=== PATIENT | female | born 1965 | race African-American/Black ===

== ENCOUNTER 2016-06-15 18:18 | Outpatient (CLI) | payer MEDICARE, BC ==
[~2016-06-15 18:18] MED LIST: AFRIN15 ML NASAL; ALLEGRA-D1 TAB.SR1 PO; ASPIRIN81 MG; ASPIRIN81 MG PO; ATROVENT 0.02%2.5 ML UPD; BAYER CHEWABLE81 MG PO; CARAFATE1 G PO; CHILDREN'S ASPI81 MG PO; COREG25 MG PO; Chloraseptic Spray [BKC] TOPICAL; DIFLUCAN100 MG PO; DUONEB 2.5-0.5 M3 ML UPD; ESTRACE 0.5 MG0.5 MG PO; FLAGYL500 MG PO; GUAIFENESI100 MG/5 M PO; HYDROCODONE-APA1 TAB PO; IPRAT-ALBUT 0.5-3 ML UPD; KEFLEX500 MG PO; LEVAQUIN250 MG PO; LEVAQUIN500 MG PO; LOPRESSOR25 MG PO; MEDROL DOSE PACK4 MG; MOTRIN800 MG PO; NEPHRO-VITE RX1 TAB PO; NORVASC10 MG PO; NYSTATIN ORAL SU5 ML PO; PERCOCET 10/3251 TA1 PO; PLAVIX75 MG PO; PREDNISONE20 MG PO; PROTONIX40 MG PO; RENAGEL800 MG PO; RENVELA800 MG PO; SARNA SENSITIV222 ML TOPICAL; SEROPHENE50 MG PO; TUMS500 MG PO; VENTOLIN HFA18 GM INH; ZOCOR20 MG PO; ZOLOFT25 MG PO; ZPAK PO
[2016-06-16 00:33] VITALS: Ht 175.3 cm
[2016-06-16 00:38] VITALS: BP 87/48
--- NOTE | 2016-06-16 00:46 | NUR ---
SLEEEPING, BLOOD IS GOING AT 100 ML. CALL LIGHT IN REACH, BED IS LOW, SRX2
--- NOTE | 2016-06-16 03:53 | NUR ---
DATA COMPILER AT BEDSIDE TO OBTAIN VITALS, CALL LIGHT IN REACH. WILL CONTINUE WITH PLAN OF CARE.
[2016-06-16 04:40] VITALS: BP 183/103
--- NOTE | 2016-06-16 05:05 | NUR ---
BLOOD INFUSING @ 100, PT SLEEPING, CALL LIGHT IN REACH
--- NOTE | 2016-06-16 07:45 | NUR ---
SPOKE WITH TATIANNA @ [facility] VIA PHONE WHO ADVISED PATIENT CAN COME OVER TO [facility] NOW FOR DIALYSIS. ADVISED PT OF THIS WHO STATED SHE WILL CALL SOMEONE TO PICK HER UP AND TAKE HER
--- NOTE | 2016-06-16 07:45 | NUR ---
PATIENT BLOOD COMPLETE, PATIENT IV DC WITH CATH TIP INTACT. PATIENT WAITING ON DC PAPERS. CPOC
[2016-06-16 07:50] VITALS: BP 159/97
== END 2016-06-16 08:00 | disposition home or self-care (01) ==
LOC: D.OPS 18:18 → D.M2 18:19 → D.OPS 06-16 08:00
DX: D64.9 Anemia, unspecified (principal)

== ENCOUNTER 2016-06-19 21:39 | Inpatient (IN) | payer MEDICARE, BC ==
[~2016-06-19] VITALS: Ht 175.3 cm; Wt 59.8 kg
[2016-06-19 22:25] LABS: BASOPHILS 0.1 % (0.0-2.0); EOSINOPHILS 1.4 % (0-7); HEMATOCRIT 31.7 % (36.0-48.0); HEMOGLOBIN 9.6 g/dL (12-16); IMMATURE GRANULOCYTES 0.4 % (0-5); MCH 26.2 pg (26.0-34.0); MCHC 30.3 g/dL (31.0-37.0); MCV 86.4 fL (80.0-100.0); MEAN PLATELET VOLUME 9.5 fL (7.4-10.4); NEUTROPHILS 83.1 % (40-80); PLATELET COUNT 358 10x3/uL (130-400); RBC 3.67 10x6/uL (4.00-5.40); RDW 18.5 % (11.5-14.5); WBC 16.8 10x3/uL (4.8-10.8)
[2016-06-19 22:37] LABS: ALBUMIN 2.4 g/dL (3.4-5.0); ALKALINE PHOSPHATASE 416 U/L (46-116); ALT (SGPT) 13 U/L (10-68); CALC OSMOLALITY 285 mosm/kg (275-300); CALCIUM 8.1 mg/dL (8.5-10.1); CARBON DIOXIDE 24.3 mmol/L (21.0-32.0); CHLORIDE - SERUM 98 mmol/L (98-107); CREATININE - SERUM 5.1 mg/dL (0.6-1.3); POTASSIUM - SERUM 4.7 mmol/L (3.5-5.1); PROTEIN - SERUM 8.3 g/dL (6.4-8.2); SODIUM 136 mmol/L (136-145); UREA NITROGEN 47 mg/dL (7-18); eGFR NON AFRICAN AMERICAN 9 mL/min (90-120)
[2016-06-19 22:38] LABS: GLUCOSE 133 mg/dL (74-106)
[2016-06-19 22:52] LABS: CHOL - HDL RATIO 3.3 ratio (2.3-4.1); CHOLESTEROL, TOTAL 111 mg/dL (0-200); CKMB 1.2 U/L (0.0-3.6); CREATINE KINASE 70 UL (21-215); HDL CHOLESTEROL 34 mg/dL (32-96); LDL CHOLESTEROL 59 mg/dL (0-100); LDL-HDL RATIO 1.7 ratio (1.5-3.5); TRIGLYCERIDE 94 mg/dL (30-200)
[2016-06-19 22:53] LABS: TROPONIN-I 0.069 ng/mL (0.000-0.060)
--- NOTE | 2016-06-20 02:22 | NUR ---
REPORT RECEIVED FROM YESICA HADDAD.
[2016-06-20] MEDS ORDERED: TYLENOL W/CODEI1 TAB PO (03:01)
--- NOTE | 2016-06-20 07:30 | NUR ---
ASSESSMENT COMPLETED.TELEMERTY SHOWS SR WITH BBB. 02 AT 2 L/M PER NC. LEFT FOREARM SL. AVF TO RIGHT UPPER ARM. NO NEEDS VOICED AT PRESENT TIME. WILL MONITOR
[2016-06-20 08:00] VITALS: BP 154/103
--- NOTE | 2016-06-20 08:58 | NUR ---
C/O PAIN AT A 10. NORCO 5MG GIVEN FOR C/O BACK PAIN. WILL MONITOR
[2016-06-20 11:07] VITALS: Ht 175.3 cm; Wt 59.8 kg
[2016-06-20 12:00] VITALS: BP 145/93
--- NOTE | 2016-06-20 13:29 | NUR ---
RESTING QUIETLY. MONITOR SHOWS RATE @ 100 SR WITH BBB. WILL CONTINUE TO MONITOR.
--- NOTE | 2016-06-20 18:13 | NUR ---
STILL IN DIALYIS.
--- NOTE | 2016-06-20 20:18 | NUR ---
RETURNED TO ROOM FROM DIALYSIS VIA WHEELCHAIR, AAOX3, SKIN WARM AND DRY, RESP UNLABORED, IV PATENT TO LEFT FOREARM, O2@2LNC, NO DISTRESS NOTED
[2016-06-21] VITALS: BP 114/79
[2016-06-21 04:00] VITALS: BP 115/79
--- NOTE | 2016-06-21 04:52 | NUR ---
PT LAYING IN BED NO DISTRESS OBSERVED CALL LIGHT IN REACH SRX2 BED LOW AND LOCKED WILL MONITOR
--- NOTE | 2016-06-21 04:59 | NUR ---
RESTING QUIETLY IN BED, NO DISTRESS NOTED
[2016-06-21 05:57] LABS: BASOPHILS 0.1 % (0.0-2.0); EOSINOPHILS 0 % (0-7); HEMATOCRIT 30.5 % (36.0-48.0); HEMOGLOBIN 9.5 g/dL (12-16); IMMATURE GRANULOCYTES 0.3 % (0-5); LYMPHOCYTES 9.9 % (15-50); MCH 26.8 pg (26.0-34.0); MCHC 31.1 g/dL (31.0-37.0); MCV 85.9 fL (80.0-100.0); MEAN PLATELET VOLUME 10.5 fL (7.4-10.4); MONOCYTES 7.7 % (2-11); PLATELET COUNT 380 10x3/uL (130-400); RBC 3.55 10x6/uL (4.00-5.40); RDW 18.5 % (11.5-14.5); WBC 14.1 10x3/uL (4.8-10.8)
[2016-06-21 06:51] LABS: ALBUMIN 2.7 g/dL (3.4-5.0); ALKALINE PHOSPHATASE 409 U/L (46-116); ALT (SGPT) 14 U/L (10-68); BILIRUBIN - TOTAL 0.62 mg/dL (0.2-1.3); CALC OSMOLALITY 289 mosm/kg (275-300); CALCIUM 8.9 mg/dL (8.5-10.1); CARBON DIOXIDE 29.2 mmol/L (21.0-32.0); CHLORIDE - SERUM 96 mmol/L (98-107); CKMB 1.3 U/L (0.0-3.6); CREATINE KINASE 83 UL (21-215); CREATININE - SERUM 4.5 mg/dL (0.6-1.3); GLUCOSE 119 mg/dL (74-106); POTASSIUM - SERUM 4.6 mmol/L (3.5-5.1); PROTEIN - SERUM 8.2 g/dL (6.4-8.2); SODIUM 139 mmol/L (136-145); UREA NITROGEN 42 mg/dL (7-18); eGFR NON AFRICAN AMERICAN 11 mL/min (90-120)
[2016-06-21 06:53] LABS: TROPONIN-I 0.178 ng/mL (0.000-0.060)
--- NOTE | 2016-06-21 07:22 | NUR ---
ASSESSMENT COMPLETED. TELEMERTY SHOWS SR WITH BBB WITH A RATE OF98. LEFT FA SL, PATENT. RIGHT ARM RESERVED, HAS A RIGHT AVF..02 AT 2 L/M PER NC. HAS A NON PRODUCTIVE COUGH. SR UP WITH CALL LIGHT IN REACH. UP AB EVAN
[2016-06-21 07:27] VITALS: BP 141/94
[2016-06-21 11:36] VITALS: BP 133/88
--- NOTE | 2016-06-21 14:53 | NUR ---
LYING QUIETLY WITH EYES CLOSED. NO DISTRESS NOTED. TELEMERTY SHOWS SR
[2016-06-21 15:44] VITALS: BP 127/84
--- NOTE | 2016-06-21 15:50 | NUR ---
RESTING QUIETLY. WITHOUT DISTRESS. WILL CONTINUE TO MONITOR
--- NOTE | 2016-06-21 18:42 | NUR ---
LYING QUIETLY. DENIES ANY NEEDS. WILL MONITOR
--- NOTE | 2016-06-21 19:03 | NUR ---
AMBULATING IN HALLWAYS, AAOX3, SKIN WARM AND DRY, RESP UNLABORED, IV PATENT TO LEFT FOREARM, O2@2LNC, NO DISTRESS NOTED
[2016-06-21 19:46] VITALS: BP 141/94
--- NOTE | 2016-06-22 00:39 | NUR ---
PT AMBULATORY IN HALLS WITH NO DISTRESS OBSERVED NO ASSISTANCE NEEDED FOR AMBULATION CALL LIGHT IN REACH SRX2 BED LOW AND LOCKED WILL MONITOR
[2016-06-22 01:10] VITALS: BP 144/74
[2016-06-22 04:00] VITALS: BP 140/94
[2016-06-22 06:39] LABS: BASOPHILS 0.1 % (0.0-2.0); EOSINOPHILS 0 % (0-7); HEMATOCRIT 31.5 % (36.0-48.0); HEMOGLOBIN 9.8 g/dL (12-16); IMMATURE GRANULOCYTES 0.7 % (0-5); LYMPHOCYTES 7.9 % (15-50); MCH 26.5 pg (26.0-34.0); MCHC 31.1 g/dL (31.0-37.0); MCV 85.1 fL (80.0-100.0); MEAN PLATELET VOLUME 10.2 fL (7.4-10.4); MONOCYTES 8.3 % (2-11); PLATELET COUNT 358 10x3/uL (130-400); RDW 18.4 % (11.5-14.5); WBC 14.5 10x3/uL (4.8-10.8)
[2016-06-22 06:51] LABS: ANION GAP 17.2 mmol/L (8-16); CALCIUM 8.5 mg/dL (8.5-10.1); POTASSIUM - SERUM 4.2 mmol/L (3.5-5.1)
[2016-06-22 06:54] LABS: CREATININE - SERUM 5.9 mg/dL (0.6-1.3)
[2016-06-22 07:37] VITALS: BP 156/107
--- NOTE | 2016-06-22 08:00 | NUR ---
ASSESSMENT DONE. DENIES NEEDS.
--- NOTE | 2016-06-22 09:24 | NUR ---
UP TO BR. GONZALEZ NEEDS. WILL MONITOR.
--- NOTE | 2016-06-22 10:09 | NUR ---
Patient Name: FELY SQUIRES Admission Status: ER Accout number: [id number] Admission Date: 06-20-2016 : 1965 Admission Diagnosis: Attending: NOAM Current LOS: 2 Anticipated DC Date: Planned Disposition: Primary Insurance: MEDICARE A & B Discharge Planning Comments: CM ATTEMPTED TO MEET WITH PT FOR INITIAL ASSESSMENT OF DISCHARGE NEEDS. PT WAS IN THE BATHROOM AT APPROXIMATELY 0916 HOURS. CM TO ATTEMPT ASSESSMENT OF PT AT A LATER TIME. Manufacturing Engineer Machining: Costa Cordova
--- NOTE | 2016-06-22 15:10 | NUR ---
PT C/O NOSE BLEED. PRESSURE HELD X 20 MIN. CLOTS NOTED.
[2016-06-22 15:35] VITALS: BP 124/80
--- NOTE | 2016-06-22 15:50 | NUR ---
DIOGENES.PRASANNA NOTIFYED. TOLD TO PACK NOSE IF CONT TO BLEED.
--- NOTE | 2016-06-22 16:10 | NUR ---
PT BLOWED CLOTS OUT OF NOSE. PRESSURE HELD X 20 MIN.
--- NOTE | 2016-06-22 16:50 | NUR ---
DR LYNN HERE. AND TALKED TO DR LIN. TOLD HOW TO TX NOSE BLEED.
--- NOTE | 2016-06-22 18:00 | NUR ---
BUPERNEX GIVEN PER DR LYNN ORDER
--- NOTE | 2016-06-22 18:40 | NUR ---
NOSE BLEEDING AGAIN. TX AGAIN.
[2016-06-22 21:18] VITALS: BP 140/97
--- NOTE | 2016-06-22 23:37 | NUR ---
PT NOSE BLEEDING AT THIS TIME FLUSHED WITH AFRIN AND LINNETTE العلي FROM ER CAME TO FLOOR AND PLACED RHINO ROCKET TO BILATERAL NARES TO APPLY PRESSURE AND STOP BLOOD FLOW PT TOLERATED WELL WILL MONITOR CALL LIGHT IN REACH SRX2 BED LOW AND LOCKED WILL MONITOR
[2016-06-23 01:32] VITALS: BP 125/86
--- NOTE | 2016-06-23 03:11 | NUR ---
PT C/O NOSE BLEEDING ASSESSED NOSE AND THINO ROCKET IN PLACE ICE BAG PROVIDED TO ASSIST IN DECREASING BLEEDING AND WENT AND SPOKE WITH DR CHEN IN ER TO CHANGE OUT RHINO ROCKETS AND DR CHEN STATED ' NO I AM NOT GOING TO DO THAT YOU NEED TO CALL DR LIN TO COME IN AND FIX IT" REVIEWED CHART AND DR LIN NOT CONSULTED RENAL YESIKA LONG AND DORIS FOR CALL BACK TO RECIVE ORDERS
[2016-06-23 04:57] VITALS: BP 131/103
[2016-06-23 06:07] LABS: BASOPHILS 0.1 % (0.0-2.0); EOSINOPHILS 1.7 % (0-7); HEMATOCRIT 30.4 % (36.0-48.0); HEMOGLOBIN 9.3 g/dL (12-16); IMMATURE GRANULOCYTES 0.6 % (0-5); LYMPHOCYTES 13.6 % (15-50); MCH 26.3 pg (26.0-34.0); MCHC 30.6 g/dL (31.0-37.0); MCV 86.1 fL (80.0-100.0); MEAN PLATELET VOLUME 9.7 fL (7.4-10.4); MONOCYTES 7.6 % (2-11); NEUTROPHILS 76.4 % (40-80); PLATELET COUNT 334 10x3/uL (130-400); RBC 3.53 10x6/uL (4.00-5.40); RDW 18.5 % (11.5-14.5); WBC 13.5 10x3/uL (4.8-10.8)
--- NOTE | 2016-06-23 06:17 | NUR ---
PT SITTING UP ON BEDSIDE WITH HEAD ON BEDSIDE TABLE AND PT APPERS TO BE SLEEPING AT THIS TIME WILL MONITOR NO CALL BACK FROM RENALS LAST NIGHT REGARDING NOSE BLEED
[2016-06-23 06:20] LABS: ANION GAP 14.6 mmol/L (8-16); CALCIUM 8.9 mg/dL (8.5-10.1); CARBON DIOXIDE 30.2 mmol/L (21.0-32.0); CREATININE - SERUM 4.7 mg/dL (0.6-1.3); POTASSIUM - SERUM 4.8 mmol/L (3.5-5.1)
--- NOTE | 2016-06-23 07:15 | NUR ---
PT UP IN THE BARON SCREAMING AT NURSES ABOUT NOSE BLEED. SAYS HER "PLUGS FELL OUT". DR WYNN HERE AND CONSULTING DR LIN. PT WAS NOTIFIED BY MYSELF AND DR WYNN.
[2016-06-23 12:25] VITALS: BP 139/92
--- NOTE | 2016-06-23 14:23 | NUR ---
ER CAME AND GOT ENT CART AND TOOK IT BACK TO ER.
--- NOTE | 2016-06-23 15:52 | NUR ---
PT NOSE WAS BLEEDING THIS AM, BUT HAS SINCE STOPPED. DR LIN CAME TO SEE PT EARLIER AND RECOMMENDED NO O2 LONG SHE COULD TOLERATE IT. KEEP VASELINE IN HER NOSE. PT IS DOING THIS. PT HAS NO CURRENT NEEDS AT THIS TIME WILL CONTINUE TO MONITOR.
[2016-06-23 16:28] VITALS: BP 122/89
--- NOTE | 2016-06-23 17:56 | NUR ---
Patient Name: FELY SQUIRES Admission Status: ER Accout number: [id number] Admission Date: 06-20-2016 : 1965 Admission Diagnosis:HEART FAILURE, UNSPECIFIED Attending: NOAM Current LOS: 3 Anticipated DC Date: 06-24-2016 Planned Disposition: Home Primary Insurance: MEDICARE A & B Discharge Planning Comments: * Is the patient Alert and Oriented? Yes 0 * How many steps to enter\exit or inside your home? 3 0 * PCP DR. WYNN 0 * Pharmacy [facility] * Preadmission Environment Home Alone 0 * ADLs Independent 0 * Equipment Nebulizer 0 * Other Equipment NO MEDICAL EQUIPMENT PROVIDER PREFERENCE 0 * List name and contact numbers for known caregivers / representatives who currently or will assist patient after discharge: IVANA MCDOWELL, SISTER, 0 * Community resources currently utilized None 0 * Please name any agencies selected above. NONE 0 * Additional services required to return to the preadmission environment? No 0 * Can the patient safely return to the preadmission environment? Yes 0 * Has this patient been hospitalized within the prior 30 days at any hospital? Yes 0 CM MET WITH PT IN ROOM TO DISCUSS DISCHARGE PLANNING AND NEEDS. PT REPORTS LIVING AT HOME INDEPENDENTLY AND ALONE. PT HAS A NEBULIZER AND NEEDS NO OTHER MEDICAL EQUIPMENT. PT HAS NO OUTSIDE SERVICES ASSISTING IN THE HOME. CM DISCUSSED AVAILABILITY OF HOME HEALTH, REHAB SERVICES AND MEDICAL EQUIPMENT. PT DENIES DISCHARGE NEEDS, REPORTS HER FRIEND WILL PICK HER UP FOR DISCHARGE HOME. IMPORTANT MESSAGE FROM MEDICARE PROVIDED AND EXPLAINED. Asphalt Dauber: Costa Cordova
--- NOTE | 2016-06-23 20:45 | NUR ---
SITTING UP IN BED, TALKING ON PHONE, DENIES NEEDS.
[2016-06-24] VITALS: BP 138/97
--- NOTE | 2016-06-24 03:26 | NUR ---
RESTING WITH EYES CLOSED, RESPERATIONS EVEN, NO S/S DISTRESS NOTED.
[2016-06-24 04:00] VITALS: BP 155/103
--- NOTE | 2016-06-24 05:01 | NUR ---
CALL LIGHT IN REACH, WILL CONTINUE WITH PLAN OF CARE.
[2016-06-24 05:49] LABS: BASOPHILS 0.2 % (0.0-2.0); EOSINOPHILS 3.4 % (0-7); HEMATOCRIT 27.4 % (36.0-48.0); HEMOGLOBIN 8.6 g/dL (12-16); IMMATURE GRANULOCYTES 0.9 % (0-5); LYMPHOCYTES 13.6 % (15-50); MCH 26.6 pg (26.0-34.0); MCHC 31.4 g/dL (31.0-37.0); MCV 84.8 fL (80.0-100.0); MEAN PLATELET VOLUME 10.2 fL (7.4-10.4); NEUTROPHILS 73.9 % (40-80); PLATELET COUNT 308 10x3/uL (130-400); RBC 3.23 10x6/uL (4.00-5.40); RDW 18.4 % (11.5-14.5); WBC 14.6 10x3/uL (4.8-10.8)
[2016-06-24 06:04] LABS: ANION GAP 17.7 mmol/L (8-16); CALCIUM 9.1 mg/dL (8.5-10.1); CARBON DIOXIDE 26.2 mmol/L (21.0-32.0); CREATININE - SERUM 6.2 mg/dL (0.6-1.3); POTASSIUM - SERUM 4.9 mmol/L (3.5-5.1)
--- NOTE | 2016-06-24 07:15 | NUR ---
PT SITTING UP IN BED DENIES NEEDS WILL CONTINUE TO MONITOR.
[2016-06-24 08:00] VITALS: BP 160/82
--- NOTE | 2016-06-24 09:35 | NUR ---
SPOKE WITH BALBINA/PRASANNA WITH RENAL VIA PHONE TO ADVISE THAT PATIENT IS REFUSING TO DO DIALYSIS TODAY AT [facility] STATING HER DIALYSIS DAYS ARE T-T-S. PER BALBINA, OK TO DC TO HOME.
--- NOTE | 2016-06-24 09:52 | NUR ---
WENT OVER DC PAPER WORK WITH PT PT VERBALIZES UNDERSTANDING DC PIV WITH CATHETER TIP INTACT DC TELE. PT WAITING ON RIDE
== END 2016-06-24 11:27 | disposition home or self-care (01) | DRG 291 ==
LOC: D.ER 21:39 → D.M2 06-20 01:55
PROVIDERS: Emergency Medicine; Internal Medicine Nephrology; ADMIT Internal Medicine Nephrology
DX: I13.2 Hypertensive heart and chronic kidney disease with heart failure and with stage 5 chronic kidney disease, or end stage renal disease (principal); N18.6 End stage renal disease; J18.9 Pneumonia, unspecified organism; I50.9 Heart failure, unspecified; D63.1 Anemia in chronic kidney disease

== ENCOUNTER 2016-06-25 02:13 | Emergency (ER) | payer MEDICARE, BC ==
[2016-06-20 11:07] VITALS: BMI 21.4
[~2016-06-25 02:13] MED LIST changes: +TYLENOL W/CODEI1 TAB PO
== END 2016-06-25 03:18 | disposition home or self-care (01) ==
LOC: D.ER 02:13
DX: R06.00 Dyspnea, unspecified (principal); I42.9 Cardiomyopathy, unspecified; N18.9 Chronic kidney disease, unspecified; Z99.2 Dependence on renal dialysis; Z95.1 Presence of aortocoronary bypass graft; I45.10 Unspecified right bundle-branch block; I44.60 Unspecified fascicular block

== ENCOUNTER 2016-07-03 17:46 | Emergency (ER) | payer MEDICARE, BC ==
[2016-06-20 11:07] VITALS: BMI 21.4
[2016-07-03 18:46] LABS: BASOPHILS 0.3 % (0.0-2.0); EOSINOPHILS 1.4 % (0-7); HEMATOCRIT 29.9 % (36.0-48.0); IMMATURE GRANULOCYTES 0.4 % (0-5); LYMPHOCYTES 9.1 % (15-50); MCH 26.8 pg (26.0-34.0); MCHC 30.1 g/dL (31.0-37.0); MEAN PLATELET VOLUME 9.7 fL (7.4-10.4); NEUTROPHILS 81.8 % (40-80); PLATELET COUNT 312 10x3/uL (130-400); RBC 3.36 10x6/uL (4.00-5.40); RDW 20.6 % (11.5-14.5); WBC 14.6 10x3/uL (4.8-10.8)
[2016-07-03 19:20] LABS: ALBUMIN 2.6 g/dL (3.4-5.0); ALKALINE PHOSPHATASE 421 U/L (46-116); ALT (SGPT) 19 U/L (10-68); BILIRUBIN - TOTAL 0.61 mg/dL (0.2-1.3); CALC OSMOLALITY 285 mosm/kg (275-300); CALCIUM 7.5 mg/dL (8.5-10.1); CARBON DIOXIDE 23.8 mmol/L (21.0-32.0); CHLORIDE - SERUM 99 mmol/L (98-107); CREATININE - SERUM 5.2 mg/dL (0.6-1.3); GLUCOSE 99 mg/dL (74-106); POTASSIUM - SERUM 4.4 mmol/L (3.5-5.1); PROTEIN - SERUM 7.7 g/dL (6.4-8.2); SODIUM 138 mmol/L (136-145); UREA NITROGEN 41 mg/dL (7-18); eGFR NON AFRICAN AMERICAN 9 mL/min (90-120)
[2016-07-03 19:30] LABS: CHOLESTEROL, TOTAL 127 mg/dL (0-200); CKMB 1.6 U/L (0.0-3.6); CREATINE KINASE 82 UL (21-215); HDL CHOLESTEROL 32 mg/dL (32-96); LDL CHOLESTEROL 80 mg/dL (0-100); LDL-HDL RATIO 2.5 ratio (1.5-3.5); TRIGLYCERIDE 76 mg/dL (30-200); TROPONIN-I 0.044 ng/mL (0.000-0.060)
== END 2016-07-03 22:20 | disposition home or self-care (01) ==
LOC: D.ER 17:46
PROVIDERS: Emergency Medicine
DX: N18.6 End stage renal disease (principal); J44.9 Chronic obstructive pulmonary disease, unspecified; I42.9 Cardiomyopathy, unspecified; Z99.2 Dependence on renal dialysis; I45.10 Unspecified right bundle-branch block

== ENCOUNTER 2016-07-18 19:23 | Inpatient (IN) | payer MEDICARE, BC ==
[~2016-07-18] VITALS: Ht 175.3 cm; Wt 64.1 kg
[2016-07-18 20:22] LABS: BASOPHILS 0.2 % (0.0-2.0); EOSINOPHILS 1.3 % (0-7); HEMATOCRIT 32.4 % (36.0-48.0); HEMOGLOBIN 9.3 g/dL (12-16); IMMATURE GRANULOCYTES 0.3 % (0-5); LYMPHOCYTES 10.4 % (15-50); MCHC 28.7 g/dL (31.0-37.0); MCV 94.2 fL (80.0-100.0); MEAN PLATELET VOLUME 9.9 fL (7.4-10.4); NEUTROPHILS 78.8 % (40-80); PLATELET COUNT 178 10x3/uL (130-400); RBC 3.44 10x6/uL (4.00-5.40); WBC 8.8 10x3/uL (4.8-10.8)
[2016-07-18 20:52] LABS: ALKALINE PHOSPHATASE 404 U/L (46-116); ALT (SGPT) 14 U/L (10-68); CALC OSMOLALITY 283 mosm/kg (275-300); CALCIUM 8.4 mg/dL (8.5-10.1); CARBON DIOXIDE 25.3 mmol/L (21.0-32.0); CHLORIDE - SERUM 97 mmol/L (98-107); CREATININE - SERUM 6.4 mg/dL (0.6-1.3); GLUCOSE 86 mg/dL (74-106); POTASSIUM - SERUM 4.2 mmol/L (3.5-5.1); PROTEIN - SERUM 8.8 g/dL (6.4-8.2); SODIUM 136 mmol/L (136-145); UREA NITROGEN 48 mg/dL (7-18); eGFR NON AFRICAN AMERICAN 7 mL/min (90-120)
[2016-07-18 21:03] LABS: CHOL - HDL RATIO 3.7 ratio (2.3-4.1); CHOLESTEROL, TOTAL 145 mg/dL (0-200); CKMB 2.1 U/L (0.0-3.6); CREATINE KINASE 129 UL (21-215); HDL CHOLESTEROL 39 mg/dL (32-96); LDL CHOLESTEROL 91 mg/dL (0-100); LDL-HDL RATIO 2.3 ratio (1.5-3.5); TRIGLYCERIDE 76 mg/dL (30-200); TROPONIN-I 0.047 ng/mL (0.000-0.060)
--- NOTE | 2016-07-19 00:54 | NUR ---
RECEIVED TO ROOM 2127 VIA W/C ALERT AND ORIENTED X3 51 Y/O FEMALE UNDER DR WYNN'S CARE FOR CHRONIC RENAL FAILURE AND EXCERBATION OF CHF. NOT WEAR ING ANY O2 @ THIS TIME, RESP UNLAB, DEMANDING SOMETHING TO EAT AND DRINK. TELEMETRY PLACED SHOWING HR SR WITH A BBB. HT IS 5'9" STANDING WEIGHT IS 139 POUNDS. RT ARM FISTULA WITH + BRUIT AND THRILL NOTED. LEFT ARM SL INTACT WITH NO R/S NOTED AT SITE.C/O HAVING HAD RT KNEE PAIN AND SWELLING UPON WAKING MONDAY AM. WELL HEALED CHEST MIDLINE SCAR NOTED. HOB UP SR UP X2, C/L IN REACH. PREFERS O2 MASK OVER NC WHEN WEARING O2. CONTINUE TO MONITOR.
[2016-07-19 03:29] VITALS: BMI 20.5
[2016-07-19 04:19] VITALS: BP 120/79
--- NOTE | 2016-07-19 07:47 | NUR ---
PATIENT LAYING ON RIGHT SIDE ON ROOM AIR WHEN ROUNDS ARE MADE. ON HEART MONITOR SHOWING SR W BBB, HR 88. SALINE LOCK SEEN TO LEFT FA. RT AVF, WILL CHECK BRUIT AND THRILL WHEN PATIENT AWAKE. WILL MONITOR .
[2016-07-19 08:06] VITALS: BP 158/86
--- NOTE | 2016-07-19 09:01 | NUR ---
PATIENT COMPLAINTS OF RIGHT LEG AND ABDOMINAL PAIN, 01/19. BILATERAL LEGS ARE EQUAL IN SIZE. INSTRUCTED PATIENT TO PUT LEGS UP TO HELP WITH DISCOMFORT, STATES THAT SHE WILL IN A BIT. + BRUIT AND THRILL TO LEFT FA. STATES THAT SHE WILL PUT HER OXYGEN ON LATER. WILL CONTINUE TO MONITOR.
[2016-07-19 10:44] VITALS: Ht 175.3 cm; Wt 64.1 kg
--- NOTE | 2016-07-19 11:39 | NUR ---
Patient Name: FELY SQUIRES Admission Status: ER Accout number: [id number] Admission Date: 07-18-2016 : 1965 Admission Diagnosis: Attending: ZULEYKA Current LOS: 1 Anticipated DC Date: Planned Disposition: Home with Home Health Primary Insurance: MEDICARE A & B Discharge Planning Comments: * Is the patient Alert and Oriented? Yes 0 * How many steps to enter\exit or inside your home? 3 0 * PCP DR. WYNN 0 * Pharmacy [facility] 0 * Preadmission Environment Home Alone 0 * ADLs Independent 0 * Equipment Nebulizer 0 * Other Equipment NO MEDICAL EQUIPMENT PROVIDER PREFERENCE 0 * List name and contact numbers for known caregivers / representatives who currently or will assist patient after discharge: IVANA MCDOWELL, SISTER, 0 * Community resources currently utilized Other 0 * Please name any agencies selected above. OUTPATIENT DIALYSIS, [facility] , 0645 AM, PT DRIVES SELF 0 * Additional services required to return to the preadmission environment? No 0 * Can the patient safely return to the preadmission environment? Yes 0 * Has this patient been hospitalized within the prior 30 days at any hospital? Yes 0 CM MET WITH PT IN ROOM TO DISCUSS DISCHARGE PLANNING AND NEEDS. PT REPORTS LIVING AT HOME INDEPENDENTLY AND ALONE. PT HAS A NEBULIZER AND NO MEDICAL EQUIPMENT PROVIDER PREFERENCE. PT HAS NO OUTSIDE SERVICES ASSISTING IN THE HOME. PT GOES TO OUTPATIENT DIALYSIS ON SCHEDULE AT 0640 AM, PT DRIVES SELF TO AND FROM DIALYSIS. CHOICE SIGNED FOR [facility] AT HOME. CM DISCUSSED AVAILABILITY OF HOME HEALTH, REHAB SERVICES AND MEDICAL EQUIPMENT. PT WOULD LIKE HOME HEALTH AT DISCHARGE TO FOLLOW FOR CHF SYMPTOMS, REPORTS HER BOYFRIEND WILL PICK HER UP FOR DISCHARGE HOME. PT PLANS TO DISCHARGE HOME ALONE, WOULD LIKE HOME HEALTH FOLLOW UP FOR CHF SYMPTOMS. CM TO ARRANGE HOME HEALTH WITH [facility] AT HOME IF DOCTOR AGREES WITH THE NEED OF HOME HEALTH AND PROVIDES ORDERS. Marble Installer: Costa Cordova
[2016-07-19 12:01] VITALS: BP 154/81
--- NOTE | 2016-07-19 13:18 | NUR ---
PATIENT IS UP AD EVAN, WILL NOT WEAR THE SCD'S.
[2016-07-19] MEDS ORDERED: LIPITOR40 MG PO (14:00)
[2016-07-19] MEDS ORDERED: SENSIPAR30 MG PO (14:00)
[2016-07-19] MEDS ORDERED: AMBIEN5 MG PO (14:00)
[2016-07-19] MEDS ORDERED: OMEPRAZOLE20 M1 PO (14:01)
[2016-07-19] MEDS ORDERED: COUMADIN1 MG PO (14:02)
[2016-07-19] MEDS ORDERED: ZOLOFT25 MG PO (14:02)
[2016-07-19] MEDS ORDERED: MIDODRINE HCL10 MG PO (14:03)
--- NOTE | 2016-07-19 15:23 | NUR ---
PATIENT TO JUST FINISH DIALYSIS IN THE ROOM. WANTING TO TAKE A SHOWER AND WALK DOWN TO THE GIFT SHOP. I TOLD HER TO PLEASE WAIT A BIT SHE JUST FINISHED DIALYSIS. SHE REPORTS, "DIALYSIS MAKES ME STRONG". AGAIN, I ASKED THAT SHE PLEASE WAIT AND WE WILL TAKE HER DOWNSTAIRS TO GIFT SHOP IN A WHEELCHAIR AFTER VITAL SIGNS.
--- NOTE | 2016-07-19 15:45 | NUR ---
I TOOK THE PATIENT DOWN TO THE GIFT SHOP VIA WHEELCHAIR SO SHE CAN SHOP. ASSISTED BACK TO ROOM
[2016-07-19 16:14] VITALS: BP 123/84
--- NOTE | 2016-07-19 17:26 | NUR ---
PATIENT IS WANTING TO GET INTO SHOWER. IV SITE AND FISTULA ARE WRAPPED. WILL CONTINUE TO MONITOR.
[2016-07-19 20:09] VITALS: BP 107/64
--- NOTE | 2016-07-19 20:44 | NUR ---
HS MEDS GIVEN, NORCO 1 TAB GIVEN FOR C/O PAIN TO KNEE. NO OTHER NEEDS EXPRESSED AT THIS TIME, BED LOW, CL IN REACH.
--- NOTE | 2016-07-19 21:25 | NUR ---
RT AT BED SIDE, CHANGING SOFT MASK TO NASAL CANULA FOR PT COMFORT, WILL CONT TO MONITOR.
[2016-07-20 01:22] VITALS: BP 99/64
--- NOTE | 2016-07-20 03:02 | NUR ---
RESTING WITH EYES CLOSED, RESPERATIONS EVEN, NO S/S DISTRESS NOTED.
[2016-07-20 06:14] LABS: BASOPHILS 0.4 % (0.0-2.0); EOSINOPHILS 2.9 % (0-7); HEMATOCRIT 29.4 % (36.0-48.0); HEMOGLOBIN 8.7 g/dL (12-16); IMMATURE GRANULOCYTES 0.6 % (0-5); LYMPHOCYTES 12.9 % (15-50); MCH 26.5 pg (26.0-34.0); MCHC 29.6 g/dL (31.0-37.0); MCV 89.6 fL (80.0-100.0); MONOCYTES 13.6 % (2-11); NEUTROPHILS 69.6 % (40-80); PLATELET COUNT 277 10x3/uL (130-400); RBC 3.28 10x6/uL (4.00-5.40); RDW 20.2 % (11.5-14.5); WBC 8.2 10x3/uL (4.8-10.8)
[2016-07-20 06:20] LABS: INR 1.22 (0.85-1.17); PROTIME 15.3 SECONDS (11.6-15.0)
[2016-07-20 06:27] VITALS: BP 138/87
[2016-07-20 06:32] LABS: ANION GAP 16.7 mmol/L (8-16); CALCIUM 9.1 mg/dL (8.5-10.1); CARBON DIOXIDE 26.7 mmol/L (21.0-32.0); CREATININE - SERUM 5.9 mg/dL (0.6-1.3); PHOSPHOROUS 5.5 mg/dL (2.5-4.9); POTASSIUM - SERUM 4.4 mmol/L (3.5-5.1)
--- NOTE | 2016-07-20 07:30 | NUR ---
ASSESSMENT DONE. PT SITTING UP ON SIDE OF BED. A/O X3. C/O GENERALIZED PAIN AND PAIN IN RIGHT LEG. PT WANTS NURSE TO TURN O2 UP TO 4LITERS. PT O2 SAT IS 96% ON 3L VIA NC. NURSE EXPLAINED RISK OF INCREASING O2 TO 4LITERS. CALL LIGHT WITH IN REACH. WILL CONT. TO MONITOR.
[2016-07-20 08:00] VITALS: BP 111/62
--- NOTE | 2016-07-20 08:25 | NUR ---
UP SOB EATING BRK. NO NEEDS VOICED. CALL LIGHT IN REACH. WILL MONITOR.
--- NOTE | 2016-07-20 09:44 | NUR ---
DIALYSIS NURSE IN ROOM WITH PT. PT RECEIVING DIALYSIS.
[2016-07-20 11:42] VITALS: BP 124/84
--- NOTE | 2016-07-20 14:00 | NUR ---
PT UP AND AMBULATING IN BARON. GAIT STEADY. WILL CONT. TO MONITOR.
[2016-07-20 16:00] VITALS: BP 114/72
[2016-07-20 20:02] VITALS: BP 124/78
--- NOTE | 2016-07-20 20:27 | NUR ---
HS MEDS GIVEN, NORCO 1 TAB GIVEN FOR C/O PAIN TO KNEE, SCDS PLACED ON LOWER EXTREMITES. NO OTHER NEEDS AT THIS TIME, BED LOW, CL IN REACH.
--- NOTE | 2016-07-21 01:04 | NUR ---
RESTING WITH EYES CLOSED, RESPERATIONS EVEN, NO S/S DISTRESS NOTED.
[2016-07-21 01:11] VITALS: BP 125/70
[2016-07-21 04:36] VITALS: BP 154/89
[2016-07-21 05:23] LABS: BASOPHILS 0.4 % (0.0-2.0); HEMATOCRIT 27.4 % (36.0-48.0); HEMOGLOBIN 8.1 g/dL (12-16); IMMATURE GRANULOCYTES 0.4 % (0-5); LYMPHOCYTES 15.1 % (15-50); MCH 26.7 pg (26.0-34.0); MCHC 29.6 g/dL (31.0-37.0); MCV 90.4 fL (80.0-100.0); MONOCYTES 13.6 % (2-11); NEUTROPHILS 67.5 % (40-80); PLATELET COUNT 240 10x3/uL (130-400); RBC 3.03 10x6/uL (4.00-5.40); RDW 19.9 % (11.5-14.5); WBC 8.2 10x3/uL (4.8-10.8)
[2016-07-21 05:32] LABS: ANION GAP 16.4 mmol/L (8-16); CALCIUM 8.3 mg/dL (8.5-10.1); CARBON DIOXIDE 26.1 mmol/L (21.0-32.0); CREATININE - SERUM 5.6 mg/dL (0.6-1.3); PHOSPHOROUS 4.8 mg/dL (2.5-4.9); POTASSIUM - SERUM 4.5 mmol/L (3.5-5.1)
--- NOTE | 2016-07-21 07:52 | NUR ---
ASSESSMENT DONE. PT SITTING ON SIDE OF BED. A/O. WEARING SCD'S. STATES SHE IS READY FOR HER PAIN PILL. PT IS NOT WEARING O2. STATES HER BREATHING IS BETTER. CALL LIGHT WITH IN REACH. WILL CONT. TO MONITOR.
[2016-07-21 08:00] VITALS: BP 155/86
--- NOTE | 2016-07-21 10:23 | NUR ---
UP SOB WITH CALL LIGHT IN REACH. WILL CONT. PLAN OF CARE.
--- NOTE | 2016-07-21 11:08 | NUR ---
PT SITTING UP ON SIDE OF BED. A/O. WATCHING TV. PT NPO AND AWAITING US OF ABDOMEN. NO DISTRESS NOTED. WEARING SCD'S. CALL LIGHT WITH IN REACH. WILL CONT. TO MONITOR.
[2016-07-21 12:00] VITALS: BP 123/69
--- NOTE | 2016-07-21 12:33 | NUR ---
PT UP AMBULATING IN BARON. A/O. NO DISTRESS NOTED. GAIT STEADY. WILL CONT. TO MONITOR.
--- NOTE | 2016-07-21 13:07 | NUR ---
Nutrition Follow Up: Chart reviewed. Pt is eating 100% of meals on a Renal diet. Wt stable. No BM since admit. Labs noted - BUN, Cr elevated; Na low. Meds noted including Coumadin. Pt with excellent po intake at this time. Rec continue current diet, supplement regimen. RD following.
--- NOTE | 2016-07-21 14:06 | NUR ---
PT SLEEPING. EYES CLOSED. RESP EVEN AND UNLABORED. APPEARS COMFORTABLE. CALL LIGHT WITH IN REACH. WILL CONT. TO MONITOR.
--- NOTE | 2016-07-21 14:30 | NUR ---
TEAMMATE ARRIVED TO ROOM TO DO DIALYSIS ON PT. SHE IS REFUSING TX TODAY. STATES THAT SHE HAD IT TUES AND YESTERDAY. LET HER KNOW THAT DR WYNN HAD WRITTEN FOR AN EXTRA TX YESTERDAY DUE TO EXTRA FLUID AND ACSITES. PT STATES THAT SHE STILL DOESN'T WANT TX AND THAT SHE HAS AN ULTRA SOUND SCHEDULE TODAY THAT WILL BE DONE SHORTLY.
--- NOTE | 2016-07-21 14:48 | NUR ---
PT REFUSED DIALYSIS. STATES " I HAD DIALYSIS FOR THE PAST TWO DAYS, AND I DON'T WANT TO DO IT TODAY." THE RISKS OF WAITING WERE EXPLAINED TO PT. SHE STATES " I KNOW THE RISKS AND WAITING ONE DAY WON'T HURT."
[2016-07-21 16:00] VITALS: BP 142/85
--- NOTE | 2016-07-21 16:19 | NUR ---
US DONE. PT SITTING UP SIDE OF BED EATING. DENIES NEEDS AT THIS TIME. CALL LIGHT WITH IN REACH. WILL CONT. TO MONITOR.
--- NOTE | 2016-07-21 19:45 | NUR ---
RESUMED CARE OF PT, OUT OF ROOM AT THIS TIME. 89 SR ON TELEMETRY. WILL CONTINUE TO MONITOR. SEE NURSE ASSESSMENT.
[2016-07-21 20:39] VITALS: BP 132/86
--- NOTE | 2016-07-22 00:44 | NUR ---
BUPRENEX 0.2MG IVP FOR PAIN TO ABDOMEN 8:10. WILL CONTINUE TO MONITOR.
[2016-07-22 00:47] VITALS: BP 137/87
[2016-07-22 04:56] VITALS: BP 142/76
[2016-07-22 05:41] LABS: BASOPHILS 0.2 % (0.0-2.0); EOSINOPHILS 2.7 % (0-7); HEMOGLOBIN 7.8 g/dL (12-16); IMMATURE GRANULOCYTES 0.6 % (0-5); LYMPHOCYTES 13.3 % (15-50); MCH 26.8 pg (26.0-34.0); MCV 89.3 fL (80.0-100.0); MEAN PLATELET VOLUME 9.9 fL (7.4-10.4); MONOCYTES 12.1 % (2-11); NEUTROPHILS 71.1 % (40-80); PLATELET COUNT 235 10x3/uL (130-400); RBC 2.91 10x6/uL (4.00-5.40); RDW 19.7 % (11.5-14.5); WBC 8.8 10x3/uL (4.8-10.8)
[2016-07-22 05:57] LABS: ANION GAP 19.5 mmol/L (8-16); CALCIUM 8.3 mg/dL (8.5-10.1); CARBON DIOXIDE 23.5 mmol/L (21.0-32.0); CREATININE - SERUM 6.8 mg/dL (0.6-1.3); PHOSPHOROUS 5.8 mg/dL (2.5-4.9)
--- NOTE | 2016-07-22 07:36 | NUR ---
ASSESSMENT DONE. PT SLEEPING. EASILY AWAKEN. DENIES SOB. NOT WEARING O2. LUNG SOUNDS CLEAR BILATERAL. PT NOT WEARING SCD'S AT THIS TIME. DENIES NEEDS AT THIS TIME. CALL LIGHT WITH IN REACH. WILL CONT. TO MONITOR.
[2016-07-22 08:26] VITALS: BP 121/61
--- NOTE | 2016-07-22 09:46 | NUR ---
UP SOB WITH CALL LIGHT IN REACH. RESP UL ON . LISA NEEDS AT THIS TIME. WILL MONITOR.
--- NOTE | 2016-07-22 10:09 | NUR ---
PT WANTS TO GO HOME, AND DEMANDS NURSE CALL DR AND TELL HIM THAT. NURSE EXPLAINED WE WERE WAITING ON THE ABDOMINAL US RESULTS THAT WAS DONE YESTERDAY. PT STATES " WELL CALL SOMEONE SHIT." NURSE ALSO EXPLAINED ABOUT PT NEEDING TO DO DIALYSIS TODAY. PT STATES " I CAN DO THAT AT THE REGULAR PLACE." ETHAN [place].
--- NOTE | 2016-07-22 10:59 | NUR ---
PT IN SHOWER. DR. LYNN HERE TO SEE PT.
[2016-07-22] MEDS ORDERED: ASPIRIN81 MG PO (11:27)
[2016-07-22] MEDS ORDERED: ZOCOR20 MG PO (11:28)
[2016-07-22] MEDS ORDERED: COREG 3.1253.125 MG PO (11:28)
--- NOTE | 2016-07-22 12:06 | NUR ---
PT'S IV AND TELEMETRY REMOVED. SHE WANTS TO WAIT TO SIGN D/C PAPERS UNTIL AFTER SHE IS FINISHED EATING LUNCH.
--- NOTE | 2016-07-22 12:21 | NUR ---
Patient Name: FELY SQUIRES Encounter No: [id number] : 1965 Primary Insurance: MEDICARE A & B Anticipated DC Date: 07-22-2016 Planned Disposition: Home DCP follow-up note: CM MET WITH PT IN ROOM TO DISCUSS DISCHARGE NEEDS AND PLANNING. CM DISCUSSED AVAILABILITY OF HOME HEALTH, REHAB SERVICES AND MEDICAL EQUIPMENT. PT WOULD STILL LIKE HOME HEALTH; CM SPOKE TO DR. LYNN, PT IS NO HAVING TAXING EFFORT TO LEAVE HOME AND HAS NO SKILLED NEED. CM EXPLAINED THIS TO PT WHO REPORTS SHE IS NO HOME CONFINED, NOR WILL SHE BE STAYING AT HOME, THAT THE DOCTOR KNOWS SHE CAN TAKE CARE OF HERSELF AND THANKED CM FOR TRYING. PT REPORTS HER BOYFRIEND TO TRANSPORT HOME AT DISCHARGE. IMPORTANT MESSAGE FROM MEDICARE PROVIDED AND EXPLAINED. CM PROVIDED PATIENT PATHWAYS DISCHARGE PLANNING BOOKLET, ACKNOWLEDGEMENT FORM PLACED IN CHART. Costa Cordova, CASE MANAGEMENT
--- NOTE | 2016-07-22 12:45 | NUR ---
D/C INSTRUCTIONS GIVEN TO PT. PT VERBALIZED UNDERSTANDING. CURRENTLY WAITING ON TRANSPORTATION. RX'S FOR COREG AND ZOCOR GIVEN TO PT.
--- NOTE | 2016-07-22 12:59 | NUR ---
PT D/C HOME VIA PRIVATE VEHICLE. PROFESSOR OF ENVIRONMENTAL STUDIES TOOK TO FRONT ENTRANCE VIA W/C. PT STATES " IM GOING TO GO TO THE TRACK, AND MAKE MY BELLY FEEL BETTER."
--- NOTE | 2016-07-25 08:57 | DS ---
PATIENT:FELY SQUIRES :[birth year] MEDICAL RECORD: [id number] DISCHARGE SUMMARY ADMISSION DATE: 07/18/16 DISCHARGE DATE: 07/22/16 Ms. Squires was admitted with shortness of breath, pleurisy, and in need of dialysis. She indicated she had some itching from her hydrocodone and may need to change her pain medications as an outpatient. She is being discharged today. She had dialysis for 2 days and had declined dialysis yesterday and does not want to wait today to have dialysis. I am a little concerned, but she is back on schedule tomorrow. Abdominal pain has resolved. I did go over her ultrasound of her abdomen. She was on peritoneal dialysis previously and they did mention that her ascites could be related to malignancy, but [place]. 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 I think mostly she wanted to get out of the hospital today. She will need to certainly follow up with us, especially with her long-term issues. Her EF was 40% to 45% on her recent echo. She has had some of her medications simplified, but again when she came in, there were medications that she was not taking that she listed as taking and we actually have her on ProAmatine 10 mg t.i.d., and Coreg 3.125 b.i.d. Her other antihypertensive and coronary medications have been discontinued. She is on Lipitor 40 a day or simvastatin 40 a day, she is not sure which one, but either will do. Sensipar 30 a day, aspirin 81 a day, Ambien 5 mg at night, Renvela, she was on , but her phosphorus is elevated and would certainly need to keep up with that and I advised her with her diet and as far as her medications, we continued her on Coumadin 1 mg a day, although her INR was 1.22 and I asked to take 3 mg a day and she would rather take 1 mg a day, which may explain why her INR is not increasing. We did discuss complications with that, but she is likely going to do what she wants to do, but we wish she would take 3 mg a day. Other home medications on discharge will be Carafate a gram 4 times a day, Protonix 40 a day, albuterol or DuoNebs updrafts as needed. She is to report back to Emergency Room for any problems at all. Stable on discharge, renal diet. TRANSINT:[id number] Voice Confirmation ID: [id number] DOCUMENT ID: [id number] RITA LYNN MD at 0857 CC: [id number] DICTATION DATE: 07/22/16 1135 LIFE TEACHER: 07/22/162106 DIS IN 07/22/16 [facility] [address] [id number]
== END 2016-07-22 13:00 | disposition home or self-care (01) | DRG 291 ==
LOC: D.ER 19:23 → D.M2 23:29
PROVIDERS: Emergency Medicine Emergency Medical Services; Internal Medicine Nephrology; ADMIT Internal Medicine Nephrology
PROC: 5A1D60Z (ICD-10-PCS; principal; 2016-07-19)
DX: I13.2 Hypertensive heart and chronic kidney disease with heart failure and with stage 5 chronic kidney disease, or end stage renal disease (principal); N18.6 End stage renal disease; I50.21 Acute systolic (congestive) heart failure; Z99.2 Dependence on renal dialysis; E83.39 Other disorders of phosphorus metabolism; R04.0 Epistaxis; D63.1 Anemia in chronic kidney disease; I25.10 Atherosclerotic heart disease of native coronary artery without angina pectoris; J44.9 Chronic obstructive pulmonary disease, unspecified; L29.9 Pruritus, unspecified; T40.2X5A Adverse effect of other opioids, initial encounter; Z95.5 Presence of coronary angioplasty implant and graft; Z95.1 Presence of aortocoronary bypass graft; Z79.01 Long term (current) use of anticoagulants

== ENCOUNTER 2016-07-26 13:41 | Outpatient (CLI) | payer MEDICARE, BC ==
[~2016-07-26] VITALS: Ht 175.3 cm; Wt 65.9 kg
[~2016-07-26 13:41] MED LIST changes: +AMBIEN5 MG PO; +COREG 3.1253.125 MG PO; +COUMADIN1 MG PO; +LIPITOR40 MG PO; +MIDODRINE HCL10 MG PO; +OMEPRAZOLE20 M1 PO; +SENSIPAR30 MG PO
[2016-07-26 16:44] VITALS: BP 119/78; Ht 175.3 cm; Wt 65.9 kg
--- NOTE | 2016-07-26 16:47 | NUR ---
1615- IV TO LEFT FOREARM. PRBC TRANSFUSING WITHOUT DIFFICULTY ON IV PUMP. PT SITTING ON SIDE OF BED EATING A SNACK. WILL MONITOR.
--- NOTE | 2016-07-26 17:15 | NUR ---
SITTING ON SIDE OF BED, DENIES COMPLAINTS, PRBC'S INFUSING WITHOUT DIFFICULTY INTO LEFT FOREARM PIV
--- NOTE | 2016-07-26 17:59 | NUR ---
1700- VSS. PT CONTINUES TO SIT UP AT SIDE OF BED WITHOUT COMPLAINT. 1710- UP OOB TO BR WITH MINIMAL ASSIST. C/O PAIN TO LEGS, ESPECIALLY LEFT HIP. PT REPORTS FALLING MONDAY. THERE IS A VISABLE KNOT TO THE LEFT HIP. SUGGESTED THAT PT MAY NEED TO GO TO PCP TO HAVE IT LOOKED AT. WAS STEADY BUT SLOW WHEN UP OOB.
--- NOTE | 2016-07-26 19:00 | NUR ---
PRBC TRANSFUSION COMPLETE, PATIENT AWARE OF NEED TO WAIT 1 HOUR BEFORE DC TO OBSERVE FOR ADVERSE REACTIONS, AGREEABLE
--- NOTE | 2016-07-26 20:00 | NUR ---
DISCHARGE INSTRUCTIONS REVIEWED, POST TRANSFUSION INSTRUCTIONS REVIEWED, PATIENT STATES UNDERSTANDING, DISCHARGED HOME VIA WHEELCHAIR TO ER PARKING LOT, PATIENT STATES CAR IS CLOSE AND FEELS CAPABLE OF WALKING TO CAR
== END 2016-07-26 20:00 | disposition home or self-care (01) ==
LOC: D.OPS 13:41
DX: D64.9 Anemia, unspecified (principal)

== ENCOUNTER → 2016-08-01 16:17 | Outpatient (CLI) | payer MEDICARE, BC, MEDICAID ==
[2016-07-26 16:44] VITALS: BMI 21.4
== END | disposition home or self-care (01) ==
LOC: D.CT 16:17
DX: D64.9 Anemia, unspecified (principal); R16.0 Hepatomegaly, not elsewhere classified

== ENCOUNTER 2016-08-05 11:04 | Outpatient (CLI) | payer MEDICARE, BC, MEDICAID ==
[~2016-08-05] VITALS: Ht 175.3 cm; Wt 65.9 kg
[2016-08-05 12:24] LABS: BASOPHILS 0.4 % (0.0-2.0); EOSINOPHILS 2.6 % (0-7); HEMATOCRIT 33.9 % (36.0-48.0); HEMOGLOBIN 10.1 g/dL (12-16); IMMATURE GRANULOCYTES 0.4 % (0-5); LYMPHOCYTES 15.3 % (15-50); MCH 27.4 pg (26.0-34.0); MCHC 29.8 g/dL (31.0-37.0); MCV 91.9 fL (80.0-100.0); MEAN PLATELET VOLUME 10.2 fL (7.4-10.4); MONOCYTES 9.8 % (2-11); NEUTROPHILS 71.5 % (40-80); PLATELET COUNT 319 10x3/uL (130-400); RBC 3.69 10x6/uL (4.00-5.40); RDW 19.4 % (11.5-14.5); WBC 9.5 10x3/uL (4.8-10.8)
[2016-08-05 12:32] LABS: INR 1.19 (0.85-1.17)
[2016-08-05 12:37] LABS: ANION GAP 17.5 mmol/L (8-16); CALCIUM 8.8 mg/dL (8.5-10.1); CARBON DIOXIDE 27.5 mmol/L (21.0-32.0); CREATININE - SERUM 5.8 mg/dL (0.6-1.3)
[2016-08-05 12:48] VITALS: BP 149/119; Ht 175.3 cm; Wt 65.9 kg
--- NOTE | 2016-08-05 14:20 | NUR ---
1410-RECEIVED PT FROM IR AWAKE AND ALERT ON 2L VIA N/C WITHOUT ANY DISTRESS. POX 99% ABDOMINAL BANDAGE CDI WITHOUT ANY DRAINAGE NOTED CALL LIGHT IN REACH WILL CONTINUE TO MONITOR
--- NOTE | 2016-08-05 14:41 | NUR ---
1425-reg tray given pt sitting up in bed doing well
--- NOTE | 2016-08-05 17:59 | NUR ---
1455 V/S STABLE RT ABDOMEN DRESSING C/D/I ABDOMEN DISTENDED AND FIRM AND RADIOLOGY AWARE AND STATED SHE WAS LIKE THAT.
--- NOTE | 2016-08-05 18:05 | NUR ---
1550 CALLED RADIOLOGY ABOUT PATIENT WANTING TO GO HOME NOW ORDERS RECEIVED. IV DCD CATHETER INTACT AND DISCHARGE INSTRUCTIONS GIVEN. 1600 TO HOME VIA W/C.
== END 2016-08-05 16:00 | disposition home or self-care (01) ==
LOC: D.OPS 11:04 → D.CT 13:00 → D.OPS 13:00 → D.CT 15:00 → D.OPS 16:00
PROVIDERS: Specialist
DX: R18.8 Other ascites (principal)

== ENCOUNTER 2016-08-14 19:16 | Emergency (ER) | payer MEDICARE, BC, MEDICAID ==
[2016-08-05 12:48] VITALS: BMI 21.4
[2016-08-14 19:50] LABS: BASOPHILS 0.5 % (0.0-2.0); EOSINOPHILS 2.7 % (0-7); HEMATOCRIT 33.4 % (36.0-48.0); HEMOGLOBIN 9.7 g/dL (12-16); IMMATURE GRANULOCYTES 0.5 % (0-5); LYMPHOCYTES 14.1 % (15-50); MCH 27.1 pg (26.0-34.0); MCV 93.3 fL (80.0-100.0); MONOCYTES 11.3 % (2-11); NEUTROPHILS 70.9 % (40-80); PLATELET COUNT 299 10x3/uL (130-400); RBC 3.58 10x6/uL (4.00-5.40); WBC 8.7 10x3/uL (4.8-10.8)
[2016-08-14 20:10] LABS: ALBUMIN 3.3 g/dL (3.4-5.0); ANION GAP 15.3 mmol/L (8-16); BILIRUBIN - TOTAL 0.63 mg/dL (0.2-1.3); CALCIUM 7.7 mg/dL (8.5-10.1); CARBON DIOXIDE 28.9 mmol/L (21.0-32.0); CREATININE - SERUM 5.9 mg/dL (0.6-1.3); POTASSIUM - SERUM 4.2 mmol/L (3.5-5.1); PROTEIN - SERUM 8.7 g/dL (6.4-8.2)
[2016-08-14 20:21] LABS: CKMB 1.8 U/L (0.0-3.6); TROPONIN-I 0.03 ng/mL (0.000-0.060)
== END 2016-08-14 23:19 | disposition home or self-care (01) ==
LOC: D.ER 19:16
PROVIDERS: Family Medicine
DX: G89.29 Other chronic pain (principal); N18.9 Chronic kidney disease, unspecified; J44.9 Chronic obstructive pulmonary disease, unspecified

== ENCOUNTER 2016-09-05 07:52 | Outpatient (CLI) | payer MEDICARE, BC, MEDICAID ==
[~2016-09-05] VITALS: Ht 175.3 cm; Wt 65.9 kg
--- NOTE | ~2016-09-05 | HEMODYNAMI ---
PATIENT:FELY SQUIRES MEDICAL RECORD: [id number] : 65 LOCATION:[facility] ADMISSION DATE: 09/05/16 Generatedon:09/05/201611:21 Patient name: FELY SQUIRES Patient #: [id number] SSN: : 1965 Date of study: 09/05/2016 Page: Of Hemodynamic Procedure Report Patient Data Patient Demographics Procedure consent was obtained First Name: FELY Gender: Female Last Name: TAVIA : 1965 Middle Initial: A Age: 51 year(s) Patient #: [id number] Race: Black Additional ID: [id number] Contact details [address]: [address] [place] [address] State: [place] City: [place] Zip code: [address] Admission Admission Data Admission Date: 09/05/2016 Admission Time: 7:52 Procedure Procedure Types Cath Procedure Peripheral Cath Diagnostic Procedure Miscellaneous Procedure Description Procedure Date Procedure Date: 09/05/2016 Procedure Start Time: 10:40 Procedure Staff Name Function Remington Herman MD Performing Physician Iker Correa RT Scrub Ellen Xavier RN Nurse Tia Selby RN Nurse Iker Correa RT Monitor Procedure Medications Medication Administration Route Dosage Fentanyl I.V. 50 mcg Versed I.V. 1 mg Fentanyl I.V. 50 mcg Versed I.V. 1 mg Fentanyl I.V. 50 mcg Versed I.V. 1 mg Fentanyl I.V. 50 mcg Versed 1 mg Hemodynamics Rest Heart Rate: 94 (bpm) Snapshots Pre Cath Intra NCS Post Cath Vital Signs Time Heart Resp SPO2 NIBP (mmHg) Rhythm Pain Sedation Rate (ipm) (%) Status Level (bpm) 10:21:41 93 19 Measuring NSR 0 (11) 10(A) , No pain 10:22:11 94 27 92 124/93(104) NSR 0 (11) 10(A) , No pain 10:26:13 92 19 97 137/98(119) NSR 0 (11) 10(A) , No pain 10:30:23 95 23 97 130/91(113) NSR 0 (11) 10(A) , No pain 10:35:22 94 19 96 Measuring NSR 0 (11) 10(A) , No pain 10:35:32 92 21 97 131/83(115) NSR 0 (11) 10(A) , No pain 10:39:38 92 19 98 127/91(109) NSR 0 (11) 10(A) , No pain 10:43:42 92 13 93 128/93(122) NSR 0 (11) 9(A) , No pain 10:47:48 93 15 92 138/90(120) NSR 0 (11) 9(A) , No pain 10:51:55 96 21 91 128/96(112) NSR 0 (11) 9(A) , No pain 10:56:01 92 15 90 124/89(107) NSR 0 (11) 9(A) , No pain 11:00:03 90 16 91 110/85(97) NSR 0 (11) 9(A) , No pain 11:04:54 90 16 90 124/76(110) NSR 0 (11) 9(A) , No pain 11:08:57 91 19 92 108/89(105) NSR 0 (11) 9(A) , No pain 11:12:57 89 16 91 125/85(110) NSR 0 (11) 10(A) , No pain 11:16:57 No Cuff NSR 0 (11) 10(A) , No pain 11:20:56 No Cuff NSR 0 (11) 10(A) , No pain Medications Time Medication Route Dose Verified Delivered Reason Notes Effectivene ss by by 10:37:45 Fentanyl I.V. 50 Ellen Ellen for mcg Morenita Morenita sedation RN RN 10:37:54 Versed I.V. 1 mg Ellen Ellen for Morenita Morenita sedation RN RN 10:42:00 Fentanyl I.V. 50 Ellen Ellen for mcg Morenita Morenita sedation RN RN 10:42:11 Versed I.V. 1 mg Ellen Ellen for Morenita Morenita sedation RN RN 10:47:38 Fentanyl I.V. 50 Ellen Ellen for mcg Morenita Morenita sedation RN RN 10:47:48 Versed I.V. 1 mg Ellen Ellen for Morenita Morenita sedation RN RN 11:03:34 Fentanyl I.V. 50 Ellen Ellen for mcg Morenita Morenita sedation RN RN 11:12:31 Versed 1 mg Ellen Ellen for Morenita Morenita sedation RN wire photo operator news Log Time Note 10:19:50 Vital chart was started 10:20:51 Tia Selby RN sent for patient. Start room use. 10:21:00 Time tracking: Regular hours 10:21:05 Plan of Care:Hemodynamics will remain stable., Cardiac rhythm will remain stable., Comfort level will be maintained., Respiratory function will remain adequate., Patient/ family verbilizes understanding of procedure., Procedure tolerated without complication., Recovers from procedure without complications.. 10:21:12 Patient arrived from Outpatients to IR. Patient remains on bed/stretche r for procedure. 10:21:16 Correct patient and procedure confirmed by team. 10:21:17 ECG and BP/O2 sat monitors applied to patient. 10:21:19 Signed procedure consent form obtained from patient. 10:21:21 Baseline sample Acquired. 10:21:25 Rhythm: sinus rhythm 10:21:28 Full Disclosure recording started 10:21:29 - 10:21:32 H&P Date Dictated: 09/05/2016 H&P Addendum completed by physician on day of procedure. (MUST COMPLETE FOR ALL OUTPATIENTS). 10:21:33 Pre-procedure instructions explained to patient. 10:21:34 Pre-op teaching completed and patient verbalized understanding. 10:21:35 Family in waiting room. 10:21:41 Patient NPO since Midnight. 10:21:52 Is the patient allergic to Iodine/contrast media? No. 10:22:02 Is patient on blood thinner?No 10:22:20 Patient diabetic? No. 10:22:22 - :: ----Pre-sedation anethsthesia assessment.---- 10:: Previous problem with sedation/anesthesia? No ? 10::28 Snore? Yes 10:: Sleep apnea? No :: Deviated septum? No 10:23:00 Opens mouth fully? Yes 10:23: Sticks out tongue? Yes 10:23:03 Airway obstruction? No ? 10:23:11 Patient pain scale 0/10 no pain. :: Alarms reviewed by RSheree N. :: Sharps counted by scrub and verified by R.N. 10::37 Right abdomen area was prepped with chlora-prep and draped in sterile fashion 10::41 Left abdomen area was prepped with chlora-prep and draped in sterile fashion 10:37:42 Physician arrived 10:37:45 Fentanyl 50 mcg I.V. was administered by Ellen Xavier RN; for sedation; 10:37:54 Versed 1 mg I.V. was administered by Ellen Xavier RN; for sedation; 10:39:42 --------ALL STOP TIME OUT------ 10:39:43 Final Timeout: patient, procedure, and site verified with staff and physician. All members of the team are in agreement. 10:39:45 Right abdomen site verified by team. 10:39:59 Physical assessment completed. ASA score P 3 - A patient with severe systemic disease as per Remington Herman MD. 10:40:05 Sedation plan: IV Moderate Sedation Versed, Fentanyl 10:40:17 Procedure started. 10:40:22 Local anesthetic to Abdominal area with Lidocaine 1% by Remington Herman MD.INITIAL ACCESS ONLY 10:42:00 Fentanyl 50 mcg I.V. was administered by Ellen Xvaier RN; for sedation; 10:42:11 Versed 1 mg I.V. was administered by Ellen Xavier RN; for sedation; 10:47:38 Fentanyl 50 mcg I.V. was administered by Ellen Xavier RN; for sedation; 10:47:48 Versed 1 mg I.V. was administered by Ellen Xavier RN; for sedation; 10:48:50 YUEH needle opened to sterile field. 10:48:51 YUEH needle opened to sterile field. 10:59:22 [id number] 8FR CATH DRAIN TRAY opened to sterile field. 10:59:31 Cook CELESTINO .035 15CM guide wire opened to sterile field. 10:59:42 Abscession 10 FR drainage catheter opened to sterile field. 10:59:56 Local anesthetic to Abdominal area with Lidocaine 1% by Remington Herman MD.ADDITIONAL ACCESS 11:03:34 Fentanyl 50 mcg I.V. was administered by Ellen Xavier RN; for sedation; 11:12:31 Versed 1 mg was administered by Ellen Xavier RN; for sedation; 11:14:48 350 cc fluid drained 11:14:54 Procedure ended.(Physican Out) 11:15:18 Sharps counted by scrub and verified by R.N. 11:15:23 Post-op/insertion site Right Abdominal area dressed using a 4 x 4 and Tegaderm. 11:15:29 Post-op/insertion site Left Abdominal area dressed using a 4 x 4 and Tegaderm. 11:15:37 Post Abdominal area:stable 11:15:41 Post-procedure physical assessment completed. ASA score P 3 - A patient with severe systemic disease as per Remington Herman MD. 11:15:45 Post procedure rhythm: unchanged. 11:15:47 Procedure and supply charges have been captured, reviewed, submitted an d are correct. 11:20:40 Report given to Outpatients. 11:20:45 Patient transfered to Outpatients with Stretcher. 11:21:21 Vital chart was stopped Device Usage Item Name Manufacture Quantity Catalog Hospital Part Current Minim al Lot# / Number Charge Number Stock Stock Serial# Code YUCH needle Cook Medical 2 [id number] 5 [id number] CareFusion 1 [id number] 5 8FR CATH DRAIN TRAY Cook CELESTINO .035 Cook [employer] 1 [id number] 5 15CM guide wire Abscession 10 Angiodynamics 1 [id number] [id number] 5 FR drainage catheter Signature Audit [place] Stage Time Signature Unsigned Intra-Procedure 09/05/2016 Iker 11:21:19 AM Sunny RT (R) (CV) Signatures Monitor : Iker Signature : Sunny RT Date : Time : [address] [address]
[2016-09-05 08:54] LABS: BASOPHILS 0 % (0.0-2.0); EOSINOPHILS 1.3 % (0-7); HEMATOCRIT 36.2 % (36.0-48.0); IMMATURE GRANULOCYTES 0.3 % (0-5); LYMPHOCYTES 11.7 % (15-50); MCH 27.3 pg (26.0-34.0); MCHC 30.4 g/dL (31.0-37.0); MCV 89.8 fL (80.0-100.0); MEAN PLATELET VOLUME 9.9 fL (7.4-10.4); MONOCYTES 8.3 % (2-11); NEUTROPHILS 78.4 % (40-80); PLATELET COUNT 308 10x3/uL (130-400); RBC 4.03 10x6/uL (4.00-5.40); RDW 18.4 % (11.5-14.5); WBC 6.4 10x3/uL (4.8-10.8)
[2016-09-05 09:07] LABS: APTT 40.3 SECONDS (22.8-39.4); INR 1.2 (0.85-1.17); PROTIME 15.1 SECONDS (11.6-15.0)
[2016-09-05 09:15] LABS: ANION GAP 17.9 mmol/L (8-16); CALCIUM 8.8 mg/dL (8.5-10.1); CARBON DIOXIDE 24.8 mmol/L (21.0-32.0); CREATININE - SERUM 6.5 mg/dL (0.6-1.3); POTASSIUM - SERUM 3.7 mmol/L (3.5-5.1)
[2016-09-05 09:21] LABS: ALBUMIN 3.5 g/dL (3.4-5.0); BILIRUBIN - DIRECT 0.35 mg/dL (0.00-0.30); BILIRUBIN - INDIRECT 0.52 mg/dL (0.00-1.00); BILIRUBIN - TOTAL 0.87 mg/dL (0.2-1.3); PROTEIN - SERUM 8.1 g/dL (6.4-8.2)
[2016-09-05 09:41] VITALS: BP 143/75; Ht 175.3 cm; Wt 65.9 kg
[2016-09-05 13:11] LABS: LYMPH - BF 62 %; MACROPHAGES BF 36 %; MESOTHELIALS BF 1 %; NEUT - BF 1 %
--- NOTE | 2016-09-05 14:18 | NUR ---
4352 DISCHARGE INSTRUCTIONS REVIEWED WITH PATIENT; VERBALIZED UNDERSTANDING. IV DC'D
== END 2016-09-05 13:40 | disposition home or self-care (01) ==
LOC: D.OPS 07:52 → D.CT 10:00 → D.OPS 13:40
PROVIDERS: Internal Medicine Nephrology; Radiology Diagnostic Radiology
DX: K74.60 Unspecified cirrhosis of liver (principal); R18.8 Other ascites; I50.9 Heart failure, unspecified

== ENCOUNTER 2016-09-06 10:53 | Emergency (ER) | payer MEDICARE ==
[2016-09-05 09:41] VITALS: BMI 21.4
[2016-09-06 11:51] LABS: BASOPHILS 0.2 % (0.0-2.0); EOSINOPHILS 1.6 % (0-7); HEMATOCRIT 35.3 % (36.0-48.0); HEMOGLOBIN 10.7 g/dL (12-16); IMMATURE GRANULOCYTES 0.4 % (0-5); LYMPHOCYTES 13.1 % (15-50); MCH 27.2 pg (26.0-34.0); MCHC 30.3 g/dL (31.0-37.0); MCV 89.6 fL (80.0-100.0); MONOCYTES 15.4 % (2-11); NEUTROPHILS 69.3 % (40-80); PLATELET COUNT 301 10x3/uL (130-400); RBC 3.94 10x6/uL (4.00-5.40); RDW 18.6 % (11.5-14.5); WBC 5.6 10x3/uL (4.8-10.8)
[2016-09-06 12:05] LABS: ALBUMIN 3.1 g/dL (3.4-5.0); ALKALINE PHOSPHATASE 489 U/L (46-116); ALT (SGPT) 11 U/L (10-68); BILIRUBIN - TOTAL 0.63 mg/dL (0.2-1.3); CALC OSMOLALITY 281 mosm/kg (275-300); CARBON DIOXIDE 27.3 mmol/L (21.0-32.0); CHLORIDE - SERUM 98 mmol/L (98-107); CREATININE - SERUM 5.3 mg/dL (0.6-1.3); GLUCOSE 118 mg/dL (74-106); SODIUM 137 mmol/L (136-145); UREA NITROGEN 32 mg/dL (7-18); eGFR NON AFRICAN AMERICAN 9 mL/min (90-120)
[2016-09-06 12:06] LABS: POTASSIUM - SERUM 3.1 mmol/L (3.5-5.1)
[2016-09-06 12:21] LABS: CHOL - HDL RATIO 2.4 ratio (2.3-4.1); CHOLESTEROL, TOTAL 120 mg/dL (0-200); CKMB 2.8 U/L (0.0-3.6); CREATINE KINASE 106 UL (21-215); HDL CHOLESTEROL 50 mg/dL (32-96); LDL CHOLESTEROL 50 mg/dL (0-100)
[2016-09-06 12:24] LABS: TRIGLYCERIDE 100 mg/dL (30-200); TROPONIN-I 0.348 ng/mL (0.000-0.060)
== END 2016-09-06 18:30 | disposition home or self-care (01) ==
LOC: D.ER 10:53
PROVIDERS: Emergency Medicine
DX: R10.9 Unspecified abdominal pain (principal); N18.9 Chronic kidney disease, unspecified; Z95.1 Presence of aortocoronary bypass graft; I45.10 Unspecified right bundle-branch block; I44.60 Unspecified fascicular block

== ENCOUNTER 2016-09-19 18:31 | Emergency (ER) | payer MEDICARE ==
[2016-09-05 09:41] VITALS: BMI 21.4
== END 2016-09-19 20:12 | disposition home or self-care (01) ==
LOC: D.ER 18:31
DX: R07.89 Other chest pain (principal); R10.9 Unspecified abdominal pain; N18.9 Chronic kidney disease, unspecified; Z95.1 Presence of aortocoronary bypass graft; R00.0 Tachycardia, unspecified; I49.3 Ventricular premature depolarization; I45.10 Unspecified right bundle-branch block; I44.60 Unspecified fascicular block

== ENCOUNTER 2016-09-26 19:57 | Emergency (ER) | payer MEDICARE ==
[2016-09-05 09:41] VITALS: BMI 21.4
[2016-09-26 22:06] LABS: BASOPHILS 0.6 % (0.0-2.0); HEMATOCRIT 38.8 % (36.0-48.0); HEMOGLOBIN 11.8 g/dL (12-16); IMMATURE GRANULOCYTES 0.1 % (0-5); LYMPHOCYTES 20.1 % (15-50); MCH 27.4 pg (26.0-34.0); MCHC 30.4 g/dL (31.0-37.0); MEAN PLATELET VOLUME 10.1 fL (7.4-10.4); MONOCYTES 6.7 % (2-11); NEUTROPHILS 66.5 % (40-80); RBC 4.31 10x6/uL (4.00-5.40); RDW 18.5 % (11.5-14.5); WBC 6.7 10x3/uL (4.8-10.8)
[2016-09-26 22:25] LABS: ALBUMIN 3.5 g/dL (3.4-5.0); ANION GAP 22.4 mmol/L (8-16); BILIRUBIN - TOTAL 0.8 mg/dL (0.2-1.3); CARBON DIOXIDE 20.5 mmol/L (21.0-32.0); POTASSIUM - SERUM 4.9 mmol/L (3.5-5.1); PROTEIN - SERUM 8.3 g/dL (6.4-8.2)
[2016-09-26 22:35] LABS: CALCIUM 8.3 mg/dL (8.5-10.1); CREATININE - SERUM 8.1 mg/dL (0.6-1.3)
[2016-09-26 22:53] LABS: PLATELET COUNT 211 10x3/uL (130-400)
[2016-09-27 00:06] LABS: AMYLASE - SERUM 161 U/L (25-115); LIPASE 481 U/L (73-393)
== END 2016-09-27 00:50 | disposition home or self-care (01) ==
LOC: D.ER 19:57
PROVIDERS: Emergency Medicine
DX: R10.9 Unspecified abdominal pain (principal); R18.8 Other ascites; N18.6 End stage renal disease; K86.1 Other chronic pancreatitis; Z95.1 Presence of aortocoronary bypass graft; F17.200 Nicotine dependence, unspecified, uncomplicated

== ENCOUNTER 2016-09-28 18:59 | Emergency (ER) | payer MEDICARE ==
[2016-09-05 09:41] VITALS: BMI 21.4
[2016-09-28 20:37] LABS: APPEARANCE CLEAR (CLEAR); COLOR YELLOW (YELLOW); LEUKOCYTE ESTERASE TRACE (NEGATIVE); NITRITE NEGATIVE (NEGATIVE)
[2016-09-28 20:38] LABS: BILIRUBIN NEGATIVE (NEGATIVE); GLUCOSE NEGATIVE (NEGATIVE); KETONE NEGATIVE (NEGATIVE); PROTEIN 1+ mg/dL (NEGATIVE); UROBILINOGEN NORMAL (NORMAL)
[2016-09-28 20:40] LABS: BACTERIA MANY /hpf (NONE SEEN); EPITHELIAL CELLS 0-5 /hpf (0-5); MUCUS <1+ /lpf (NONE SEEN); RED CELLS - URINE OCC /hpf (0-5)
== END 2016-09-28 21:10 | disposition home or self-care (01) ==
LOC: D.ER 18:59
PROVIDERS: Family Medicine
DX: R52 Pain, unspecified (principal); N18.6 End stage renal disease

== ENCOUNTER 2016-10-02 01:32 | Emergency (ER) | payer MEDICARE ==
[2016-09-05 09:41] VITALS: BMI 21.4
== END 2016-10-02 02:50 | disposition home or self-care (01) ==
LOC: D.ER 01:32
DX: J20.9 Acute bronchitis, unspecified (principal); N18.9 Chronic kidney disease, unspecified

== ENCOUNTER → 2016-10-12 07:12 | Outpatient (CLI) | payer MEDICARE ==
[2016-09-05 09:41] VITALS: BMI 21.4
[2016-10-12 07:51] LABS: BILIRUBIN - DIRECT 0.23 mg/dL (0.00-0.30); BILIRUBIN - INDIRECT 0.43 mg/dL (0.00-1.00); BILIRUBIN - TOTAL 0.66 mg/dL (0.2-1.3); PROTEIN - SERUM 8.2 g/dL (6.4-8.2)
== END ==
LOC: D.MRI 07:12
PROVIDERS: Internal Medicine Gastroenterology
DX: R18.8 Other ascites (principal); K74.60 Unspecified cirrhosis of liver

== ENCOUNTER 2016-10-17 06:05 | Day surgery (SDC) | payer MEDICARE ==
[2016-10-17 06:56] LABS: BASOPHILS 0.3 % (0-2); HEMATOCRIT 37.7 % (36.0-48.0); HEMOGLOBIN 11.6 g/dL (12-16); IMMATURE GRANULOCYTES 0.2 % (0-5); LYMPHOCYTES 16.3 % (15-50); MCH 27.6 pg (26.0-34.0); MCHC 30.8 g/dL (31.0-37.0); MCV 89.8 fL (80.0-100.0); MEAN PLATELET VOLUME 10.7 fL (7.4-10.4); NEUTROPHILS 67.2 % (40-80); PLATELET COUNT 206 10x3/uL (130-400); RDW 18.7 % (11.5-14.5); WBC 6.6 10x3/uL (4.8-10.8)
[2016-10-17 06:59] VITALS: BP 151/89; Ht 175.3 cm
[2016-10-17 07:06] LABS: APTT 35.3 SECONDS (22.8-39.4); INR 1.18 (0.85-1.17); PROTIME 14.9 SECONDS (11.6-15.0)
[2016-10-17 07:09] LABS: ANION GAP 20.1 mmol/L (8-16); CALCIUM 8.6 mg/dL (8.5-10.1); CARBON DIOXIDE 22.2 mmol/L (21.0-32.0); CREATININE - SERUM 7.9 mg/dL (0.6-1.3); POTASSIUM - SERUM 4.3 mmol/L (3.5-5.1)
[2016-10-17] MEDS ORDERED: AMOXICILLIN500 M1 (09:24)
--- NOTE | 2016-10-17 14:17 | NUR ---
1000 PLACED TO ADMISSIONS WITH REQUEST FOR PT.'S LOCKED VALUABLES TO BE RETURNED TO PTSheree LERMA R.N.
--- NOTE | 2016-10-17 14:25 | NUR ---
1020 AWAITING RETURN OF LOCKED POSSESIONS. BP 162/109. PT AWAKE & ALERT. NO COMPLAINTS VOICED. Jonna LERMA R.N. 1035 VALUABLES RETURNED TO PT. REPEAT BP: 148/104. PT GIVNE DISCHARGE INFORMATION INCLUDING: RX: AMOXICILLIN, MED REC., SHEET LISTING NSAIDS & BLOOD THINNERS TO AVOID, REFLUX ESOPHAGITIS/HIATEL HERNIA DIET, &DISCHARGE INSTURCTIONS SHEET POST ENDOSCOPIC PROCEDURES. PT VOICED UNDERSTANDING. TO PRIVATE CAR PER WHEELCHAIR, PT STATES HER [facility] HOME IS DOWNSTAIRS & IS: [place]. Jonna LERMA R.N.
--- NOTE | 2016-10-20 12:18 | OP ---
PATIENT NAME: RHODA SQUIRES MEDICAL RECORD: [id number] :65 LOCATION:[facility] ADMISSION DATE: SURGEON: NANDINI BAUTISTA DO DATE OF OPERATION: 10/17/2016 PROCEDURE: EGD with biopsies. INDICATIONS FOR PROCEDURE: Ascites. SCOPE: Olympus video gastroscope. MEDICATIONS: Propofol 150 mg IV per anesthesia. ESTIMATED BLOOD LOSS: Minimal. FINDINGS: Informed consent was given. The patient was made comfortable with the above medication. After reaching an adequate level of sedation by slow IV push, the patient was placed on her left side. The endoscope was then advanced under direct visualization through the mouth to the second portion of the duodenum. There was evidence of small grade I esophageal varices present in the middle and distal thirds of the esophagus. There were no bleeding stigmata associated with these varices. At the GE junction, there was some moderate LA class B reflux induced esophagitis. The endoscope was advanced through the GE junction into the stomach and retroflexed to view the cardia where a small sliding hiatal hernia was present. In the stomach, there was diffuse portal hypertensive gastropathy evident by edema of the mucosa. There were multiple erosions and superficial ulcerations throughout the stomach. Random biopsies were taken of the antrum, incisura, and body of the stomach to rule out H. pylori and to submit for histology. The scope was advanced through the pylorus into the duodenum where there were some small superficial ulcerations present in the duodenal bulb. The second portion of the duodenum appeared normal. The endoscope was then withdrawn from the patient. The patient tolerated the procedure well and there were no complications. IMPRESSION: 1. Grade I esophageal varices without bleeding stigmata. 2. Grade B reflux induced esophagitis. 3. Small sliding hiatal hernia. 4. Diffuse portal hypertensive gastropathy. 5. Multiple superficial gastric ulcers. 6. Multiple superficial duodenal ulcers. PLAN AND RECOMMENDATIONS: 1. Discharge home when recovery parameters are met. 2. GERD diet and reflux precautions. 3. Continue current medications. 4. Symptomatically, Rhoda would benefit from a therapeutic paracentesis. 5. Repeat EGD in 1 year for esophageal variceal screening. TRANSINT:[id number] Voice Confirmation ID: [id number] DOCUMENT ID: [id number] OPERATIVE REPORT [id number] RHODA SQUIRES NANDINI BAUTISTA DO at 1218 CC: [id number] DICTATION DATE: 10/17/16 0832 M1A1 TANK CREWMAN: 10/17/16 1149 [facility] 10/17/16 [id number] [place] [address]
== END 2016-10-17 10:35 | disposition home or self-care (01) ==
LOC: D.OPS 06:05
PROVIDERS: Anesthesiology
DX: K21.0 Gastro-esophageal reflux disease with esophagitis (principal); K44.9 Diaphragmatic hernia without obstruction or gangrene; I85.00 Esophageal varices without bleeding; K76.6 Portal hypertension; K31.89 Other diseases of stomach and duodenum; K25.9 Gastric ulcer, unspecified as acute or chronic, without hemorrhage or perforation; K26.9 Duodenal ulcer, unspecified as acute or chronic, without hemorrhage or perforation; J44.9 Chronic obstructive pulmonary disease, unspecified; Z95.1 Presence of aortocoronary bypass graft; Z95.5 Presence of coronary angioplasty implant and graft; I10 Essential (primary) hypertension; I25.10 Atherosclerotic heart disease of native coronary artery without angina pectoris; Z87.891 Personal history of nicotine dependence; Z01.812 Encounter for preprocedural laboratory examination

== ENCOUNTER 2016-10-20 09:48 | Day surgery (SDC) | payer MEDICARE ==
[~2016-10-20] VITALS: Ht 175.3 cm; Wt 65.9 kg
[~2016-10-20 09:48] MED LIST changes: +AMOXICILLIN500 M1
[2016-10-20 10:14] VITALS: BP 156/93; Ht 175.3 cm; Wt 65.9 kg
[2016-10-20 11:03] LABS: BASOPHILS 0.7 % (0-2); EOSINOPHILS 2.9 % (0-7); HEMATOCRIT 39.3 % (36.0-48.0); IMMATURE GRANULOCYTES 0.2 % (0-5); LYMPHOCYTES 28.3 % (15-50); MCH 27.3 pg (26.0-34.0); MCHC 30.5 g/dL (31.0-37.0); MCV 89.5 fL (80.0-100.0); MEAN PLATELET VOLUME 10.5 fL (7.4-10.4); MONOCYTES 13.7 % (2-11); NEUTROPHILS 54.2 % (40-80); PLATELET COUNT 217 10x3/uL (130-400); RBC 4.39 10x6/uL (4.00-5.40); RDW 18.3 % (11.5-14.5); WBC 4.2 10x3/uL (4.8-10.8)
[2016-10-20 11:16] LABS: APTT 35.9 SECONDS (22.8-39.4); INR 1.09 (0.85-1.17)
[2016-10-20 12:06] LABS: ANION GAP 15.3 mmol/L (8-16); CALCIUM 8.9 mg/dL (8.5-10.1); CARBON DIOXIDE 28.5 mmol/L (21.0-32.0); CREATININE - SERUM 5.1 mg/dL (0.6-1.3); POTASSIUM - SERUM 3.8 mmol/L (3.5-5.1)
--- NOTE | 2016-10-20 13:40 | NUR ---
PT SITTING UP WITH HOB ELEVATED. FULL LIQUIDS TOLERATED. VSS. WILL MONITOR.
--- NOTE | 2016-10-20 13:55 | NUR ---
IV D/C'D, PT TOLERATED. CATHETER INTACT. READYING FOR DISCHARGE.
--- NOTE | 2016-10-20 14:51 | NUR ---
1410- PT DISCHARGED VIA WHEELCHAIR.
--- NOTE | 2016-10-24 17:25 | OP ---
PATIENT NAME: FELY SQUIRES MEDICAL RECORD: [id number] :65 LOCATION:[facility] ADMISSION DATE: SURGEON: NANDINI BAUTISTA DO DATE OF OPERATION: 10/20/2016 PROCEDURE: Colonoscopy with hot forceps polypectomy. SCOPE: Olympus video pediatric colonoscope. MEDICATIONS: Propofol 300 mg IV per anesthesia. Withdrawal time greater than 15 minutes. ESTIMATED BLOOD LOSS: Minimal. FINDINGS: Informed consent was given. The patient was made comfortable with the above medication. After reaching an adequate level of sedation by slow IV push, the patient was placed on her left side. A digital rectal examination was performed and was normal. The endoscope was then advanced under direct visualization through the anus to the cecum, evidenced by the appendiceal orifice and ileocecal valve. Scope was slowly withdrawn and mucosa was carefully examined. The prep was good in the left side of the colon, but poor to fair in the ascending colon and cecum. Significant time was spent washing the colon out, but it was still difficult to see the knott of the right side of the colon in an ideal manner. There were 2 cecal polyps visualized. These were benign and sessile appearing. It measured from 3-5 mm in size. Both were removed with hot forceps. They were taken in 1 piece and completely retrieved. There was another polyp located in the descending colon, which was benign and sessile appearing. It measured approximately 6-mm in diameter. It was removed in 1 piece and completely retrieved. Retroflexion was performed in the rectum and small nonbleeding internal hemorrhoids were visualized. The endoscope was then withdrawn from the patient. The patient tolerated the procedure well and there were no complications. IMPRESSION: 1. A 3 polyps as described above. All were removed with hot forceps. 2. Small nonbleeding internal hemorrhoids. PLAN AND RECOMMENDATIONS: 1. Discharge home when recovery parameters are met. 2. Continue current diet. 3. Continue current medications. 4. Recall colonoscopy will be dependent on results of polyps removed. TRANSINT:[id number] Voice Confirmation ID: [id number] DOCUMENT ID: [id number] NANDINI BAUTISTA DO at 1725 CC: [id number] DICTATION DATE: 10/20/16 1257 PROCUREMENT ENGINEER: 10/20/162119 [facility] 10/20/16 [facility] [address] [place] [address]
== END 2016-10-20 14:10 | disposition home or self-care (01) ==
LOC: D.OPS 09:48
PROVIDERS: Anesthesiology
DX: Z12.11 Encounter for screening for malignant neoplasm of colon (principal); D12.0 Benign neoplasm of cecum; D12.4 Benign neoplasm of descending colon; F17.200 Nicotine dependence, unspecified, uncomplicated; I25.10 Atherosclerotic heart disease of native coronary artery without angina pectoris; J44.9 Chronic obstructive pulmonary disease, unspecified; Z95.1 Presence of aortocoronary bypass graft; I12.0 Hypertensive chronic kidney disease with stage 5 chronic kidney disease or end stage renal disease; N18.6 End stage renal disease; Z99.2 Dependence on renal dialysis; Z01.812 Encounter for preprocedural laboratory examination

== ENCOUNTER 2016-12-02 05:59 | Outpatient (CLI) | payer MEDICARE ==
[~2016-12-02] VITALS: Ht 175.3 cm; Wt 65.9 kg
[2016-12-02 06:44] VITALS: BP 154/93; Ht 175.3 cm; Wt 65.9 kg
[2016-12-02 07:14] LABS: BASOPHILS 0.3 % (0-2); EOSINOPHILS 4.5 % (0-7); HEMATOCRIT 37.3 % (36.0-48.0); HEMOGLOBIN 11.5 g/dL (12-16); IMMATURE GRANULOCYTES 0.4 % (0-5); LYMPHOCYTES 20.9 % (15-50); MCH 29.1 pg (26.0-34.0); MCHC 30.8 g/dL (31.0-37.0); MCV 94.4 fL (80.0-100.0); MONOCYTES 11.1 % (2-11); NEUTROPHILS 62.8 % (40-80); PLATELET COUNT 205 10x3/uL (130-400); RBC 3.95 10x6/uL (4.00-5.40); RDW 18.8 % (11.5-14.5); WBC 7.1 10x3/uL (4.8-10.8)
[2016-12-02 07:22] LABS: ANION GAP 19.5 mmol/L (8-16); CALCIUM 7.8 mg/dL (8.5-10.1); CARBON DIOXIDE 23.2 mmol/L (21.0-32.0); CREATININE - SERUM 6.8 mg/dL (0.6-1.3); POTASSIUM - SERUM 4.7 mmol/L (3.5-5.1)
[2016-12-02 07:23] LABS: APTT 34.5 SECONDS (22.8-39.4); INR 1.13 (0.85-1.17); PROTIME 14.4 SECONDS (11.6-15.0)
--- NOTE | 2016-12-02 10:49 | NUR ---
1030--ALL VITAL SIGNS CHARTED ON POST PROCEDURE VITAL SIGN SHEET ON CHART. GILMA HADDAD
--- NOTE | 2016-12-02 13:37 | NUR ---
1200--IV DC'D. GILMA RM 1224--DISCHARGE INSTRUCTIONS GIVEN, PT VERBALIZES UNDERSTANDING. PT OFF UNIT VIA LASHAWN. GILMA HADDAD
== END 2016-12-02 12:25 | disposition home or self-care (01) ==
LOC: D.OPS 05:59 → D.CT 09:00 → D.OPS 09:00 → D.CT 09:30 → D.OPS 12:25
PROVIDERS: Specialist
DX: R18.8 Other ascites (principal); Z01.812 Encounter for preprocedural laboratory examination

== ENCOUNTER 2017-01-18 06:53 | Outpatient (CLI) | payer MEDICARE ==
[~2017-01-18] VITALS: Ht 175.3 cm; Wt 65.9 kg
[2017-01-18 07:30] VITALS: Ht 175.3 cm; Wt 65.9 kg
[2017-01-18] MEDS ORDERED: LIPITOR40 MG PO (07:37)
[2017-01-18 08:35] LABS: BASOPHILS 0.3 % (0-2); EOSINOPHILS 2.6 % (0-7); HEMATOCRIT 38.9 % (36.0-48.0); HEMOGLOBIN 12.4 g/dL (12-16); IMMATURE GRANULOCYTES 0.4 % (0-5); LYMPHOCYTES 19.1 % (15-50); MCH 31.2 pg (26.0-34.0); MCHC 31.9 g/dL (31.0-37.0); MCV 97.7 fL (80.0-100.0); MEAN PLATELET VOLUME 10.9 fL (7.4-10.4); MONOCYTES 11.8 % (2-11); NEUTROPHILS 65.8 % (40-80); PLATELET COUNT 164 10x3/uL (130-400); RBC 3.98 10x6/uL (4.00-5.40); RDW 15.7 % (11.5-14.5)
--- NOTE | 2017-01-18 08:42 | NUR ---
SPOKE WITH JENNIFFER OLIVEROS APN R/T HTN. PT REPORTS HAS NOT TAKEN BP MEDS IN 2 DAYS. NEW ORDERS NOTED. BP 5 MIN POST LABETALOL 151/101. WILL CONTINUE TO MONITOR.
[2017-01-18 08:50] LABS: INR 1.36 (0.85-1.17); PROTIME 16.6 SECONDS (11.6-15.0)
[2017-01-18 08:54] LABS: ALBUMIN 3.7 g/dL (3.4-5.0); ANION GAP 20.7 mmol/L (8-16); BILIRUBIN - TOTAL 1.22 mg/dL (0.2-1.3); CARBON DIOXIDE 25.5 mmol/L (21.0-32.0); CREATININE - SERUM 7.6 mg/dL (0.6-1.3); POTASSIUM - SERUM 4.2 mmol/L (3.5-5.1); PROTEIN - SERUM 7.9 g/dL (6.4-8.2)
== END 2017-01-18 13:30 | disposition home or self-care (01) ==
LOC: D.OPS 06:53 → D.SP 10:00 → D.OPS 13:30
PROVIDERS: Specialist
DX: R18.8 Other ascites (principal); I13.2 Hypertensive heart and chronic kidney disease with heart failure and with stage 5 chronic kidney disease, or end stage renal disease; N18.6 End stage renal disease; Z99.2 Dependence on renal dialysis; Z01.812 Encounter for preprocedural laboratory examination

== ENCOUNTER → 2017-03-08 10:46 | Outpatient (CLI) | payer MEDICARE ==
[2017-01-18 07:30] VITALS: BMI 21.4
== END | disposition home or self-care (01) ==
LOC: D.MRI 03-01 10:00
DX: M54.9 Dorsalgia, unspecified (principal)

== ENCOUNTER → 2017-04-03 11:50 | Outpatient (CLI) | payer MEDICARE ==
[2017-01-18 07:30] VITALS: BMI 21.4
[~2017-04-03 11:50] MED LIST changes: +COUMADIN2 MG PO; +Levaquin PO; +ULTRAM50 MG PO
== END | disposition home or self-care (01) ==
LOC: D.MRI 11:50
DX: M54.9 Dorsalgia, unspecified (principal)

== ENCOUNTER 2017-04-12 09:00 | Emergency (ER) | payer MEDICARE ==
[2017-01-18 07:30] VITALS: BMI 21.4
[~2017-04-12 09:00] MED LIST changes: -COUMADIN2 MG PO; -Levaquin PO; -ULTRAM50 MG PO
== END 2017-04-12 10:57 | disposition home or self-care (01) ==
LOC: D.ER 09:00
DX: J06.9 Acute upper respiratory infection, unspecified (principal); R11.10 Vomiting, unspecified; R10.9 Unspecified abdominal pain

== ENCOUNTER 2017-04-29 02:47 | Inpatient (IN) | payer MEDICARE ==
[2017-04-29] VITALS: BP 134/81
[~2017-04-29] VITALS: Ht 175.3 cm; Wt 66.4 kg
[2017-04-29 04:20] LABS: BASOPHILS 0.3 % (0-2); EOSINOPHILS 1.6 % (0-7); IMMATURE GRANULOCYTES 0.1 % (0-5); LYMPHOCYTES 16.5 % (15-50); MCH 31.5 pg (26.0-34.0); MCHC 32.4 g/dL (31.0-37.0); MCV 97.4 fL (80.0-100.0); MEAN PLATELET VOLUME 10.1 fL (7.4-10.4); MONOCYTES 14.9 % (2-11); NEUTROPHILS 66.6 % (40-80); RBC 3.49 10x6/uL (4.00-5.40); RDW 15.6 % (11.5-14.5); WBC 6.8 10x3/uL (4.8-10.8)
[2017-04-29 04:21] LABS: PLATELET COUNT 219 10x3/uL (130-400)
[2017-04-29 04:37] LABS: ALBUMIN 3.9 g/dL (3.4-5.0); ALKALINE PHOSPHATASE 391 U/L (46-116); ALT (SGPT) 18 U/L (10-68); CALC OSMOLALITY 285 mosm/kg (275-300); CALCIUM 8.9 mg/dL (8.5-10.1); CHLORIDE - SERUM 97 mmol/L (98-107); CREATININE - SERUM 8.5 mg/dL (0.6-1.3); GLUCOSE 88 mg/dL (74-106); POTASSIUM - SERUM 4.5 mmol/L (3.5-5.1); PROTEIN - SERUM 8.4 g/dL (6.4-8.2); SODIUM 137 mmol/L (136-145); UREA NITROGEN 49 mg/dL (7-18); eGFR NON AFRICAN AMERICAN 5 mL/min (90-120)
[2017-04-29 04:54] LABS: CKMB 2.8 U/L (0.0-3.6); CREATINE KINASE 155 UL (21-215)
[2017-04-29 04:57] LABS: TROPONIN-I 0.079 ng/mL (0.000-0.060)
[2017-04-29 06:05] LABS: APTT 44.2 SECONDS (22.8-39.4); INR 1.12 (0.85-1.17); PROTIME 14.3 SECONDS (11.6-15.0)
[2017-04-29 16:51] VITALS: BP 162/124; BMI 19.9
--- NOTE | 2017-04-29 19:30 | NUR ---
PT C/O PAIN AND WANTS NORCO. PT IS AAO. SITTING ON BED. PT UP AD EVAN.GAIT STEADY IV ON LEFT HAND. DRSG CDI. PT DENIES ANY OTHER NEEDS. NO S/S OF DISTRESS. WILL CPOC
[2017-04-29 20:00] VITALS: BP 130/85
--- NOTE | 2017-04-30 04:17 | NUR ---
PT RESTING IN BED. PT HAS NOT SLEPT TONIGHT. PT DID TAKE AMBIEN AT 0017. PT DENIES ANY NEEDS. NO S/S OF DISTRESS. WILL CPOC
[2017-04-30 05:19] VITALS: BP 143/95
--- NOTE | 2017-04-30 07:36 | NUR ---
BLADDER SCAN DONE BY CATIE ARTHUR. BLADDER SCAN SHOWED 999+. OBTAINED NEW ORDERS.
[2017-04-30 07:42] VITALS: BP 146/84
--- NOTE | 2017-04-30 08:37 | NUR ---
AM ROUNDS - PT SITTING ON THE SIDE OF THE BED C/O ABD PAINA ND DESTINTION. IV TO LEFT HAND, SL. PT IS ON ROOM AIR. RIGTH ARM RESERVE, AVF. BED AT LOWEST POSITION. CALL CHAVEZ IN USE/REACH. SIDE RAILS UP X2. WILL CONTINUE TO MONITOR
[2017-04-30 15:48] VITALS: BP 149/92
--- NOTE | 2017-04-30 18:09 | NUR ---
PT IN BED RESTING AND HAS NO NEEDS AT THIS TIME. WILL CONTINUE TO MONITOR
--- NOTE | 2017-04-30 19:32 | NUR ---
PT C/O PAIN. NORCO ORDERED. PT STATES THIS DOES NOT HELP WITH THE PAIN AND JUST MAKES HER ITCH. CALL TO RENAL AIR DUCT MECHANIC VETERINARY MILK SPECIALIST. AWAITING RETURN CALL.
--- NOTE | 2017-04-30 19:45 | NUR ---
DR GUERRERO RETURNS CALL. ORDER RECEIVED FOR BENADRYL 25 MG PO TO GIVE WITH HYDROCODONE FOR C/O ITCHING.
[2017-04-30 20:00] VITALS: BP 140/87
[2017-04-30 23:45] VITALS: BP 121/76
[2017-05-01] VITALS (12 sets, daily range): BP systolic 107–156; BP diastolic 75–102; Ht 175.3 cm; Wt 66.4 kg
--- NOTE | 2017-05-01 07:23 | NUR ---
MORNING ROUNDS MADE. PATIENT LAYING IN BED WITH EYES CLOSED. CHEST RISES AND FALLS EQUALLY BILAT. CPOC.
[2017-05-01 08:24] LABS: BASOPHILS 0.3 % (0-2); EOSINOPHILS 4.2 % (0-7); HEMATOCRIT 34.7 % (36.0-48.0); HEMOGLOBIN 10.7 g/dL (12-16); IMMATURE GRANULOCYTES 0.5 % (0-5); LYMPHOCYTES 18.7 % (15-50); MCH 31.3 pg (26.0-34.0); MCHC 30.8 g/dL (31.0-37.0); MEAN PLATELET VOLUME 10.9 fL (7.4-10.4); MONOCYTES 9.2 % (2-11); NEUTROPHILS 67.1 % (40-80); PLATELET COUNT 191 10x3/uL (130-400); RBC 3.42 10x6/uL (4.00-5.40); RDW 15.4 % (11.5-14.5); WBC 5.8 10x3/uL (4.8-10.8)
[2017-05-01 08:36] LABS: MCV 101.5 fL (80.0-100.0)
[2017-05-01 08:44] LABS: APTT 46.4 SECONDS (22.8-39.4); INR 1.07 (0.85-1.17); PROTIME 13.8 SECONDS (11.6-15.0)
[2017-05-01 08:46] LABS: ANION GAP 18.2 mmol/L (8-16); CALCIUM 7.8 mg/dL (8.5-10.1); CARBON DIOXIDE 28.2 mmol/L (21.0-32.0); POTASSIUM - SERUM 4.4 mmol/L (3.5-5.1)
--- NOTE | 2017-05-01 09:10 | NUR ---
PATIENT SITTING AT BEDSIDE. MORNING MEDS GIVEN WITHOUT PROBLEMS. INFORMED PATIENT SHE WILL BE HAVING PARACENTESIS TODAY AND IS NOW NPO. PATIENT VOICED UNDERSTANDING. CPOC.
--- NOTE | 2017-05-01 11:00 | NUR ---
PATIENT SITTING UP ON THE SIDE OF THE BED. NO REQUESTS AT THIS TIME. SHE IS NPO WAITING ON PARACENTESIS. WILL CONTINUE TO MONITOR. CPOC.
--- NOTE | 2017-05-01 13:13 | NUR ---
PATIENT GONE TO PROCEDURE
--- NOTE | 2017-05-01 13:54 | NUR ---
PATIENT WAS BROUGHT BACK TO ROOM FROM PROCEDURE. VS STABLE AT THIS TIME. PATIENT C/O NAUSEA AND HER "LEGS ARE ITCHING". WILL GIVE MEDS AND CONTINUE TO MONITOR. CPOC.
--- NOTE | 2017-05-01 15:05 | NUR ---
PATIENT SITTING UP IN BED WITH FAMILY AT BEDSIDE. MEDS GIVEN WITHOUT PROBLEMS. NO REQUESTS AT THIS TIME. VS STABLE. WILL CONTINUE TO MONITOR. CPOC.
--- NOTE | 2017-05-01 17:06 | NUR ---
PATIENT LAYING IN BED. STATES SHE WOULD LIKE SOMETHING FOR HER COUGH AND THAT HER CHEST IS "LOCKED UP" AND "TIGHT". ADVISED I WILL INFORM HER DOCTOR AND KEEP HER INFORMED. CPOC.
--- NOTE | 2017-05-01 18:12 | NUR ---
PATIENT SITTING IN BED. ADVISED HER DOCTOR ORDERED TESSALON PEARLS AND UPDRAFTS. STATES SHE NEEDS SOMETHING FOR PAIN. ADVISED SHE IS NOT DUE FOR HER NEXT DOSE OF NORCO UNTIL 1999. PATIENT ASKED FOR DEMEROL. ADVISED I ASKED DR. LEWIS ABOUT DEMEROL AND HE SAID NO. STATES SHE NEEDS SOMETHING STRONGER, MAYBE NORCO 10M. ADVISED I WOULD PASS THAT ALONG AND WE COULD TALK TO THE DOCTOR ABOUT MAYBE INCREASING IT. PATIENT WAS FINE WITH THAT. CPOC.
--- NOTE | 2017-05-01 18:34 | NUR ---
END OF SHIFT ROOM CHECK. PATIENT SITTING IN BED. GAVE HER THE HYDROCORTISONE CREAM SHE REQUESTED FOR THE ITCHING ON HER BACK AND LEGS. ADVISED I WILL BE LEAVING SOON. DENIES ANY NEEDS AT THIS TIME.
--- NOTE | 2017-05-01 19:18 | NUR ---
PT IS RESTING IN BED WITH EYES OPEN. ALERT AD ORIENTED X 3. DENIES ANY PAIN OR DISCOMFORT AT THIS TIME. IV ABX INFUSIG TO LEFT HAND IV WITHOUT DIFFICULTY. NO REDNESS OR EDEMA NOTED AT THE INSERTION SITE. ABD IS DISTENDED. GOOD BOWEL SOUNDS NOTED X 4 QUADRANTS. RIGHT ARM AVF NOTED WITH GOOD BRUITT AND THRILL. SR'S ARE UP X 3 IN BED. CALL LIGHT AND BEDSIDE TABLE ARE WITHIN EASY REACH.
--- NOTE | 2017-05-01 22:58 | NUR ---
PT UP AMBULATING IN THE HALLS. NO ACUTE DISTRESS NOTED.
--- NOTE | 2017-05-02 00:15 | NUR ---
ROUNDING ON PT'S MADE. NO NEEDS VOICED. DENIES ANY CURRENT C/O PAIN. CADASTRAL SURVEYOR IN ROOM TO DO VS. CALL LIGHT WITHIN REACH. NURSE STATES NO CHANGES NOTED SINCE INITIAL ASSESSMENTS. WILL CONT TO MONITOR.
--- NOTE | 2017-05-02 00:45 | NUR ---
RECEIVED REPORT, WILL ASSUME CARE OF PT, PT AWAKE ASKING FOR ICE, BED IS LOW, SRX2, CALL LIGHT IN REACH, WILL CONTINUE PLAN OF CARE
[2017-05-02 05:10] VITALS: BP 120/87
[2017-05-02 08:11] VITALS: BP 157/83
--- NOTE | 2017-05-02 10:34 | NUR ---
PT NOT AVAILABLE FOR [place]
--- NOTE | 2017-05-02 14:07 | NUR ---
Patient Name: FELY SQUIRES Admission Status: ER Accout number: [id number] Admission Date: 04-29-2017 : 1965 Admission Diagnosis: Attending: GRANT Current LOS: 3 Anticipated DC Date: 05-03-2017 Planned Disposition: Home Primary Insurance: MEDICARE A & B Discharge Planning Comments: * Is the patient Alert and Oriented? Yes 0 * How many steps to enter\exit or inside your home? 3 0 * PCP DR. WYNN 0 * Pharmacy [facility]. 0 * Preadmission Environment Home Alone 0 * ADLs Independent 0 * Equipment Nebulizer 0 * Other Equipment NO MEDICAL EQUIPMENT PROVIDER PREFERENCE 0 * List name and contact numbers for known caregivers / representatives who currently or will assist patient after discharge: IVANA MCDOWELL, SISTER, 0 * Community resources currently utilized Other 0 * Please name any agencies selected above. OUTPATIENT DIALYSIS, [facility], /, [phone], PT DRIVES SELF 0 * Additional services required to return to the preadmission environment? No 0 * Can the patient safely return to the preadmission environment? Yes 0 * Has this patient been hospitalized within the prior 30 days at any hospital? No 0 CM MET WITH PT IN ROOM TO DISCUSS DISCHARGE PLANNING AND NEEDS. PT REPORTS LIVING AT HOME INDEPENDENTLY AND ALONE. PT HAS A NEBULIZER WITH NO MEDICAL EQUIPMENT PROVIDER PREFERENCE. PT HAS NO OUTSIDE SERVICES ASSISTING IN THE HOME. PT DRIVES HERSELF TO [facility] ON / SCHEDULE. CM DISCUSSED AVAILABILITY OF HOME HEALTH, REHAB SERVICES AND MEDICAL EQUIPMENT. PT DENIES DISCHARGE NEEDS, REPORTS HER BOYFRIEND WILL PICK HER UP FOR DISCHARGE HOME. IMPORTANT MESSAGE FROM MEDICARE PROVIDED AND EXPLAINED. PT PLANS TO DISCHARGE HOME ALONE, DENIES DISCHARGE NEEDS. CM TO FOLLOW AND ASSIST IF NEEDED. Fur Dressing Supervisor: Costa Cordova
[2017-05-02 16:13] VITALS: BP 145/91
--- NOTE | 2017-05-02 17:00 | NUR ---
ALERT AND ORIENTED X4. UP AMBULATING IN [place]ON. DENIES ANY NEEDS. CONTINUE PLAN OF CARE AND SAFETY PRECAUTIONS.
--- NOTE | 2017-05-02 19:30 | NUR ---
PT SITTING ON SIDE OF BED. C/O RLQ PAIN. STATING IT A KNOT FROM THE PARACENTISIS. PT ASKS FOR PRN PAIN MED. DENIES ANY OTHER NEEDS. NO S/S OF DISTRESS. WILL CPOC
[2017-05-02 20:55] VITALS: BP 122/76
[2017-05-03 00:45] VITALS: BP 119/79
--- NOTE | 2017-05-03 04:46 | NUR ---
PT WOKE UP FEELING SICK AND DRY HEAVING, GAVE PT A ZOFRAN. PT HAS NO OTHER SIGNS OR SYMPTOMS OF DISTRESS. WILLCPOC
[2017-05-03 06:12] VITALS: BP 132/91
[2017-05-03 07:47] VITALS: BP 157/97
[2017-05-03] MEDS ORDERED: COUMADIN2 MG PO (08:31)
--- NOTE | 2017-05-03 08:38 | NUR ---
AM ROUNDS - PT IS SITTING ON THE SIDE OF THE BED AT THIS TIME. PT IS ON ROOM AIR. IV TO LEFT FA, SL. PT IS A RESERVE RIGHT ARM, AVF. PT IS A&O. NO NEEDS AT THIS TIME. BED AT LOWEST POSITION. CALL CHAVEZ IN USE/REACH. SIDE RAILS UP X2. WILL CONTINUE TO MONITOR
[2017-05-03] MEDS ORDERED: LEVAQUIN250 MG PO (09:43)
--- NOTE | 2017-05-03 10:58 | NUR ---
D/C - WRITTEN AND VERBAL INTRUCTIONS GIVEN TO PT. PT REMOVED OWN IV. NO HEART MONITOR TO REMOVE. PT LEFT FLOOR VIA WHEELCHAIR WITH VOLUNTEER. WILL D/C
== END 2017-05-03 11:04 | disposition home or self-care (01) | DRG 193 ==
LOC: D.ER 02:47 → D.SDCHOLD 09:01 → D.M2 09:01
PROVIDERS: Family Medicine; Specialist; ADMIT Internal Medicine
PROC: 0W9G3ZZ Drainage of Peritoneal Cavity, Percutaneous Approach (ICD-10-PCS; principal; 2017-05-01)
DX: J18.9 Pneumonia, unspecified organism (principal); N18.6 End stage renal disease; I13.2 Hypertensive heart and chronic kidney disease with heart failure and with stage 5 chronic kidney disease, or end stage renal disease; R18.8 Other ascites; N25.81 Secondary hyperparathyroidism of renal origin; I50.9 Heart failure, unspecified; D63.1 Anemia in chronic kidney disease; I25.10 Atherosclerotic heart disease of native coronary artery without angina pectoris

== ENCOUNTER 2017-05-01 08:00 | Outpatient (CLI) | payer MEDICARE ==
[2017-05-01 13:58] VITALS: BMI 19.2
== END 2017-05-01 23:59 | disposition home or self-care (01) ==
LOC: D.OPS 08:00 → D.CT 10:00 → D.OPS 10:00 → D.CT 05-03 08:00
DX: R18.8 Other ascites (principal); R10.9 Unspecified abdominal pain; Z01.810 Encounter for preprocedural cardiovascular examination; Z01.811 Encounter for preprocedural respiratory examination; Z01.812 Encounter for preprocedural laboratory examination; Z53.9 Procedure and treatment not carried out, unspecified reason

== ENCOUNTER 2017-05-04 01:28 | Emergency (ER) | payer MEDICARE ==
[~2017-05-04 01:28] MED LIST changes: +COUMADIN2 MG PO
== END 2017-05-04 02:42 | disposition home or self-care (01) ==
LOC: D.ER 01:28
DX: J18.9 Pneumonia, unspecified organism (principal); F17.200 Nicotine dependence, unspecified, uncomplicated

== ENCOUNTER 2017-06-15 15:50 | Emergency (ER) | payer MEDICARE | END 2017-06-15 19:50 | disposition home or self-care (01) | LOC: D.ER 15:50 | DX: R05 Cough (principal); N18.6 End stage renal disease; R11.2 Nausea with vomiting, unspecified; I50.9 Heart failure, unspecified ==

== ENCOUNTER → 2017-06-16 08:41 | Outpatient (CLI) | payer MEDICARE ==
[~2017-06-16 08:41] MED LIST changes: +Levaquin PO; +ULTRAM50 MG PO
== END | disposition home or self-care (01) ==
LOC: D.US 08:41
DX: R18.8 Other ascites (principal)

== ENCOUNTER 2017-06-20 17:50 | Emergency (ER) | payer MEDICARE ==
[~2017-06-20 17:50] MED LIST changes: -Levaquin PO; -ULTRAM50 MG PO
[2017-06-20 18:34] LABS: BASOPHILS 0.2 % (0-2); EOSINOPHILS 4.3 % (0-7); HEMATOCRIT 40.5 % (36.0-48.0); HEMOGLOBIN 13.2 g/dL (12-16); IMMATURE GRANULOCYTES 0.2 % (0-5); LYMPHOCYTES 19.2 % (15-50); MCH 32.1 pg (26.0-34.0); MCHC 32.6 g/dL (31.0-37.0); MCV 98.5 fL (80.0-100.0); MEAN PLATELET VOLUME 10.2 fL (7.4-10.4); MONOCYTES 8.3 % (2-11); NEUTROPHILS 67.8 % (40-80); RBC 4.11 10x6/uL (4.00-5.40); RDW 14.7 % (11.5-14.5); WBC 8.2 10x3/uL (4.8-10.8)
[2017-06-20 18:39] LABS: PLATELET COUNT 245 10x3/uL (130-400)
[2017-06-20 19:11] LABS: ALBUMIN 3.6 g/dL (3.4-5.0); ANION GAP 16.3 mmol/L (8-16); BILIRUBIN - TOTAL 0.62 mg/dL (0.2-1.3); CALCIUM 7.8 mg/dL (8.5-10.1); CARBON DIOXIDE 25.3 mmol/L (21.0-32.0); CREATININE - SERUM 5.1 mg/dL (0.6-1.3); POTASSIUM - SERUM 3.6 mmol/L (3.5-5.1); PROTEIN - SERUM 8.6 g/dL (6.4-8.2)
== END 2017-06-20 23:07 | disposition home or self-care (01) ==
LOC: D.ER 17:50
PROVIDERS: Family Medicine
DX: J20.9 Acute bronchitis, unspecified (principal); N18.6 End stage renal disease; Z99.2 Dependence on renal dialysis; I50.9 Heart failure, unspecified

== ENCOUNTER 2017-06-28 05:07 | Outpatient (CLI) | payer MEDICARE ==
[~2017-06-28] VITALS: Ht 175.3 cm; Wt 66.8 kg
[2017-06-28 07:08] VITALS: BP 116/79; Ht 175.3 cm; Wt 66.8 kg
[2017-06-28 07:46] LABS: HEMATOCRIT 38.3 % (36.0-48.0); MCH 31.2 pg (26.0-34.0); MCHC 31.3 g/dL (31.0-37.0); MCV 99.5 fL (80.0-100.0); MEAN PLATELET VOLUME 10.8 fL (7.4-10.4); PLATELET COUNT 215 10x3/uL (130-400); RBC 3.85 10x6/uL (4.00-5.40); WBC 5.7 10x3/uL (4.8-10.8)
[2017-06-28 08:05] LABS: ANION GAP 18.2 mmol/L (8-16); CALCIUM 8.8 mg/dL (8.5-10.1); CARBON DIOXIDE 26.5 mmol/L (21.0-32.0); CREATININE - SERUM 7.8 mg/dL (0.6-1.3); POTASSIUM - SERUM 5.7 mmol/L (3.5-5.1)
[2017-06-28 08:06] LABS: INR 1.21 (0.85-1.17); PROTIME 14.9 SECONDS (11.6-15.0)
[2017-06-28 08:07] LABS: APTT 48.8 SECONDS (22.8-39.4)
[2017-06-28 08:27] LABS: EOSINOPHILS 5 % (0-7); LYMPHOCYTES 23 % (15-50); MONOCYTES 11 % (2-11); NEUTROPHILS 61 % (40-80); PLATELET ESTIMATE NORMAL
== END 2017-06-28 10:30 | disposition home or self-care (01) ==
LOC: D.OPS 05:07 → D.SP 08:00 → D.OPS 10:30
PROVIDERS: Radiology Diagnostic Radiology
DX: R18.8 Other ascites (principal); N18.6 End stage renal disease; I50.9 Heart failure, unspecified; Z01.812 Encounter for preprocedural laboratory examination

== ENCOUNTER 2017-07-09 10:47 | Inpatient (IN) | payer MEDICARE ==
[~2017-07-09] VITALS: Ht 175.3 cm; Wt 60.0 kg
[2017-07-09 11:24] LABS: BASOPHILS 0.4 % (0-2); EOSINOPHILS 0.4 % (0-7); HEMOGLOBIN 11.9 g/dL (12-16); IMMATURE GRANULOCYTES 0.2 % (0-5); LYMPHOCYTES 7.6 % (15-50); MCH 31.1 pg (26.0-34.0); MCHC 32.2 g/dL (31.0-37.0); MCV 96.6 fL (80.0-100.0); MEAN PLATELET VOLUME 10.5 fL (7.4-10.4); MONOCYTES 7.1 % (2-11); NEUTROPHILS 84.3 % (40-80); PLATELET COUNT 213 10x3/uL (130-400); RBC 3.83 10x6/uL (4.00-5.40); RDW 14.9 % (11.5-14.5)
[2017-07-09 11:45] LABS: ALBUMIN 3.8 g/dL (3.4-5.0); ANION GAP 25.8 mmol/L (8-16); BILIRUBIN - TOTAL 1.16 mg/dL (0.2-1.3); CALCIUM 9.1 mg/dL (8.5-10.1); CARBON DIOXIDE 18.7 mmol/L (21.0-32.0); CREATININE - SERUM 7.8 mg/dL (0.6-1.3); POTASSIUM - SERUM 4.5 mmol/L (3.5-5.1); PROTEIN - SERUM 8.1 g/dL (6.4-8.2)
[2017-07-09 20:00] VITALS: BP 134/88
[2017-07-09 20:03] VITALS: BP 134/82; BMI 21.7
[2017-07-10] VITALS: BP 147/92
[2017-07-10 04:00] VITALS: BP 142/101
[2017-07-10 05:56] LABS: BASOPHILS 0.4 % (0-2); EOSINOPHILS 3.1 % (0-7); HEMOGLOBIN 11.2 g/dL (12-16); IMMATURE GRANULOCYTES 0.3 % (0-5); LYMPHOCYTES 12.5 % (15-50); MCH 30.9 pg (26.0-34.0); MCV 96.4 fL (80.0-100.0); MEAN PLATELET VOLUME 11.2 fL (7.4-10.4); MONOCYTES 6.3 % (2-11); NEUTROPHILS 77.4 % (40-80); PLATELET COUNT 192 10x3/uL (130-400); RBC 3.63 10x6/uL (4.00-5.40)
[2017-07-10 06:44] LABS: CALCIUM 9.2 mg/dL (8.5-10.1); CREATININE - SERUM 8.9 mg/dL (0.6-1.3); PHOSPHOROUS 8.5 mg/dL (2.5-4.9)
[2017-07-10 06:50] LABS: ANION GAP 22.4 mmol/L (8-16); CARBON DIOXIDE 23.6 mmol/L (21.0-32.0)
[2017-07-10 08:20] VITALS: BP 148/98
[2017-07-10 12:19] VITALS: BP 149/101
[2017-07-10 13:37] VITALS: Ht 175.3 cm; Wt 60.0 kg
[2017-07-10 21:32] VITALS: BP 107/70
[2017-07-11] VITALS: BP 112/70
[2017-07-11 06:05] VITALS: BP 111/78
[2017-07-11 06:22] LABS: BASOPHILS 0.3 % (0-2); HEMATOCRIT 34.4 % (36.0-48.0); HEMOGLOBIN 11.1 g/dL (12-16); IMMATURE GRANULOCYTES 0.9 % (0-5); LYMPHOCYTES 19.1 % (15-50); MCH 31.3 pg (26.0-34.0); MCHC 32.3 g/dL (31.0-37.0); MCV 96.9 fL (80.0-100.0); MEAN PLATELET VOLUME 11.3 fL (7.4-10.4); NEUTROPHILS 61.7 % (40-80); PLATELET COUNT 176 10x3/uL (130-400); RBC 3.55 10x6/uL (4.00-5.40); RDW 14.9 % (11.5-14.5)
[2017-07-11 06:25] LABS: WBC 6.3 10x3/uL (4.8-10.8)
[2017-07-11 06:30] LABS: INR 1.65 (0.85-1.17)
[2017-07-11 06:36] LABS: ANION GAP 17.8 mmol/L (8-16); CALCIUM 8.6 mg/dL (8.5-10.1); CARBON DIOXIDE 28.6 mmol/L (21.0-32.0); CREATININE - SERUM 7.5 mg/dL (0.6-1.3); POTASSIUM - SERUM 4.4 mmol/L (3.5-5.1)
[2017-07-11 08:29] VITALS: BP 145/90
[2017-07-11 12:30] VITALS: BP 140/84
[2017-07-11 16:38] VITALS: BP 113/82
[2017-07-11 20:00] VITALS: BP 130/83
[2017-07-12] VITALS: BP 144/78
[2017-07-12 06:43] LABS: BASOPHILS 0.4 % (0-2); EOSINOPHILS 11.8 % (0-7); HEMATOCRIT 34.2 % (36.0-48.0); IMMATURE GRANULOCYTES 0.5 % (0-5); LYMPHOCYTES 17.8 % (15-50); MCH 31.3 pg (26.0-34.0); MCHC 32.2 g/dL (31.0-37.0); MCV 97.2 fL (80.0-100.0); MEAN PLATELET VOLUME 11.4 fL (7.4-10.4); MONOCYTES 14.4 % (2-11); NEUTROPHILS 55.1 % (40-80); PLATELET COUNT 200 10x3/uL (130-400); RBC 3.52 10x6/uL (4.00-5.40); RDW 15.1 % (11.5-14.5); WBC 5.6 10x3/uL (4.8-10.8)
[2017-07-12 06:44] LABS: ANION GAP 17.6 mmol/L (8-16); CALCIUM 8.2 mg/dL (8.5-10.1); CARBON DIOXIDE 26.9 mmol/L (21.0-32.0); INR 1.36 (0.85-1.17); POTASSIUM - SERUM 4.5 mmol/L (3.5-5.1); PROTIME 16.3 SECONDS (11.6-15.0)
[2017-07-12 07:00] VITALS: BP 152/86
[2017-07-12 17:02] VITALS: BP 144/76
[2017-07-12 22:06] VITALS: BP 95/66
[2017-07-13 05:05] VITALS: BP 116/80
[2017-07-13 05:10] LABS: BASOPHILS 0.3 % (0-2); HEMATOCRIT 36.2 % (36.0-48.0); HEMOGLOBIN 11.6 g/dL (12-16); IMMATURE GRANULOCYTES 0.5 % (0-5); LYMPHOCYTES 21.5 % (15-50); MCH 31.2 pg (26.0-34.0); MCV 97.3 fL (80.0-100.0); MEAN PLATELET VOLUME 10.4 fL (7.4-10.4); MONOCYTES 13.9 % (2-11); NEUTROPHILS 54.8 % (40-80); PLATELET COUNT 212 10x3/uL (130-400); RBC 3.72 10x6/uL (4.00-5.40); RDW 14.7 % (11.5-14.5); WBC 5.8 10x3/uL (4.8-10.8)
[2017-07-13 05:35] LABS: ANION GAP 12.9 mmol/L (8-16); CALCIUM 8.3 mg/dL (8.5-10.1); CARBON DIOXIDE 32.3 mmol/L (21.0-32.0); POTASSIUM - SERUM 4.2 mmol/L (3.5-5.1)
[2017-07-13 08:40] VITALS: BP 136/82
[2017-07-13 12:24] VITALS: BP 137/80
[2017-07-13 20:00] VITALS: BP 156/95
[2017-07-14] VITALS: BP 133/89
[2017-07-14 05:01] LABS: CALCIUM 8.5 mg/dL (8.5-10.1); CARBON DIOXIDE 29.4 mmol/L (21.0-32.0); POTASSIUM - SERUM 4.4 mmol/L (3.5-5.1)
[2017-07-14 05:06] LABS: BASOPHILS 0.5 % (0-2); EOSINOPHILS 7.1 % (0-7); HEMATOCRIT 35.8 % (36.0-48.0); HEMOGLOBIN 11.4 g/dL (12-16); IMMATURE GRANULOCYTES 0.3 % (0-5); LYMPHOCYTES 28.2 % (15-50); MCHC 31.8 g/dL (31.0-37.0); MCV 97.3 fL (80.0-100.0); MEAN PLATELET VOLUME 11.2 fL (7.4-10.4); MONOCYTES 16.9 % (2-11); PLATELET COUNT 201 10x3/uL (130-400); RBC 3.68 10x6/uL (4.00-5.40); RDW 14.8 % (11.5-14.5); WBC 6.2 10x3/uL (4.8-10.8)
[2017-07-14 05:07] LABS: CREATININE - SERUM 8.8 mg/dL (0.6-1.3)
[2017-07-14 08:00] VITALS: BP 127/70
[2017-07-14] MEDS ORDERED: Levaquin PO (08:56)
[2017-07-14] MEDS ORDERED: ULTRAM50 MG PO (08:57)
== END 2017-07-14 13:50 | disposition home or self-care (01) | DRG 291 ==
LOC: D.ER 10:47 → D.M2 17:53 → OBSVTIME 19:00 → D.M2 07-10 11:52
PROVIDERS: Family Medicine; Internal Medicine; Internal Medicine Nephrology
PROC: 5A1D70Z Performance of Urinary Filtration, Intermittent, Less than 6 Hours Per Day (ICD-10-PCS; principal; 2017-07-10)
DX: I13.2 Hypertensive heart and chronic kidney disease with heart failure and with stage 5 chronic kidney disease, or end stage renal disease (principal); J18.9 Pneumonia, unspecified organism; N18.6 End stage renal disease; J44.0 Chronic obstructive pulmonary disease with (acute) lower respiratory infection; I50.9 Heart failure, unspecified; D63.1 Anemia in chronic kidney disease; I25.10 Atherosclerotic heart disease of native coronary artery without angina pectoris; Z95.1 Presence of aortocoronary bypass graft; K21.9 Gastro-esophageal reflux disease without esophagitis; E83.39 Other disorders of phosphorus metabolism

== ENCOUNTER 2017-07-20 16:06 | Emergency (ER) | payer MEDICARE ==
[2017-07-10 13:37] VITALS: BMI 21.7
[~2017-07-20 16:06] MED LIST changes: +Levaquin PO; +ULTRAM50 MG PO
[2017-07-20 21:43] LABS: BASOPHILS 0.1 % (0-2); EOSINOPHILS 2.4 % (0-7); HEMATOCRIT 35.6 % (36.0-48.0); HEMOGLOBIN 11.3 g/dL (12-16); IMMATURE GRANULOCYTES 0.3 % (0-5); LYMPHOCYTES 12.5 % (15-50); MCH 31.5 pg (26.0-34.0); MCHC 31.7 g/dL (31.0-37.0); MCV 99.2 fL (80.0-100.0); MEAN PLATELET VOLUME 11.2 fL (7.4-10.4); MONOCYTES 9.5 % (2-11); NEUTROPHILS 75.2 % (40-80); PLATELET COUNT 192 10x3/uL (130-400); RBC 3.59 10x6/uL (4.00-5.40); RDW 15.1 % (11.5-14.5); WBC 10.8 10x3/uL (4.8-10.8)
[2017-07-20 22:15] LABS: ALBUMIN 3.9 g/dL (3.4-5.0); ANION GAP 16.9 mmol/L (8-16); CALCIUM 8.8 mg/dL (8.5-10.1); CARBON DIOXIDE 28.9 mmol/L (21.0-32.0); CREATININE - SERUM 5.8 mg/dL (0.6-1.3); POTASSIUM - SERUM 4.8 mmol/L (3.5-5.1); PROTEIN - SERUM 8.3 g/dL (6.4-8.2)
== END 2017-07-20 22:57 | disposition home or self-care (01) ==
LOC: D.ER 16:06
PROVIDERS: Physician Assistant Medical
DX: S80.12XA Contusion of left lower leg, initial encounter (principal); S80.11XA Contusion of right lower leg, initial encounter; W19.XXXA Unspecified fall, initial encounter; Y93.89 Activity, other specified; Y92.019 Unspecified place in single-family (private) house as the place of occurrence of the external cause; F17.200 Nicotine dependence, unspecified, uncomplicated

== ENCOUNTER 2017-08-02 08:47 | Emergency (ER) | payer MEDICARE ==
[2017-07-10 13:37] VITALS: BMI 21.7
[2017-08-02 09:44] LABS: BASOPHILS 0.3 % (0-2); EOSINOPHILS 3.9 % (0-7); HEMATOCRIT 32.9 % (36.0-48.0); HEMOGLOBIN 10.5 g/dL (12-16); IMMATURE GRANULOCYTES 0.3 % (0-5); LYMPHOCYTES 15.8 % (15-50); MCH 30.6 pg (26.0-34.0); MCHC 31.9 g/dL (31.0-37.0); MCV 95.9 fL (80.0-100.0); MEAN PLATELET VOLUME 10.4 fL (7.4-10.4); MONOCYTES 14.8 % (2-11); NEUTROPHILS 64.9 % (40-80); RBC 3.43 10x6/uL (4.00-5.40); RDW 15.1 % (11.5-14.5); WBC 6.9 10x3/uL (4.8-10.8)
[2017-08-02 09:47] LABS: PLATELET COUNT 273 10x3/uL (130-400)
[2017-08-02 10:02] LABS: ALBUMIN 3.6 g/dL (3.4-5.0); BILIRUBIN - TOTAL 0.73 mg/dL (0.2-1.3); CALCIUM 8.2 mg/dL (8.5-10.1); CARBON DIOXIDE 25.9 mmol/L (21.0-32.0); CREATININE - SERUM 5.9 mg/dL (0.6-1.3); POTASSIUM - SERUM 3.9 mmol/L (3.5-5.1); PROTEIN - SERUM 8.7 g/dL (6.4-8.2)
[2017-08-02 10:33] LABS: APPEARANCE HAZY (CLEAR); COLOR YELLOW (YELLOW); SPECIFIC GRAVITY 1.005 (1.005-1.020)
[2017-08-02 10:34] LABS: BACTERIA MODERATE /hpf (NONE SEEN); BILIRUBIN NEGATIVE (NEGATIVE); EPITHELIAL CELLS 0-5 /hpf (0-5); GLUCOSE NEGATIVE (NEGATIVE); KETONE SMALL mg/dL (NEGATIVE); MUCUS <1+ /lpf (NONE SEEN); NITRITE NEGATIVE (NEGATIVE); PROTEIN 3+ mg/dL (NEGATIVE); UROBILINOGEN NORMAL (NORMAL); WHITE CELLS - URINE 0-5 /hpf (0-5)
== END 2017-08-02 13:18 | disposition home or self-care (01) ==
LOC: D.ER 08:47
PROVIDERS: Emergency Medicine
DX: R11.10 Vomiting, unspecified (principal); N39.0 Urinary tract infection, site not specified; N18.9 Chronic kidney disease, unspecified

== ENCOUNTER → 2017-08-07 07:39 | Outpatient (CLI) | payer MEDICARE ==
[2017-07-10 13:37] VITALS: BMI 21.7
== END | disposition home or self-care (01) ==
LOC: D.NM 07:39
DX: R93.5 Abnormal findings on diagnostic imaging of other abdominal regions, including retroperitoneum (principal)

== ENCOUNTER 2017-08-14 17:22 | Inpatient (IN) | payer MEDICARE ==
[~2017-08-14] VITALS: Ht 175.3 cm; Wt 67.5 kg
[2017-08-14 18:48] LABS: BASOPHILS 0.5 % (0-2); EOSINOPHILS 4.9 % (0-7); HEMATOCRIT 28.8 % (36.0-48.0); HEMOGLOBIN 9.2 g/dL (12-16); IMMATURE GRANULOCYTES 0.3 % (0-5); LYMPHOCYTES 19.5 % (15-50); MCH 29.6 pg (26.0-34.0); MCHC 31.9 g/dL (31.0-37.0); MCV 92.6 fL (80.0-100.0); MEAN PLATELET VOLUME 10.8 fL (7.4-10.4); NEUTROPHILS 63.8 % (40-80); PLATELET COUNT 247 10x3/uL (130-400); RBC 3.11 10x6/uL (4.00-5.40); RDW 15.5 % (11.5-14.5); WBC 9.5 10x3/uL (4.8-10.8)
[2017-08-14 19:17] LABS: ALBUMIN 3.3 g/dL (3.4-5.0); ALKALINE PHOSPHATASE 379 U/L (46-116); ALT (SGPT) 16 U/L (10-68); BILIRUBIN - TOTAL 0.66 mg/dL (0.2-1.3); CALC OSMOLALITY 282 mosm/kg (275-300); CALCIUM 8.5 mg/dL (8.5-10.1); CARBON DIOXIDE 21.4 mmol/L (21.0-32.0); CHLORIDE - SERUM 94 mmol/L (98-107); CREATININE - SERUM 8.7 mg/dL (0.6-1.3); GLUCOSE 95 mg/dL (74-106); POTASSIUM - SERUM 4.5 mmol/L (3.5-5.1); PROTEIN - SERUM 8.8 g/dL (6.4-8.2); SODIUM 134 mmol/L (136-145); UREA NITROGEN 55 mg/dL (7-18); eGFR NON AFRICAN AMERICAN 5 mL/min (90-120)
[2017-08-14 19:28] LABS: CKMB 2.7 U/L (0.0-3.6); CREATINE KINASE 128 UL (21-215)
[2017-08-14 19:32] LABS: TROPONIN-I 0.095 ng/mL (0.000-0.060)
[2017-08-14 23:08] LABS: CKMB 3.1 U/L (0.0-3.6); CREATINE KINASE 172 UL (21-215)
[2017-08-14 23:09] LABS: TROPONIN-I 0.111 ng/mL (0.000-0.060)
[2017-08-15 05:42] LABS: CKMB 3.3 U/L (0.0-3.6)
[2017-08-15 05:43] LABS: CREATINE KINASE 224 UL (21-215)
[2017-08-15 05:44] LABS: TROPONIN-I 0.101 ng/mL (0.000-0.060)
[2017-08-15 11:28] LABS: CKMB 3.1 U/L (0.0-3.6); CREATINE KINASE 229 UL (21-215)
[2017-08-15 11:29] LABS: TROPONIN-I 0.076 ng/mL (0.000-0.060)
[2017-08-15] MEDS ORDERED: GABAPENTIN100 MG PO (11:39)
[2017-08-15] MEDS ORDERED: TRAZODONE HCL50 MG PO (11:39)
[2017-08-15 13:12] LABS: INR 4.62 (0.85-1.17); PROTIME 42.7 SECONDS (11.6-15.0)
[2017-08-15] MEDS ORDERED: PROAIR HFA8.5 GM INH (19:52)
[2017-08-15 20:00] VITALS: BP 115/76
[2017-08-16 04:00] VITALS: BP 118/83
[2017-08-16 05:21] VITALS: BP 115/76; BMI 21.7
[2017-08-16 06:35] LABS: BASOPHILS 0.4 % (0-2); EOSINOPHILS 6.8 % (0-7); HEMATOCRIT 29.5 % (36.0-48.0); HEMOGLOBIN 9.1 g/dL (12-16); IMMATURE GRANULOCYTES 0.4 % (0-5); LYMPHOCYTES 22.1 % (15-50); MCH 29.4 pg (26.0-34.0); MCHC 30.8 g/dL (31.0-37.0); MEAN PLATELET VOLUME 11.1 fL (7.4-10.4); MONOCYTES 15.5 % (2-11); NEUTROPHILS 54.8 % (40-80); PLATELET COUNT 281 10x3/uL (130-400); RDW 15.7 % (11.5-14.5); WBC 7.5 10x3/uL (4.8-10.8)
[2017-08-16 06:37] LABS: MCV 95.2 fL (80.0-100.0)
[2017-08-16 06:44] LABS: INR 4.43 (0.85-1.17); PROTIME 41.3 SECONDS (11.6-15.0)
[2017-08-16 07:00] LABS: ALBUMIN 3.1 g/dL (3.4-5.0); ANION GAP 19.1 mmol/L (8-16); BILIRUBIN - TOTAL 0.4 mg/dL (0.2-1.3); CALCIUM 7.1 mg/dL (8.5-10.1); CARBON DIOXIDE 24.8 mmol/L (21.0-32.0); MAGNESIUM - SERUM 2.2 mg/dL (1.8-2.4); PHOSPHOROUS 4.6 mg/dL (2.5-4.9); POTASSIUM - SERUM 3.9 mmol/L (3.5-5.1); PROTEIN - SERUM 8.5 g/dL (6.4-8.2)
[2017-08-16 07:04] LABS: CREATININE - SERUM 5.8 mg/dL (0.6-1.3)
[2017-08-16 08:00] VITALS: BP 103/80
[2017-08-16 12:34] VITALS: BP 130/87
[2017-08-16 17:14] VITALS: BP 145/93
[2017-08-16 19:00] VITALS: BP 117/86
[2017-08-17 04:00] VITALS: BP 110/62
[2017-08-17 06:10] LABS: BASOPHILS 0.2 % (0-2); EOSINOPHILS 6.9 % (0-7); HEMATOCRIT 28.4 % (36.0-48.0); HEMOGLOBIN 8.7 g/dL (12-16); IMMATURE GRANULOCYTES 0.4 % (0-5); LYMPHOCYTES 17.1 % (15-50); MCH 29.6 pg (26.0-34.0); MCHC 30.6 g/dL (31.0-37.0); MCV 96.6 fL (80.0-100.0); MEAN PLATELET VOLUME 10.9 fL (7.4-10.4); MONOCYTES 13.7 % (2-11); NEUTROPHILS 61.7 % (40-80); PLATELET COUNT 253 10x3/uL (130-400); RBC 2.94 10x6/uL (4.00-5.40)
[2017-08-17 06:17] LABS: WBC 9.7 10x3/uL (4.8-10.8)
[2017-08-17 06:36] LABS: ANION GAP 17.1 mmol/L (8-16); BILIRUBIN - TOTAL 0.38 mg/dL (0.2-1.3); CALCIUM 8.2 mg/dL (8.5-10.1); CARBON DIOXIDE 26.7 mmol/L (21.0-32.0); POTASSIUM - SERUM 3.8 mmol/L (3.5-5.1); PROTEIN - SERUM 7.9 g/dL (6.4-8.2)
[2017-08-17 06:43] LABS: CREATININE - SERUM 7.8 mg/dL (0.6-1.3)
[2017-08-17 08:14] LABS: INR 2.16 (0.85-1.17); PROTIME 23.5 SECONDS (11.6-15.0)
[2017-08-17 09:15] VITALS: BP 123/75
[2017-08-17 16:43] VITALS: BP 125/75
[2017-08-17 20:00] VITALS: BP 143/84
[2017-08-18 04:00] VITALS: BP 108/66
[2017-08-18 05:45] LABS: BASOPHILS 0.2 % (0-2); EOSINOPHILS 8.6 % (0-7); HEMATOCRIT 29.5 % (36.0-48.0); HEMOGLOBIN 8.8 g/dL (12-16); IMMATURE GRANULOCYTES 0.7 % (0-5); LYMPHOCYTES 17.5 % (15-50); MCH 29.2 pg (26.0-34.0); MCHC 29.8 g/dL (31.0-37.0); MEAN PLATELET VOLUME 10.6 fL (7.4-10.4); MONOCYTES 12.5 % (2-11); NEUTROPHILS 60.5 % (40-80); PLATELET COUNT 261 10x3/uL (130-400); RBC 3.01 10x6/uL (4.00-5.40); RDW 16.2 % (11.5-14.5); WBC 9.2 10x3/uL (4.8-10.8)
[2017-08-18 06:17] LABS: ALBUMIN 3.1 g/dL (3.4-5.0); ANION GAP 13.6 mmol/L (8-16); BILIRUBIN - TOTAL 0.45 mg/dL (0.2-1.3); CALCIUM 8.4 mg/dL (8.5-10.1); CARBON DIOXIDE 28.5 mmol/L (21.0-32.0); POTASSIUM - SERUM 4.1 mmol/L (3.5-5.1); PROTEIN - SERUM 8.6 g/dL (6.4-8.2)
[2017-08-18 06:21] LABS: CREATININE - SERUM 5.4 mg/dL (0.6-1.3)
[2017-08-18 07:30] VITALS: BP 170/99
[2017-08-18 13:03] VITALS: BP 165/98
[2017-08-18 15:43] VITALS: BP 170/99
[2017-08-19 06:37] VITALS: BP 119/69
[2017-08-19 07:21] LABS: INR 1.33 (0.85-1.17)
[2017-08-19 07:26] LABS: BASOPHILS 0.2 % (0-2); EOSINOPHILS 4.5 % (0-7); HEMATOCRIT 29.2 % (36.0-48.0); HEMOGLOBIN 8.8 g/dL (12-16); IMMATURE GRANULOCYTES 0.2 % (0-5); LYMPHOCYTES 11.5 % (15-50); MCH 29.6 pg (26.0-34.0); MCHC 30.1 g/dL (31.0-37.0); MCV 98.3 fL (80.0-100.0); MEAN PLATELET VOLUME 11.2 fL (7.4-10.4); MONOCYTES 8.9 % (2-11); NEUTROPHILS 74.7 % (40-80); PLATELET COUNT 251 10x3/uL (130-400); RBC 2.97 10x6/uL (4.00-5.40); RDW 16.8 % (11.5-14.5)
[2017-08-19 07:27] LABS: WBC 13.3 10x3/uL (4.8-10.8)
[2017-08-19 07:31] LABS: ALBUMIN 3.4 g/dL (3.4-5.0); BILIRUBIN - TOTAL 0.8 mg/dL (0.2-1.3); CALCIUM 8.3 mg/dL (8.5-10.1); CARBON DIOXIDE 25.7 mmol/L (21.0-32.0); POTASSIUM - SERUM 4.7 mmol/L (3.5-5.1); PROTEIN - SERUM 8.9 g/dL (6.4-8.2)
[2017-08-19 07:32] LABS: CREATININE - SERUM 7.1 mg/dL (0.6-1.3)
[2017-08-19 08:44] VITALS: BP 106/72
[2017-08-19 17:00] VITALS: BP 91/63
[2017-08-19 17:42] VITALS: Ht 175.3 cm; Wt 67.5 kg
[2017-08-19 19:00] VITALS: BP 112/61
[2017-08-20] VITALS: BP 110/56
[2017-08-20 04:00] VITALS: BP 81/53
[2017-08-20 05:07] LABS: BASOPHILS 0.2 % (0-2); EOSINOPHILS 5.1 % (0-7); HEMATOCRIT 26.7 % (36.0-48.0); HEMOGLOBIN 8.1 g/dL (12-16); IMMATURE GRANULOCYTES 0.2 % (0-5); LYMPHOCYTES 10.5 % (15-50); MCH 29.7 pg (26.0-34.0); MCHC 30.3 g/dL (31.0-37.0); MCV 97.8 fL (80.0-100.0); MEAN PLATELET VOLUME 10.7 fL (7.4-10.4); MONOCYTES 9.2 % (2-11); NEUTROPHILS 74.8 % (40-80); PLATELET COUNT 213 10x3/uL (130-400); RBC 2.73 10x6/uL (4.00-5.40); RDW 16.9 % (11.5-14.5); WBC 13.1 10x3/uL (4.8-10.8)
[2017-08-20 05:19] LABS: INR 1.35 (0.85-1.17); PROTIME 16.2 SECONDS (11.6-15.0)
[2017-08-20 05:41] LABS: ALBUMIN 2.8 g/dL (3.4-5.0); BILIRUBIN - TOTAL 0.7 mg/dL (0.2-1.3); CREATININE - SERUM 5.1 mg/dL (0.6-1.3); PROTEIN - SERUM 7.9 g/dL (6.4-8.2); THYROID STIMULATING HORMONE 1.3 uIU/mL (0.36-3.74)
[2017-08-20 08:26] VITALS: BP 146/92
[2017-08-20 11:37] VITALS: BP 100/52
[2017-08-20 16:53] VITALS: BP 140/87
[2017-08-20 22:30] VITALS: BP 133/81
[2017-08-21] VITALS (11 sets, daily range): BP systolic 100–134; BP diastolic 56–92
[2017-08-21 06:16] LABS: BASOPHILS 0.2 % (0-2); EOSINOPHILS 4.5 % (0-7); HEMATOCRIT 27.3 % (36.0-48.0); HEMOGLOBIN 8.2 g/dL (12-16); IMMATURE GRANULOCYTES 0.2 % (0-5); LYMPHOCYTES 9.9 % (15-50); MCH 29.3 pg (26.0-34.0); MCV 97.5 fL (80.0-100.0); MEAN PLATELET VOLUME 11.3 fL (7.4-10.4); MONOCYTES 8.9 % (2-11); NEUTROPHILS 76.3 % (40-80); PLATELET COUNT 213 10x3/uL (130-400); WBC 12.7 10x3/uL (4.8-10.8)
[2017-08-21 06:30] LABS: INR 1.27 (0.85-1.17); PROTIME 15.5 SECONDS (11.6-15.0)
[2017-08-21 06:46] LABS: % SATURATION 13 % (15-55); IRON 22 ug/dl (35-150); TOTAL IRON BIND CAPACITY 166 ug/dl (260-445); UNSAT IRON BIND CAPACITY 144 ug/dl (150-375)
[2017-08-21 06:59] LABS: HELICOBACTER PYLORI IGG POSITIVE (NEGATIVE)
[2017-08-21 07:05] LABS: ALBUMIN 3.1 g/dL (3.4-5.0); ANION GAP 16.3 mmol/L (8-16); BILIRUBIN - TOTAL 0.87 mg/dL (0.2-1.3); CARBON DIOXIDE 27.3 mmol/L (21.0-32.0); POTASSIUM - SERUM 4.6 mmol/L (3.5-5.1); PROTEIN - SERUM 8.8 g/dL (6.4-8.2)
[2017-08-21 07:06] LABS: CREATININE - SERUM 6.9 mg/dL (0.6-1.3)
[2017-08-22 01:15] VITALS: BP 94/72
[2017-08-22 05:21] VITALS: BP 117/72
[2017-08-22 06:27] LABS: BASOPHILS 0.1 % (0-2); HEMATOCRIT 26.2 % (36.0-48.0); IMMATURE GRANULOCYTES 0.3 % (0-5); INR 1.38 (0.85-1.17); LYMPHOCYTES 10.1 % (15-50); MCH 29.4 pg (26.0-34.0); MCHC 30.5 g/dL (31.0-37.0); MCV 96.3 fL (80.0-100.0); MEAN PLATELET VOLUME 11.4 fL (7.4-10.4); MONOCYTES 9.5 % (2-11); PLATELET COUNT 210 10x3/uL (130-400); PROTIME 16.5 SECONDS (11.6-15.0); RBC 2.72 10x6/uL (4.00-5.40); RDW 16.9 % (11.5-14.5); WBC 11.9 10x3/uL (4.8-10.8)
[2017-08-22 06:54] LABS: ALBUMIN 2.7 g/dL (3.4-5.0); ANION GAP 17.4 mmol/L (8-16); BILIRUBIN - TOTAL 0.9 mg/dL (0.2-1.3); CALCIUM 8.6 mg/dL (8.5-10.1); CARBON DIOXIDE 25.5 mmol/L (21.0-32.0); CREATININE - SERUM 8.6 mg/dL (0.6-1.3); POTASSIUM - SERUM 4.9 mmol/L (3.5-5.1)
[2017-08-22 08:01] VITALS: BP 125/86
[2017-08-22 11:22] VITALS: BP 106/85
[2017-08-22 20:00] VITALS: BP 142/71
[2017-08-23 04:00] VITALS: BP 124/78
[2017-08-23 05:48] LABS: BASOPHILS 0 % (0-2); EOSINOPHILS 0 % (0-7); HEMATOCRIT 28.1 % (36.0-48.0); HEMOGLOBIN 8.7 g/dL (12-16); IMMATURE GRANULOCYTES 0.4 % (0-5); LYMPHOCYTES 4.1 % (15-50); MCH 29.3 pg (26.0-34.0); MCV 94.6 fL (80.0-100.0); MEAN PLATELET VOLUME 11.7 fL (7.4-10.4); NEUTROPHILS 91.5 % (40-80); PLATELET COUNT 224 10x3/uL (130-400); RBC 2.97 10x6/uL (4.00-5.40); RDW 16.6 % (11.5-14.5)
[2017-08-23 06:00] LABS: INR 1.22 (0.85-1.17)
[2017-08-23 06:02] LABS: ALBUMIN 2.9 g/dL (3.4-5.0); ANION GAP 17.9 mmol/L (8-16); BILIRUBIN - TOTAL 0.8 mg/dL (0.2-1.3); CARBON DIOXIDE 26.3 mmol/L (21.0-32.0); CREATININE - SERUM 6.6 mg/dL (0.6-1.3); POTASSIUM - SERUM 5.2 mmol/L (3.5-5.1); PROTEIN - SERUM 9.1 g/dL (6.4-8.2)
[2017-08-23 07:58] VITALS: BP 126/88
[2017-08-23 11:34] VITALS: BP 140/65
[2017-08-23 16:37] VITALS: BP 118/64
[2017-08-23 20:09] VITALS: BP 162/98
[2017-08-24 01:38] VITALS: BP 131/77
[2017-08-24 05:21] VITALS: BP 173/106
[2017-08-24 06:42] LABS: BASOPHILS 0.1 % (0-2); EOSINOPHILS 0.1 % (0-7); HEMATOCRIT 26.3 % (36.0-48.0); HEMOGLOBIN 8.2 g/dL (12-16); IMMATURE GRANULOCYTES 1.1 % (0-5); LYMPHOCYTES 6.2 % (15-50); MCH 29.2 pg (26.0-34.0); MCHC 31.2 g/dL (31.0-37.0); MCV 93.6 fL (80.0-100.0); MEAN PLATELET VOLUME 11.3 fL (7.4-10.4); MONOCYTES 9.8 % (2-11); NEUTROPHILS 82.7 % (40-80); PLATELET COUNT 251 10x3/uL (130-400); RBC 2.81 10x6/uL (4.00-5.40); RDW 16.9 % (11.5-14.5); WBC 16.7 10x3/uL (4.8-10.8)
[2017-08-24 06:54] LABS: ALBUMIN 2.8 g/dL (3.4-5.0); ANION GAP 20.4 mmol/L (8-16); BILIRUBIN - TOTAL 0.9 mg/dL (0.2-1.3); CALCIUM 8.3 mg/dL (8.5-10.1); CARBON DIOXIDE 23.7 mmol/L (21.0-32.0); POTASSIUM - SERUM 5.1 mmol/L (3.5-5.1); PROTEIN - SERUM 8.5 g/dL (6.4-8.2)
[2017-08-24 07:27] LABS: INR 1.42 (0.85-1.17); PROTIME 16.9 SECONDS (11.6-15.0)
[2017-08-24 20:00] VITALS: BP 152/90
[2017-08-25] VITALS: BP 144/88
[2017-08-25 04:00] VITALS: BP 155/110
[2017-08-25 04:18] LABS: INR 1.42 (0.85-1.17); PROTIME 16.9 SECONDS (11.6-15.0)
[2017-08-25 04:27] LABS: BASOPHILS 0.1 % (0-2); EOSINOPHILS 0.1 % (0-7); HEMATOCRIT 27.6 % (36.0-48.0); HEMOGLOBIN 8.6 g/dL (12-16); IMMATURE GRANULOCYTES 1.3 % (0-5); LYMPHOCYTES 8.3 % (15-50); MCH 29.2 pg (26.0-34.0); MCHC 31.2 g/dL (31.0-37.0); MCV 93.6 fL (80.0-100.0); MEAN PLATELET VOLUME 11.2 fL (7.4-10.4); MONOCYTES 10.1 % (2-11); NEUTROPHILS 80.1 % (40-80); PLATELET COUNT 277 10x3/uL (130-400); RBC 2.95 10x6/uL (4.00-5.40); WBC 16.6 10x3/uL (4.8-10.8)
[2017-08-25 04:37] LABS: ALBUMIN 2.9 g/dL (3.4-5.0); ANION GAP 20.4 mmol/L (8-16); BILIRUBIN - TOTAL 0.9 mg/dL (0.2-1.3); CALCIUM 8.7 mg/dL (8.5-10.1); CARBON DIOXIDE 22.3 mmol/L (21.0-32.0); CREATININE - SERUM 6.4 mg/dL (0.6-1.3); POTASSIUM - SERUM 4.7 mmol/L (3.5-5.1); PROTEIN - SERUM 8.6 g/dL (6.4-8.2)
[2017-08-25 08:08] VITALS: BP 134/75
[2017-08-25 11:02] VITALS: BP 142/66
[2017-08-25 15:16] VITALS: BP 121/67
[2017-08-25 20:00] VITALS: BP 156/95
[2017-08-26] VITALS: BP 143/86
[2017-08-26 07:17] LABS: INR 1.59 (0.85-1.17); PROTIME 18.4 SECONDS (11.6-15.0)
[2017-08-26 09:47] VITALS: BP 160/84
[2017-08-26 18:13] VITALS: BP 132/81
[2017-08-26 21:35] VITALS: BP 162/84
[2017-08-27 01:24] VITALS: BP 151/109
[2017-08-27 06:03] LABS: INR 1.61 (0.85-1.17); PROTIME 18.6 SECONDS (11.6-15.0)
[2017-08-27 06:30] VITALS: BP 160/103
[2017-08-27 09:10] VITALS: BP 171/106
[2017-08-27] MEDS ORDERED: VIBRAMYCIN 100100 MG PO (09:36)
[2017-08-27] MEDS ORDERED: FLAGYL500 MG PO (09:36)
[2017-08-27] MEDS ORDERED: ELIQUIS5 MG PO (09:37)
[2017-08-27] MEDS ORDERED: MUCINEX600 MG PO (09:38)
[2017-08-27] MEDS ORDERED: NORVASC5 MG PO (09:38)
[2017-08-27] MEDS ORDERED: FLORAJEN3 CAPS460 MG PO (09:39)
[2017-08-27] MEDS ORDERED: PREDNISONE20 MG PO (09:41)
== END 2017-08-27 12:54 | disposition home or self-care (01) | DRG 291 ==
LOC: D.ER 17:22 → D.M2 22:24 → D.EDHOLD 22:24 → D.M2 08-15 17:08
PROVIDERS: Emergency Medicine; Family Medicine; Internal Medicine; Internal Medicine Gastroenterology; Internal Medicine Nephrology
PROC: 5A1D70Z Performance of Urinary Filtration, Intermittent, Less than 6 Hours Per Day (ICD-10-PCS; principal; 2017-08-15)
PROC: 0W9G3ZZ Drainage of Peritoneal Cavity, Percutaneous Approach (ICD-10-PCS; 2017-08-21)
DX: I13.2 Hypertensive heart and chronic kidney disease with heart failure and with stage 5 chronic kidney disease, or end stage renal disease (principal); J18.9 Pneumonia, unspecified organism; N18.6 End stage renal disease; J44.0 Chronic obstructive pulmonary disease with (acute) lower respiratory infection; J81.1 Chronic pulmonary edema; D68.9 Coagulation defect, unspecified; R18.8 Other ascites; J44.1 Chronic obstructive pulmonary disease with (acute) exacerbation; I50.9 Heart failure, unspecified; Z99.2 Dependence on renal dialysis; D63.1 Anemia in chronic kidney disease; I25.10 Atherosclerotic heart disease of native coronary artery without angina pectoris; Z95.5 Presence of coronary angioplasty implant and graft; Z95.1 Presence of aortocoronary bypass graft; R51 Headache; B96.81 Helicobacter pylori [H. pylori] as the cause of diseases classified elsewhere

== ENCOUNTER 2017-09-13 21:44 | Inpatient (IN) | payer MEDICARE ==
[~2017-09-13] VITALS: Ht 175.3 cm; Wt 71.9 kg
[~2017-09-13 21:44] MED LIST changes: +ELIQUIS5 MG PO; +FLORAJEN3 CAPS460 MG PO; +GABAPENTIN100 MG PO; +MUCINEX600 MG PO; +NORVASC5 MG PO; +PROAIR HFA8.5 GM INH; +TRAZODONE HCL50 MG PO; +VIBRAMYCIN 100100 MG PO
[2017-09-13 23:16] LABS: BASOPHILS 0.2 % (0-2); EOSINOPHILS 2.5 % (0-7); HEMATOCRIT 30.3 % (36.0-48.0); HEMOGLOBIN 9.3 g/dL (12-16); IMMATURE GRANULOCYTES 0.4 % (0-5); LYMPHOCYTES 15.8 % (15-50); MCH 29.9 pg (26.0-34.0); MCHC 30.7 g/dL (31.0-37.0); MCV 97.4 fL (80.0-100.0); MEAN PLATELET VOLUME 10.4 fL (7.4-10.4); NEUTROPHILS 71.1 % (40-80); PLATELET COUNT 186 10x3/uL (130-400); RBC 3.11 10x6/uL (4.00-5.40); RDW 20.2 % (11.5-14.5); WBC 8.5 10x3/uL (4.8-10.8)
[2017-09-13 23:27] LABS: APTT 36.3 SECONDS (22.8-39.4); INR 1.35 (0.85-1.17); PROTIME 16.2 SECONDS (11.6-15.0)
[2017-09-13 23:28] LABS: D-DIMER-QUANTITATIVE 0.86 ug/mLFEU (0.20-0.54)
[2017-09-13 23:45] LABS: ALBUMIN 3.2 g/dL (3.4-5.0); ALKALINE PHOSPHATASE 322 U/L (46-116); ALT (SGPT) 22 U/L (10-68); AMYLASE - SERUM 207 U/L (25-115); CALC OSMOLALITY 305 mosm/kg (275-300); CARBON DIOXIDE 23.6 mmol/L (21.0-32.0); CHLORIDE - SERUM 105 mmol/L (98-107); CREATINE KINASE 151 UL (21-215); CREATININE - SERUM 8.2 mg/dL (0.6-1.3); GLUCOSE 113 mg/dL (74-106); LIPASE 798 U/L (73-393); POTASSIUM - SERUM 4.1 mmol/L (3.5-5.1); PROTEIN - SERUM 7.8 g/dL (6.4-8.2); SODIUM 145 mmol/L (136-145); UREA NITROGEN 57 mg/dL (7-18); eGFR NON AFRICAN AMERICAN 5 mL/min (90-120)
[2017-09-13 23:47] LABS: CALCIUM 6.4 mg/dL (8.5-10.1)
[2017-09-13 23:54] LABS: TROPONIN-I 0.084 ng/mL (0.000-0.060)
[2017-09-14 06:57] LABS: CKMB 2.6 U/L (0.0-3.6); CREATINE KINASE 125 UL (21-215)
[2017-09-14 07:01] LABS: TROPONIN-I 0.091 ng/mL (0.000-0.060)
[2017-09-14 07:38] VITALS: BP 148/95
[2017-09-14 11:14] VITALS: BP 147/96
[2017-09-14 12:50] LABS: CKMB 3.6 U/L (0.0-3.6); CREATINE KINASE 158 UL (21-215); TROPONIN-I 0.059 ng/mL (0.000-0.060)
[2017-09-14 13:12] VITALS: BP 148/95; BMI 21.7
[2017-09-14 14:29] VITALS: Ht 175.3 cm; Wt 71.9 kg
[2017-09-14 20:00] VITALS: BP 133/74
[2017-09-14 20:07] LABS: CKMB 4.5 U/L (0.0-3.6); CREATINE KINASE 183 UL (21-215)
[2017-09-14 20:08] LABS: TROPONIN-I 0.088 ng/mL (0.000-0.060)
[2017-09-15 04:00] VITALS: BP 122/73
[2017-09-15 05:43] LABS: BASOPHILS 0.3 % (0-2); EOSINOPHILS 3.5 % (0-7); HEMATOCRIT 29.3 % (36.0-48.0); IMMATURE GRANULOCYTES 0.3 % (0-5); LYMPHOCYTES 13.2 % (15-50); MCH 29.8 pg (26.0-34.0); MCHC 30.7 g/dL (31.0-37.0); MEAN PLATELET VOLUME 10.7 fL (7.4-10.4); MONOCYTES 11.3 % (2-11); NEUTROPHILS 71.4 % (40-80); PLATELET COUNT 183 10x3/uL (130-400); RBC 3.02 10x6/uL (4.00-5.40); RDW 19.9 % (11.5-14.5); WBC 7.4 10x3/uL (4.8-10.8)
[2017-09-15 06:10] LABS: ALBUMIN 3.3 g/dL (3.4-5.0); ANION GAP 22.6 mmol/L (8-16); BILIRUBIN - TOTAL 0.97 mg/dL (0.2-1.3); CALCIUM 7.6 mg/dL (8.5-10.1); CARBON DIOXIDE 23.3 mmol/L (21.0-32.0); CREATININE - SERUM 7.3 mg/dL (0.6-1.3); POTASSIUM - SERUM 4.9 mmol/L (3.5-5.1); PROTEIN - SERUM 7.8 g/dL (6.4-8.2)
[2017-09-15 09:26] VITALS: BP 161/89
[2017-09-15 15:57] VITALS: BP 124/77
[2017-09-15 20:00] VITALS: BP 125/77
[2017-09-16 04:00] VITALS: BP 133/81
[2017-09-16 05:23] LABS: BASOPHILS 0.4 % (0-2); EOSINOPHILS 3.6 % (0-7); HEMOGLOBIN 9.5 g/dL (12-16); IMMATURE GRANULOCYTES 0.4 % (0-5); LYMPHOCYTES 12.5 % (15-50); MCH 29.9 pg (26.0-34.0); MCHC 30.6 g/dL (31.0-37.0); MCV 97.5 fL (80.0-100.0); MEAN PLATELET VOLUME 10.6 fL (7.4-10.4); MONOCYTES 8.7 % (2-11); NEUTROPHILS 74.4 % (40-80); PLATELET COUNT 176 10x3/uL (130-400); RBC 3.18 10x6/uL (4.00-5.40); RDW 19.9 % (11.5-14.5); WBC 7.8 10x3/uL (4.8-10.8)
[2017-09-16 05:47] LABS: ANION GAP 16.7 mmol/L (8-16); CALCIUM 8.1 mg/dL (8.5-10.1); CARBON DIOXIDE 28.4 mmol/L (21.0-32.0); CREATININE - SERUM 5.8 mg/dL (0.6-1.3); PHOSPHOROUS 7.2 mg/dL (2.5-4.9)
[2017-09-16 05:48] LABS: POTASSIUM - SERUM 4.1 mmol/L (3.5-5.1)
[2017-09-16 08:07] VITALS: BP 133/79
[2017-09-16 17:23] VITALS: BP 123/77
[2017-09-16 21:24] VITALS: BP 124/80
[2017-09-17 02:14] VITALS: BP 140/59
[2017-09-17 05:36] VITALS: BP 125/72
[2017-09-17 07:30] LABS: BASOPHILS 0.3 % (0-2); EOSINOPHILS 2.9 % (0-7); HEMATOCRIT 28.3 % (36.0-48.0); HEMOGLOBIN 8.7 g/dL (12-16); IMMATURE GRANULOCYTES 0.3 % (0-5); LYMPHOCYTES 14.8 % (15-50); MCH 29.5 pg (26.0-34.0); MCHC 30.7 g/dL (31.0-37.0); MCV 95.9 fL (80.0-100.0); MEAN PLATELET VOLUME 11.3 fL (7.4-10.4); MONOCYTES 13.1 % (2-11); NEUTROPHILS 68.6 % (40-80); PLATELET COUNT 183 10x3/uL (130-400); RBC 2.95 10x6/uL (4.00-5.40); RDW 19.8 % (11.5-14.5); WBC 7.9 10x3/uL (4.8-10.8)
[2017-09-17 07:57] VITALS: BP 126/67
[2017-09-17 08:07] LABS: ANION GAP 16.7 mmol/L (8-16); CALCIUM 8.3 mg/dL (8.5-10.1); CARBON DIOXIDE 27.7 mmol/L (21.0-32.0); CREATININE - SERUM 5.5 mg/dL (0.6-1.3); PHOSPHOROUS 6.1 mg/dL (2.5-4.9); POTASSIUM - SERUM 4.4 mmol/L (3.5-5.1)
[2017-09-17 09:54] LABS: AMYLASE - SERUM 160 U/L (25-115); LIPASE 305 U/L (73-393)
[2017-09-17 11:23] VITALS: BP 123/67
[2017-09-17 15:36] VITALS: BP 129/63
[2017-09-17 21:12] VITALS: BP 121/78
[2017-09-18 01:18] VITALS: BP 130/74
[2017-09-18 05:50] VITALS: BP 122/70
[2017-09-18 07:03] LABS: BASOPHILS 0.2 % (0-2); EOSINOPHILS 2.7 % (0-7); HEMATOCRIT 27.7 % (36.0-48.0); HEMOGLOBIN 8.6 g/dL (12-16); IMMATURE GRANULOCYTES 0.4 % (0-5); LYMPHOCYTES 16.1 % (15-50); MCH 29.7 pg (26.0-34.0); MCV 95.5 fL (80.0-100.0); MEAN PLATELET VOLUME 10.4 fL (7.4-10.4); MONOCYTES 11.8 % (2-11); NEUTROPHILS 68.8 % (40-80); PLATELET COUNT 157 10x3/uL (130-400); RDW 19.5 % (11.5-14.5); WBC 8.5 10x3/uL (4.8-10.8)
[2017-09-18 07:40] VITALS: BP 118/75
[2017-09-18 07:48] LABS: ANION GAP 18.4 mmol/L (8-16); BILIRUBIN - DIRECT 0.47 mg/dL (0.00-0.30); BILIRUBIN - INDIRECT 0.59 mg/dL (0.00-1.00); BILIRUBIN - TOTAL 1.06 mg/dL (0.2-1.3); CALCIUM 8.4 mg/dL (8.5-10.1); CARBON DIOXIDE 27.4 mmol/L (21.0-32.0); PHOSPHOROUS 6.6 mg/dL (2.5-4.9); POTASSIUM - SERUM 4.8 mmol/L (3.5-5.1); PROTEIN - SERUM 7.8 g/dL (6.4-8.2)
[2017-09-18 07:59] LABS: CREATININE - SERUM 7.3 mg/dL (0.6-1.3)
[2017-09-18 10:44] VITALS: BP 121/73
[2017-09-18 14:57] VITALS: BP 126/77
[2017-09-18 19:00] VITALS: BP 167/90
[2017-09-19] VITALS: BP 95/56
[2017-09-19 04:00] VITALS: BP 127/79
[2017-09-19 05:48] LABS: BASOPHILS 0.1 % (0-2); EOSINOPHILS 1.8 % (0-7); HEMATOCRIT 27.1 % (36.0-48.0); HEMOGLOBIN 8.7 g/dL (12-16); IMMATURE GRANULOCYTES 0.2 % (0-5); LYMPHOCYTES 12.8 % (15-50); MCH 30.1 pg (26.0-34.0); MCHC 32.1 g/dL (31.0-37.0); MCV 93.8 fL (80.0-100.0); MEAN PLATELET VOLUME 11.6 fL (7.4-10.4); MONOCYTES 11.5 % (2-11); NEUTROPHILS 73.6 % (40-80); RBC 2.89 10x6/uL (4.00-5.40); RDW 19.2 % (11.5-14.5); WBC 8.8 10x3/uL (4.8-10.8)
[2017-09-19 05:52] LABS: PLATELET COUNT 202 10x3/uL (130-400)
[2017-09-19 06:19] LABS: ANION GAP 21.9 mmol/L (8-16); CALCIUM 8.2 mg/dL (8.5-10.1); CARBON DIOXIDE 24.7 mmol/L (21.0-32.0); CREATININE - SERUM 8.4 mg/dL (0.6-1.3); PHOSPHOROUS 7.2 mg/dL (2.5-4.9); POTASSIUM - SERUM 5.6 mmol/L (3.5-5.1)
[2017-09-19 07:32] LABS: INR 1.09 (0.85-1.17); PROTIME 13.7 SECONDS (11.6-15.0)
[2017-09-19 08:04] VITALS: BP 126/77
[2017-09-19 20:00] VITALS: BP 110/68
[2017-09-20 04:00] VITALS: BP 123/77
[2017-09-20 06:10] LABS: HEMATOCRIT 25.3 % (36.0-48.0); HEMOGLOBIN 8.1 g/dL (12-16); MCH 30.8 pg (26.0-34.0); MEAN PLATELET VOLUME 11.5 fL (7.4-10.4); PLATELET COUNT 177 10x3/uL (130-400); RBC 2.63 10x6/uL (4.00-5.40); RDW 19.3 % (11.5-14.5)
[2017-09-20 06:11] LABS: MCV 96.2 fL (80.0-100.0); WBC 6.2 10x3/uL (4.8-10.8)
[2017-09-20 06:31] LABS: ANION GAP 17.1 mmol/L (8-16); CALCIUM 8.2 mg/dL (8.5-10.1); CARBON DIOXIDE 27.1 mmol/L (21.0-32.0); PHOSPHOROUS 6.4 mg/dL (2.5-4.9)
[2017-09-20 06:36] LABS: CREATININE - SERUM 6.2 mg/dL (0.6-1.3); POTASSIUM - SERUM 4.2 mmol/L (3.5-5.1)
[2017-09-20 07:42] LABS: ANISOCYTOSIS OCC; EOSINOPHILS 2 % (0-7); LYMPHOCYTES 15 % (15-50); MONOCYTES 21 % (2-11); NEUTROPHILS 58 % (40-80); PLATELET ESTIMATE NORMAL; ROULEAUX OCC
[2017-09-20 08:57] VITALS: BP 109/62
[2017-09-20 12:16] VITALS: BP 138/75
[2017-09-20 16:10] VITALS: BP 108/58
[2017-09-20 20:00] VITALS: BP 116/74
[2017-09-21 09:35] VITALS: BP 95/47
[2017-09-21 18:42] VITALS: BP 101/62
[2017-09-21 20:00] VITALS: BP 120/86
[2017-09-22] VITALS: BP 126/72
[2017-09-22 06:10] LABS: BASOPHILS 0.2 % (0-2); EOSINOPHILS 3.2 % (0-7); HEMOGLOBIN 8.8 g/dL (12-16); IMMATURE GRANULOCYTES 0.7 % (0-5); LYMPHOCYTES 12.6 % (15-50); MCH 29.6 pg (26.0-34.0); MCHC 31.4 g/dL (31.0-37.0); MCV 94.3 fL (80.0-100.0); MEAN PLATELET VOLUME 11.1 fL (7.4-10.4); MONOCYTES 17.4 % (2-11); NEUTROPHILS 65.9 % (40-80); RBC 2.97 10x6/uL (4.00-5.40); RDW 19.5 % (11.5-14.5)
[2017-09-22 06:17] LABS: ALBUMIN 2.8 g/dL (3.4-5.0); ANION GAP 17.3 mmol/L (8-16); BILIRUBIN - TOTAL 0.9 mg/dL (0.2-1.3); CREATININE - SERUM 6.7 mg/dL (0.6-1.3); POTASSIUM - SERUM 4.3 mmol/L (3.5-5.1)
[2017-09-22 06:23] LABS: CALCIUM 8.8 mg/dL (8.5-10.1)
[2017-09-22 06:24] LABS: PLATELET COUNT 215 10x3/uL (130-400); WBC 10.2 10x3/uL (4.8-10.8)
[2017-09-22 09:35] VITALS: BP 113/51
[2017-09-22 12:26] VITALS: BP 110/60
[2017-09-22 16:57] VITALS: BP 112/60
[2017-09-22 21:06] VITALS: BP 141/85
[2017-09-23 01:14] VITALS: BP 110/62
[2017-09-23 05:05] VITALS: BP 177/74
[2017-09-23 08:27] VITALS: BP 126/71
[2017-09-23 11:12] VITALS: BP 132/76
[2017-09-23 19:00] VITALS: BP 112/61
[2017-09-24 01:10] VITALS: BP 125/59
[2017-09-24 05:28] VITALS: BP 101/57
[2017-09-24 08:11] LABS: BASOPHILS 0.1 % (0-2); EOSINOPHILS 2.3 % (0-7); IMMATURE GRANULOCYTES 1.1 % (0-5); LYMPHOCYTES 13.1 % (15-50); MCH 29.2 pg (26.0-34.0); MCV 94.2 fL (80.0-100.0); MEAN PLATELET VOLUME 10.6 fL (7.4-10.4); MONOCYTES 15.5 % (2-11); NEUTROPHILS 67.9 % (40-80); PLATELET COUNT 256 10x3/uL (130-400); RBC 3.08 10x6/uL (4.00-5.40); RDW 19.2 % (11.5-14.5); WBC 9.9 10x3/uL (4.8-10.8)
[2017-09-24 08:23] LABS: ANION GAP 14.8 mmol/L (8-16); CALCIUM 9.2 mg/dL (8.5-10.1); CARBON DIOXIDE 28.4 mmol/L (21.0-32.0); CREATININE - SERUM 6.1 mg/dL (0.6-1.3); POTASSIUM - SERUM 4.2 mmol/L (3.5-5.1)
[2017-09-24 09:27] VITALS: BP 146/77
[2017-09-24 12:09] VITALS: BP 111/62
[2017-09-24 15:05] VITALS: BP 105/66
[2017-09-24 20:00] VITALS: BP 121/88
[2017-09-25] VITALS (9 sets, daily range): BP systolic 113–157; BP diastolic 34–76
[2017-09-25 06:57] LABS: INR 1.12 (0.85-1.17)
[2017-09-25 06:58] LABS: APTT 50.7 SECONDS (22.8-39.4)
[2017-09-25 07:01] LABS: BASOPHILS 0.3 % (0-2); EOSINOPHILS 2.8 % (0-7); HEMATOCRIT 28.1 % (36.0-48.0); HEMOGLOBIN 8.7 g/dL (12-16); IMMATURE GRANULOCYTES 0.9 % (0-5); MCH 29.5 pg (26.0-34.0); MCV 95.3 fL (80.0-100.0); MEAN PLATELET VOLUME 10.6 fL (7.4-10.4); MONOCYTES 15.7 % (2-11); NEUTROPHILS 67.3 % (40-80); PLATELET COUNT 292 10x3/uL (130-400); RBC 2.95 10x6/uL (4.00-5.40); RDW 19.1 % (11.5-14.5); WBC 9.6 10x3/uL (4.8-10.8)
[2017-09-25 07:04] LABS: ANION GAP 17.3 mmol/L (8-16); CALCIUM 9.1 mg/dL (8.5-10.1); CARBON DIOXIDE 28.2 mmol/L (21.0-32.0); CREATININE - SERUM 7.5 mg/dL (0.6-1.3); POTASSIUM - SERUM 4.5 mmol/L (3.5-5.1)
[2017-09-26] VITALS: BP 150/72
[2017-09-26 04:00] VITALS: BP 105/72
[2017-09-26 06:13] LABS: ANION GAP 21.1 mmol/L (8-16); CALCIUM 8.8 mg/dL (8.5-10.1); CARBON DIOXIDE 25.3 mmol/L (21.0-32.0)
[2017-09-26 06:23] LABS: POTASSIUM - SERUM 5.4 mmol/L (3.5-5.1)
[2017-09-26 06:53] LABS: BASOPHILS 0.3 % (0-2); EOSINOPHILS 2.4 % (0-7); HEMOGLOBIN 9.1 g/dL (12-16); IMMATURE GRANULOCYTES 0.6 % (0-5); LYMPHOCYTES 14.5 % (15-50); MCH 29.5 pg (26.0-34.0); MCHC 31.4 g/dL (31.0-37.0); MCV 94.2 fL (80.0-100.0); MEAN PLATELET VOLUME 10.5 fL (7.4-10.4); MONOCYTES 13.3 % (2-11); NEUTROPHILS 68.9 % (40-80); PLATELET COUNT 287 10x3/uL (130-400); RBC 3.08 10x6/uL (4.00-5.40); RDW 18.9 % (11.5-14.5); WBC 9.7 10x3/uL (4.8-10.8)
[2017-09-26 08:07] VITALS: BP 126/71
[2017-09-26 10:46] VITALS: BP 125/68
[2017-09-26 15:33] VITALS: BP 121/68
[2017-09-26 19:59] VITALS: BP 136/85
[2017-09-27] VITALS: BP 128/76
[2017-09-27 04:00] VITALS: BP 92/54
[2017-09-27 05:50] LABS: BASOPHILS 0.1 % (0-2); EOSINOPHILS 1.2 % (0-7); HEMATOCRIT 27.9 % (36.0-48.0); HEMOGLOBIN 8.7 g/dL (12-16); IMMATURE GRANULOCYTES 0.8 % (0-5); LYMPHOCYTES 10.5 % (15-50); MCH 29.4 pg (26.0-34.0); MCHC 31.2 g/dL (31.0-37.0); MCV 94.3 fL (80.0-100.0); MONOCYTES 10.3 % (2-11); NEUTROPHILS 77.1 % (40-80); PLATELET COUNT 335 10x3/uL (130-400); RBC 2.96 10x6/uL (4.00-5.40); RDW 18.9 % (11.5-14.5); WBC 11.1 10x3/uL (4.8-10.8)
[2017-09-27 06:17] LABS: ANION GAP 17.6 mmol/L (8-16); CALCIUM 9.1 mg/dL (8.5-10.1); CARBON DIOXIDE 25.4 mmol/L (21.0-32.0); CREATININE - SERUM 7.6 mg/dL (0.6-1.3)
[2017-09-27] MEDS ORDERED: TUMS500 MG PO (11:43)
[2017-09-27] MEDS ORDERED: REGLAN10 MG PO (11:44)
[2017-09-27 13:01] VITALS: BP 101/69
[2017-09-27 14:42] LABS: PROTEIN - BODY FLUID 4.2 G/DL
[2017-09-27 16:15] LABS: MACROPHAGES BF 4 %; MESOTHELIALS BF 8 %; NEUT - BF 40 %
== END 2017-09-27 14:37 | disposition home or self-care (01) | DRG 441 ==
LOC: D.ER 21:44 → D.M2 09-14 04:57
PROVIDERS: Family Medicine; Internal Medicine Gastroenterology; Internal Medicine Nephrology; Specialist
PROC: 0W9G3ZZ Drainage of Peritoneal Cavity, Percutaneous Approach (ICD-10-PCS; principal; 2017-09-19 09:30)
DX: K76.1 Chronic passive congestion of liver (principal); N18.6 End stage renal disease; K86.1 Other chronic pancreatitis; R18.8 Other ascites; I13.2 Hypertensive heart and chronic kidney disease with heart failure and with stage 5 chronic kidney disease, or end stage renal disease; I42.9 Cardiomyopathy, unspecified; K21.0 Gastro-esophageal reflux disease with esophagitis; Z91.15 Patient's noncompliance with renal dialysis; E83.51 Hypocalcemia; G89.4 Chronic pain syndrome; E83.39 Other disorders of phosphorus metabolism; I50.9 Heart failure, unspecified; Z99.2 Dependence on renal dialysis; I25.10 Atherosclerotic heart disease of native coronary artery without angina pectoris; D63.1 Anemia in chronic kidney disease; R16.0 Hepatomegaly, not elsewhere classified; Z95.5 Presence of coronary angioplasty implant and graft; Z95.1 Presence of aortocoronary bypass graft; Z72.0 Tobacco use

== ENCOUNTER 2018-02-26 01:04 | Emergency (ER) | payer MEDICARE ==
[~2018-02-26] VITALS: Ht 175.3 cm; Wt 66.8 kg
[~2018-02-26 01:04] MED LIST changes: +REGLAN10 MG PO
[2018-02-26 01:08] VITALS: Ht 175.3 cm; Wt 66.8 kg
[2018-02-26] MEDS ORDERED: AMOXICILLIN500 M1 PO (03:07)
[2018-02-26 03:20] VITALS: BP 168/88
== END 2018-02-26 03:20 | disposition home or self-care (01) ==
LOC: D.ER 01:04
DX: R04.0 Epistaxis (principal); I12.9 Hypertensive chronic kidney disease with stage 1 through stage 4 chronic kidney disease, or unspecified chronic kidney disease; N18.9 Chronic kidney disease, unspecified; I50.9 Heart failure, unspecified; Z86.79 Personal history of other diseases of the circulatory system; J44.9 Chronic obstructive pulmonary disease, unspecified

== ENCOUNTER 2018-02-26 19:04 | Inpatient (IN) | payer MEDICARE ==
[~2018-02-26] VITALS: Ht 175.3 cm; Wt 63.4 kg
[~2018-02-26 19:04] MED LIST changes: +AMOXICILLIN500 M1 PO
[2018-02-26 19:42] VITALS: BP 179/97
[2018-02-26 19:58] LABS: BASOPHILS 0.4 % (0-2); EOSINOPHILS 1.1 % (0-7); HEMATOCRIT 25.9 % (36.0-48.0); HEMOGLOBIN 8.2 g/dL (12-16); IMMATURE GRANULOCYTES 0.3 % (0-5); LYMPHOCYTES 12.5 % (15-50); MCH 29.3 pg (26.0-34.0); MCHC 31.7 g/dL (31.0-37.0); MCV 92.5 fL (80.0-100.0); MEAN PLATELET VOLUME 9.8 fL (7.4-10.4); MONOCYTES 5.5 % (2-11); NEUTROPHILS 80.2 % (40-80); RDW 19.5 % (11.5-14.5); WBC 10.8 10x3/uL (4.8-10.8)
[2018-02-26 20:05] LABS: PLATELET COUNT 237 10x3/uL (130-400)
[2018-02-26 20:06] LABS: INR 1.21 (0.85-1.17); PROTIME 14.9 SECONDS (11.6-15.0)
[2018-02-26 20:07] LABS: APTT 44.1 SECONDS (22.8-39.4)
[2018-02-26 20:12] LABS: ALBUMIN 3.4 g/dL (3.4-5.0); ALKALINE PHOSPHATASE 482 U/L (46-116); ALT (SGPT) 24 U/L (10-68); BILIRUBIN - TOTAL 0.58 mg/dL (0.2-1.3); CALC OSMOLALITY 311 mosm/kg (275-300); CALCIUM 8.7 mg/dL (8.5-10.1); CARBON DIOXIDE 17.8 mmol/L (21.0-32.0); CHLORIDE - SERUM 98 mmol/L (98-107); CREATININE - SERUM 10.2 mg/dL (0.6-1.3); GLUCOSE 89 mg/dL (74-106); POTASSIUM - SERUM 5.9 mmol/L (3.5-5.1); PROTEIN - SERUM 8.9 g/dL (6.4-8.2); SODIUM 138 mmol/L (136-145); UREA NITROGEN 117 mg/dL (7-18); eGFR NON AFRICAN AMERICAN 4 mL/min (90-120)
[2018-02-26 20:26] LABS: CKMB 4.3 U/L (0.0-3.6); CREATINE KINASE 126 UL (21-215); TROPONIN-I 0.038 ng/mL (0.000-0.060)
[2018-02-26 20:27] VITALS: BP 168/98
[2018-02-26 20:58] LABS: PRO BNP 72094 pg/mL (0-125)
[2018-02-26 22:47] VITALS: BP 145/75
[2018-02-26 23:46] VITALS: BP 140/74
[2018-02-27] VITALS: BP 163/79
[2018-02-27 02:35] LABS: CKMB 3.9 U/L (0.0-3.6); CREATINE KINASE 114 UL (21-215); TROPONIN-I 0.026 ng/mL (0.000-0.060)
[2018-02-27 04:00] VITALS: BP 163/91
[2018-02-27 06:57] LABS: BASOPHILS 0.2 % (0-2); EOSINOPHILS 1.2 % (0-7); HEMATOCRIT 24.3 % (36.0-48.0); HEMOGLOBIN 7.6 g/dL (12-16); IMMATURE GRANULOCYTES 0.3 % (0-5); LYMPHOCYTES 12.9 % (15-50); MCH 29.3 pg (26.0-34.0); MCHC 31.3 g/dL (31.0-37.0); MCV 93.8 fL (80.0-100.0); MEAN PLATELET VOLUME 9.8 fL (7.4-10.4); MONOCYTES 7.2 % (2-11); NEUTROPHILS 78.2 % (40-80); PLATELET COUNT 222 10x3/uL (130-400); RBC 2.59 10x6/uL (4.00-5.40); RDW 19.7 % (11.5-14.5); WBC 9.5 10x3/uL (4.8-10.8)
[2018-02-27 07:52] LABS: CALC OSMOLALITY 311 mosm/kg (275-300); CALCIUM 7.9 mg/dL (8.5-10.1); CHLORIDE - SERUM 98 mmol/L (98-107); CKMB 4.1 U/L (0.0-3.6); CREATINE KINASE 118 UL (21-215); CREATININE - SERUM 10.9 mg/dL (0.6-1.3); GLUCOSE 96 mg/dL (74-106); MAGNESIUM - SERUM 2.1 mg/dL (1.8-2.4); SODIUM 137 mmol/L (136-145); TROPONIN-I 0.017 ng/mL (0.000-0.060); UREA NITROGEN 119 mg/dL (7-18); eGFR NON AFRICAN AMERICAN 4 mL/min (90-120)
[2018-02-27 07:56] LABS: POTASSIUM - SERUM 6.2 mmol/L (3.5-5.1)
[2018-02-27 08:17] VITALS: BP 107/59
[2018-02-27 13:07] VITALS: Ht 175.3 cm; Wt 63.4 kg
[2018-02-27 16:00] LABS: CKMB 4.6 U/L (0.0-3.6); CREATINE KINASE 132 UL (21-215); TROPONIN-I 0.028 ng/mL (0.000-0.060)
[2018-02-27 16:22] VITALS: BP 91/47
[2018-02-27 20:00] VITALS: BP 111/75
[2018-02-28 04:00] VITALS: BP 122/62
[2018-02-28 05:39] LABS: BASOPHILS 0.2 % (0-2); EOSINOPHILS 4.4 % (0-7); HEMATOCRIT 23.4 % (36.0-48.0); IMMATURE GRANULOCYTES 0.4 % (0-5); LYMPHOCYTES 14.7 % (15-50); MCH 29.5 pg (26.0-34.0); MCHC 31.6 g/dL (31.0-37.0); MCV 93.2 fL (80.0-100.0); MEAN PLATELET VOLUME 9.9 fL (7.4-10.4); MONOCYTES 10.8 % (2-11); NEUTROPHILS 69.5 % (40-80); PLATELET COUNT 207 10x3/uL (130-400); RBC 2.51 10x6/uL (4.00-5.40); RDW 19.7 % (11.5-14.5); WBC 8.5 10x3/uL (4.8-10.8)
[2018-02-28 05:59] LABS: ANION GAP 20.1 mmol/L (8-16); CALCIUM 8.1 mg/dL (8.5-10.1); CARBON DIOXIDE 25.6 mmol/L (21.0-32.0); CREATININE - SERUM 8.3 mg/dL (0.6-1.3)
[2018-02-28 06:05] LABS: POTASSIUM - SERUM 4.7 mmol/L (3.5-5.1)
[2018-02-28 06:06] LABS: HEMOGLOBIN 7.4 g/dL (12-16)
[2018-02-28 11:30] VITALS: BP 120/72
[2018-02-28 11:45] VITALS: BP 114/70
[2018-02-28 11:54] VITALS: BP 124/80
[2018-02-28 16:47] VITALS: BP 129/77
[2018-02-28 20:00] VITALS: BP 136/76
[2018-03-01 04:00] VITALS: BP 106/58
[2018-03-01 05:35] LABS: BASOPHILS 0.1 % (0-2); EOSINOPHILS 3.8 % (0-7); HEMATOCRIT 24.4 % (36.0-48.0); HEMOGLOBIN 8.1 g/dL (12-16); IMMATURE GRANULOCYTES 0.3 % (0-5); LYMPHOCYTES 13.2 % (15-50); MCH 30.7 pg (26.0-34.0); MCHC 33.2 g/dL (31.0-37.0); MCV 92.4 fL (80.0-100.0); MEAN PLATELET VOLUME 10.4 fL (7.4-10.4); MONOCYTES 7.9 % (2-11); NEUTROPHILS 74.7 % (40-80); PLATELET COUNT 197 10x3/uL (130-400); RBC 2.64 10x6/uL (4.00-5.40); RDW 19.2 % (11.5-14.5); WBC 9.1 10x3/uL (4.8-10.8)
[2018-03-01 05:52] LABS: ANION GAP 19.8 mmol/L (8-16); CALCIUM 7.2 mg/dL (8.5-10.1); CARBON DIOXIDE 24.8 mmol/L (21.0-32.0); CREATININE - SERUM 9.5 mg/dL (0.6-1.3); POTASSIUM - SERUM 4.6 mmol/L (3.5-5.1)
[2018-03-01 07:59] VITALS: BP 131/81
[2018-03-01 11:21] VITALS: BP 126/58
[2018-03-01 15:24] VITALS: BP 121/70
[2018-03-01 20:00] VITALS: BP 112/72
[2018-03-02 04:00] VITALS: BP 145/86
[2018-03-02 05:38] LABS: BASOPHILS 0.1 % (0-2); EOSINOPHILS 3.7 % (0-7); HEMOGLOBIN 9.7 g/dL (12-16); IMMATURE GRANULOCYTES 0.4 % (0-5); LYMPHOCYTES 10.8 % (15-50); MCH 29.5 pg (26.0-34.0); MCHC 31.9 g/dL (31.0-37.0); MCV 92.4 fL (80.0-100.0); MEAN PLATELET VOLUME 10.2 fL (7.4-10.4); MONOCYTES 10.1 % (2-11); NEUTROPHILS 74.9 % (40-80); PLATELET COUNT 194 10x3/uL (130-400); RDW 19.6 % (11.5-14.5); WBC 10.3 10x3/uL (4.8-10.8)
[2018-03-02 05:39] LABS: HEMATOCRIT 30.4 % (36.0-48.0); RBC 3.29 10x6/uL (4.00-5.40)
[2018-03-02 06:15] LABS: ANION GAP 21.2 mmol/L (8-16); CALCIUM 8.1 mg/dL (8.5-10.1); CARBON DIOXIDE 23.6 mmol/L (21.0-32.0); CREATININE - SERUM 8.1 mg/dL (0.6-1.3); POTASSIUM - SERUM 4.8 mmol/L (3.5-5.1)
[2018-03-02 07:59] VITALS: BP 140/81
[2018-03-02 11:25] VITALS: BP 130/78
[2018-03-02 14:57] VITALS: BP 124/66
[2018-03-02 21:01] VITALS: BP 120/91
[2018-03-03 01:32] VITALS: BP 134/68
[2018-03-03 04:46] LABS: BASOPHILS 0.1 % (0-2); EOSINOPHILS 3.6 % (0-7); HEMATOCRIT 27.2 % (36.0-48.0); HEMOGLOBIN 8.6 g/dL (12-16); IMMATURE GRANULOCYTES 0.3 % (0-5); LYMPHOCYTES 10.4 % (15-50); MCH 29.3 pg (26.0-34.0); MCHC 31.6 g/dL (31.0-37.0); MCV 92.5 fL (80.0-100.0); MEAN PLATELET VOLUME 10.1 fL (7.4-10.4); MONOCYTES 12.2 % (2-11); NEUTROPHILS 73.4 % (40-80); PLATELET COUNT 193 10x3/uL (130-400); RBC 2.94 10x6/uL (4.00-5.40); WBC 9.4 10x3/uL (4.8-10.8)
[2018-03-03 05:14] LABS: ANION GAP 20.1 mmol/L (8-16); CALCIUM 8.2 mg/dL (8.5-10.1); CARBON DIOXIDE 24.9 mmol/L (21.0-32.0); CREATININE - SERUM 9.6 mg/dL (0.6-1.3)
[2018-03-03 05:48] VITALS: BP 107/60
== END 2018-03-03 09:10 | disposition home or self-care (01) | DRG 291 ==
LOC: D.ER 19:04 → OBSVTIME 21:50 → D.EDHOLD 21:50 → D.M2 21:50
PROVIDERS: Family Medicine; Internal Medicine
PROC: 2Y41X5Z Packing of Nasal Region using Packing Material (ICD-10-PCS; principal; 2018-02-26)
PROC: 5A1D70Z Performance of Urinary Filtration, Intermittent, Less than 6 Hours Per Day (ICD-10-PCS; 2018-02-27)
DX: I13.2 Hypertensive heart and chronic kidney disease with heart failure and with stage 5 chronic kidney disease, or end stage renal disease (principal); N18.6 End stage renal disease; E87.5 Hyperkalemia; I50.9 Heart failure, unspecified; Z99.2 Dependence on renal dialysis; I25.10 Atherosclerotic heart disease of native coronary artery without angina pectoris; R04.0 Epistaxis; D63.1 Anemia in chronic kidney disease; Z95.1 Presence of aortocoronary bypass graft; Z95.5 Presence of coronary angioplasty implant and graft

== ENCOUNTER 2018-03-07 23:14 | Inpatient (IN) | payer MEDICARE ==
[~2018-03-07] VITALS: Ht 175.3 cm; Wt 62.8 kg
--- NOTE | ~2018-03-07 | CN ---
PATIENT NAME:FELY SQUIRES MEDICAL RECORD: [id number] : 65 LOCATION:D. D.2131 ADMIT DATE: 03/08/18 ACCOUNT: [id number] CONSULTING PHYSICIAN: MENDY RICHARD MD REFERRING PHYSICIAN: EMILIA HUI MD DATE OF CONSULTATION: 03/09/2018 CARDIOLOGY CONSULT ADMITTING DIAGNOSES: 1. Chest pain compatible with angina. 2. Coronary artery disease. 3. Previous percutaneous transluminal coronary angioplasty stent in 2012. 4. Valve replacement surgery tissue prosthesis. 5. Hypertension. 6. End-stage renal failure, on dialysis. 7. Anemia. HISTORY OF PRESENT ILLNESS: This is a woman known to us with a past history of coronary artery disease. For the past 2 days, she has been having episodes of chest pain. Her last cardiac stent was done in 2012. Her EKG does suggest ongoing ischemia. PHYSICAL EXAMINATION: GENERAL APPEARANCE: Well-nourished, well-developed, appears stated age. Level of distress, comfortable. PSYCHIATRIC: Mental status, alert, normal affect. Orientation, oriented to time, place and person. EYES: Lids and conjunctiva, noninjected. No discharge, no pallor. ENT: Lips, teeth, gums, normal dentition. Oropharynx, no cyanosis, no pallor. NECK: Carotid arteries, bilateral normal upstroke, no bruits, no thrills. JUGULAR VEINS: No jugular venous pressure or distention. CERVICAL LYMPH NODES: Nontender, nonenlarged. THYROID: Not enlarged. Nontender. No nodules. LUNGS: Respiratory effort, unlabored. CHEST: Normal curvature. No thoracic deformity. No chest wall tenderness. Percussion, resonant. Auscultation, clear. No wheezes, no rales, no rhonchi. CARDIOVASCULAR: Precordial exam, nondisplaced. No heaves or pericardial thrills. Rate and rhythm, regular. Heart sounds, normal S1, normal S2. No S3, no gallop, no rub. Systolic murmur, not heard. Diastolic murmur, not heard. EXTREMITIES: No cyanosis, no edema. Peripheral pulses, full and equal in all extremities, except as noted. No bruits appreciated. ABDOMEN: Soft, nondistended. Normal aorta. No bruit. Nontender. No masses. Liver, nontender, no hepatomegaly. Spleen, nontender, no splenomegaly. MUSCULOSKELETAL: No joint tenderness. No joint swelling. No erythema. NEUROLOGICAL: Normal gait, normal strength, normal tone. SKIN: Warm and dry. REVIEW OF SYSTEMS: The patient reports easy bruising but reports no swollen glands. The patient reports no fever, no night sweats, no significant weight gain, no significant weight loss. No significant exercise tolerance. The patient reports no dry eyes, no irritation, no vision change. Patient reports no difficulty hearing and no ear pain. Patient reports no frequent nose bleeds or nose and sinus problems. Patient reports on arm pain on exertion. No shortness of breath while lying down. No history of heart murmur. Patient CONSULT REPORT [id number] FELY SQUIRES reports no cough, no wheezing or coughing up blood. Patient reports no abdominal pain, no vomiting. Normal appetite. No diarrhea and not vomiting blood. No nausea and no constipation. Patient reports no incontinence. No difficulty urinating. No hematuria. No increased frequency. Patient reports no muscle aches. No weakness, no arthralgias, no back pain. No swelling of the extremities. Patient reports no abnormal mole, no jaundice, no rashes. Reports no loss of consciousness. No weakness and no numbness. No seizures, dizziness, or headaches. The patient reports no depression, no sleep disturbance, feeling safe in a relationship and no alcohol abuse. Patient reports on fatigue. Reports no runny nose or sinus pressure. No itching, no hives, and no frequent sneezing. OVERALL IMPRESSION: Chest pain compatible with angina. We will proceed with coronary angiography. Further care depends upon the findings of the angiography. TRANSINT:[id number] Voice Confirmation ID: [id number] DOCUMENT ID: [id number] MENDY RICHARD MD at 1859 CC: [id number] DICTATION DATE: 03/09/18 112 FURNACE LINER: 03/09/18 1127 DIS IN 03/10/18 [place] [id number] [place] [id number]
--- NOTE | ~2018-03-07 | OP ---
PATIENT NAME: FELY SQUIRES MEDICAL RECORD: [id number] :65 LOCATION:D.M2 D.2131 ADMISSION DATE:03/08/18 SURGEON: MENDY RICHARD MD DATE OF OPERATION: 03/09/2018 DATE OF SERVICE: 03/09/2018 PROCEDURES: 1. Left heart catheterization. 2. Selective coronary angiography. 3. Left ventriculogram. INDICATION: Chest pain compatible with angina. PROCEDURE IN DETAIL: After informed consent was obtained and after a detailed description of risks, benefits as well as alternative therapies, the patient elected to proceed with angiogram and heart catheterization. The right femoral area was prepped and draped in normal sterile fashion. Right femoral artery was cannulated via modified Seldinger technique with placement of 5-Belgian sheath. All catheters exchanged through this sheath. FINDINGS: Left ventriculogram was not performed secondary to inability to cross the prosthetic valve. SELECTIVE CORONARY ANGIOGRAPHY: 1. Left main has no significant angiographic disease. 2. Left anterior descending has mild irregularities, but no flow-limiting stenosis. 3. The left circumflex has mild irregularities, but no flow-limiting stenosis. 4. Right coronary has mild irregularities, but no flow-limiting stenosis. OVERALL IMPRESSION: Minimal coronary artery disease is present. No flow-limiting stenosis. Chest pain is noncardiac in etiology. PROCEDURE: 1. Aortofemoral runoff. 2. Abdominal aortography. INDICATION: Claudication and peripheral vascular disease. PROCEDURE PERFORMED: After informed consent was obtained and after detailed description of risks, benefits as well as alternative therapies, the patient elected to proceed with angiogram and aortofemoral runoff. The right femoral area had a preexisting sheath from coronary angiography. All catheters exchanged through this sheath. FINDINGS: Abdominal aortography was performed. The catheter was pulled down for aortofemoral runoff. Abdominal aortography reveals no significant abdominal aortic disease, no dissection or aneurysm formation. No renal artery stenosis. RIGHT LEG: A. Iliac: The common internal and external iliacs have evew-yk-ywucfbby irregularities, heavy calcification, but no flow-limiting stenosis. B. Femoral system: The common superficial and deep femoral have raty-ql-bvitroig irregularities, but no flow-limiting stenosis. No significant OPERATIVE REPORT [id number] FELY SQUIRES disease greater than 70%. C. Popliteal and infrapopliteal vessels are patent giving good 3-vessel runoff to the foot, although diffusely diseased. LEFT LEG: A. Iliac: The common internal and external iliacs have ylyc-wn-fslckiwh irregularities, heavy calcification, but no flow-limiting stenosis. B. Femoral system: The common superficial and deep femoral have ggkh-tk-dwmsubvw irregularities, but no flow-limiting stenosis. No significant disease greater than 70%. C. Popliteal and infrapopliteal vessels are patent giving good 3-vessel runoff to the foot, although diffusely diseased. OVERALL IMPRESSION: Moderate disease of the iliacs and superficial femoral artery bilaterally, but no discrete flow-limiting stenosis. Continue medical management of the peripheral vascular disease and peripheral vascular risk factors. TRANSINT:[id number] Voice Confirmation ID: [id number] DOCUMENT ID: [id number] MENDY RICHARD MD at 1859 CC: [id number] DICTATION DATE: 03/09/18 1411 UROLOGY SURGEON: 03/09/18 1432 DIS IN 03/10/18 [facility] [address] [place] [address]
--- NOTE | ~2018-03-07 | HEMODYNAMI ---
PATIENT:FELY SQUIRES MEDICAL RECORD: [id number] : 65 LOCATION:[facility] D.213 ADMISSION DATE: 03/08/18 Generatedon:03/09/201814:12 Patient name: FELY SQUIRES Patient #: [id number] SSN: : 1965 Date of study: 03/09/2018 Page: Of Hemodynamic Procedure Report Patient Data Patient Demographics Procedure consent was obtained First Name: FELY Gender: Female Last Name: TAVIA : 1965 Middle Initial: A Age: 52 year(s) Patient #: [id number] Race: Black Additional ID: [id number] Contact details [address]: [address] [place] [address] State: [place] City: [place] Zip code: [address] Past Medical History Allergies Allergen Reaction Date Comments Reported Morphine 03/09/2018 Admission Admission Data Admission Date: 03/08/2018 Admission Time: 1:12 Room #: 2131 Procedure Procedure Types Cath Procedure Diagnostic Procedure [facility] w/Coronaries Peripheral Cath Diagnostic Procedure Executive Manager Peripheral Procedures Kuwsn-Lhzwdwi-Fmp-Off Procedure Description Procedure Date Procedure Date: 03/09/2018 Procedure Start Time: 13:56 Procedure End Time: 14:08 Procedure Staff Name Function Emil Cordero MD Performing Physician Betty Casillas RT Monitor Joe Mitchell RN Nurse Ivette Rios RN Nurse Sary Hamm RT Scrub Procedure Data Cath Procedure Fluoroscopy Diagnostic fluoroscopy Total fluoroscopy Time: 2.9 time: 2.9 min min Diagnostic fluoroscopy Total fluoroscopy dose: 624 dose: 624 mGy mGy Contrast Material Contrast Material Type Amount (ml) Isovue 300 73 Entry Location Entry Primary Successful Side Size Upsize Upsize Entry Closure Succes sful Closure Location (Fr) 1 (Fr) 2 (Fr) Remarks Device Remarks Femoral Right 5 Fr Exoseal artery Estimated blood loss: 5 ml Diagnostic catheters Device Type Used For End Catheter Placement MULTIPACK Pigtail 5 Fr LV Angiography catheter MULTIPACK Pigtail 5 Fr Abdominal catheter aortogram with runoff MULTIPACK JL 4.0 5Fr Left Coronary catheter Angiography MULTIPACK 3DRC 5Fr Right Coronary catheter Angiography DIAGNOSTIC JL 5 5Fr Left Coronary catheter ([id number]) Angiography Procedure Complications No complications Procedure Medications Medication Administration Route Dosage 0.9% NaCl I.V. Oxygen etCO2 Nasal cannula 2 l/min Heparin Flush Bag added to field 2 bags (1000units/500ml NS) Lidocaine 2% added to field 20 Versed I.V. 2 mg Fentanyl I.V. 50 mcg Fentanyl I.V. 50 mcg Versed I.V. 1 mg Fentanyl I.V. 75 mcg Versed I.V. 2 mg Hemodynamics Rest Heart Rate: 39 (bpm) Snapshots Pre Cath Intra NCS Post Cath Vital Signs Time Heart Resp SPO2 etCO2 NIBP Rhythm Pain Sedation Rate (ipm) (%) (mmHg) (mmHg) Status Level (bpm) 13:27:04 77 16 96 32 123/81(95) NSR 0 (11) 10(A) , No pain 13:31:38 77 15 94 33.1 123/78(95) NSR 0 (11) 10(A) , No pain 13:36:13 77 13 94 23.3 94/69(80) NSR 0 (11) 10(A) , No pain 13:41:24 79 11 93 27.9 97/62(81) NSR 0 (11) 10(A) , No pain 13:45:56 91 11 94 24.1 92/55(80) NSR 0 (11) 10(A) , No pain 13:50:29 77 11 95 27.8 102/51(79) NSR 0 (11) 10(A) , No pain 13:55:01 66 11 95 30.9 89/63(81) NSR 0 (11) 10(A) , No pain 13:59:29 77 13 92 36.1 103/73(82) NSR 0 (11) 9(A) , No pain 14:04:02 73 13 95 36.2 95/59(65) NSR 0 (11) 9(A) , No pain 14:08:11 74 11 93 31.6 106/58(83) NSR 0 (11) 9(A) , No pain 14:11:34 82 11 92 31.6 98/64(84) NSR 0 (11) 10(A) , No pain Medications Time Medication Route Dose Verified Delivered Reason Notes Effe ctiveness by by 13:34:49 0.9% NaCl I.V. 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 2 mg Emil Ivette for Consuelo Rios sedation RN 13:52:50 Fentanyl I.V. 50 Emil Ivette for mcg Consuelo Rios sedation RN 14:00:26 Versed I.V. 2 mg Emil Ivette for Consuelo Rios sedation RN 14:00:26 Fentanyl I.V. 50 Emil Ivette for mcg Consuelo Rios sedation RN 14:05:42 Versed I.V. 1 mg Emil Ivette for Consuelo Rios sedation RN 14:05:54 Fentanyl I.V. 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 Start room use. 13:07:36 Time tracking: Regular hours (M-F 7:00 - 5:00) 13:07:40 Plan of Care:Hemodynamics will remain stable., Cardiac rhythm will remain stable., Comfort level will be maintained., Respiratory function will remain adequate., Patient/ family verbilizes understanding of procedure., Procedure tolerated without complication., Recovers from procedure without complications.. 13:21:17 Patient received from PCU to CCL 1 Alert and oriented. Tansferred to table in Supine position. 13:21:19 Warm blankets applied, and nikunj hugger turned on for patient comfort. 13:21:19 Correct patient and procedure confirmed by team. 13:21:20 Signed procedure consent form obtained from patient. 13:21:21 ECG and BP/O2 sat monitors applied to patient. 13:21:22 Full Disclosure recording started 13:26:17 Vital chart was started 13:31:41 Baseline sample Acquired. 13:31:44 Rhythm: sinus rhythm 13:31:52 H&P Date Dictated: 03/08/2018 Within 30 days and on chart.. 13:31:54 Pre-procedure instructions explained to patient. 13:31:54 Pre-op teaching completed and patient verbalized understanding. 13:31:56 Family unavailable. 13:31:58 Patient NPO since Midnight. 13:32:07 Patient allergic to Morphine 13:32:09 Is the patient allergic to Iodine/contrast media? No. 13:32:12 Is patient on blood thinner?No 13:32:16 Patient diabetic? No. 13:32:19 Previous problem with sedation/anesthesia? No ? 13:32:20 Snore? Yes 13:32:21 Sleep apnea? No 13:32:22 Deviated septum? No 13:32:23 Opens mouth fully? Yes 13:32:23 Sticks out tongue? Yes 13:32:25 Airway obstruction? No ? 13:32:27 Dentures? No ? 13:32:31 Pre procedure: right dorsailis pedis pulse 2+ Normal; easily identifiable; not easily obliterated 13:32:33 Patient pain scale 0/10 ?. 13:32:47 IV patent on arrival in left forearm with 0.9% NaCl at [facility]. 13:32:51 Lab results completed and on chart. 13:32:54 Right groin area was prepped with chlora-prep and draped in sterile fashion 13:32:55 Alarms reviewed by R. N. 13:32:55 Sharps counted by scrub and verified by R.N. 13:33:19 Use device set Femoral Dx 13:33:20 ACIST Syringe (30532) opened to sterile field. 13:33:21 Bag Decanter (2002S) opened to sterile field. 13:33:21 Medline Cath Pack ([id number]) opened to sterile field. 13:33:22 DIAGNOSTIC WIRE .035 260cm J wire (122015) opened to sterile field. 13:33:23 ACIST Hand Control (54388) opened to sterile field. 13:33:23 ACIST Manifold (28275) opened to sterile field. 13:33:24 DIAGNOSTIC Multipack 5Fr catheter set ([id number]) opened to sterile field. 13:33:24 Tegaderm 4 x 4 (1626W) opened to sterile field. 13:33:25 SHEATH Prelude 5Fr 0.035 (OGT-1S-72-035) opened to sterile field. 13:34:49 0.9% NaCl kvo I.V. was administered by Ivette Rios RN; used for procedure; 13:35:01 Oxygen 2 l/min etCO2 Nasal cannula was administered by Ivette Rios RN; used for procedure; 13:35:11 Heparin Flush Bag (1000units/500ml NS) 2 bags added to field was administered by Ivette Rios RN; used for procedure; 13:35:19 Lidocaine 2% 20ml vial added to field was administered by Ivette Rios RN; used for procedure; 13:39:25 Zero performed for pressure channel P1 13:52:13 Final Timeout: patient, procedure, and site verified with staff and physician. All members of the team are in agreement. 13:52:15 Right groin site verified by team. 13:52:17 Physical assessment completed. ASA score P 2 - A patient with mild systemic disease as per Emil Cordero MD. 13:52:20 Sedation plan: IV Moderate Sedation Medication:Versed, Fentanyl 13:52:38 Versed 2 mg I.V. was administered by Ivette Rios RN; for sedation; 13:52:50 Fentanyl 50 mcg I.V. was administered by Ivette Rios RN; for sedation; 13:56:33 Procedure started. 13:56:36 Local anesthetic to right femoral artery with Lidocaine 2% by Emil Cordero MD.INITIAL ACCESS ONLY 13:57:11 A 5 Fr sheath was inserted into the Right Femoral artery 13:57:34 A MULTIPACK Pigtail 5 Fr catheter was advanced over the wire and used for LV Angiography. UNABLE TO CROSS VALVE 13:59:35 A MULTIPACK Pigtail 5 Fr catheter was advanced over the wire and used for Abdominal aortogram with runoff. 13:59:57 Procedure type changed to Cath procedure, Diagnostic procedure, LHC, LHC w/Coronaries, Peripheral Cath Diagnostic Procedure, Executive Manager Peripheral Procedures, Ucsne-Xcqebik-Okl-Off 14:00:15 Catheter removed. 14:00:26 Versed 2 mg I.V. was administered by Ivette Gabriel RN; for sedation; 14:00:26 Fentanyl 50 mcg I.V. was administered by Ivette iRos RN; for sedation; 14:00:29 A MULTIPACK JL 4.0 5Fr catheter was advanced over the wire and used for Left Coronary Angiography. REMOVED, UNABLE TO CANNULATE 14:01:57 A MULTIPACK 3DRC 5Fr catheter was advanced over the wire and used for Right Coronary Angiography. 14:03:08 A DIAGNOSTIC JL 5 5Fr catheter ([id number]) was advanced over the wire and used for Left Coronary Angiography. 14:04:36 Catheter removed. 14:04:48 Sheath removed intact; hemostasis achieved with Exoseal to the Right Femoral artery. 14:04:52 EXOSEAL 5Fr (EX500) opened to sterile field. 14:04:55 Procedure ended.(Physican Out) 14:05:05 Fluoroscopy time 02.90 minutes. 14:05:08 Flurop Dose total: 624 14:05:08 Fluoroscopy dose: 624 mGy 14:05:11 Contrast amount:Isovue 300 73ml. 14:05:13 Sharps counted by scrub and verified by R.N. 14:05:14 Insertion/operative site no bleeding no hematoma. 14:05:16 Post-op/insertion site Right Femoral artery dressed using a 4 x 4 and Tegaderm. 14:05:19 Post right femoral artery:stable, clean and dry 14:05:21 Post Procedure Pulses reassessed and unchanged 14:05:24 Post-procedure physical assessment completed. ASA score P 2 - A patient with mild systemic disease as per Emil Cordero MD. 14:05:26 Post procedure rhythm: unchanged. 14:05:28 Estimated blood loss: 5 ml 14:05:31 Post procedure instruction explained to patient.Patient verbalizes understanding. 14:05:31 Patient needs reinforcement of post procedure teaching. 14:05:37 Procedure Complication : No complications 14:05:40 See physician's report for complete and final results. 14:05:42 Versed 1 mg I.V. was administered by Ivette Rios RN; for sedation; 14:05:54 Fentanyl 75 mcg I.V. was administered by Ivette Rios RN; for sedation; 14:06:26 Procedure and supply charges have been captured, reviewed, submitted and are correct. 14:07:10 Vital chart was stopped 14:07:14 Report given to PCU. 14:07:29 Vital chart was started 14:08:17 Vital chart was stopped 14:08:22 Procedure ended. 14:08:22 Full Disclosure recording stopped 14:08:25 End room use (Document Last) 14:09:35 Patient transfered to PCU with Bed. Device Usage Item Name Manufacture Quantity Catalog Number Hospital Part Current M inimal Lot# / Charge Number Stock Stock Serial# Code ACIST Syringe Acist 1 51903 437154 679741 229336 2 0 (06881) [employer] Bag Decanter Microtek 1 289484 57676 358774 5 () Medical Inc. Medline Cath Cardinal 1 [id number] 275233 44863 673099 5 Pack Health ([id number]) DIAGNOSTIC WIRE [facility] [place] 1 934459 425925 839145 971670 3 0 .035 260cm J wire (640356) ACIST Hand Acist 1 97748 268662 454120 344528 5 Control (86187) [employer] Inc ACIST Manifold Acist 1 28414 728176 004488 071251 5 (47835) [employer] Inc DIAGNOSTIC Cardinal 1 [id number] 782725 66110 409757 3 0 Multipack 5Fr Health catheter set (MV9665) Tegaderm 4 x 4 3M 1 1626W 407322 889852 459187 5 (1626W) SHEATH Prelude Merit 1 INP-9R-04-035 666900 100567 803738 5 5Fr 0.035 Medical (LMS-3B-28-035) MULTIPACK Cardinal 1 030808 5 Pigtail 5 Fr Health catheter MULTIPACK JL Cardinal 1 [id number] 5 4.0 5Fr Health catheter MULTIPACK 3DRC Cardinal 1 [id number] 5 5Fr catheter Health DIAGNOSTIC JL 5 Cardinal 1 [id number] 333022 552401 679792 5 5Fr catheter Health ([id number]) EXOSEAL 5Fr Cardinal 1 EX500 674028 044388 114501 1 0 (EX500) Health Signature Audit [place] Stage Time Signature Unsigned Intra-Procedure 03/09/2018 Betty 2:12:26 PM Counts RT(R) Signatures Monitor : Betty Signature : Counts RT Date : Time : [place] [address] [place] [address]
[2018-03-08] VITALS (8 sets, daily range): BP systolic 132–173; BP diastolic 86–97; Ht 175.3 cm; Wt 62.8 kg
[2018-03-08 00:11] LABS: BASOPHILS 0.5 % (0-2); EOSINOPHILS 3.3 % (0-7); HEMATOCRIT 30.8 % (36.0-48.0); HEMOGLOBIN 9.7 g/dL (12-16); IMMATURE GRANULOCYTES 1.1 % (0-5); LYMPHOCYTES 19.4 % (15-50); MCH 29.2 pg (26.0-34.0); MCHC 31.5 g/dL (31.0-37.0); MCV 92.8 fL (80.0-100.0); MEAN PLATELET VOLUME 10.2 fL (7.4-10.4); MONOCYTES 12.4 % (2-11); NEUTROPHILS 63.3 % (40-80); RBC 3.32 10x6/uL (4.00-5.40); RDW 18.8 % (11.5-14.5); WBC 7.6 10x3/uL (4.8-10.8)
[2018-03-08 00:16] LABS: PLATELET COUNT 276 10x3/uL (130-400)
[2018-03-08 00:23] LABS: INR 1.14 (0.85-1.17); PROTIME 14.2 SECONDS (11.6-15.0)
[2018-03-08 00:25] LABS: D-DIMER-QUANTITATIVE 1.86 ug/mLFEU (0.20-0.54)
[2018-03-08 00:37] LABS: CKMB 3.8 U/L (0.0-3.6); CREATINE KINASE 126 UL (21-215); TROPONIN-I 0.038 ng/mL (0.000-0.060)
[2018-03-08 01:06] LABS: PRO BNP 62471 pg/mL (0-125)
[2018-03-08 01:17] LABS: ALBUMIN 2.9 g/dL (3.4-5.0); ANION GAP 24.7 mmol/L (8-16); BILIRUBIN - TOTAL 0.43 mg/dL (0.2-1.3); CALCIUM 8.3 mg/dL (8.5-10.1); CARBON DIOXIDE 19.4 mmol/L (21.0-32.0); CREATININE - SERUM 7.8 mg/dL (0.6-1.3); POTASSIUM - SERUM 5.1 mmol/L (3.5-5.1); PROTEIN - SERUM 8.6 g/dL (6.4-8.2)
[2018-03-09] VITALS (9 sets, daily range): BP systolic 105–186; BP diastolic 67–98
[2018-03-09 06:51] LABS: BASOPHILS 0.5 % (0-2); EOSINOPHILS 6.4 % (0-7); HEMATOCRIT 30.4 % (36.0-48.0); HEMOGLOBIN 9.3 g/dL (12-16); IMMATURE GRANULOCYTES 0.3 % (0-5); LYMPHOCYTES 14.6 % (15-50); MCH 28.9 pg (26.0-34.0); MCHC 30.6 g/dL (31.0-37.0); MCV 94.4 fL (80.0-100.0); MEAN PLATELET VOLUME 10.3 fL (7.4-10.4); MONOCYTES 11.2 % (2-11); PLATELET COUNT 275 10x3/uL (130-400); RBC 3.22 10x6/uL (4.00-5.40); RDW 18.9 % (11.5-14.5); WBC 7.8 10x3/uL (4.8-10.8)
[2018-03-09 06:52] LABS: ALBUMIN 3.1 g/dL (3.4-5.0); ANION GAP 19.1 mmol/L (8-16); BILIRUBIN - TOTAL 0.46 mg/dL (0.2-1.3); CALCIUM 8.7 mg/dL (8.5-10.1); CARBON DIOXIDE 24.2 mmol/L (21.0-32.0); POTASSIUM - SERUM 5.3 mmol/L (3.5-5.1); PROTEIN - SERUM 7.8 g/dL (6.4-8.2)
[2018-03-09 12:25] LABS: CREATINE KINASE 62 UL (21-215); TROPONIN-I 0.032 ng/mL (0.000-0.060)
[2018-03-10 04:59] VITALS: BP 107/66
[2018-03-10 06:47] LABS: BASOPHILS 0.3 % (0-2); EOSINOPHILS 4.7 % (0-7); HEMATOCRIT 27.3 % (36.0-48.0); HEMOGLOBIN 8.4 g/dL (12-16); IMMATURE GRANULOCYTES 0.4 % (0-5); LYMPHOCYTES 14.1 % (15-50); MCH 29.1 pg (26.0-34.0); MCHC 30.8 g/dL (31.0-37.0); MCV 94.5 fL (80.0-100.0); MEAN PLATELET VOLUME 10.2 fL (7.4-10.4); MONOCYTES 15.1 % (2-11); NEUTROPHILS 65.4 % (40-80); PLATELET COUNT 248 10x3/uL (130-400); RBC 2.89 10x6/uL (4.00-5.40); RDW 18.7 % (11.5-14.5); WBC 6.8 10x3/uL (4.8-10.8)
[2018-03-10 07:21] LABS: ALBUMIN 2.9 g/dL (3.4-5.0); ANION GAP 20.2 mmol/L (8-16); BILIRUBIN - TOTAL 0.46 mg/dL (0.2-1.3); CALCIUM 7.4 mg/dL (8.5-10.1); CARBON DIOXIDE 22.6 mmol/L (21.0-32.0); CREATININE - SERUM 8.5 mg/dL (0.6-1.3); PHOSPHOROUS 8.8 mg/dL (2.5-4.9); POTASSIUM - SERUM 4.8 mmol/L (3.5-5.1)
[2018-03-10 10:01] VITALS: BP 100/71
== END 2018-03-10 15:37 | disposition home or self-care (01) | DRG 286 ==
LOC: D.ER 23:14 → D.EDHOLD 03-08 01:12 → D.M2 03-08 01:12
PROVIDERS: Family Medicine; Internal Medicine Interventional Cardiology; Internal Medicine Nephrology
PROC: 4A023N7 Measurement of Cardiac Sampling and Pressure, Left Heart, Percutaneous Approach (ICD-10-PCS; 2018-03-09)
PROC: B4101ZZ Fluoroscopy of Abdominal Aorta using Low Osmolar Contrast (ICD-10-PCS; 2018-03-09)
PROC: B2111ZZ Fluoroscopy of Multiple Coronary Arteries using Low Osmolar Contrast (ICD-10-PCS; principal; 2018-03-09 13:07)
PROC: B2151ZZ Fluoroscopy of Left Heart using Low Osmolar Contrast (ICD-10-PCS; 2018-03-09 13:07)
DX: R07.89 Other chest pain (principal); N18.6 End stage renal disease; I12.0 Hypertensive chronic kidney disease with stage 5 chronic kidney disease or end stage renal disease; I25.10 Atherosclerotic heart disease of native coronary artery without angina pectoris; Z95.5 Presence of coronary angioplasty implant and graft; D63.1 Anemia in chronic kidney disease; Z87.891 Personal history of nicotine dependence; I70.213 Atherosclerosis of native arteries of extremities with intermittent claudication, bilateral legs

== ENCOUNTER 2018-03-22 03:00 | Emergency (ER) | payer MEDICARE ==
[~2018-03-22] VITALS: Ht 175.3 cm; Wt 66.8 kg
[2018-03-22 03:07] VITALS: Ht 175.3 cm; Wt 66.8 kg
[2018-03-22 03:44] LABS: BASOPHILS 0.8 % (0-2); EOSINOPHILS 5.6 % (0-7); HEMATOCRIT 26.3 % (36.0-48.0); HEMOGLOBIN 8.2 g/dL (12-16); IMMATURE GRANULOCYTES 0.9 % (0-5); LYMPHOCYTES 22.1 % (15-50); MCH 29.6 pg (26.0-34.0); MCHC 31.2 g/dL (31.0-37.0); MCV 94.9 fL (80.0-100.0); MEAN PLATELET VOLUME 9.2 fL (7.4-10.4); MONOCYTES 9.6 % (2-11); PLATELET COUNT 279 10x3/uL (130-400); RBC 2.77 10x6/uL (4.00-5.40); RDW 19.5 % (11.5-14.5); WBC 7.5 10x3/uL (4.8-10.8)
[2018-03-22 03:57] LABS: ALBUMIN 3.2 g/dL (3.4-5.0); ALKALINE PHOSPHATASE 458 U/L (46-116); ALT (SGPT) 29 U/L (10-68); BILIRUBIN - TOTAL 0.34 mg/dL (0.2-1.3); CALC OSMOLALITY 308 mosm/kg (275-300); CALCIUM 8.4 mg/dL (8.5-10.1); CARBON DIOXIDE 20.3 mmol/L (21.0-32.0); CHLORIDE - SERUM 101 mmol/L (98-107); GLUCOSE 134 mg/dL (74-106); POTASSIUM - SERUM 3.9 mmol/L (3.5-5.1); PROTEIN - SERUM 8.2 g/dL (6.4-8.2); SODIUM 140 mmol/L (136-145); UREA NITROGEN 91 mg/dL (7-18); eGFR NON AFRICAN AMERICAN 4 mL/min (90-120)
[2018-03-22 04:08] LABS: CKMB 3.4 U/L (0.0-3.6); CREATINE KINASE 82 UL (21-215); TROPONIN-I 0.048 ng/mL (0.000-0.060)
[2018-03-22] MEDS ORDERED: NORCO 7.5/325 T1 TA1 PO (05:59)
[2018-03-22 06:15] VITALS: BP 144/80
== END 2018-03-22 06:15 | disposition home or self-care (01) ==
LOC: D.ER 03:00
PROVIDERS: Family Medicine
DX: R07.89 Other chest pain (principal); I11.0 Hypertensive heart disease with heart failure; I50.9 Heart failure, unspecified; J44.9 Chronic obstructive pulmonary disease, unspecified; F17.200 Nicotine dependence, unspecified, uncomplicated

== ENCOUNTER 2018-04-01 02:55 | Inpatient (IN) | payer MEDICARE ==
[2018-04-01] VITALS (8 sets, daily range): BP systolic 94–130; BP diastolic 49–83; Ht 175.3 cm; Wt 65.5 kg
[~2018-04-01] VITALS: Ht 175.3 cm; Wt 65.5 kg
--- NOTE | ~2018-04-01 | MORECARE ---
CASE MANAGEMENT DISCHARGE SUMMARY PATIENT: FELY SQUIRES UNIT: [id number] ADM DATE: 04/01/18 AGE: 52 : 65 SEX: F ROOM/BED: D.1208 AUTHOR: ALEXANDRA JAMES PHYSICIAN: REFERRING PHYSICIAN: RITU WYNN MD DATE OF SERVICE: 04/02/18 Discharge Plan Patient Name: FELY SQUIRES [facility] [facility] 1965 Planned Disposition: Home Anticipated Discharge Date: Discharge Date: Expected LOS: Initial Reviewer: [email or web address] Initial Review Date: 04/02/2018 Generated: 04/02/18 4:19 pm DCPIA - Discharge Planning Initial Assessment Updated by [email or web address]: Sidra Wilson on 04/02/18 3:19 pm * Is the patient Alert and Oriented? Yes * How many steps to enter\exit or inside your home? * PCP TIANNA * Pharmacy [facility] * Preadmission Environment Home with Family * ADLs Independent * Equipment Nebulizer * List name and contact numbers for known caregivers / representatives who currently or will assist patient after discharge: IVANA MCDOWELL - [phone] * Verbal permission to speak to the caregivers and representatives has been obtained from the patient. N/A * Community resources currently utilized None * Please name any agencies selected above. [facility] * Additional services required to return to the preadmission environment? No * Can the patient safely return to the preadmission environment? Yes * Has this patient been hospitalized within the prior 30 days at any hospital? Yes Patient Name: FELY SQUIRES Page 42016 at 1519 All edits/amendments must be made on the electronic document DICTATION DATE: 04/02/181517 CHIEF LOAD DISPATCHER: MARYAM 04/02/181517 RPT#: [id number] DC DATE: STATUS: ADM IN [facility] [address] [place] [address] END OF REPORT
--- NOTE | ~2018-04-01 | MORECARE ---
CASE MANAGEMENT DISCHARGE SUMMARY PATIENT: FELY SQUIRES UNIT: [id number] ADM DATE: 04/01/18 AGE: 52 : 65 SEX: F ROOM/BED: D.1208 AUTHOR: ALEXANDRA JAMES PHYSICIAN: REFERRING PHYSICIAN: RITU WYNN MD DATE OF SERVICE: 04/03/18 Discharge Plan Patient Name: FELY SQUIRES Facility: [facility]:[place] : 1965 Planned Disposition: Home Anticipated Discharge Date: Discharge Date: 04/02/2018 Expected LOS: Initial Reviewer: [id number] Initial Review Date: 04/02/2018 Generated: 04/03/18 2:09 pm Comments DCP- Discharge Planning Updated by [email or web address]: Sidra Wilson on 04/02/18 2:[address] Patient Name: FELY SQUIRES Admission Status: ER Accout number: [id number] Admission Date: 04-01-2018 : 1965 Admission Diagnosis: Attending: RITU WYNN Current LOS: 1 Anticipated DC Date: Planned Disposition: Home Primary Insurance: MEDICARE A & B Discharge Planning Comments: CM MET WITH PATIENT SHE PLANS ON RETURNING TO HER HOME POST DISCHARGE. SHE DENIES ANY NEEDS AT THIS TIME. SHE HAS DIALYSIS SCHEDULE T[facility]S AT [facility] @1130. IMM EXPLAINED AND SERVED @1452 Enterprise Business Architect: Sidra Wilson DCPIA - Discharge Planning Initial Assessment Updated by [email or web address]: Sidra Wilson on 04/02/18 3:19 pm * Is the patient Alert and Oriented? Yes * How many steps to enter\exit or inside your home? * PCP TIANNA * Pharmacy [facility] * Preadmission Environment Home with Family * ADLs Independent * Equipment Nebulizer * List name and contact numbers for known caregivers / representatives who currently or will assist patient after discharge: IVANA MCDOWELL - [phone] * Verbal permission to speak to the caregivers and representatives has been obtained from the patient. N/A * Community resources currently utilized None * Please name any agencies selected above. DIALYSIS TTHS @ [facility], [place], [facility] * Additional services required to return to the preadmission environment? No * Can the patient safely return to the preadmission environment? Yes * Has this patient been hospitalized within the prior 30 days at any hospital? Yes Coverage Notice Reviewer: [id number] Ezio Wilson Notice Issued Date-Time: 04/02/2018 14:52 Notice Type: IM Discharge Notice Notice Delivered To: Patient Relationship to Patient: Self Music Cataloguer Name: Delivery Method: - Nicole Days: Prior Verbal Notification: Recipient Understood Notice: Recipient Signature: Med Rec Note Co-signed by Attending: Coverage Notice Comment: Last DP export: 04/02/18 2:37 Patient Name: FELY SQUIRES Page 28497 at 1309 All edits/amendments must be made on the electronic document DICTATION DATE: 04/03/18 1308 DYED YARN OPERATOR: MARYAM 04/03/18 1308 RPT#: [id number] DC DATE:04/02/18 STATUS: DIS IN [facility] [address] [place] [address] END OF REPORT
--- NOTE | ~2018-04-01 | MORECARE ---
CASE MANAGEMENT DISCHARGE SUMMARY PATIENT: FELY SQUIRES UNIT: [id number] ADM DATE: 04/01/18 AGE: 52 : 65 SEX: F ROOM/BED: D.1208 AUTHOR: ALEXANDRA JAMES PHYSICIAN: REFERRING PHYSICIAN: RITU WYNN MD DATE OF SERVICE: 04/02/18 Discharge Plan Patient Name: FELY SQUIRES Facility: [facility]:[place] : 1965 Planned Disposition: Home Anticipated Discharge Date: Discharge Date: Expected LOS: Initial Reviewer: [email or web address] Initial Review Date: 04/02/2018 Generated: 04/02/18 4:37 pm Comments DCP- Discharge Planning Updated by [email or web address]: Sidra Wilson on 04/02/18 2:[address] Patient Name: FELY SQUIRES Admission Status: ER Accout number: [id number] Admission Date: 04-01-2018 : 1965 Admission Diagnosis: Attending: RITU WYNN Current LOS: 1 Anticipated DC Date: Planned Disposition: Home Primary Insurance: MEDICARE A & B Discharge Planning Comments: CM MET WITH PATIENT SHE PLANS ON RETURNING TO HER HOME POST DISCHARGE. SHE DENIES ANY NEEDS AT THIS TIME. SHE HAS DIALYSIS SCHEDULE [facility] AT [facility] @1130. IMM EXPLAINED AND SERVED @1452 Javascript Software Engineer: Sidra Wilson DCPIA - Discharge Planning Initial Assessment Updated by [email or web address]: Sidra Wilson on 04/02/18 3:19 pm * Is the patient Alert and Oriented? Yes * How many steps to enter\exit or inside your home? * PCP TIANNA * Pharmacy [facility] * Preadmission Environment Home with Family * ADLs Independent * Equipment Nebulizer * List name and contact numbers for known caregivers / representatives who currently or will assist patient after discharge: IVANA MCDOWELL - [phone] * Verbal permission to speak to the caregivers and representatives has been obtained from the patient. N/A * Community resources currently utilized None * Please name any agencies selected above. DIALYSIS TTHS @ [facility] * Additional services required to return to the preadmission environment? No * Can the patient safely return to the preadmission environment? Yes * Has this patient been hospitalized within the prior 30 days at any hospital? Yes Coverage Notice Reviewer: [email or web address] Ezio Wilson Notice Issued Date-Time: 04/02/2018 14:52 Notice Type: IM Discharge Notice Notice Delivered To: Patient Relationship to Patient: Self Javascript Software Engineer Name: Delivery Method: - Nicole Days: Prior Verbal Notification: Recipient Understood Notice: Recipient Signature: Med Rec Note Co-signed by Attending: Coverage Notice Comment: Last DP export: 04/02/18 2:19 Patient Name: FELY SQUIRES Page 69369 at 1537 All edits/amendments must be made on the electronic document DICTATION DATE: 04/02/18 153 RUBBER CHEMIST: MARYAM 04/02/181536 RPT#: [id number] DC DATE: STATUS: ADM IN [facility] [address] [place] [address] END OF REPORT
[~2018-04-01 02:55] MED LIST changes: +NORCO 7.5/325 T1 TA1 PO
[2018-04-01 03:14] LABS: BASOPHILS 0.5 % (0-2); EOSINOPHILS 5.5 % (0-7); HEMATOCRIT 31.5 % (36.0-48.0); HEMOGLOBIN 9.6 g/dL (12-16); IMMATURE GRANULOCYTES 0.8 % (0-5); LYMPHOCYTES 20.4 % (15-50); MCH 29.4 pg (26.0-34.0); MCHC 30.5 g/dL (31.0-37.0); MCV 96.6 fL (80.0-100.0); MEAN PLATELET VOLUME 9.9 fL (7.4-10.4); MONOCYTES 9.8 % (2-11); PLATELET COUNT 277 10x3/uL (130-400); RBC 3.26 10x6/uL (4.00-5.40)
[2018-04-01 03:32] LABS: ALBUMIN 3.5 g/dL (3.4-5.0); ANION GAP 22.9 mmol/L (8-16); BILIRUBIN - TOTAL 0.4 mg/dL (0.2-1.3); CALCIUM 9.1 mg/dL (8.5-10.1); CARBON DIOXIDE 22.7 mmol/L (21.0-32.0); CREATININE - SERUM 6.9 mg/dL (0.6-1.3); POTASSIUM - SERUM 4.6 mmol/L (3.5-5.1)
[2018-04-01 03:47] LABS: TROPONIN-I 0.058 ng/mL (0.000-0.060)
[2018-04-01] MEDS ORDERED: TOPROL XL25 MG PO (06:21)
[2018-04-02 03:57] VITALS: BP 131/70
[2018-04-02 06:19] LABS: BASOPHILS 0.5 % (0-2); EOSINOPHILS 5.8 % (0-7); HEMATOCRIT 29.1 % (36.0-48.0); HEMOGLOBIN 8.8 g/dL (12-16); IMMATURE GRANULOCYTES 0.5 % (0-5); MCH 29.6 pg (26.0-34.0); MCHC 30.2 g/dL (31.0-37.0); MEAN PLATELET VOLUME 10.5 fL (7.4-10.4); MONOCYTES 12.2 % (2-11); PLATELET COUNT 237 10x3/uL (130-400); RBC 2.97 10x6/uL (4.00-5.40); RDW 20.8 % (11.5-14.5); WBC 6.4 10x3/uL (4.8-10.8)
[2018-04-02 06:36] LABS: INR 1.22 (0.85-1.17)
[2018-04-02 06:38] LABS: ANION GAP 24.2 mmol/L (8-16); CALCIUM 8.3 mg/dL (8.5-10.1); CARBON DIOXIDE 21.8 mmol/L (21.0-32.0)
[2018-04-02 06:39] LABS: CREATININE - SERUM 8.8 mg/dL (0.6-1.3)
[2018-04-02 07:32] VITALS: BP 129/72
[2018-04-02 11:18] VITALS: BP 130/57
[2018-04-02 15:27] VITALS: BP 119/66
== END 2018-04-02 18:56 | disposition home or self-care (01) | DRG 432 ==
LOC: D.ER 02:55 → D.M3 05:22
PROVIDERS: Family Medicine
DX: K74.60 Unspecified cirrhosis of liver (principal); N18.6 End stage renal disease; R18.8 Other ascites; I13.2 Hypertensive heart and chronic kidney disease with heart failure and with stage 5 chronic kidney disease, or end stage renal disease; I50.9 Heart failure, unspecified; Z99.2 Dependence on renal dialysis; J44.9 Chronic obstructive pulmonary disease, unspecified; F10.129 Alcohol abuse with intoxication, unspecified; Y90.7 Blood alcohol level of 200-239 mg/100 ml; D63.1 Anemia in chronic kidney disease; I25.10 Atherosclerotic heart disease of native coronary artery without angina pectoris; E78.5 Hyperlipidemia, unspecified

== ENCOUNTER 2018-04-03 07:38 | Observation (INO) | payer MEDICARE ==
[~2018-04-03] VITALS: Ht 175.3 cm; Wt 66.8 kg
--- NOTE | ~2018-04-03 | MORECARE ---
CASE MANAGEMENT DISCHARGE SUMMARY PATIENT: FELY SQUIRES UNIT: [id number] ADM DATE: 04/03/18 AGE: 52 : 65 SEX: F ROOM/BED: D.0765 AUTHOR: ALEXANDRA JAMES PHYSICIAN: REFERRING PHYSICIAN: RITA LYNN MD DATE OF SERVICE: 04/03/18 Discharge Plan Patient Name: FELY SQUIRES [facility] [facility] 1965 Planned Disposition: Home Anticipated Discharge Date: 04/03/18 Discharge Date: Expected LOS: 1 Initial Reviewer: [email or web address] Initial Review Date: 04/03/2018 Generated: 04/03/18 2:51 pm Patient Name: FELY SQUIRES Page 54857 at 1352 All edits/amendments must be made on the electronic document DICTATION DATE: 04/03/18 1351 ZONE SUPERVISOR FIREARMS: MARYAM 04/03/18 1351 RPT#: [id number] DC DATE: STATUS: ADM IN [facility] [address] [place] [address] END OF REPORT
[~2018-04-03 07:38] MED LIST changes: +TOPROL XL25 MG PO
[2018-04-03 07:48] VITALS: Ht 175.3 cm; Wt 66.8 kg
[2018-04-03 09:47] VITALS: BP 156/86
== END 2018-04-03 18:49 | disposition home or self-care (01) ==
LOC: D.ER 07:38 → D.EDHOLD 09:11 → OBSVTIME 09:11 → D.M2 09:27
DX: E87.5 Hyperkalemia (principal); I12.0 Hypertensive chronic kidney disease with stage 5 chronic kidney disease or end stage renal disease; N18.6 End stage renal disease; Z99.2 Dependence on renal dialysis; F17.210 Nicotine dependence, cigarettes, uncomplicated; D64.9 Anemia, unspecified; J44.9 Chronic obstructive pulmonary disease, unspecified; F32.9 Major depressive disorder, single episode, unspecified; K21.9 Gastro-esophageal reflux disease without esophagitis; G62.9 Polyneuropathy, unspecified; K31.84 Gastroparesis

== ENCOUNTER 2018-04-17 20:38 | Emergency (ER) | payer MEDICARE ==
[~2018-04-17] VITALS: Ht 175.3 cm; Wt 67.3 kg
[2018-04-17 20:43] VITALS: Ht 175.3 cm; Wt 67.3 kg
[2018-04-17 23:08] LABS: BASOPHILS 0.2 % (0-2); EOSINOPHILS 4.8 % (0-7); HEMATOCRIT 31.6 % (36.0-48.0); HEMOGLOBIN 9.9 g/dL (12-16); IMMATURE GRANULOCYTES 0.3 % (0-5); LYMPHOCYTES 14.6 % (15-50); MCHC 31.3 g/dL (31.0-37.0); MCV 95.8 fL (80.0-100.0); MEAN PLATELET VOLUME 9.5 fL (7.4-10.4); MONOCYTES 10.9 % (2-11); NEUTROPHILS 69.2 % (40-80); PLATELET COUNT 200 10x3/uL (130-400); RDW 20.1 % (11.5-14.5); WBC 6.5 10x3/uL (4.8-10.8)
[2018-04-17 23:21] LABS: ALBUMIN 3.1 g/dL (3.4-5.0); ANION GAP 21.4 mmol/L (8-16); BILIRUBIN - TOTAL 0.39 mg/dL (0.2-1.3); CALCIUM 8.3 mg/dL (8.5-10.1); CARBON DIOXIDE 22.1 mmol/L (21.0-32.0); CREATININE - SERUM 7.5 mg/dL (0.6-1.3); POTASSIUM - SERUM 4.5 mmol/L (3.5-5.1); PROTEIN - SERUM 8.3 g/dL (6.4-8.2)
[2018-04-17] MEDS ORDERED: MACROBID100 MG PO (23:49)
[2018-04-18 00:29] VITALS: BP 123/85
== END 2018-04-18 00:31 | disposition home or self-care (01) ==
LOC: D.ER 20:38
PROVIDERS: Family Medicine
DX: R05 Cough (principal); J44.1 Chronic obstructive pulmonary disease with (acute) exacerbation; R30.0 Dysuria; I12.0 Hypertensive chronic kidney disease with stage 5 chronic kidney disease or end stage renal disease; N18.6 End stage renal disease; Z99.2 Dependence on renal dialysis; R10.9 Unspecified abdominal pain

== ENCOUNTER 2018-07-17 06:26 | Emergency (ER) | payer MEDICARE ==
[~2018-07-17] VITALS: Ht 175.3 cm; Wt 66.8 kg
[~2018-07-17 06:26] MED LIST changes: +MACROBID100 MG PO
[2018-07-17 06:30] VITALS: Ht 175.3 cm; Wt 66.8 kg
[2018-07-17 07:19] LABS: BASOPHILS 0.5 % (0-2); EOSINOPHILS 4.3 % (0-7); HEMATOCRIT 34.6 % (36.0-48.0); IMMATURE GRANULOCYTES 0.2 % (0-5); LYMPHOCYTES 11.2 % (15-50); MCH 29.2 pg (26.0-34.0); MCHC 31.8 g/dL (31.0-37.0); MCV 91.8 fL (80.0-100.0); MEAN PLATELET VOLUME 9.9 fL (7.4-10.4); MONOCYTES 11.4 % (2-11); NEUTROPHILS 72.4 % (40-80); PLATELET COUNT 191 10x3/uL (130-400); RBC 3.77 10x6/uL (4.00-5.40); RDW 17.1 % (11.5-14.5); WBC 5.6 10x3/uL (4.8-10.8)
[2018-07-17 07:33] LABS: ALBUMIN 3.1 g/dL (3.4-5.0); ALKALINE PHOSPHATASE 416 U/L (46-116); ALT (SGPT) 15 U/L (10-68); BILIRUBIN - TOTAL 1.08 mg/dL (0.2-1.3); CALC OSMOLALITY 268 mosm/kg (275-300); CALCIUM 8.9 mg/dL (8.5-10.1); CARBON DIOXIDE 18.6 mmol/L (21.0-32.0); CHLORIDE - SERUM 91 mmol/L (98-107); CREATININE - SERUM 10.1 mg/dL (0.6-1.3); GLUCOSE 86 mg/dL (74-106); POTASSIUM - SERUM 3.9 mmol/L (3.5-5.1); PROTEIN - SERUM 8.4 g/dL (6.4-8.2); SODIUM 129 mmol/L (136-145); UREA NITROGEN 43 mg/dL (7-18); eGFR NON AFRICAN AMERICAN 4 mL/min (90-120)
[2018-07-17 07:43] LABS: AMYLASE - SERUM 91 U/L (25-115); LIPASE 574 U/L (73-393)
[2018-07-17 07:45] LABS: CKMB 1.3 U/L (0.0-3.6); CREATINE KINASE 77 UL (21-215); MAGNESIUM - SERUM 1.7 mg/dL (1.8-2.4); TROPONIN-I 0.056 ng/mL (0.000-0.060)
[2018-07-17 07:49] LABS: PRO BNP 75738 pg/mL (0-125)
[2018-07-17 08:06] LABS: APTT 48.7 SECONDS (22.8-39.4); INR 1.13 (0.85-1.17)
[2018-07-17 10:32] VITALS: BP 139/82
== END 2018-07-17 10:32 | disposition home or self-care (01) ==
LOC: D.ER 06:26
PROVIDERS: Emergency Medicine; Family Medicine
DX: R10.9 Unspecified abdominal pain (principal); R07.9 Chest pain, unspecified; I12.0 Hypertensive chronic kidney disease with stage 5 chronic kidney disease or end stage renal disease; N18.6 End stage renal disease; Z99.2 Dependence on renal dialysis; F17.200 Nicotine dependence, unspecified, uncomplicated; J44.9 Chronic obstructive pulmonary disease, unspecified

== ENCOUNTER 2018-07-23 17:02 | Emergency (ER) | payer MEDICARE ==
[~2018-07-23] VITALS: Ht 175.3 cm; Wt 67.3 kg
[2018-07-23 17:07] VITALS: Ht 175.3 cm; Wt 67.3 kg
[2018-07-23 17:49] LABS: BASOPHILS 0.2 % (0-2); EOSINOPHILS 2.6 % (0-7); HEMOGLOBIN 11.1 g/dL (12-16); IMMATURE GRANULOCYTES 0.4 % (0-5); LYMPHOCYTES 17.7 % (15-50); MCH 29.5 pg (26.0-34.0); MCHC 31.7 g/dL (31.0-37.0); MCV 93.1 fL (80.0-100.0); MEAN PLATELET VOLUME 9.8 fL (7.4-10.4); NEUTROPHILS 65.1 % (40-80); PLATELET COUNT 197 10x3/uL (130-400); RBC 3.76 10x6/uL (4.00-5.40); RDW 16.9 % (11.5-14.5); WBC 5.4 10x3/uL (4.8-10.8)
[2018-07-23 18:18] LABS: ALBUMIN 3.3 g/dL (3.4-5.0); ANION GAP 20.3 mmol/L (8-16); BILIRUBIN - TOTAL 0.5 mg/dL (0.2-1.3); CALCIUM 8.2 mg/dL (8.5-10.1); CARBON DIOXIDE 22.7 mmol/L (21.0-32.0); CREATININE - SERUM 8.2 mg/dL (0.6-1.3)
[2018-07-23 18:50] LABS: CKMB 1.5 U/L (0.0-3.6); CREATINE KINASE 71 UL (21-215); MAGNESIUM - SERUM 1.8 mg/dL (1.8-2.4); PRO BNP 84611 pg/mL (0-125); TROPONIN-I 0.046 ng/mL (0.000-0.060)
[2018-07-23] MEDS ORDERED: FLUTICASONE PRO16 GM NASAL (20:06)
[2018-07-23 20:20] VITALS: BP 149/89
== END 2018-07-23 20:20 | disposition home or self-care (01) ==
LOC: D.ER 17:02
PROVIDERS: Family Medicine
DX: B34.9 Viral infection, unspecified (principal); I12.9 Hypertensive chronic kidney disease with stage 1 through stage 4 chronic kidney disease, or unspecified chronic kidney disease; N18.9 Chronic kidney disease, unspecified; Z99.2 Dependence on renal dialysis; Z76.5 Malingerer [conscious simulation]

== ENCOUNTER 2018-10-03 07:21 | Outpatient (CLI) | payer MEDICARE ==
[~2018-10-03] VITALS: Ht 175.3 cm; Wt 66.8 kg
[~2018-10-03 07:21] MED LIST changes: +FLUTICASONE PRO16 GM NASAL
[2018-10-03 09:34] LABS: BASOPHILS 0.4 % (0-2); EOSINOPHILS 2.1 % (0-7); HEMATOCRIT 39.3 % (36.0-48.0); HEMOGLOBIN 12.9 g/dL (12-16); IMMATURE GRANULOCYTES 0.2 % (0-5); LYMPHOCYTES 18.1 % (15-50); MCH 30.9 pg (26.0-34.0); MCHC 32.8 g/dL (31.0-37.0); MCV 94.2 fL (80.0-100.0); MEAN PLATELET VOLUME 10.2 fL (7.4-10.4); MONOCYTES 14.7 % (2-11); NEUTROPHILS 64.5 % (40-80); RBC 4.17 10x6/uL (4.00-5.40); RDW 16.7 % (11.5-14.5); WBC 4.7 10x3/uL (4.8-10.8)
[2018-10-03 09:41] LABS: ALBUMIN 3.8 g/dL (3.4-5.0); ANION GAP 18.4 mmol/L (8-16); BILIRUBIN - TOTAL 1.02 mg/dL (0.2-1.3); CALCIUM 9.5 mg/dL (8.5-10.1); CARBON DIOXIDE 25.4 mmol/L (21.0-32.0); CREATININE - SERUM 8.4 mg/dL (0.6-1.3); POTASSIUM - SERUM 4.8 mmol/L (3.5-5.1); PROTEIN - SERUM 9.5 g/dL (6.4-8.2)
[2018-10-03 09:49] LABS: PLATELET COUNT 143 10x3/uL (130-400)
[2018-10-03 10:03] VITALS: BP 147/93; Ht 175.3 cm; Wt 66.8 kg
[2018-10-03 10:03] LABS: INR 1.11 (0.85-1.17); PROTIME 13.8 SECONDS (11.6-15.0)
[2018-10-03 10:04] LABS: APTT 47.4 SECONDS (22.8-39.4)
--- NOTE | 2018-10-03 11:18 | NUR ---
ORDERED A TRAY FROM DIETARY WITH LESTER. PT RETURNED TO ROOM, IV REMOVED BY NURSE FROM IR.
--- NOTE | 2018-10-03 11:55 | NUR ---
RECIEVED TRAY REGULAR WITH LESTER PER REQUEST, PT WILL BE DC AFTER SHE EATS
== END 2018-10-03 12:05 | disposition home or self-care (01) ==
LOC: D.SP 07:21
PROVIDERS: Radiology Vascular & Interventional Radiology; ATTEND Internal Medicine Nephrology
DX: R18.8 Other ascites (principal); N26.1 Atrophy of kidney (terminal); I51.7 Cardiomegaly; Z01.812 Encounter for preprocedural laboratory examination

== ENCOUNTER 2018-11-12 11:19 | Emergency (ER) | payer MEDICARE ==
[~2018-11-12] VITALS: Ht 175.3 cm; Wt 66.8 kg
[2018-11-12 11:32] VITALS: Ht 175.3 cm; Wt 66.8 kg
[2018-11-12 12:05] LABS: BASOPHILS 0.6 % (0-2); EOSINOPHILS 1.7 % (0-7); HEMATOCRIT 38.1 % (36.0-48.0); HEMOGLOBIN 12.9 g/dL (12-16); IMMATURE GRANULOCYTES 0.4 % (0-5); MCH 31.3 pg (26.0-34.0); MCHC 33.9 g/dL (31.0-37.0); MCV 92.5 fL (80.0-100.0); MEAN PLATELET VOLUME 9.6 fL (7.4-10.4); NEUTROPHILS 68.3 % (40-80); RBC 4.12 10x6/uL (4.00-5.40); RDW 15.1 % (11.5-14.5); WBC 5.2 10x3/uL (4.8-10.8)
[2018-11-12 12:16] LABS: INR 1.06 (0.85-1.17); PROTIME 13.3 SECONDS (11.6-15.0)
[2018-11-12 12:17] LABS: APTT 33.5 SECONDS (22.8-39.4)
[2018-11-12 12:22] LABS: ALBUMIN 3.8 g/dL (3.4-5.0); ALKALINE PHOSPHATASE 500 U/L (46-116); ALT (SGPT) 23 U/L (10-68); CALC OSMOLALITY 277 mosm/kg (275-300); CALCIUM 9.8 mg/dL (8.5-10.1); CHLORIDE - SERUM 96 mmol/L (98-107); CREATININE - SERUM 5.5 mg/dL (0.6-1.3); GLUCOSE 100 mg/dL (74-106); PLATELET COUNT 191 10x3/uL (130-400); POTASSIUM - SERUM 3.9 mmol/L (3.5-5.1); PROTEIN - SERUM 9.1 g/dL (6.4-8.2); SODIUM 135 mmol/L (136-145); UREA NITROGEN 36 mg/dL (7-18); eGFR NON AFRICAN AMERICAN 9 mL/min (90-120)
[2018-11-12 12:32] LABS: CKMB 2.2 U/L (0.0-3.6); CREATINE KINASE 55 UL (21-215); MAGNESIUM - SERUM 1.8 mg/dL (1.8-2.4); TROPONIN-I 0.051 ng/mL (0.000-0.060)
[2018-11-12 14:22] VITALS: BP 190/112
== END 2018-11-12 14:24 | disposition home or self-care (01) ==
LOC: D.ER 11:19
PROVIDERS: Emergency Medicine
DX: R51 Headache (principal); I25.10 Atherosclerotic heart disease of native coronary artery without angina pectoris; I12.0 Hypertensive chronic kidney disease with stage 5 chronic kidney disease or end stage renal disease; N18.6 End stage renal disease; Z99.2 Dependence on renal dialysis; W18.30XA Fall on same level, unspecified, initial encounter; Y93.89 Activity, other specified; Y92.019 Unspecified place in single-family (private) house as the place of occurrence of the external cause

== ENCOUNTER 2018-12-16 11:02 | Emergency (ER) | payer MEDICARE ==
[~2018-12-16] VITALS: Ht 175.3 cm; Wt 62.3 kg
[2018-12-16 11:07] VITALS: Ht 175.3 cm; Wt 62.3 kg
[2018-12-16 11:29] LABS: BASOPHILS 0.3 % (0-2); EOSINOPHILS 2.5 % (0-7); HEMATOCRIT 27.8 % (36.0-48.0); HEMOGLOBIN 9.4 g/dL (12-16); IMMATURE GRANULOCYTES 0.3 % (0-5); LYMPHOCYTES 17.5 % (15-50); MCH 30.8 pg (26.0-34.0); MCHC 33.8 g/dL (31.0-37.0); MCV 91.1 fL (80.0-100.0); MEAN PLATELET VOLUME 9.7 fL (7.4-10.4); MONOCYTES 7.7 % (2-11); NEUTROPHILS 71.7 % (40-80); PLATELET COUNT 236 10x3/uL (130-400); RBC 3.05 10x6/uL (4.00-5.40); RDW 16.1 % (11.5-14.5); WBC 6.8 10x3/uL (4.8-10.8)
[2018-12-16 11:33] LABS: APTT 44.9 SECONDS (22.8-39.4); INR 1.15 (0.85-1.17); PROTIME 14.2 SECONDS (11.6-15.0)
[2018-12-16 11:38] LABS: ALBUMIN 3.8 g/dL (3.4-5.0); ALKALINE PHOSPHATASE 413 U/L (46-116); ALT (SGPT) 46 U/L (10-68); BILIRUBIN - TOTAL 0.69 mg/dL (0.2-1.3); CALC OSMOLALITY 287 mosm/kg (275-300); CALCIUM 9.2 mg/dL (8.5-10.1); CARBON DIOXIDE 18.1 mmol/L (21.0-32.0); CHLORIDE - SERUM 93 mmol/L (98-107); CREATININE - SERUM 8.7 mg/dL (0.6-1.3); POTASSIUM - SERUM 4.9 mmol/L (3.5-5.1); PROTEIN - SERUM 9.1 g/dL (6.4-8.2); SODIUM 133 mmol/L (136-145); UREA NITROGEN 81 mg/dL (7-18); eGFR NON AFRICAN AMERICAN 5 mL/min (90-120)
[2018-12-16 11:39] LABS: GLUCOSE 60 mg/dL (74-106)
[2018-12-16 11:53] LABS: CKMB 2.8 U/L (0.0-3.6); CREATINE KINASE 72 UL (21-215); MAGNESIUM - SERUM 2.2 mg/dL (1.8-2.4)
[2018-12-16 11:56] LABS: TROPONIN-I 0.167 ng/mL (0.000-0.060)
[2018-12-16 13:25] VITALS: BP 157/82
== END 2018-12-16 13:25 | disposition home or self-care (01) ==
LOC: D.ER 11:02
PROVIDERS: Emergency Medicine
DX: R07.9 Chest pain, unspecified (principal); G89.29 Other chronic pain; I12.9 Hypertensive chronic kidney disease with stage 1 through stage 4 chronic kidney disease, or unspecified chronic kidney disease; N18.9 Chronic kidney disease, unspecified

== ENCOUNTER 2019-01-15 02:59 | Observation (INO) | payer MEDICARE ==
[~2019-01-15] VITALS: Ht 175.3 cm; Wt 66.7 kg
[2019-01-15 03:33] VITALS: BP 123/77
[2019-01-15 03:42] LABS: BASOPHILS 0.2 % (0-2); EOSINOPHILS 2.7 % (0-7); HEMATOCRIT 20.7 % (36.0-48.0); IMMATURE GRANULOCYTES 0.2 % (0-5); LYMPHOCYTES 20.1 % (15-50); MCH 32.4 pg (26.0-34.0); MCHC 32.4 g/dL (31.0-37.0); MONOCYTES 12.3 % (2-11); NEUTROPHILS 64.5 % (40-80); PLATELET COUNT 263 10x3/uL (130-400); RBC 2.07 10x6/uL (4.00-5.40); RDW 16.8 % (11.5-14.5); WBC 4.7 10x3/uL (4.8-10.8)
[2019-01-15 03:52] LABS: HEMOGLOBIN 6.7 g/dL (12-16)
[2019-01-15 03:53] LABS: INR 1.15 (0.85-1.17); PROTIME 14.2 SECONDS (11.6-15.0)
[2019-01-15 03:54] LABS: APTT 48.3 SECONDS (22.8-39.4)
[2019-01-15 03:58] LABS: ALBUMIN 3.1 g/dL (3.4-5.0); ALKALINE PHOSPHATASE 308 U/L (46-116); ALT (SGPT) 14 U/L (10-68); BILIRUBIN - TOTAL 0.35 mg/dL (0.2-1.3); CALC OSMOLALITY 292 mosm/kg (275-300); CALCIUM 7.2 mg/dL (8.5-10.1); CARBON DIOXIDE 24.7 mmol/L (21.0-32.0); CHLORIDE - SERUM 100 mmol/L (98-107); GLUCOSE 81 mg/dL (74-106); POTASSIUM - SERUM 4.1 mmol/L (3.5-5.1); PROTEIN - SERUM 7.7 g/dL (6.4-8.2); SODIUM 138 mmol/L (136-145); UREA NITROGEN 64 mg/dL (7-18); eGFR NON AFRICAN AMERICAN 4 mL/min (90-120)
[2019-01-15 04:00] VITALS: BP 135/74
[2019-01-15 04:10] LABS: CKMB 1.9 U/L (0.0-3.6); CREATINE KINASE 91 UL (21-215); MAGNESIUM - SERUM 1.9 mg/dL (1.8-2.4); TROPONIN-I 0.033 ng/mL (0.000-0.060)
--- NOTE | 2019-01-15 04:52 | NUR ---
PT INFORMED OF ADMIT STATUS, VOICED UNDERSTANDING AND THANKS TO THIS NURSE.
[2019-01-15] MEDS ORDERED: ALBUTEROL SULF8.5 GM INH (05:19)
[2019-01-15 05:37] VITALS: BP 131/76; BMI 21.7
--- NOTE | 2019-01-15 07:17 | NUR ---
BEDSIDE SHIFT REPORTING, PATIENT IS SITTING ON THE SIDE OF THE BED WITH VISITORS IN THE ROOM, O2 VIA NC IN PLACE. SHE IS REPORTING PAIN OF 9/10 IN HER BACK, NO S/S OF DISTRESS NOTED, PATIENT IS LAUGHING AND VISITING WITH HER COMPANY. CALL CANDIDA IN REACH.
[2019-01-15] MEDS ORDERED: ULTRAM50 MG PO (08:48)
[2019-01-15] MEDS ORDERED: PROTONIX40 MG PO (08:48)
[2019-01-15] MEDS ORDERED: ZANAFLEX4 MG PO (08:48)
[2019-01-15 09:02] VITALS: BP 140/79
[2019-01-15 09:37] LABS: CKMB 2.1 U/L (0.0-3.6); CREATINE KINASE 104 UL (21-215)
--- NOTE | 2019-01-15 11:22 | NUR ---
CALLED AND SPOKE TO ALLY IN DIALYSIS, TO INFORM HER THE BLOOD IS READY IN THE BLOOD BANK, TO BE GIVEN ON DIALYSIS TODAY. ALLY STATED, "OK, I WILL LET ARLINE KNOW"
[2019-01-15 13:30] VITALS: Ht 175.3 cm; Wt 66.7 kg
[2019-01-15 14:25] LABS: CKMB 2.3 U/L (0.0-3.6); CREATINE KINASE 109 UL (21-215)
== END 2019-01-15 14:45 | disposition home or self-care (01) ==
LOC: D.ER 02:59 → OBSVTIME 04:49 → D.M2 04:49 → D.SDCHOLD 09:11 → D.M2 09:13 → D.SDCHOLD 09:47 → D.M2 09:57
PROVIDERS: Family Medicine; ADMIT Internal Medicine; ATTEND Internal Medicine
DX: R07.9 Chest pain, unspecified (principal); I12.0 Hypertensive chronic kidney disease with stage 5 chronic kidney disease or end stage renal disease; N18.6 End stage renal disease; J44.9 Chronic obstructive pulmonary disease, unspecified; M54.5 Low back pain; Z72.0 Tobacco use; D63.1 Anemia in chronic kidney disease; G89.29 Other chronic pain

== ENCOUNTER 2019-01-23 19:33 | Inpatient (IN) | payer MEDICARE ==
[~2019-01-23] VITALS: Ht 175.3 cm; Wt 4.2 kg
[~2019-01-23 19:33] MED LIST changes: +ALBUTEROL SULF8.5 GM INH; +ZANAFLEX4 MG PO
[2019-01-23 20:12] LABS: BASOPHILS 0.6 % (0-2); EOSINOPHILS 2.6 % (0-7); HEMATOCRIT 22.8 % (36.0-48.0); IMMATURE GRANULOCYTES 0.4 % (0-5); LYMPHOCYTES 21.7 % (15-50); MCH 31.8 pg (26.0-34.0); MCHC 32.9 g/dL (31.0-37.0); MCV 96.6 fL (80.0-100.0); MEAN PLATELET VOLUME 9.5 fL (7.4-10.4); NEUTROPHILS 69.7 % (40-80); PLATELET COUNT 230 10x3/uL (130-400); RBC 2.36 10x6/uL (4.00-5.40); RDW 16.4 % (11.5-14.5); WBC 5.4 10x3/uL (4.8-10.8)
[2019-01-23 20:19] LABS: APTT 33.1 SECONDS (22.8-39.4); INR 1.14 (0.85-1.17); PROTIME 14.1 SECONDS (11.6-15.0)
[2019-01-23 20:25] LABS: ALBUMIN 3.2 g/dL (3.4-5.0); ALKALINE PHOSPHATASE 353 U/L (46-116); ALT (SGPT) 13 U/L (10-68); CALC OSMOLALITY 264 mosm/kg (275-300); CARBON DIOXIDE 17.9 mmol/L (21.0-32.0); CHLORIDE - SERUM 90 mmol/L (98-107); CREATININE - SERUM 8.8 mg/dL (0.6-1.3); PROTEIN - SERUM 7.9 g/dL (6.4-8.2); SODIUM 128 mmol/L (136-145); UREA NITROGEN 40 mg/dL (7-18); eGFR NON AFRICAN AMERICAN 5 mL/min (90-120)
[2019-01-23 20:30] LABS: GLUCOSE 63 mg/dL (74-106); HEMOGLOBIN 7.5 g/dL (12-16)
[2019-01-23 20:36] LABS: CKMB 2.5 U/L (0.0-3.6); CREATINE KINASE 134 UL (21-215); MAGNESIUM - SERUM 1.9 mg/dL (1.8-2.4); TROPONIN-I 0.038 ng/mL (0.000-0.060)
[2019-01-23 20:37] LABS: PRO BNP 48088 pg/mL (0-125)
--- NOTE | 2019-01-23 21:30 | NUR ---
IV SITE RELOCATED AFTER FLUSHING PRIOR TO ADMINISTRATION OF FENTANYL. CATH INTACT, NO BLEEDING, DRESSING APPLIED. NEW IV SITE 22 GA LEFT HAND, FLUSHED WITHOUT RESISTANCE. MEDICATION ADMINISTERED (SEE EMAR).
[2019-01-23 22:10] VITALS: BP 168/90
[2019-01-23 23:11] VITALS: BP 168/88
[2019-01-24 01:53] VITALS: BP 185/101; BMI 21.7
[2019-01-24 04:00] VITALS: BP 193/100
--- NOTE | 2019-01-24 04:29 | NUR ---
PATIENT COMPLAINING OF WANTING MORE PAIN MEDICATIONS ALSO THAT NO STAFF MEMBERS HAVE BEEN IN HER ROOM EMILY, TRIED TO EXPLAIN THAT WASNT SO AND I MYSELF HAVE BEEN IN HER ROOM MORE THEN 3 TIMES AND SHE STATES THAT I AND ALL THESE DAMN PEOPLE ARE LAIR AND NOT HELPING HER WHAT SO EVER.
--- NOTE | 2019-01-24 06:50 | NUR ---
REPORT RECEIVED. ALERT WITH NO C/O. HER ONLY REQUEST WAS TO FIX THE BLINDS. RESP EVEN WITHOUT LABOR. O2 ON AT 2L/M PER N/C. SALINE LOCK INTACT. BED IN LOWEST POSITION AND LOCKED. CAREPLAN REVIEW DONE WITH SAFETY PRECAUTIONS IN PLACE. SPEECH CLEAR. SKIN W/D
[2019-01-24 06:54] LABS: BASOPHILS 0.4 % (0-2); EOSINOPHILS 2.2 % (0-7); HEMATOCRIT 24.1 % (36.0-48.0); HEMOGLOBIN 7.8 g/dL (12-16); IMMATURE GRANULOCYTES 0.4 % (0-5); LYMPHOCYTES 14.1 % (15-50); MCH 31.2 pg (26.0-34.0); MCHC 32.4 g/dL (31.0-37.0); MCV 96.4 fL (80.0-100.0); MEAN PLATELET VOLUME 9.1 fL (7.4-10.4); MONOCYTES 7.6 % (2-11); NEUTROPHILS 75.3 % (40-80); PLATELET COUNT 243 10x3/uL (130-400); RDW 16.1 % (11.5-14.5)
[2019-01-24 07:07] LABS: WBC 8.5 10x3/uL (4.8-10.8)
[2019-01-24 07:10] LABS: ALBUMIN 3.5 g/dL (3.4-5.0); ANION GAP 24.7 mmol/L (8-16); BILIRUBIN - TOTAL 0.4 mg/dL (0.2-1.3); CALCIUM 7.6 mg/dL (8.5-10.1); CARBON DIOXIDE 18.3 mmol/L (21.0-32.0); CREATININE - SERUM 9.3 mg/dL (0.6-1.3); PHOSPHOROUS 8.5 mg/dL (2.5-4.9); PROTEIN - SERUM 8.4 g/dL (6.4-8.2)
--- NOTE | 2019-01-24 07:33 | NUR ---
lab called critical GLUCOSE OF 40. PEANUT BUTTER AND CRACKERS AND APPLE JUICE GIVEN. Felzi ANGLIN WITH RENAL PAGED AND ORDERS RECEIVED TO GIVE D50 IV. PT FACE IS SWOLLEN BUT SHE IS ALERT AND ORIENTED.
--- NOTE | 2019-01-24 08:37 | NUR ---
RECHECK ON FSBS WAS 90. SHE IS AWAKE AND ALERT SITTING ON SIDE OF BED. ENCOURAGED TO EAT BREAKFAST BUT SHE ONLY TOOK A COUPLE OF BITES AND REFUSED. SHE DID CONSUME APPLEJUICE GRAMS AND PNB EARLIER THIS AM. SKIN W/D. HER ONLY C/O IS DIZZINESS BUT SHE DOES HAVE ELEVATED B/P AND HER MORNING MEDS HAVE BEEN GIVEN
[2019-01-24 09:23] VITALS: BP 167/101
--- NOTE | 2019-01-24 10:51 | NUR ---
TRANSFER TO DIALYSIS BY W/C AT THIS TIME. SHE IS ALERT ABLE TO TRANSFER OVER TO W/C. SHE HAD SMALL AMOUNT OF CLEAR VOMIT JUST PRIOR TO TRANSFER BUT HAS HAD ZOFRAN ALREADY. DIALYSIS NURSE WILL CALL WHEN READY FOR BLOOD TO BE BROUGHT TO HER.
[2019-01-24 12:27] VITALS: BMI 21.7
[2019-01-24 13:45] VITALS: Ht 175.3 cm; Wt 4.2 kg
--- NOTE | 2019-01-24 15:15 | NUR ---
RETURN FROM DIALYSIS AND THEY REMOVED 3 LITERS OF FLUID. HER FACE REMAINS SWOLLEN BUT SHE IS UP IN HER ROOM. SHE DENIES ANY CURRENT NEEDS
[2019-01-24 17:29] VITALS: BP 150/98
[2019-01-24 20:00] VITALS: BP 169/87
--- NOTE | 2019-01-24 20:00 | NUR ---
EVEVNING ROUNDS COMPLETED. VSS, AAOX4, NO S/S OF DISTRESS. PT CURRENLTY RESTING IN BED. DENIES ANY FURTHER NEEDS AT THIS TIME. WILL CTM. CL WITHIN REACH. WILL CTM.
[2019-01-25] VITALS: BP 137/84
--- NOTE | 2019-01-25 00:49 | NUR ---
PT C/O NAUSEA. ZOFRAN 2MLS OF 4MG/2ML GIVEN. WILL CTM.
[2019-01-25 04:00] VITALS: BP 114/71
[2019-01-25 05:31] LABS: BASOPHILS 0.1 % (0-2); EOSINOPHILS 1.2 % (0-7); IMMATURE GRANULOCYTES 0.1 % (0-5); MCH 30.9 pg (26.0-34.0); MCHC 32.2 g/dL (31.0-37.0); MCV 96.1 fL (80.0-100.0); MEAN PLATELET VOLUME 9.9 fL (7.4-10.4); MONOCYTES 14.1 % (2-11); NEUTROPHILS 76.5 % (40-80); RDW 16.6 % (11.5-14.5); WBC 7.2 10x3/uL (4.8-10.8)
[2019-01-25 05:42] LABS: HEMATOCRIT 29.5 % (36.0-48.0); HEMOGLOBIN 9.5 g/dL (12-16); PLATELET COUNT 183 10x3/uL (130-400); RBC 3.07 10x6/uL (4.00-5.40)
[2019-01-25 06:40] LABS: ANION GAP 16.6 mmol/L (8-16); MAGNESIUM - SERUM 2.1 mg/dL (1.8-2.4); POTASSIUM - SERUM 3.7 mmol/L (3.5-5.1)
[2019-01-25 06:41] LABS: CARBON DIOXIDE 25.1 mmol/L (21.0-32.0); CREATININE - SERUM 5.7 mg/dL (0.6-1.3); PHOSPHOROUS 5.4 mg/dL (2.5-4.9)
--- NOTE | 2019-01-25 06:45 | NUR ---
PT'S FSBS 67. NO INSULIN GIVEN AT THIS TIME PER SLIDING SCALE. 2 CANS OF ORANGE JUICE GIVEN. WITH VANILLA ICE CREAM PER PT'S REQUEST. WILL CTM.
--- NOTE | 2019-01-25 07:00 | NUR ---
REPORT RECEIVED. RESTING WITH EASE AT THIS TIME. RESP EVEN WITHOUT LABOR. CL IN REACH. BED IN LOWEST POSITION AND LOCKED. CAREPLAN REVIEW DONE WITH SAFETY PRECAUTIONS IN PLACE
--- NOTE | 2019-01-25 08:54 | NUR ---
PAIN MEDICATION GIVEN PER REQUEST. SHE IS ALERT SALINE LOCK TO TOP OF LEFT HAND. SHE HAS FISTULA IN RIGHT LOWER ARM INTACT AND WNL. O2 ON AT 2L/M PER N/C. SITTING UP ON SIDE OF BED. CL IN REACH. SKIN W/D
[2019-01-25 09:58] VITALS: BP 127/72
--- NOTE | 2019-01-25 11:07 | NUR ---
ZOFRAN GIVEN FOR NAUSEA. SHE HAS BEEN UP AND OUT OF HER ROOM SEVERAL TIMES AMBULATING IN THE HALLWATY. CONTINUES TO HAVE SWOLLEN JAWS BUT IMPROVED FROM YESTERDAY. TRANSPORTED DOWN TO DAILYSIS PER W/C.
--- NOTE | 2019-01-25 16:25 | NUR ---
DISCHARGE INSTRUCTIONS EXPLAINED AT THIS TIME. SALINE LOCK D/C WITH CATH INTACT, NO BLEEDING. SHE VOICES SHE WILL GO TO HD ON MONDAY AND WILL TRY TO STOP MISSING APPOINTMENTS. TRANSPORTED IN W/C TO [facility].
--- NOTE | 2019-01-28 10:08 | MORECARE ---
CASE MANAGEMENT DISCHARGE SUMMARY PATIENT: FELY SQUIRES UNIT: [id number] ADM DATE: 01/23/19 AGE: 53 : 65 SEX: F ROOM/BED: D.2105 AUTHOR: ALEXANDRA JAMES PHYSICIAN: REFERRING PHYSICIAN: PAPI VALLEJO MD DATE OF SERVICE: 01/28/19 Discharge Plan Patient Name: FELY SQUIRES Facility: [facility]:[place] : 1965 Planned Disposition: Home Anticipated Discharge Date: 01/25/19 Discharge Date: 01/25/2019 Expected LOS: 2 Initial Reviewer: [id number] Initial Review Date: 01/28/2019 Generated: 01/28/19 11:08 am Patient Name: FELY SQUIRES Page [id number] at 1008 All edits/amendments must be made on the electronic document DICTATION DATE: 01/28/19 1008 RETAIL ACCOUNT EXECUTIVE: MARYAM 01/28/19 1008 RPT#: [id number] DC DATE:01/25/19 STATUS: DIS IN [facility] [address] [place] [address] END OF REPORT
== END 2019-01-25 16:25 | disposition home or self-care (01) | DRG 291 ==
LOC: D.ER 19:33 → D.M2 21:59
PROVIDERS: Family Medicine; ADMIT Internal Medicine Nephrology; ATTEND Internal Medicine Nephrology
PROC: 5A1D70Z Performance of Urinary Filtration, Intermittent, Less than 6 Hours Per Day (ICD-10-PCS; principal; 2019-01-24)
DX: I13.2 Hypertensive heart and chronic kidney disease with heart failure and with stage 5 chronic kidney disease, or end stage renal disease (principal); N18.6 End stage renal disease; I50.33 Acute on chronic diastolic (congestive) heart failure; J18.9 Pneumonia, unspecified organism; E87.1 Hypo-osmolality and hyponatremia; F17.213 Nicotine dependence, cigarettes, with withdrawal; Z99.2 Dependence on renal dialysis; E78.5 Hyperlipidemia, unspecified; I25.10 Atherosclerotic heart disease of native coronary artery without angina pectoris; J44.9 Chronic obstructive pulmonary disease, unspecified; D63.1 Anemia in chronic kidney disease; E16.2 Hypoglycemia, unspecified

== ENCOUNTER 2019-02-10 15:32 | Emergency (ER) | payer MEDICARE ==
[~2019-02-10] VITALS: Ht 175.3 cm; Wt 66.8 kg
[2019-02-10 15:54] VITALS: Ht 175.3 cm; Wt 66.8 kg
[2019-02-10 16:18] LABS: BASOPHILS 0.7 % (0-2); EOSINOPHILS 3.3 % (0-7); HEMOGLOBIN 9.7 g/dL (12-16); IMMATURE GRANULOCYTES 0.5 % (0-5); LYMPHOCYTES 12.7 % (15-50); MCH 31.1 pg (26.0-34.0); MCHC 32.3 g/dL (31.0-37.0); MCV 96.2 fL (80.0-100.0); MEAN PLATELET VOLUME 9.3 fL (7.4-10.4); MONOCYTES 9.6 % (2-11); NEUTROPHILS 73.2 % (40-80); RBC 3.12 10x6/uL (4.00-5.40); RDW 15.5 % (11.5-14.5); WBC 5.8 10x3/uL (4.8-10.8)
[2019-02-10 16:19] LABS: PLATELET COUNT 220 10x3/uL (130-400)
[2019-02-10 16:31] LABS: ALBUMIN 3.4 g/dL (3.4-5.0); BILIRUBIN - TOTAL 0.47 mg/dL (0.2-1.3); CARBON DIOXIDE 19.2 mmol/L (21.0-32.0); CREATININE - SERUM 8.8 mg/dL (0.6-1.3); POTASSIUM - SERUM 3.2 mmol/L (3.5-5.1); PROTEIN - SERUM 7.8 g/dL (6.4-8.2)
[2019-02-10 16:51] LABS: TROPONIN-I 0.084 ng/mL (0.000-0.060)
[2019-02-10 19:43] VITALS: BP 122/86
== END 2019-02-10 19:43 | disposition home or self-care (01) ==
LOC: D.ER 15:32
PROVIDERS: Family Medicine
DX: I12.9 Hypertensive chronic kidney disease with stage 1 through stage 4 chronic kidney disease, or unspecified chronic kidney disease (principal); N18.9 Chronic kidney disease, unspecified; G89.29 Other chronic pain

== ENCOUNTER → 2019-02-26 10:18 | Outpatient (CLI) | payer MEDICARE ==
[2019-02-10 15:54] VITALS: BMI 21.7
[~2019-02-26 10:18] MED LIST changes: +HYDROCODONE-A1 UDTA2 PO
== END | disposition home or self-care (01) ==
LOC: D.RAD 10:18
PROVIDERS: ATTEND Nurse Practitioner Family
DX: R07.9 Chest pain, unspecified (principal); R10.9 Unspecified abdominal pain

== ENCOUNTER 2019-03-06 20:36 | Emergency (ER) | payer MEDICARE ==
[~2019-03-06] VITALS: Ht 175.3 cm; Wt 66.8 kg
[~2019-03-06 20:36] MED LIST changes: -HYDROCODONE-A1 UDTA2 PO
[2019-03-06 20:49] VITALS: Ht 175.3 cm; Wt 66.8 kg
[2019-03-06 23:50] VITALS: BP 147/75
== END 2019-03-06 23:50 | disposition home or self-care (01) ==
LOC: D.ER 20:36
DX: M25.572 Pain in left ankle and joints of left foot (principal); R07.81 Pleurodynia; V43.52XA Car driver injured in collision with other type car in traffic accident, initial encounter; I11.0 Hypertensive heart disease with heart failure; I50.9 Heart failure, unspecified; F17.210 Nicotine dependence, cigarettes, uncomplicated

== ENCOUNTER 2019-03-13 15:25 | Emergency (ER) | payer MEDICARE ==
[~2019-03-13] VITALS: Ht 175.3 cm; Wt 66.8 kg
[2019-03-13 15:46] VITALS: BP 136/87; Ht 175.3 cm; Wt 66.8 kg
[2019-03-13] MEDS ORDERED: HYDROCODONE-A1 UDTA2 PO (17:04)
== END 2019-03-13 17:30 | disposition home or self-care (01) ==
LOC: D.ER 15:25
DX: S50.02XA Contusion of left elbow, initial encounter (principal); W19.XXXA Unspecified fall, initial encounter

== ENCOUNTER 2019-03-17 18:45 | Inpatient (IN) | payer MEDICARE ==
[~2019-03-17] VITALS: Ht 175.3 cm; Wt 65.8 kg
[~2019-03-17 18:45] MED LIST changes: +HYDROCODONE-A1 UDTA2 PO
[2019-03-17 20:02] LABS: BASOPHILS 0.4 % (0-2); EOSINOPHILS 2.4 % (0-7); HEMATOCRIT 32.3 % (36.0-48.0); HEMOGLOBIN 10.2 g/dL (12-16); IMMATURE GRANULOCYTES 0.3 % (0-5); LYMPHOCYTES 10.2 % (15-50); MCH 30.3 pg (26.0-34.0); MCHC 31.6 g/dL (31.0-37.0); MCV 95.8 fL (80.0-100.0); MEAN PLATELET VOLUME 10.3 fL (7.4-10.4); MONOCYTES 9.8 % (2-11); NEUTROPHILS 76.9 % (40-80); PLATELET COUNT 207 10x3/uL (130-400); RBC 3.37 10x6/uL (4.00-5.40); RDW 15.4 % (11.5-14.5); WBC 6.8 10x3/uL (4.8-10.8)
[2019-03-17 20:24] LABS: ALBUMIN 3.2 g/dL (3.4-5.0); ANION GAP 18.6 mmol/L (8-16); BILIRUBIN - TOTAL 0.92 mg/dL (0.2-1.3); CALCIUM 9.2 mg/dL (8.5-10.1); CARBON DIOXIDE 23.6 mmol/L (21.0-32.0); CREATININE - SERUM 8.1 mg/dL (0.6-1.3); POTASSIUM - SERUM 4.2 mmol/L (3.5-5.1)
--- NOTE | 2019-03-17 21:00 | NUR ---
ULTRASOUND USED FOR VEIN LOCATION D/T DIFF VEINS. PER JOSE VARNER RN.
--- NOTE | 2019-03-17 21:30 | NUR ---
IV INFLITRATED AND RESITED IN LEFT HAND. PER CATIE KHAN.
[2019-03-17 21:37] VITALS: BP 170/107
[2019-03-17 22:30] VITALS: BP 150/98
[2019-03-18] VITALS (7 sets, daily range): BP systolic 105–173; BP diastolic 66–104; BMI 21.5; BMI 21.4
--- NOTE | 2019-03-18 00:20 | NUR ---
RECIEVED REPORT FROM LILLY HADDAD IN ER. ARRIVED TO FLOOR IN W/C. ALERT AND ORIENTED X4. UP AD EVAN. C/O BEING HUNGY. SANDWICH BOX GIVEN. ASSESSMENT COMPLETED.
--- NOTE | 2019-03-18 07:38 | NUR ---
PATIENT IS SITTING UP IN BED. SHE REPORTS NAUSEA. ZOFRAN GIVEN ORDERED PRN. DR LYNN IS ROUNDING. PATIENT WILL HAVE DIALYSIS TODAY.
--- NOTE | 2019-03-18 13:19 | NUR ---
ORTHOSTATIC BLOOD PRESSURES; LAYING 154/96, SITTING 152/98, STANDING 152/99
--- NOTE | 2019-03-18 17:29 | NUR ---
PATIENT HAS SECOND IV IN LEFT HAND, A 20 G. [address] [facility] IN [place]. PATIENT IS STILL GOING TO DIALYSIS TODAY.
[2019-03-19] VITALS: BP 142/79
[2019-03-19 04:00] VITALS: BP 135/78
[2019-03-19 05:38] LABS: BASOPHILS 0.2 % (0-2); EOSINOPHILS 3.8 % (0-7); HEMATOCRIT 29.3 % (36.0-48.0); HEMOGLOBIN 9.1 g/dL (12-16); IMMATURE GRANULOCYTES 0.4 % (0-5); LYMPHOCYTES 10.2 % (15-50); MCH 30.1 pg (26.0-34.0); MCHC 31.1 g/dL (31.0-37.0); MEAN PLATELET VOLUME 10.8 fL (7.4-10.4); MONOCYTES 13.8 % (2-11); NEUTROPHILS 71.6 % (40-80); PLATELET COUNT 198 10x3/uL (130-400); RBC 3.02 10x6/uL (4.00-5.40); RDW 15.3 % (11.5-14.5); WBC 5.3 10x3/uL (4.8-10.8)
[2019-03-19 06:20] LABS: ANION GAP 12.9 mmol/L (8-16); CALCIUM 8.3 mg/dL (8.5-10.1); CARBON DIOXIDE 29.2 mmol/L (21.0-32.0); CREATININE - SERUM 6.2 mg/dL (0.6-1.3); PHOSPHOROUS 4.1 mg/dL (2.5-4.9); POTASSIUM - SERUM 4.1 mmol/L (3.5-5.1)
[2019-03-19 08:45] VITALS: BP 126/89
--- NOTE | 2019-03-19 08:56 | NUR ---
PT AMBULATING IN HALLWAY. ALERT AND ORIENTED. RR EVEN AND UNLABORED. DENIES NEEDS OR PAIN AT THIS TIME. WILL CONTINUE TO MONITOR.
[2019-03-19 12:45] VITALS: BP 102/74
--- NOTE | 2019-03-19 14:17 | NUR ---
I have reviewed this patient and I concur with the Shift Assessment completed by the Licensed Practical Nurse today this shift.
--- NOTE | 2019-03-19 16:01 | MORECARE ---
CASE MANAGEMENT DISCHARGE SUMMARY PATIENT: FLEY SQUIRES UNIT: [id number] ADM DATE: 03/17/19 AGE: 53 : 65 SEX: F ROOM/BED: D.2138 AUTHOR: ALEXANDRA JAMES PHYSICIAN: REFERRING PHYSICIAN: PAPI VALLEJO MD DATE OF SERVICE: 03/19/19 Discharge Plan Patient Name: FELY SQUIRES Facility: [facility]:[place] : 1965 Planned Disposition: Home Anticipated Discharge Date: 03/20/19 Discharge Date: Expected LOS: 3 Initial Reviewer: [email or web address] Initial Review Date: 03/19/2019 Generated: 03/19/19 5:00 pm Coverage Notice Reviewer: [id number] - Costa Cordova Notice Issued Date-Time: 03/19/2019 12:30 Notice Type: IM Discharge Notice Notice Delivered To: Patient Relationship to Patient: Records Management Assistant Name: Delivery Method: HAND - Hand Delivered Nicole Days: Prior Verbal Notification: Recipient Understood Notice: Yes Recipient Signature: Yes Med Rec Note Co-signed by Attending: Coverage Notice Comment: Patient Name: FELY SQUIRES Page 93815 at 1601 All edits/amendments must be made on the electronic document DICTATION DATE: 03/19/191599 MANAGER HARDWARE: MARYAM 03/19/191599 RPT#: [id number] DC DATE: STATUS: ADM IN [place] [address] [place] [address] END OF REPORT
--- NOTE | 2019-03-19 16:12 | MORECARE ---
CASE MANAGEMENT DISCHARGE SUMMARY PATIENT: FELY SQUIRES UNIT: [id number] ADM DATE: 03/17/19 AGE: 53 : 65 SEX: F ROOM/BED: D.4608 AUTHOR: ERIKA,DOC PHYSICIAN: REFERRING PHYSICIAN: PAPI VALLEJO MD DATE OF SERVICE: 03/19/19 Discharge Plan Patient Name: FELY SQUIRES Facility: [facility]:[place] : 1965 Planned Disposition: Home Anticipated Discharge Date: 03/20/19 Discharge Date: Expected LOS: 3 Initial Reviewer: [email or web address] Initial Review Date: 03/19/2019 Generated: 03/19/19 5:12 pm Comments DCP- Discharge Planning Updated by [email or web address]: Costa Cordova on 03/19/19 3:[address] Patient Name: FELY SQUIRES Admission Status: ER Accout number: [id number] Admission Date: 03-17-2019 : 1965 Admission Diagnosis: Attending: PAPI VALLEJO Current LOS: 2 Anticipated DC Date: 03-20-2019 Planned Disposition: Home Primary Insurance: MEDICARE A & B Discharge Planning Comments: CM MET WITH PT IN ROOM TO DISCUSS DISCHARGE PLANNING AND NEEDS. PT REPORTS LIVING AT HOME INDEPENDENTLY WITH HER SISTER. PT HAS NO MEDICAL EQUIPMENT AND NO OUTSIDE SERVICES ASSISTING IN THE HOME. PT GOES TO DIALYSIS ON MWF, 1130AM SCHEDULE AT [facility], PT OR HER SISTER DRIVES. CM DISCUSSED AVAILABILITY OF HOME HEALTH, REHAB SERVICES AND MEDICAL EQUIPMENT. PT DENIES DISCHARGE NEEDS, REPORTS HER SISTER OR BROTHER WILL PICK HER UP FOR DISCHARGE HOME. IMPORTANT MESSAGE FROM MEDICARE PROVIDED AND EXPLAINED. PT PLANS TO DISCHARGE HOME WITH SISTER, FAMILY TO TRANSPORT HOME AT DISCHARGE. PT HAS NO ANTICIPATED DISCHARGE NEEDS. CM TO FOLLOW AND ASSIST IF NEEDED. Gas Refrigerator Servicer: Costa Cordova DCPIA - Discharge Planning Initial Assessment Updated by [id number]: Costa Cordova on 03/19/19 4:01 pm * Is the patient Alert and Oriented? Yes * How many steps to enter\exit or inside your home? NONE * PCP DR. WYNN * Pharmacy [facility] * Preadmission Environment Home with Family * ADLs Independent * Equipment None * Other Equipment NO MEDICAL EQUIPMENT PROVIDER PREFERNCE * List name and contact numbers for known caregivers / representatives who currently or will assist patient after discharge: IVANA MCDOWELL, SISTER, * Verbal permission to speak to the caregivers and representatives has been obtained from the patient. N/A * Community resources currently utilized Other * Please name any agencies selected above. OUTPATIENT DIALYSIS, MWF, 1130, [facility], SISTER OR PATIENT DRIVES * Additional services required to return to the preadmission environment? No * Can the patient safely return to the preadmission environment? Yes * Has this patient been hospitalized within the prior 30 days at any hospital? No Coverage Notice Reviewer: [id number] Ezio Cordova Notice Issued Date-Time: 03/19/2019 12:30 Notice Type: IM Discharge Notice Notice Delivered To: Patient Relationship to Patient: Data Management Name: Delivery Method: HAND - Hand Delivered Nicole Days: Prior Verbal Notification: Recipient Understood Notice: Yes Recipient Signature: Yes Med Rec Note Co-signed by Attending: Coverage Notice Comment: Last DP export: 03/19/19 3:01 p Patient Name: FELY SQUIRES Page 36458 at 1612 All edits/amendments must be made on the electronic document DICTATION DATE: 03/19/191611 COMMERCIAL PEST CONTROL TECHNICIAN: MARYAM 03/19/191611 RPT#: [id number] DC DATE: STATUS: ADM IN [facility] [address] [place] [address] END OF REPORT
[2019-03-19 16:13] VITALS: Ht 175.3 cm; Wt 65.8 kg
[2019-03-19 16:46] VITALS: BP 121/85
--- NOTE | 2019-03-19 19:10 | NUR ---
EVENING ROUNDS COMPLETE. PT LAYING IN BED. PT C/O PAIN 12/19, INFORMED PT THAT HER PAIN MED WAS GIVEN LESS THAN TWO HOURS PRIOR. PT UNDERSTOOD. PT DENIES ANY NEEDS AT THIS TIME. AAOX4, CL IN REACH. BED IN LOWEST POSITION.
[2019-03-19 20:00] VITALS: BP 101/56
[2019-03-20] VITALS (7 sets, daily range): BP systolic 93–126; BP diastolic 54–89
--- NOTE | 2019-03-20 04:00 | NUR ---
ORTHOSTATIC BP: LAYING; 123/61. SITTING; 110/78. STANDING; 111/77.
[2019-03-20 04:38] LABS: BASOPHILS 0.2 % (0-2); EOSINOPHILS 3.8 % (0-7); HEMATOCRIT 29.2 % (36.0-48.0); HEMOGLOBIN 8.9 g/dL (12-16); IMMATURE GRANULOCYTES 0.2 % (0-5); LYMPHOCYTES 10.5 % (15-50); MCHC 30.5 g/dL (31.0-37.0); MCV 98.3 fL (80.0-100.0); MEAN PLATELET VOLUME 10.9 fL (7.4-10.4); MONOCYTES 16.9 % (2-11); NEUTROPHILS 68.4 % (40-80); PLATELET COUNT 200 10x3/uL (130-400); RBC 2.97 10x6/uL (4.00-5.40); RDW 15.4 % (11.5-14.5); WBC 5.8 10x3/uL (4.8-10.8)
[2019-03-20 05:15] LABS: ANION GAP 13.5 mmol/L (8-16); CALCIUM 8.4 mg/dL (8.5-10.1); CARBON DIOXIDE 28.9 mmol/L (21.0-32.0); CREATININE - SERUM 7.3 mg/dL (0.6-1.3); POTASSIUM - SERUM 4.4 mmol/L (3.5-5.1)
[2019-03-20 05:23] LABS: PHOSPHOROUS 5.5 mg/dL (2.5-4.9)
--- NOTE | 2019-03-20 06:53 | NUR ---
REPORT RECEIVED. SHE IS ALERT AND ABLE TO VOICE NEEDS. RESP EVEN WITHOUT LABOR O2 ON AT 2 LITER PER N/C. SHE DENIES ANY CURRENT NEEDS. BED IN LOWEST POSITION AND LOCKED. CAREPLAN REVIEW DONE WITH SAFETY PRECAUTIONS IN PLACE.
--- NOTE | 2019-03-20 09:00 | NUR ---
ORTHOSTATIC BLOOD PRESSURE RESULTS: LYING 109/66, SITTING 106/65, AND STANDING 111/72.
--- NOTE | 2019-03-20 12:39 | NUR ---
SHE IS AWARE OF NEED FOR SPUTUM COLLECTION BUT IS NOT COUGHING ANYTHING UP.
--- NOTE | 2019-03-20 18:06 | NUR ---
SHE IS SITTING UP ON SIDE OF BED. OFFERS NO C/O AT THIS TIME. SHE DOES HAVE SOME WHEEZES IN UPPER RIGHT LOBE BUT RESP EVEN WITHOUT LABOR. SHE HAS DRY COUGH. CL IN REACH.
[2019-03-21 00:45] VITALS: BP 110/68
[2019-03-21 04:30] VITALS: BP 126/68
[2019-03-21 05:46] LABS: BASOPHILS 0.2 % (0-2); EOSINOPHILS 3.9 % (0-7); HEMATOCRIT 28.4 % (36.0-48.0); HEMOGLOBIN 8.7 g/dL (12-16); IMMATURE GRANULOCYTES 0.5 % (0-5); LYMPHOCYTES 9.9 % (15-50); MCH 29.7 pg (26.0-34.0); MCHC 30.6 g/dL (31.0-37.0); MCV 96.9 fL (80.0-100.0); MEAN PLATELET VOLUME 10.7 fL (7.4-10.4); MONOCYTES 13.5 % (2-11); PLATELET COUNT 201 10x3/uL (130-400); RBC 2.93 10x6/uL (4.00-5.40); RDW 15.2 % (11.5-14.5); WBC 6.7 10x3/uL (4.8-10.8)
[2019-03-21 06:00] LABS: ANION GAP 10.5 mmol/L (8-16); CALCIUM 8.6 mg/dL (8.5-10.1); CARBON DIOXIDE 31.6 mmol/L (21.0-32.0); CREATININE - SERUM 5.6 mg/dL (0.6-1.3); PHOSPHOROUS 4.1 mg/dL (2.5-4.9); POTASSIUM - SERUM 4.1 mmol/L (3.5-5.1)
--- NOTE | 2019-03-21 06:45 | NUR ---
REPORT RECEIVED. SHE IS ASLEEP RESTING WITH EASE. CL IN REACH BED IN LOWEST POSITION AND LOCKED CAREPLAN REVIEW DONE WITH SAFETY PRECAUTIONS IN PLACE
[2019-03-21 08:55] VITALS: BP 122/73
--- NOTE | 2019-03-21 11:56 | NUR ---
ADDIE BLOOD PRESSURE WAS 110/60
[2019-03-21 11:57] VITALS: BP 110/60
[2019-03-21 12:10] VITALS: BP 86/55
[2019-03-21] MEDS ORDERED: CLEOCIN HCL300 MG PO (12:21)
[2019-03-21] MEDS ORDERED: LEVOFLOXACIN500 MG PO (12:22)
[2019-03-21] MEDS ORDERED: SINGULAIR10 MG PO (12:23)
[2019-03-21] MEDS ORDERED: TESSALON PERLE100 MG PO (12:23)
[2019-03-21] MEDS ORDERED: PULMICORT0.5 MG/21 UPD (12:23)
[2019-03-21] MEDS ORDERED: LOPRESSOR25 MG PO (12:24)
--- NOTE | 2019-03-21 13:05 | NUR ---
WHILE REVIEWING FOR FLU SHOT, PATIENT STATES UPON ADMISSION SHE HAD ONE.
--- NOTE | 2019-03-21 13:30 | EC ---
PATIENT:FELY SQUIRES DATE OF SERVICE: 03/17/19 SEX: F MEDICAL RECORD: [id number] DATE OF : [birth year] LOCATION:D.M2 D.213 AGE OF PATIENT: 53 ADMISSION DATE: 03/17/19 REFERRING PHYSICIAN: INTERPRETING PHYSICIAN: MENDY CORDERO MD ECHOCARDIOGRAM REPORT ECHO CHARGES 4 ECHO COMPLETE Date: 03/18/19 CLINICAL DIAGNOSIS: SYNCOPE ECHOCARDIOGRAPHIC MEASUREMENTS (adult normal given) AC root (d.<3.7cm) 2.7 cm LV Septum d (<1.2 cm> 1.3 cm Valve Excursion 0.9 cm LV Septum (systole) 1.6 cm Left Atria (s.<4.0cm> 4.9 cm LVPW d(<1.2cm) 0.8 cm RV (d.<2.3cm) 3.9 cm LVPW (sytole) 1.1 cm LV diastole(<5.6CM) 6.1 cm MV E-F(>70mm/sec) cm LV systole 4.6 cm LVOT Diameter 1.5 cm MV exc.(>10mm) cm Est.ejection fraction (50-75%) % DOPPLER: LVIT cm/sec A 133 cm/sec E 225 cm/sec LA cm/sec RVSP 19.5 mmHg LVOT 109 cm/sec AOP1/2T m/s Asc. Ao 264 cm/sec RVOT 50 cm/sec RA cm/sec PA 195 cm/sec AV Gradient Peak 27.9 mmHg AV Mean 16.6 mmHg AV Area 0.6 cm MV Gradient Peak 31.7 mmHg MV Mean 12.4 mmHg MV Area cm COMMENTS: Advanced Solutions Architect: Florinda [facility] Band Manager: 1 Dr. Cordero TAPE# PACS Pericardial Effusion N DATE OF SERVICE: PROCEDURE: Echocardiogram. FINDINGS: 1. Left ventricular chamber size is mildly dilated. Left ventricular systolic function is normal at 50%. 2. Left atrium is enlarged at 4.9 cm. Right atrium and right ventricular chamber sizes are as well mildly dilated. 3. Valvular structures: Aortic, mitral, and tricuspid valve were all replaced ECHOCARDIOGRAM REPORT [id number] FELY SQUIRES with mechanical prosthesis. They all have normal structure and function in this position. 4. Doppler interrogation only reveals mild mitral regurgitation, mild tricuspid regurgitation, no other valvular insufficiency or stenosis and pulmonary systolic pressure is normal estimated at 20 mmHg. 5. No evidence of pericardial effusion or left ventricular thrombus. TRANSINT:[id number] Voice Confirmation ID: [id number] DOCUMENT ID: [id number] MENDY CORDERO MD at 1330 CC: [id number] DICTATION DATE: 03/19/19 1208 TICKET SORTER: 03/19/19 1318 ADM IN [facility] [address] [place] [address]
--- NOTE | 2019-03-21 13:30 | CN ---
PATIENT NAME:FELY SQUIRES MEDICAL RECORD: [id number] : 65 LOCATION:D. D.2138 ADMIT DATE: 03/17/19 ACCOUNT: [id number] CONSULTING PHYSICIAN: MENDY RICHARD MD REFERRING PHYSICIAN: PAPI VALLEJO MD DATE OF CONSULTATION: 03/19/2019 Cardiology Consultation DIAGNOSES: 1. Syncope. 2. Coronary artery disease. 3. Hypertension. 4. End-stage renal failure, on dialysis. 5. Anemia. 6. Valvular heart disease, valve replacement; aortic, mitral, and tricuspid. HISTORY OF PRESENT ILLNESS: Mrs. Squires is known to us. Past history of aortic, mitral, and tricuspid valve replacements in the past with tissue prosthesis as well as history of coronary artery disease. She was recently in the hospital and underwent a workup with a normal echocardiogram, normal valve function. Underwent cardiac catheterization as well, was showing minimal coronary artery disease, but no flow limiting stenosis. At that admission when she was in the hospital, she had no significant dysrhythmias. She passed out after dialysis. She has done this in the past. When she initially came in, her systolic blood pressure was in the 100 range, now it is in the 170 range. She does have a chronic anemia. Hemoglobin is 9.1; however, this is unchanged. PHYSICAL EXAMINATION: CONSTITUTIONAL/GENERAL APPEARANCE: Well nourished, well developed, appears stated age. EYES: Lids and conjunctivae noninjected. No discharge. No pallor. ENT: Lips within normal limit. No cyanosis. No pallor. NECK: Carotid arteries, bilateral normal upstroke. No bruits. No thrills. No jugular venous pressure or distention. CERVICAL LYMPH NODES: Nontender. Nonenlarged. THYROID: Not enlarged. No nodules. CARDIOVASCULAR: Precordial exam, nondisplaced. No heaves or pericardial thrills. Rate and rhythm, regular. Heart sounds, normal S1, normal S2. No S3, no gallop, no rub. Systolic murmur, not heard. Diastolic murmur, not heard. RESPIRATORY: Respiratory effort, unlabored. Normal curvature. No thoracic deformity. No chest wall tenderness. Percussion, resonant. Auscultation, clear. No wheezes, no rales, no rhonchi. ABDOMEN: Soft, nondistended, nontender. No abdominal pain, no vomiting and normal appetite. MUSCULOSKELETAL: No joint tenderness, normal gait, normal tone. SKIN: Warm and dry. OVERALL IMPRESSION: Syncope, I do not think that the etiology of this is cardiac. I think it is hypotension that happens after dialysis she has had this in the past. She has underwent a large cardiac workup including cardiac catheterization and echocardiogram, all of which were normal. I do not think she needs any further workup from a cardiac standpoint, would just observe on telemetry, see if she has any dysrhythmias. CONSULT REPORT [id number] FELY SQUIRES TRANSINT:[id number] Voice Confirmation ID: [id number] DOCUMENT ID: [id number] MENDY RICHARD MD at 1330 CC: [id number] DICTATION DATE: 03/19/19 1611 FELTMAKER AND WEIGHER: 03/20/19 0109 ADM IN [facility] [address] [id number]
--- NOTE | 2019-03-21 13:58 | NUR ---
HOME OXYGEN TEST PERFORMED: PATIENT ON 3LPM AT 95% REMOVED OXYGEN FOR 15 MINUTES. ON ROOM AIR PATIENT SPO2 65% PLACED BACK ON OXYGEN ON 3LPM PATIENTS SPO2 95%
--- NOTE | 2019-03-21 14:09 | NUR ---
WALK TESTED COMPLETED BY RT PAULINA. PATIENTS SATS WERE 65% ON ROOM AIR AT REST. CALL PLACED TO PRASANNA ANDERSON AT EXT [phone] AND TOLD HER. SHE SAID TO ARRANGE OXYGEN BEFORE SHE LEAVES AND SHE WOULD SIGN THE ORDERS. I HAVE EXPLAINED THIS TO THE BEDSIDE NURSE AND TO DISCHARGE CASEMANAGER.
--- NOTE | 2019-03-21 14:28 | MORECARE ---
CASE MANAGEMENT DISCHARGE SUMMARY PATIENT: FELY SQUIRES UNIT: [id number] ADM DATE: 03/17/19 AGE: 53 : 65 SEX: F ROOM/BED: D.5408 AUTHOR: ERIKA,DOC PHYSICIAN: REFERRING PHYSICIAN: PAPI VALLEJO MD DATE OF SERVICE: 03/21/19 Discharge Plan Patient Name: FELY SQUIRES Facility: [facility]:[place] : 1965 Planned Disposition: Home Anticipated Discharge Date: 03/20/19 Discharge Date: Expected LOS: 3 Initial Reviewer: [email or web address] Initial Review Date: 03/19/2019 Generated: 03/21/19 3:28 pm DCP- Discharge Planning Updated by [email or web address]: Costa Cordova on 03/19/19 3:[address] Patient Name: FELY SQUIRES Admission Status: ER Accout number: [id number] Admission Date: 03-17-2019 : 1965 Admission Diagnosis: Attending: PAPI VALLEJO Current LOS: 2 Anticipated DC Date: 03-20-2019 Planned Disposition: Home Primary Insurance: MEDICARE A & B Discharge Planning Comments: CM MET WITH PT IN ROOM TO DISCUSS DISCHARGE PLANNING AND NEEDS. PT REPORTS LIVING AT HOME INDEPENDENTLY WITH HER SISTER. PT HAS NO MEDICAL EQUIPMENT AND NO OUTSIDE SERVICES ASSISTING IN THE HOME. PT GOES TO DIALYSIS ON MWF, 1130AM SCHEDULE AT [facility], PT OR HER SISTER DRIVES. CM DISCUSSED AVAILABILITY OF HOME HEALTH, REHAB SERVICES AND MEDICAL EQUIPMENT. PT DENIES DISCHARGE NEEDS, REPORTS HER SISTER OR BROTHER WILL PICK HER UP FOR DISCHARGE HOME. IMPORTANT MESSAGE FROM MEDICARE PROVIDED AND EXPLAINED. PT PLANS TO DISCHARGE HOME WITH SISTER, FAMILY TO TRANSPORT HOME AT DISCHARGE. PT HAS NO ANTICIPATED DISCHARGE NEEDS. CM TO FOLLOW AND ASSIST IF NEEDED. Gis Geographer: Costa Cordova DCPIA - Discharge Planning Initial Assessment Updated by [email or web address]: Costa Cordova on 03/19/19 4:01 pm * Is the patient Alert and Oriented? Yes * How many steps to enter\exit or inside your home? NONE * PCP DR. WYNN * Pharmacy [facility] * Preadmission Environment Home with Family * ADLs Independent * Equipment None * Other Equipment NO MEDICAL EQUIPMENT PROVIDER PREFERNCE * List name and contact numbers for known caregivers / representatives who currently or will assist patient after discharge: IVANA MCDOWELL, SISTER, * Verbal permission to speak to the caregivers and representatives has been obtained from the patient. N/A * Community resources currently utilized Other * Please name any agencies selected above. [facility], MWF, 1130, [facility], SISTER OR PATIENT DRIVES * Additional services required to return to the preadmission environment? No * Can the patient safely return to the preadmission environment? Yes * Has this patient been hospitalized within the prior 30 days at any hospital? No External Providers External Provider: [facility] Next Contact Date: 03/21/2019 Service Request Date: Service Type: Resolution: Reviewer: Comments: Coverage Notice Reviewer: [email or web address] Ezio Cordova Notice Issued Date-Time: 03/19/2019 12:30 Notice Type: IM Discharge Notice Notice Delivered To: Patient Relationship to Patient: Stained Glass Glazier Helper Name: Delivery Method: HAND - Hand Delivered Nicole Days: Prior Verbal Notification: Recipient Understood Notice: Yes Recipient Signature: Yes Med Rec Note Co-signed by Attending: Coverage Notice Comment: Last DP export: 03/19/19 3:12 p Patient Name: FELY SQUIRES Page 60132 at 1428 All edits/amendments must be made on the electronic document DICTATION DATE: 03/21/191427 RANCH COOK: MARYAM 03/21/191427 RPT#: [id number] DC DATE: STATUS: ADM IN [facility] [address] [place] [address] END OF REPORT
--- NOTE | 2019-03-21 14:45 | MORECARE ---
CASE MANAGEMENT DISCHARGE SUMMARY PATIENT: FELY SQUIRES UNIT: [id number] ADM DATE: 03/17/19 AGE: 53 : 65 SEX: F ROOM/BED: D.9632 AUTHOR: ERIKA,DOC PHYSICIAN: REFERRING PHYSICIAN: PAPI VALLEJO MD DATE OF SERVICE: 03/21/19 Discharge Plan Patient Name: FELY SQUIRES Facility: [facility]:[place] : 1965 Planned Disposition: Home Anticipated Discharge Date: 03/20/19 Discharge Date: Expected LOS: 3 Initial Reviewer: [email or web address] Initial Review Date: 03/19/2019 Generated: 03/21/19 3:45 pm Comments DCP- Discharge Planning Updated by [email or web address]: Costa Cordova on 03/21/19 1:[address] Patient Name: FELY SQUIRES Encounter No: [id number] : 1965 Primary Insurance: MEDICARE A & B Anticipated DC Date: 03-20-2019 Planned Disposition: Home DCP follow-up note: CM RECEIVED ORDER FOR HOME AND PORTABLE OXYGEN. CM MET WITH PT IN ROOM, PROVIDED LIST OF MEDICAL EQUIPMENT PROVIDERS. PT CHOSE [facility], BAN SIGNED. PT DENIES NEED OF REHAB, HOME HEALTH OR FURTHER MEDICAL EQUIPMENT. CM CALLED [facility], , SPOKE TO MONICA AND PROVIDED REFERRAL INFORMATION. CM FAXED REFERRAL TO [facility], .ROBYN ADVISED THEY WILL DELIVER PORTABLE OXYGEN TO HOSPITAL TODAY AND WILL ARRANGE HOME OXYGEN WHEN PT ARRIVES AT HOME AFTER DISCHARGE. PT AND CHIEF HYDROELECTRIC STATION OPERATOR NOTIFIED. Costa Cordova, PUNEET BYRNES DCP- Discharge Planning Updated by [email or web address]: Costa Cordova on 03/19/19 3:[address] Patient Name: FELY SQUIRES Admission Status: ER Accout number: [id number] Admission Date: 03-17-2019 : 1965 Admission Diagnosis: Attending: PAPI VALLEJO Current LOS: 2 Anticipated DC Date: 03-20-2019 Planned Disposition: Home Primary Insurance: MEDICARE A & B Discharge Planning Comments: CM MET WITH PT IN ROOM TO DISCUSS DISCHARGE PLANNING AND NEEDS. PT REPORTS LIVING AT HOME INDEPENDENTLY WITH HER SISTER. PT HAS NO MEDICAL EQUIPMENT AND NO OUTSIDE SERVICES ASSISTING IN THE HOME. PT GOES TO DIALYSIS ON MWF, 1130AM SCHEDULE AT [facility], PT OR HER SISTER DRIVES. CM DISCUSSED AVAILABILITY OF HOME HEALTH, REHAB SERVICES AND MEDICAL EQUIPMENT. PT DENIES DISCHARGE NEEDS, REPORTS HER SISTER OR BROTHER WILL PICK HER UP FOR DISCHARGE HOME. IMPORTANT MESSAGE FROM MEDICARE PROVIDED AND EXPLAINED. PT PLANS TO DISCHARGE HOME WITH SISTER, FAMILY TO TRANSPORT HOME AT DISCHARGE. PT HAS NO ANTICIPATED DISCHARGE NEEDS. CM TO FOLLOW AND ASSIST IF NEEDED. English Instructor: Costa Cordova DCPIA - Discharge Planning Initial Assessment Updated by [id number]: Costa Cordova on 03/19/19 4:01 pm * Is the patient Alert and Oriented? Yes * How many steps to enter\exit or inside your home? NONE * PCP DR. WYNN * Pharmacy [facility] * Preadmission Environment Home with Family * ADLs Independent * Equipment None * Other Equipment NO MEDICAL EQUIPMENT PROVIDER PREFERNCE * List name and contact numbers for known caregivers / representatives who currently or will assist patient after discharge: IVANA MCDOWELL, SISTER, * Verbal permission to speak to the caregivers and representatives has been obtained from the patient. N/A * Community resources currently utilized Other * Please name any agencies selected above. [facility], MWF, 1130, [facility], SISTER OR PATIENT DRIVES * Additional services required to return to the preadmission environment? No * Can the patient safely return to the preadmission environment? Yes * Has this patient been hospitalized within the prior 30 days at any hospital? No Coverage Notice Reviewer: [email or web address] Ezio Cordova Notice Issued Date-Time: 03/19/2019 12:30 Notice Type: IM Discharge Notice Notice Delivered To: Patient Relationship to Patient: Glass Installer Name: Delivery Method: HAND - Hand Delivered Nicole Days: Prior Verbal Notification: Recipient Understood Notice: Yes Recipient Signature: Yes Med Rec Note Co-signed by Attending: Coverage Notice Comment: Reviewer: [email or web address] Ezio Cordova Notice Issued Date-Time: 03/21/2019 14:10 Notice Type: Patient Choice Letter Notice Delivered To: Patient Relationship to Patient: Glass Installer Name: Delivery Method: HAND - Hand Delivered Nicole Days: Prior Verbal Notification: Recipient Understood Notice: Yes Recipient Signature: Yes Med Rec Note Co-signed by Attending: Coverage Notice Comment: [facility] Last DP export: 03/21/19 1:28 Patient Name: FELY SQUIRES Page [id number] at 1445 All edits/amendments must be made on the electronic document DICTATION DATE: 03/21/191444 VARNISH FINISHER: MARYAM 03/21/191444 RPT#: [id number] DC DATE: STATUS: ADM IN [facility] [address] [place] [address] END OF REPORT
--- NOTE | 2019-03-21 15:32 | NUR ---
ALERT. SHE WILL GO HOME ON HOME 02 AND SHE UNDERSTANDS THIS AND IS AWAITING DISCHARGE. NO CHANGE IN CONDITION NOTED. RESP EVEN WITHOUT LABOR
--- NOTE | 2019-03-21 16:00 | NUR ---
DISCHARGE INSTRUCTIONS EXPLAINED IN DETAIL. SALINE LOCK X2 D/C WITH CATH TIPS INTACT. PORTABLE OXYGEN WAS DELIVERED HERE AND SHE UNDERSTANDS HOW TO USE IT, AND NOT TO USE IT AROUND ANYONE OR HERSELF SMOKING. NO C/O VOICED NO CHANGE IN CONDITION.
== END 2019-03-21 16:00 | disposition home or self-care (01) | DRG 177 ==
LOC: D.ER 18:45 → D.M2 21:37
PROVIDERS: Emergency Medicine; Internal Medicine Nephrology; ADMIT Internal Medicine Nephrology; ATTEND Internal Medicine Nephrology
PROC: 5A1D70Z Performance of Urinary Filtration, Intermittent, Less than 6 Hours Per Day (ICD-10-PCS; principal; 2019-03-18)
DX: J69.0 Pneumonitis due to inhalation of food and vomit (principal); N18.6 End stage renal disease; I50.33 Acute on chronic diastolic (congestive) heart failure; I13.2 Hypertensive heart and chronic kidney disease with heart failure and with stage 5 chronic kidney disease, or end stage renal disease; F17.213 Nicotine dependence, cigarettes, with withdrawal; R18.8 Other ascites; J44.1 Chronic obstructive pulmonary disease with (acute) exacerbation; E78.5 Hyperlipidemia, unspecified; I25.10 Atherosclerotic heart disease of native coronary artery without angina pectoris; Z91.19 Patient's noncompliance with other medical treatment and regimen; F32.9 Major depressive disorder, single episode, unspecified; D63.1 Anemia in chronic kidney disease; K74.60 Unspecified cirrhosis of liver; H70.90 Unspecified mastoiditis, unspecified ear; K21.9 Gastro-esophageal reflux disease without esophagitis; J30.9 Allergic rhinitis, unspecified; D64.9 Anemia, unspecified; I08.1 Rheumatic disorders of both mitral and tricuspid valves; Z95.2 Presence of prosthetic heart valve

== ENCOUNTER 2019-04-02 11:41 | Outpatient (CLI) | payer MEDICARE ==
[~2019-04-02] VITALS: Ht 175.3 cm; Wt 66.8 kg
[~2019-04-02 11:41] MED LIST changes: +CLEOCIN HCL300 MG PO; +LEVOFLOXACIN500 MG PO; +PULMICORT0.5 MG/21 UPD; +SINGULAIR10 MG PO; +TESSALON PERLE100 MG PO
[2019-04-02 12:12] LABS: BASOPHILS 0.7 % (0-2); EOSINOPHILS 3.7 % (0-7); HEMATOCRIT 30.3 % (36.0-48.0); HEMOGLOBIN 9.4 g/dL (12-16); IMMATURE GRANULOCYTES 0.6 % (0-5); LYMPHOCYTES 13.3 % (15-50); MCH 29.5 pg (26.0-34.0); MONOCYTES 12.4 % (2-11); NEUTROPHILS 69.3 % (40-80); RBC 3.19 10x6/uL (4.00-5.40); RDW 16.1 % (11.5-14.5); WBC 5.4 10x3/uL (4.8-10.8)
[2019-04-02 12:13] LABS: PLATELET COUNT 248 10x3/uL (130-400)
[2019-04-02 12:40] LABS: ALBUMIN 3.3 g/dL (3.4-5.0); ANION GAP 16.7 mmol/L (8-16); BILIRUBIN - TOTAL 0.9 mg/dL (0.2-1.3); CALCIUM 9.2 mg/dL (8.5-10.1); CARBON DIOXIDE 25.5 mmol/L (21.0-32.0); CREATININE - SERUM 6.7 mg/dL (0.6-1.3); POTASSIUM - SERUM 4.2 mmol/L (3.5-5.1); PROTEIN - SERUM 8.3 g/dL (6.4-8.2)
[2019-04-02 13:02] LABS: APTT 34.4 SECONDS (22.8-39.4); INR 1.11 (0.85-1.17); PROTIME 13.8 SECONDS (11.6-15.0)
[2019-04-02 13:17] VITALS: BP 143/93; Ht 175.3 cm; Wt 66.8 kg
[2019-04-02] MEDS ORDERED: TRAZODONE HCL150 MG PO (13:27)
== END 2019-04-02 16:45 | disposition home or self-care (01) ==
LOC: D.SP 11:41 → D.CT 14:00 → D.SP 16:45
PROVIDERS: Specialist; ATTEND Nurse Practitioner Family
DX: R18.8 Other ascites (principal)

== ENCOUNTER → 2019-04-09 08:30 | Outpatient (CLI) | payer MEDICARE ==
[2019-04-02 13:17] VITALS: BMI 21.7
[~2019-04-09 08:30] MED LIST changes: +HYDROCODON-ACE1 EAC7 PO; +MEDROL DOSE PACK4 MG PO; +TRAZODONE HCL150 MG PO; +ZITHROMAX250 MG PO
--- NOTE | 2019-04-17 14:07 | ST ---
PATIENT:FELY SQUIRES MEDICAL RECORD: [id number] SEX: F LOCATION:[facility] ORDER #: ADMISSION DATE: 04/09/19 AGE OF PATIENT: 53 REFERRING PHYSICIAN: INTERPRETING PHYSICIAN: MENDY RICHARD MD DATE OF SERVICE: 04/09/2019 INDICATION: Angina, cardiomyopathy, end-stage renal failure. PROCEDURE: The patient was exercised on standard Lexiscan protocol with 33 mCi of sestamibi injected at peak stress, 11 mCi used previously for rest images. FINDINGS: Gated SPECT reveals preserved ejection fraction at 48% with good wall motion and thickening and brightening throughout all segments. SPECT imaging Cardiolite was used as myocardial fusion agent. There is homogeneous uptake throughout all segments at rest and stress with no evidence of inducible ischemia or previous infarction. OVERALL IMPRESSION: 1. This is a normal nuclear stress test with no evidence of inducible ischemia or previous infarction. 2. Gated SPECT reveals a preserved ejection fraction at 48%. In this patient with ongoing symptomatology, the current scan does not suggest the presence of hemodynamically significant coronary artery disease. Evaluate noncardiac etiology of chest pain. TRANSINT:[id number] Voice Confirmation ID: [id number] DOCUMENT ID: [id number] MENDY RICHARD MD at 1407 CC: RITU WYNN [id number] DICTATION DATE: 04/10/19 1116 NET DEVELOPER ARCHITECT: 04/11/19 0140 DEP CLI 04/09/19 [facility] [address] [place] [address]
== END | disposition home or self-care (01) ==
LOC: D.HCCARDIO 08:30
PROVIDERS: ATTEND Internal Medicine Interventional Cardiology
DX: I25.10 Atherosclerotic heart disease of native coronary artery without angina pectoris (principal)

== ENCOUNTER 2019-04-15 01:22 | Inpatient (IN) | payer MEDICARE ==
[~2019-04-15] VITALS: Ht 175.3 cm; Wt 66.8 kg
[2019-04-15] VITALS (7 sets, daily range): BP systolic 135–189; BP diastolic 79–113; Ht 175.3 cm; Wt 66.8 kg
[~2019-04-15 01:22] MED LIST changes: -HYDROCODON-ACE1 EAC7 PO; -MEDROL DOSE PACK4 MG PO; -ZITHROMAX250 MG PO
[2019-04-15 01:51] LABS: BASOPHILS 0.4 % (0-2); EOSINOPHILS 2.5 % (0-7); HEMATOCRIT 30.1 % (36.0-48.0); HEMOGLOBIN 9.2 g/dL (12-16); IMMATURE GRANULOCYTES 0.4 % (0-5); LYMPHOCYTES 16.4 % (15-50); MCH 29.3 pg (26.0-34.0); MCHC 30.6 g/dL (31.0-37.0); MCV 95.9 fL (80.0-100.0); MEAN PLATELET VOLUME 9.6 fL (7.4-10.4); MONOCYTES 9.9 % (2-11); NEUTROPHILS 70.4 % (40-80); PLATELET COUNT 200 10x3/uL (130-400); RBC 3.14 10x6/uL (4.00-5.40); RDW 17.8 % (11.5-14.5); WBC 5.5 10x3/uL (4.8-10.8)
[2019-04-15 01:57] LABS: INR 1.13 (0.85-1.17)
[2019-04-15 01:58] LABS: APTT 54.2 SECONDS (22.8-39.4)
[2019-04-15 02:00] LABS: CALC OSMOLALITY 276 mosm/kg (275-300); CALCIUM 8.8 mg/dL (8.5-10.1); CHLORIDE - SERUM 97 mmol/L (98-107); CREATININE - SERUM 7.9 mg/dL (0.6-1.3); GLUCOSE 71 mg/dL (74-106); SODIUM 134 mmol/L (136-145); UREA NITROGEN 43 mg/dL (7-18); eGFR NON AFRICAN AMERICAN 6 mL/min (90-120)
--- NOTE | 2019-04-15 02:01 | NUR ---
PT REPORTS SHE DOES NOT MAKE URINE. ADVISED EDP DOWNEN.HOLD LASIX AT THIS TIME.
[2019-04-15 02:16] LABS: ALBUMIN 3.3 g/dL (3.4-5.0); ALKALINE PHOSPHATASE 473 U/L (46-116); ALT (SGPT) 14 U/L (10-68); BILIRUBIN - TOTAL 0.72 mg/dL (0.2-1.3); CKMB 2.9 U/L (0.0-3.6); CREATINE KINASE 119 UL (21-215); PROTEIN - SERUM 8.8 g/dL (6.4-8.2); TROPONIN-I 0.055 ng/mL (0.000-0.060)
[2019-04-15 02:42] LABS: PRO BNP 81056 pg/mL (0-125)
--- NOTE | 2019-04-15 03:05 | NUR ---
ARIC BOUDREAUX TO PATIENT.
--- NOTE | 2019-04-15 03:07 | NUR ---
GLUCOSE NOTED TO BE 71. SANDWICH TRAY GIVEN PER DR. LEIJA.
--- NOTE | 2019-04-15 04:20 | NUR ---
PT PENGVES VIA WC TO ROOM STATING IT HAS BEEN HOURS SINCE SHE HAS RECIEVED PAIN MED RECORDS SHOW MED GIVEN IN ER AT ABOUT 3am LCTA BED LOW AND LOCKED PT IS GIVEN CALL LIGHT AND ROOM SET UP
[2019-04-15] MEDS ORDERED: ULTRAM50 MG PO (04:35)
[2019-04-15] MEDS ORDERED: SINGULAIR10 MG PO (04:36)
--- NOTE | 2019-04-15 08:26 | NUR ---
PT C/O PAIN AND NAUSEA. CALLED AND SPOKE WITH JENNIFFER MIMS AND SHE STATES TO GIVE PT TRAMADOL 50MG Q6HP FOR PAIN UNTIL SHE(JENNIFFER MIMS) CAN COME ASSESS HER(PT) AND TO ORDER ZOFRAN PO OR IV Q4HP FOR NAUSEA. I VERBALIZED UNDERSTANDING.
--- NOTE | 2019-04-15 08:41 | NUR ---
PT REFUSED PO ZOFRAN. STATES SHE ONLY WANTS IV ZOFRAN.
--- NOTE | 2019-04-15 11:00 | NUR ---
SCD'S PLACED ON PT.
--- NOTE | 2019-04-15 11:12 | NUR ---
PT'S BP 181/119. SPOKE TO DR. HUI HE STATES TO ORDER HYDRALAIZNE Q6HP.
--- NOTE | 2019-04-15 11:19 | NUR ---
PT STATES SHE WILL NOT TAKE HYDROCODONE FOR PAIN CAUSE IT MAKES HER ITCH. SHE STATES SHE WANTS SOMETHING DIFFERENT. CALLED AND SPOKE WITH JENNIFFER MIMS AND SHE STATES TO ORDER BENADRYL 25MG Q4HP AND GIVE WITH PAIN MEDICATION AND TO RESTART HOME MEDS. SHE STATES THERE IS NOT ANYTHING ELSE SHE CAN HAVE BECAUSE ALL PAIN MEDS WILL CAUSE HER TO ITCH. I VERBALIZED UNDERSTANDING.
--- NOTE | 2019-04-15 11:29 | NUR ---
SPOKE WITH KAYLYN THEY STATE TO GIVE LOPRESSOR THEN RECHECK BP TO SEE IF HYDRALAZINE NEEDS TO BE GIVEN.
--- NOTE | 2019-04-15 12:20 | NUR ---
DIALYSIS COORDINATOR: [facility] MWF @ 11:45. MET WITH PATIENT BEDSIDE IN ROOM. RECORDS TO HOME UNIT. BENTLEY QUIROZ.
--- NOTE | 2019-04-15 12:55 | NUR ---
PT'S BP 168/100. CALLED AND SPOKE WITH JAMAL IN DIALYSIS AND SHE STATES TO LEAVE IT UP TO PT IF SHE WANTS TO TAKE HYDRALAZINE. ASKED PT AND SHE STATES SHE DOES.
--- NOTE | 2019-04-15 15:27 | NUR ---
I have reviewed this patient and I concur with the Shift Assessment completed by the Licensed Practical Nurse today this shift.
--- NOTE | 2019-04-15 17:52 | NUR ---
PT TAKEN TO DIALYSIS VIA BED.
--- NOTE | 2019-04-15 19:13 | NUR ---
CALL FROM DIALYSIS PT REQUESTING JOSE GUADALUPE
--- NOTE | 2019-04-15 19:13 | NUR ---
PT IS CURREBNTLY IN DIALYSIS
--- NOTE | 2019-04-15 21:30 | NUR ---
REPORT RECIEVED FROM DIALYSIS 2700M OFF PT INSISTING ON WALKING BACK TO HER ROOM
[2019-04-16 00:19] VITALS: BP 147/84
--- NOTE | 2019-04-16 01:10 | NUR ---
I have reviewed this patient and I concur with the Shift Assessment completed by the Licensed Practical Nurse today this shift.
[2019-04-16 04:30] VITALS: BP 166/89
[2019-04-16 06:16] LABS: BASOPHILS 0 % (0-2); EOSINOPHILS 0 % (0-7); HEMATOCRIT 28.9 % (36.0-48.0); HEMOGLOBIN 8.8 g/dL (12-16); IMMATURE GRANULOCYTES 0.6 % (0-5); LYMPHOCYTES 4.2 % (15-50); MCH 29.1 pg (26.0-34.0); MCHC 30.4 g/dL (31.0-37.0); MCV 95.7 fL (80.0-100.0); MEAN PLATELET VOLUME 10.6 fL (7.4-10.4); MONOCYTES 5.1 % (2-11); NEUTROPHILS 90.1 % (40-80); PLATELET COUNT 201 10x3/uL (130-400); RBC 3.02 10x6/uL (4.00-5.40); RDW 17.4 % (11.5-14.5)
[2019-04-16 06:27] LABS: WBC 3.5 10x3/uL (4.8-10.8)
[2019-04-16 06:29] LABS: CALCIUM 8.9 mg/dL (8.5-10.1); CREATININE - SERUM 6.4 mg/dL (0.6-1.3)
[2019-04-16 06:35] LABS: ANION GAP 17.5 mmol/L (8-16); CARBON DIOXIDE 25.3 mmol/L (21.0-32.0); POTASSIUM - SERUM 4.8 mmol/L (3.5-5.1)
[2019-04-16 07:44] VITALS: BP 157/89
--- NOTE | 2019-04-16 08:26 | NUR ---
REPORT RECEIVED. WILL CONTINUE WITH POC. PT CURRENTLY SITTING ON EDGE OF BED. CALL LIGHT W/I REACH. RR EVEN AND UNLABORED ON RA. L.HAND PIV IS SALINE LOCKED. NO S/S OF DISTRESS NOTED. PT DENIES ANY NEEDS AT THIS TIME. WILL CTM.
[2019-04-16 11:41] VITALS: BP 174/99
--- NOTE | 2019-04-16 14:49 | NUR ---
I have reviewed this patient and I concur with the Shift Assessment completed by the Licensed Practical Nurse today this shift.
[2019-04-16 14:56] VITALS: BP 167/98
--- NOTE | 2019-04-16 16:23 | MORECARE ---
CASE MANAGEMENT DISCHARGE SUMMARY PATIENT: FELY SQUIRES UNIT: [id number] ADM DATE: 04/15/19 AGE: 53 : 65 SEX: F ROOM/BED: D.2105 AUTHOR: ERIKA,DOC PHYSICIAN: REFERRING PHYSICIAN: EMILIA HUI MD DATE OF SERVICE: 04/16/19 Discharge Plan Patient Name: FELY SQUIRES Facility: [facility]:[place] : 1965 Planned Disposition: Home Anticipated Discharge Date: 04/17/19 Discharge Date: Expected LOS: 2 Initial Reviewer: [email or web address] Initial Review Date: 04/16/2019 Generated: 04/16/19 5:23 pm DCPIA - Discharge Planning Initial Assessment Updated by [email or web address]: Costa Cordova on 04/16/19 4:23 pm * Is the patient Alert and Oriented? Yes * How many steps to enter\exit or inside your home? NONE * PCP DR. WYNN * Pharmacy [facility] * Preadmission Environment Home with Family * ADLs Independent * Equipment None * Other Equipment NO MEDICAL EQUIPMENT PROVIDER PREFERENCE * List name and contact numbers for known caregivers / representatives who currently or will assist patient after discharge: YUSUF HYATT, IVANA MCDOWELL, , * Verbal permission to speak to the caregivers and representatives has been obtained from the patient. N/A * Community resources currently utilized Other * Please name any agencies selected above. [facility], [facility], MWF, 1130, PATIENT OR SISTER DRIVES * Additional services required to return to the preadmission environment? No * Can the patient safely return to the preadmission environment? Yes * Has this patient been hospitalized within the prior 30 days at any hospital? No Coverage Notice Reviewer: [id number] - Costa Cordova Notice Issued Date-Time: 04/16/2019 12:00 Notice Type: IM Discharge Notice Notice Delivered To: Patient Relationship to Patient: Decal Applier Name: Delivery Method: HAND - Hand Delivered Nicole Days: Prior Verbal Notification: Recipient Understood Notice: Yes Recipient Signature: Yes Med Rec Note Co-signed by Attending: Coverage Notice Comment: Patient Name: FELY SQUIRES Page 10021 at 1623 All edits/amendments must be made on the electronic document DICTATION DATE: 04/16/191622 OPERATIONS SCHEDULER: MARYAM 04/16/191622 RPT#: [id number] DC DATE: STATUS: ADM IN [facility] [address] [place] [address] END OF REPORT
--- NOTE | 2019-04-16 16:34 | MORECARE ---
CASE MANAGEMENT DISCHARGE SUMMARY PATIENT: FELY SQUIRES UNIT: [id number] ADM DATE: 04/15/19 AGE: 53 : 65 SEX: F ROOM/BED: D.9144 AUTHOR: ERIKA,DOC PHYSICIAN: REFERRING PHYSICIAN: EMILIA HUI MD DATE OF SERVICE: 04/16/19 Discharge Plan Patient Name: FELY SQUIRES Facility: [facility]:[place] : 1965 Planned Disposition: Home Anticipated Discharge Date: 04/17/19 Discharge Date: Expected LOS: 2 Initial Reviewer: [email or web address] Initial Review Date: 04/16/2019 Generated: 04/16/19 5:34 pm Comments DCP- Discharge Planning Updated by [id number]: Costa Cordova on 04/16/19 3:[address] Patient Name: FELY SQUIRES Admission Status: ER Accout number: [id number] Admission Date: 04-15-2019 : 1965 Admission Diagnosis: Attending: EMILIA HUI Current LOS: 1 Anticipated DC Date: 04-17-2019 Planned Disposition: Home Primary Insurance: MEDICARE A & B Discharge Planning Comments: CM MET WITH PT IN ROOM TO DISCUSS DISCHARGE PLANNING AND NEEDS. PT REPORTS LIVING AT HOME INDEPENDENTLY WITH HER SISTER. PT HAS NO MEDICAL EQUIPMENT AND NO OUTSIDE SERVICES ASSISTING IN THE HOME. CM DISCUSSED AVAILABILITY OF HOME HEALTH, REHAB SERVICES AND MEDICAL EQUIPMENT. PT DENIES DISCHARGE NEEDS, REPORTS HER FIANCE OR SISTER WILL PICK HER UP FOR DISCHARGE HOME. IMPORTANT MESSAGE FROM MEDICARE PROVIDED AND EXPLAINED. CM TO FOLLOW AND ASSIST NEEDED. Infection Control Manager: Costa Cordova DCPIA - Discharge Planning Initial Assessment Updated by [email or web address]: Costa Cordova on 04/16/19 4:23 pm * Is the patient Alert and Oriented? Yes * How many steps to enter\exit or inside your home? NONE * PCP DR. WYNN * Pharmacy [facility] * Preadmission Environment Home with Family * ADLs Independent * Equipment None * Other Equipment NO MEDICAL EQUIPMENT PROVIDER PREFERENCE * List name and contact numbers for known caregivers / representatives who currently or will assist patient after discharge: YUSUF HYTAT, IVANA MCDOWELL, SISTER, * Verbal permission to speak to the caregivers and representatives has been obtained from the patient. N/A * Community resources currently utilized Other * Please name any agencies selected above. [facility], [facility], MWF, 1130, PATIENT OR SISTER DRIVES * Additional services required to return to the preadmission environment? No * Can the patient safely return to the preadmission environment? Yes * Has this patient been hospitalized within the prior 30 days at any hospital? No Coverage Notice Reviewer: [email or web address] Ezio Cordova Notice Issued Date-Time: 04/16/2019 12:00 Notice Type: IM Discharge Notice Notice Delivered To: Patient Relationship to Patient: Nozzle Tender Name: Delivery Method: HAND - Hand Delivered Nicole Days: Prior Verbal Notification: Recipient Understood Notice: Yes Recipient Signature: Yes Med Rec Note Co-signed by Attending: Coverage Notice Comment: Last DP export: 04/16/19 3:23 p Patient Name: FELY SQUIRES Page 42247 at 1634 All edits/amendments must be made on the electronic document DICTATION DATE: 04/16/19 1634 GRAIN SACKER: MARYAM 04/16/19 1634 RPT#: [id number] DC DATE: STATUS: ADM IN [facility] [address] [place] [address] END OF REPORT
--- NOTE | 2019-04-16 19:20 | NUR ---
ASSISTED PT WITH TV AND COMFORT BED IS LOW AND LOCKED PT IS NOW UP AND AMBLITORY AROUND FLOOR
[2019-04-16 20:00] VITALS: BP 164/80
[2019-04-17] VITALS: BP 181/100
--- NOTE | 2019-04-17 01:44 | NUR ---
I have reviewed this patient and I concur with the Shift Assessment completed by the Licensed Practical Nurse today this shift.
[2019-04-17 04:00] VITALS: BP 143/88
[2019-04-17 06:31] LABS: BASOPHILS 0 % (0-2); EOSINOPHILS 0 % (0-7); HEMOGLOBIN 8.5 g/dL (12-16); IMMATURE GRANULOCYTES 0.5 % (0-5); LYMPHOCYTES 3.9 % (15-50); MCH 28.9 pg (26.0-34.0); MCHC 30.4 g/dL (31.0-37.0); MCV 95.2 fL (80.0-100.0); MEAN PLATELET VOLUME 10.4 fL (7.4-10.4); MONOCYTES 5.2 % (2-11); NEUTROPHILS 90.4 % (40-80); PLATELET COUNT 183 10x3/uL (130-400); RBC 2.94 10x6/uL (4.00-5.40); RDW 17.6 % (11.5-14.5)
[2019-04-17 06:36] LABS: WBC 6.5 10x3/uL (4.8-10.8)
[2019-04-17 06:56] LABS: ANION GAP 21.7 mmol/L (8-16); CALCIUM 7.7 mg/dL (8.5-10.1); CREATININE - SERUM 7.8 mg/dL (0.6-1.3)
[2019-04-17 06:57] LABS: POTASSIUM - SERUM 5.7 mmol/L (3.5-5.1)
[2019-04-17 09:01] VITALS: BP 117/85
[2019-04-17 12:49] VITALS: BP 159/98
--- NOTE | 2019-04-17 13:05 | NUR ---
PT TAKEN TO DIALYSIS VIA WC.
--- NOTE | 2019-04-17 16:55 | NUR ---
PT REFUSED TO WAIT FOR WC AND WALKED TO ROOM FROM DIALYSIS.
--- NOTE | 2019-04-17 19:45 | NUR ---
SITTING UP ON SIDE OF BED. ALERT AND ORIENTED X4. RESP NONLABORED. O2 @ 3L/NC. REPORTS PROD COUGH WITH BROWN SPUTUM. NO EDEMA NOTED. ABD IS DISTENDED AND FIRM. REPORTS LAST BM TODAY. REPORTS ABD PAIN 9 ON PAIN SCALE. MEDICATED WITH NORCO PRIOR TO SHIFT CHANGE. TELEMETRY SHOWS SR WITH RATE OF 92. SKIN IS DRY,SCALY. SALINE LOCK NOTED TO LT WRIST. RESERVE RT ARM WITH AV FISTULA. AMBULATORY. NO DISTRESS. CL IN REACH. REQUESTING SNACK.
[2019-04-17 20:00] VITALS: BP 130/78
--- NOTE | 2019-04-17 21:45 | NUR ---
MEDICATED WITH BENADRYL AND NORCO FOR C/O ABD PAIN. CL IN REACH.
--- NOTE | 2019-04-17 23:30 | NUR ---
STATES NOSE IS BLEEDING FROM O2. SPOKE WITH RT AND REQUESTED HUMIDITY FOR O2. SMALL AMOUNT OF BLOOD NOTED ON SHEET.
[2019-04-18] VITALS: BP 141/91
--- NOTE | 2019-04-18 01:50 | NUR ---
MEDICATED WITH NORCO AND BENADRYL FOR C/O ABD PAIN. SITTING UP ON SIDE OF BED. REQUESTED SNACK. CL IN REACH.
[2019-04-18 04:00] VITALS: BP 138/86
--- NOTE | 2019-04-18 04:00 | NUR ---
RESTING WITH EYES CLOSED. RESP EVEN AND NONLABORED. O2 IN USE. NO DISTRESS. CL IN REACH.
[2019-04-18 05:38] LABS: BASOPHILS 0 % (0-2); EOSINOPHILS 0 % (0-7); HEMATOCRIT 28.4 % (36.0-48.0); HEMOGLOBIN 8.7 g/dL (12-16); IMMATURE GRANULOCYTES 0.3 % (0-5); LYMPHOCYTES 3.3 % (15-50); MCH 29.4 pg (26.0-34.0); MCHC 30.6 g/dL (31.0-37.0); MCV 95.9 fL (80.0-100.0); MONOCYTES 4.3 % (2-11); NEUTROPHILS 92.1 % (40-80); PLATELET COUNT 177 10x3/uL (130-400); RBC 2.96 10x6/uL (4.00-5.40); RDW 17.3 % (11.5-14.5); WBC 7.3 10x3/uL (4.8-10.8)
--- NOTE | 2019-04-18 06:00 | NUR ---
MEDICATED WITH NORCO AND BENADRYL FOR C/O ABD PAIN RATING 8 ON PAIN SCALE. CL IN REACH.
[2019-04-18 06:04] LABS: ANION GAP 20.1 mmol/L (8-16); CALCIUM 7.6 mg/dL (8.5-10.1); CREATININE - SERUM 6.8 mg/dL (0.6-1.3)
[2019-04-18 06:33] LABS: POTASSIUM - SERUM 6.1 mmol/L (3.5-5.1)
--- NOTE | 2019-04-18 07:47 | NUR ---
A/A/OX4. SITTING UP ON SIDE OF BED WITH NO COMPLAINTS OR REQUESTS VOICED. SALINE LOCK PATENT TO LEFT WRIST WITH NO REDNESS OR EDEMA AT SITE. ASSESSMENT COMPLETED AND WILL CONTINUE POC. PT IS UP AND ABOUT AD EVAN WITH NO FALL RISKS NOTIFIED.
[2019-04-18 08:29] VITALS: BP 151/84
--- NOTE | 2019-04-18 12:17 | NUR ---
I have reviewed this patient and I concur with the Shift Assessment completed by the Licensed Practical Nurse today this shift.
--- NOTE | 2019-04-18 13:03 | NUR ---
Nutrition Follow-up: Pt sleeping upon entering room and did not awaken to name being called. Chart reviewed. HD yesterday. Noted abd pain. MD spoke to pt about outside food. Diet: Renal PO intake: 55% avg x 5 meals Wt: 147# Last BM: 04/17 Labs noted: Na 131, K+ 6.1, Ca 7.6, Glu 112 Meds noted: Renagel, Solumedrol -Continue current diet as tolerated. -Offer Nepro with meals. -RD following.
[2019-04-18 18:28] VITALS: BP 143/81
--- NOTE | 2019-04-18 19:05 | NUR ---
BEDSIDE REPORT COMPLETE, WILL CONTINUE POC. PATIENT IS LYING ON LEFT SIDE WITH EYES CLOSED. NO S/S OF DISTRESS OBSERVED, RR EVEN AND UNLABORED ON 3L O2 VIA NC. PATIENT DENIES NEEDS AT THIS TIME. CL IN REACH, BED LOCKED AND LOWERED. WILL CTM.
[2019-04-18 20:00] VITALS: BP 136/82
--- NOTE | 2019-04-18 21:00 | NUR ---
PT C/O BACK PAIN, PRN PAIN MED ADMINISTERED ALONG WITH IV BENADRYL.
[2019-04-18 23:00] VITALS: BP 116/49
--- NOTE | 2019-04-19 01:50 | NUR ---
MEDICATED PATIENT WITH NORCO AND BENADRYL FOR C/O ABD AND BACK PAIN.
--- NOTE | 2019-04-19 01:50 | NUR ---
I have reviewed this patient and I concur with the Shift Assessment completed by the Licensed Practical Nurse today this shift.
[2019-04-19 04:00] VITALS: BP 130/90
--- NOTE | 2019-04-19 05:49 | NUR ---
MEDICATED PATIENT FOR C/O PAIN WITH NORCO AND BENADRYL
--- NOTE | 2019-04-19 07:29 | NUR ---
REPORT RECIEVED. PT SITTING UP IN BED. RR EVEN ON 3L NC. SHES A RESERVE R ARM FOR A FISTULA IN THE LOWER ARM. SHE HAS A L WRIST PIV THAT IS SL. BED LOCKED AND IN LOWEST POSITION, CALL LIGHT WITHIN REACH. WILL CTM
[2019-04-19 08:41] LABS: BASOPHILS 0 % (0-2); EOSINOPHILS 0 % (0-7); HEMATOCRIT 30.3 % (36.0-48.0); HEMOGLOBIN 9.2 g/dL (12-16); IMMATURE GRANULOCYTES 1.2 % (0-5); LYMPHOCYTES 11.2 % (15-50); MCH 29.4 pg (26.0-34.0); MCHC 30.4 g/dL (31.0-37.0); MCV 96.8 fL (80.0-100.0); MEAN PLATELET VOLUME 11.4 fL (7.4-10.4); MONOCYTES 13.8 % (2-11); NEUTROPHILS 73.8 % (40-80); PLATELET COUNT 194 10x3/uL (130-400); RBC 3.13 10x6/uL (4.00-5.40); RDW 17.7 % (11.5-14.5); WBC 8.3 10x3/uL (4.8-10.8)
[2019-04-19 08:51] LABS: % SATURATION 27 % (15-55); IRON 62 ug/dl (35-150); TOTAL IRON BIND CAPACITY 228 ug/dl (260-445); UNSAT IRON BIND CAPACITY 166 ug/dl (150-375)
[2019-04-19 09:00] VITALS: BP 144/90
[2019-04-19 09:05] LABS: ANION GAP 13.6 mmol/L (8-16); CALCIUM 9.3 mg/dL (8.5-10.1); CARBON DIOXIDE 28.4 mmol/L (21.0-32.0); CREATININE - SERUM 6.1 mg/dL (0.6-1.3)
[2019-04-19] MEDS ORDERED: MEDROL DOSE PACK4 MG PO (12:22)
--- NOTE | 2019-04-19 12:35 | NUR ---
PATIENT STATES THAT SHE RECEIVED A FLU SHOT IN DIALYSIS YESTERDAY.
[2019-04-19 13:53] VITALS: BP 152/95
--- NOTE | 2019-04-19 16:21 | MORECARE ---
CASE MANAGEMENT DISCHARGE SUMMARY PATIENT: FELY SQUIRES UNIT: [id number] ADM DATE: 04/15/19 AGE: 53 : 65 SEX: F ROOM/BED: D.5439 AUTHOR: ERIKA,DOC PHYSICIAN: REFERRING PHYSICIAN: EMILIA HUI MD DATE OF SERVICE: 04/19/19 Discharge Plan Patient Name: FELY SQUIRES Facility: [facility]:[place] : 1965 Planned Disposition: Home Anticipated Discharge Date: 04/19/19 Discharge Date: Expected LOS: 4 Initial Reviewer: [email or web address] Initial Review Date: 04/16/2019 Generated: 04/19/19 5:20 pm Comments DCP- Discharge Planning Updated by [email or web address]: Costa Cordova on 04/19/19 3:[address] Patient Name: FELY SQUIRES Encounter No: [id number] : 1965 Primary Insurance: MEDICARE A & B Anticipated DC Date: 04-17-2019 Planned Disposition: Home DCP follow-up note: CM MET WITH PT IN ROOM TO DISCUSS DISCHARGE NEEDS AND PLANNING. CM DISCUSSED AVAILABILITY OF HOME HEALTH, REHAB SERVICES AND MEDICAL EQUIPMENT. PT DENIES DISCHARGE NEEDS. FAMILY TO TRANSPORT HOME AT DISCHARGE. IMPORTANT MESSAGE FROM MEDICARE PROVIDED AND EXPLAINED. PUNEET Jenkins DCP- Discharge Planning Updated by [email or web address]: Costa Cordova on 04/16/19 3:[address] Patient Name: FELY SQUIRES Admission Status: ER Accout number: [id number] Admission Date: 04-15-2019 : 1965 Admission Diagnosis: Attending: EMILIA HUI Current LOS: 1 Anticipated DC Date: 04-17-2019 Planned Disposition: Home Primary Insurance: MEDICARE A & B Discharge Planning Comments: CM MET WITH PT IN ROOM TO DISCUSS DISCHARGE PLANNING AND NEEDS. PT REPORTS LIVING AT HOME INDEPENDENTLY WITH HER SISTER. PT HAS NO MEDICAL EQUIPMENT AND NO OUTSIDE SERVICES ASSISTING IN THE HOME. CM DISCUSSED AVAILABILITY OF HOME HEALTH, REHAB SERVICES AND MEDICAL EQUIPMENT. PT DENIES DISCHARGE NEEDS, REPORTS HER FIANCE OR SISTER WILL PICK HER UP FOR DISCHARGE HOME. IMPORTANT MESSAGE FROM MEDICARE PROVIDED AND EXPLAINED. CM TO FOLLOW AND ASSIST NEEDED. Metal Furrer: Costa Tasha DCPIA - Discharge Planning Initial Assessment Updated by [email or web address]: Costa Cordova on 04/16/19 4:23 pm * Is the patient Alert and Oriented? Yes * How many steps to enter\exit or inside your home? NONE * PCP DR. WYNN * Pharmacy [facility] * Preadmission Environment Home with Family * ADLs Independent * Equipment None * Other Equipment NO MEDICAL EQUIPMENT PROVIDER PREFERENCE * List name and contact numbers for known caregivers / representatives who currently or will assist patient after discharge: YUSUF HYATT, IVANA MCDOWELL, , * Verbal permission to speak to the caregivers and representatives has been obtained from the patient. N/A * Community resources currently utilized Other * Please name any agencies selected above. [facility], [facility], MWF, 1130, PATIENT OR SISTER DRIVES * Additional services required to return to the preadmission environment? No * Can the patient safely return to the preadmission environment? Yes * Has this patient been hospitalized within the prior 30 days at any hospital? No Coverage Notice Reviewer: [id number] Cordova Notice Issued Date-Time: 04/16/2019 12:00 Notice Type: IM Discharge Notice Notice Delivered To: Patient Relationship to Patient: Chimney Builder Name: Delivery Method: HAND - Hand Delivered Nicole Days: Prior Verbal Notification: Recipient Understood Notice: Yes Recipient Signature: Yes Med Rec Note Co-signed by Attending: Coverage Notice Comment: Reviewer: [email or web address] Cordova Notice Issued Date-Time: 04/19/2019 12:40 Notice Type: IM Discharge Notice Notice Delivered To: Patient Relationship to Patient: Chimney Builder Name: Delivery Method: HAND - Hand Delivered Nicole Days: Prior Verbal Notification: Recipient Understood Notice: Yes Recipient Signature: Yes Med Rec Note Co-signed by Attending: Coverage Notice Comment: Last DP export: 04/16/19 3:34 p Patient Name: FELY SQUIRES Page [id number] at 1621 All edits/amendments must be made on the electronic document DICTATION DATE: 04/19/191619 PACKING MACHINE TENDER: MARYAM 04/19/19 162 RPT#: [id number] DC DATE: STATUS: ADM IN [facility] [address] [facility] [place] [address] END OF REPORT
--- NOTE | 2019-04-19 19:10 | NUR ---
WRITTEN REPORT RECEIVED. WROTE NAME ON BOARD, PT OUT OF ROOM TO DIALYSIS.
--- NOTE | 2019-04-19 20:04 | NUR ---
PT BACK TO ROOM FROM DIALYSIS VIA WHEELCHAIR.
--- NOTE | 2019-04-19 20:26 | NUR ---
MEDICATIONS, FOLLOW-UP APPOINTMENTS, AND DISCHARGE PAPERWORK REVIEWED WITH AND GIVEN TO PT, VERBALIZES UNDERSTANDING AND SIGNED CHART COPY, PLACED IN CHART. PIV REMOVED, CATHETER TIP INTACT, NO S/S OF BLEEDING NOTED, PT TOLERATED WELL. DENIES ANY FURTHER NEEDS OR QUESTIONS AT THIS TIME. TRANSFERED VIA WHEELCHAIR TO CAR WITH FAMILY.
--- NOTE | 2019-04-20 15:48 | MORECARE ---
CASE MANAGEMENT DISCHARGE SUMMARY PATIENT: FELY SQUIRES UNIT: [id number] ADM DATE: 04/15/19 AGE: 53 : 65 SEX: F ROOM/BED: D.4680 AUTHOR: ERIKA,DOC PHYSICIAN: REFERRING PHYSICIAN: EMILIA HUI MD DATE OF SERVICE: 04/20/19 Discharge Plan Patient Name: FELY SQUIRES Facility: [facility]:[place] : 1965 Planned Disposition: Home Anticipated Discharge Date: 04/19/19 Discharge Date: 04/19/2019 Expected LOS: 4 Initial Reviewer: [id number] Initial Review Date: 04/16/2019 Generated: 04/20/19 4:48 pm Comments DCP- Discharge Planning Updated by [email or web address]: Costa Cordova on 04/19/19 3:[address] Patient Name: FELY SQUIRES Encounter No: [id number] : 1965 Primary Insurance: MEDICARE A & B Anticipated DC Date: 04-17-2019 Planned Disposition: Home DCP follow-up note: CM MET WITH PT IN ROOM TO DISCUSS DISCHARGE NEEDS AND PLANNING. CM DISCUSSED AVAILABILITY OF HOME HEALTH, REHAB SERVICES AND MEDICAL EQUIPMENT. PT DENIES DISCHARGE NEEDS. FAMILY TO TRANSPORT HOME AT DISCHARGE. IMPORTANT MESSAGE FROM MEDICARE PROVIDED AND EXPLAINED. PUNEET Jenkins DCP- Discharge Planning Updated by [email or web address]: Costa Cordova on 04/16/19 3:[address] Patient Name: FELY SQUIRES Admission Status: ER Accout number: [id number] Admission Date: 04-15-2019 : 1965 Admission Diagnosis: Attending: EMILIA HUI Current LOS: 1 Anticipated DC Date: 04-17-2019 Planned Disposition: Home Primary Insurance: MEDICARE A & B Discharge Planning Comments: CM MET WITH PT IN ROOM TO DISCUSS DISCHARGE PLANNING AND NEEDS. PT REPORTS LIVING AT HOME INDEPENDENTLY WITH HER SISTER. PT HAS NO MEDICAL EQUIPMENT AND NO OUTSIDE SERVICES ASSISTING IN THE HOME. CM DISCUSSED AVAILABILITY OF HOME HEALTH, REHAB SERVICES AND MEDICAL EQUIPMENT. PT DENIES DISCHARGE NEEDS, REPORTS HER FIANCE OR SISTER WILL PICK HER UP FOR DISCHARGE HOME. IMPORTANT MESSAGE FROM MEDICARE PROVIDED AND EXPLAINED. CM TO FOLLOW AND ASSIST NEEDED. Steam Train Driver: Costa Cordova DCPIA - Discharge Planning Initial Assessment Updated by [email or web address]: Costa Cordova on 04/16/19 4:23 pm * Is the patient Alert and Oriented? Yes * How many steps to enter\exit or inside your home? NONE * PCP DR. WYNN * Pharmacy [facility] * Preadmission Environment Home with Family * ADLs Independent * Equipment None * Other Equipment NO MEDICAL EQUIPMENT PROVIDER PREFERENCE * List name and contact numbers for known caregivers / representatives who currently or will assist patient after discharge: YUSUF HYATT, IVANA MCDOWELL, SISTER, * Verbal permission to speak to the caregivers and representatives has been obtained from the patient. N/A * Community resources currently utilized Other * Please name any agencies selected above. [facility], [facility], MWF, [address]130, PATIENT OR SISTER DRIVES * Additional services required to return to the preadmission environment? No * Can the patient safely return to the preadmission environment? Yes * Has this patient been hospitalized within the prior 30 days at any hospital? No Coverage Notice Reviewer: [id number] Ezio Cordova Notice Issued Date-Time: 04/16/2019 12:00 Notice Type: IM Discharge Notice Notice Delivered To: Patient Relationship to Patient: Warehouse Checker Name: Delivery Method: HAND - Hand Delivered Nicole Days: Prior Verbal Notification: Recipient Understood Notice: Yes Recipient Signature: Yes Med Rec Note Co-signed by Attending: Coverage Notice Comment: Reviewer: [email or web address] Cordova Notice Issued Date-Time: 04/19/2019 12:40 Notice Type: IM Discharge Notice Notice Delivered To: Patient Relationship to Patient: Warehouse Checker Name: Delivery Method: HAND - Hand Delivered Nicole Days: Prior Verbal Notification: Recipient Understood Notice: Yes Recipient Signature: Yes Med Rec Note Co-signed by Attending: Coverage Notice Comment: Last DP export: 04/19/19 3:21 p Patient Name: FELY SQUIRES Page [id number] at 1548 All edits/amendments must be made on the electronic document DICTATION DATE: 04/20/19 1548 MEAT COUNTER WORKER: MARYAM 04/20/19 1548 RPT#: [id number] [place] DATE:04/19/19 STATUS: DIS IN [facility] [address] [facility] [place] [address] END OF REPORT
== END 2019-04-19 20:32 | disposition home or self-care (01) | DRG 291 ==
LOC: D.ER 01:22 → D.M2 03:15
PROVIDERS: Family Medicine; Internal Medicine Nephrology; ADMIT Internal Medicine; ATTEND Internal Medicine
PROC: 5A1D70Z Performance of Urinary Filtration, Intermittent, Less than 6 Hours Per Day (ICD-10-PCS; principal; 2019-04-15)
DX: I13.2 Hypertensive heart and chronic kidney disease with heart failure and with stage 5 chronic kidney disease, or end stage renal disease (principal); N18.6 End stage renal disease; I50.43 Acute on chronic combined systolic (congestive) and diastolic (congestive) heart failure; R10.84 Generalized abdominal pain; D63.1 Anemia in chronic kidney disease; I25.10 Atherosclerotic heart disease of native coronary artery without angina pectoris; J44.9 Chronic obstructive pulmonary disease, unspecified; Z99.2 Dependence on renal dialysis

== ENCOUNTER 2019-04-29 15:40 | Inpatient (IN) | payer MEDICARE ==
[~2019-04-29] VITALS: Ht 175.3 cm; Wt 71.1 kg
--- NOTE | ~2019-04-29 | HEMODYNAMI ---
PATIENT:FELY SQUIRES MEDICAL RECORD: [id number] : 65 LOCATION:[facility] D.2116 [facility]# [id number] ADMISSION DATE: 04/29/19 Generatedon:05/02/201914:57 Patient name: FELY SQUIRES Patient #: [id number] SSN: [id number] : 1965 Date of study: 05/02/2019 Page: Of Hemodynamic Procedure Report Patient Data Patient Demographics Procedure consent was obtained First Name: FELY Gender: Female Last Name: TAVIA : 1965 Middle Initial: A Age: 53 year(s) Patient #: [id number] Race: Black SSN: [id number] Additional ID: [id number] Contact details [address]: [address] [place] [address] State: [place] City: [place] Zip code: [address] Past Medical History Allergies Allergen Reaction Date Comments Reported Morphine 03/09/2018 Other allergy 05/02/2019 acetaminophen, morphine,hydrocodone Admission Admission Data Admission Date: 04/29/2019 Admission Time: 18:47 Arrival Date: 05/02/2019 Arrival Time: 0:00 Admit Source: Other Insurance Payor: Medicare, Room #: D.2116 Medicaid HIC #: [id number] Height (in.): 68.9 BSA: 1.73 (m2) Height (cm.): 175 BMI: 19.59 (kg/m2) Weight (lbs.): 132.28 Weight (kg.): 60 Lab Results Lab Result Date: 05/02/2019 Lab Result Time: 0:00 Biochemistry Name Units Result Min Max BUN mg/dl 45 --(----)-* 7 18 Creatinine mg/dl 6.5 --(----)-* 0.6 1.3 eGFR ml/min 9 *-(----)-- 90 120 AM CBC Name Units Result Min Max Hemoglobin g/dl 9.4 *-(----)-- 13.5 17.5 Procedure Procedure Types Cath Procedure Diagnostic Procedure [facility] w/Coronaries Sedation Charges Moderate Sedation up to 15 minutes Procedure Description Procedure Date Procedure Date: 05/02/2019 Procedure Start Time: 14:46 Procedure End Time: 14:55 Procedure Staff Name Function Manuel Montano MD Performing Physician Amanda Verde RT Monitor Ivette Rios RN Nurse Patricia Frausto RT Scrub Indication Chest pain Procedure Data Cath Procedure Fluoroscopy Diagnostic fluoroscopy Total fluoroscopy Time: 1.3 time: 1.3 min min Diagnostic fluoroscopy Total fluoroscopy dose: 554 dose: 554 mGy mGy Contrast Material Contrast Material Type Amount (ml) Isovue 300 67 Entry Location Entry Primary Successful Side Size Upsize Upsize Entry Closure Succes sful Closure Location (Fr) 1 (Fr) 2 (Fr) Remarks Device Remarks Femoral Right 5 Fr Exoseal artery Estimated blood loss: 10 ml Diagnostic catheters Device Type Used For End Catheter Placement MULTIPACK JL 4.0 5Fr Procedure catheter MULTIPACK 3DRC 5Fr Procedure catheter MULTIPACK Pigtail 5 Fr Aortic Root catheter Angiography Procedure Complications No complications Procedure Medications Medication Administration Route Dosage 0.9% NaCl I.V. 100 ml/hr Oxygen etCO2 Nasal cannula 3 l/min Lidocaine 2% added to field 20 Heparin Flush Bag added to field 2 bags (1000units/500ml NS) Versed I.V. 2 mg Fentanyl I.V. 100 mcg Hemodynamics Rest BSA: 1.73 (m2) HGB: 9.4 (g/dl) O2 Consumption: Estimated: 168.67 (ml/min) O2 Con sumption indexed: Estimated:97.5 (ml/min/m) Heart Rate: 72 (bpm) Snapshots Pre Cath Intra NCS Post Cath Vital Signs Time Heart Resp SPO2 etCO2 NIBP Rhythm Pain Sedation Rate (ipm) (%) (mmHg) (mmHg) Status Level (bpm) 14:38:05 73 14 100 37.5 92/60(75) NSR 0 (11) 10(A) , No pain 14:42:07 80 11 100 30 88/65(85) NSR 0 (11) 10(A) , No pain 14:46:09 72 12 97 20.2 92/56(88) NSR 0 (11) 10(A) , No pain 14:50:06 72 16 97 36.7 99/73(89) NSR 0 (11) 10(A) , No pain 14:54:06 72 16 98 38.2 95/69(88) NSR 0 (11) 10(A) , No pain Medications Time Medication Route Dose Verified Delivered Reason Notes Eff ectiveness by by 14:37:18 0.9% NaCl I.V. 100 Manuel Ivette used for ml/hr [facility] Rios procedure MD HADDAD 14:37:27 Oxygen etCO2 3 Manuel Ivette used for Nasal l/min Crimora Gabriel procedure cannula MD HADDAD 14:37:31 Lidocaine 2% added 20ml Manuel Jackson for local to vial [facility] anesthetic field MD FRENCH 14:37:36 Heparin Flush added 2 Manuel Manuel used for Bag to bags [facility] procedure (1000units/500ml field MD FRENCH NS) 14:40:54 Fentanyl I.V. 100 Manuel Ivette for mcg [facility] Rios sedation MD HADDAD 14:40:59 Versed I.V. 2 mg Manuel Sigalayla for Charmaine Gabriel sedation MD HADDADdirector of managed services Log Time Note 14:15:42 Admit Source: Other 14:16:17 Arrival Date: 05/02/2019 12:00:00 AM 14:16:24 Insurance Payor : Medicare, Medicaid 14:16:44 Patient Height : 68.9 inches 14:16:47 Patient Weight : 132.28 lbs 14:17:43 Lab Result : eGFR AM 9 ml/min 14:17:43 Lab Result : Hemoglobin 9.4 g/dl 14:17:43 Lab Result : BUN 45 mg/dl 14:17:43 Lab Result : Creatinine 6.5 mg/dl 14:17:52 Diagnostic Cath Status : Urgent 14:18:38 Indication : Chest pain 14:18:52 Procedure Status Urgent Heart Cath (IP). 14:18:54 Ivette Rios RN sent for patient. Start room use. 14:18:56 Time tracking: Regular hours (M-F 7:00 - 5:00) 14:19:00 Plan of Care:Hemodynamics will remain stable., Cardiac rhythm will remain stable., Comfort level will be maintained., Respiratory function will remain adequate., Patient/ family verbilizes understanding of procedure., Procedure tolerated without complication., Recovers from procedure without complications.. 14:19:08 Patient received from Med II to CCL 2 Alert and oriented. Tansferred to table in Supine position. 14:19:24 5) <15 or on dialysis Very severe, or end stage kidney failure. 14:19:46 Maximum allowable contrast dose (3.7 X eGFR X 0.75)19 ml. 14:34:03 Signed procedure consent form obtained from patient. 14:34:04 Warm blankets applied, and nikunj hugger turned on for patient comfort. 14:34:05 Correct patient and procedure confirmed by team. 14:34:05 ECG and BP/O2 sat monitors applied to patient. 14:34:06 Vital chart was started 14:34:09 Baseline sample Acquired. 14:34:12 Rhythm: sinus rhythm 14:34:13 Full Disclosure recording started 14:34:23 H&P Date Dictated: 04/30/2019 Within 30 days and on chart., H&P Addendum completed by physician on day of procedure. (MUST COMPLETE FOR ALL OUTPATIENTS). 14:34:24 Pre-procedure instructions explained to patient. 14:34:26 Family in patients room. 14:34:27 Patient NPO since Midnight. 14:34:57 Patient allergic to Other allergyacetaminophen, morphine,hydrocodone 14:35:02 Is the patient allergic to Iodine/contrast media? No. 14:35:03 Was the patient premedicated? Yes 14:35:05 Is patient on blood thinner?No 14:37:18 0.9% NaCl 100 ml/hr I.V. was administered by Ivette Rios RN; used for procedure; Verbal order read back and verified. 14:37:27 Oxygen 3 l/min etCO2 Nasal cannula was administered by Ivette Rios RN; used for procedure; Verbal order read back and verified. 14:37:31 Lidocaine 2% 20ml vial added to field was administered by Manuel Montano MD; for local anesthetic; Verbal order read back and verified. 14:37:36 Heparin Flush Bag (1000units/500ml NS) 2 bags added to field was administered by Manuel Montano MD; used for procedure; Verbal order read back and verified. 14:38:56 Patient diabetic? No. 14:39:00 Snore? No 14:39:01 Sleep apnea? No 14:39:08 Patient pain scale 0/10 ?. 14:39:17 IV patent on arrival in left forearm with 0.9% NaCl at [facility]. 14:39:22 Lab results completed and on chart. 14:39:39 Stress Test: no; N/A ? 14:39:44 Right groin area was prepped with chlora-prep and draped in sterile fashion 14:39:44 Alarms reviewed by RSheree N. 14:39:45 Sharps counted by scrub and verified by R.N. 14:39:46 Physician paged 14:39:47 Physician arrived 14:39:47 --------ALL STOP TIME OUT------ 14:40:54 Fentanyl 100 mcg I.V. was administered by Ivette Rios RN; for sedation; Verbal order read back and verified. 14:40:59 Versed 2 mg I.V. was administered by Ivette Rios RN; for sedation; Verbal order read back and verified. 14:45:45 Final Timeout: patient, procedure, and site verified with staff and physician. All members of the team are in agreement. 14:45:47 Right groin site verified by team. 14:45:50 Fire Safety Assessment: A--An alcohol-based skin anteseptic being used preoperatively., C--Open oxygen or nitrous oxide is being used., D--An ESU, laser, or fiber-optic light is being used. 14:45:54 Physical assessment completed. ASA score P 4 - A patient with severe systemic disease that is a constant threat to life as per Manuel Montano MD. 14:46:00 Sedation plan: IV Moderate Sedation Medication:Versed, Fentanyl 14:46:05 Use device set Femoral Dx 14:46:10 Procedure started. 14:46:21 Local anesthetic to right femoral artery with Lidocaine 2% by Manuel Montano MD.INITIAL ACCESS ONLY 14:46:37 A 5 Fr sheath was inserted into the Right Femoral artery 14:46:41 J wire advanced. 14:46:43 ACIST Syringe (23290) opened to sterile field. 14:46:43 Bag Decanter () opened to sterile field. 14:46:44 Medline Cath Pack ([id number]) opened to sterile field. 14:46:45 ACIST Hand Control (42094) opened to sterile field. 14:46:45 ACIST Manifold (88343) opened to sterile field. 14:46:46 DIAGNOSTIC Multipack 5Fr catheter set (IG3536) opened to sterile field. 14:46:46 Tegaderm 4 x 4 (1626W) opened to sterile field. 14:46:48 SHEATH 5FR Kemp (KLM980) opened to sterile field. 14:46:49 EMERALD Guide Wire (037-063) opened to sterile field. 14:47:04 A MULTIPACK JL 4.0 5Fr catheter was advanced over the wire and used for Procedure. 14:47:22 LCA angiography performed. 14:49:45 Catheter removed. 14:49:57 A MULTIPACK 3DRC 5Fr catheter was advanced over the wire and used for Procedure. 14:51:24 RCA angiography performed. 14:51:26 Catheter removed. 14:52:04 A MULTIPACK Pigtail 5 Fr catheter was advanced over the wire and used for Aortic Root Angiography. 14:52:06 Aortic Root visualized 14:52:40 Catheter removed. 14:53:07 EXOSEAL 5Fr (EX500) opened to sterile field. 14:53:34 Sheath removed intact; hemostasis achieved with Exoseal to the Right Femoral artery. 14:53:37 Procedure ended.(Physican Out) 14:53:53 Fluoroscopy time 01.30 minutes. 14:53:58 Flurop Dose total: 554 14:53:58 Fluoroscopy dose: 554 mGy 14:54:05 Dose Area Product 05904 mGy/cm. 14:54:08 Contrast amount:Isovue 300 67ml. 14:54:18 Maximum allowable dose exceeded? Yes. 14:54:24 Sharps counted by scrub and verified by R.N. 14:54:25 Insertion/operative site no bleeding no hematoma. 14:54:28 Post-op/insertion site Right Femoral artery dressed using a 4 x 4 and Tegaderm. 14:54:29 Post Procedure Pulses reassessed and unchanged 14:54:34 Post-procedure physical assessment completed. ASA score P 3 - A patient with severe systemic disease as per Manuel Montano MD. 14:54:37 Post procedure rhythm: unchanged. 14:54:42 Estimated blood loss: 10 ml 14:54:43 Post procedure instruction explained to patient.Patient verbalizes understanding. 14:55:03 Procedure type changed to Cath procedure, Diagnostic procedure, LHC, LHC w/Coronaries, Sedation Charges, Moderate Sedation up to 15 minutes 14:55:05 Procedure and supply charges have been captured, reviewed, submitted and are correct. 14:55:25 Procedure Complication : No complications 14:55:29 Vital chart was stopped 14:55:33 [facility] Findings: mild to moderate CAD (<70%) 14:55:35 Operative report dictated upon procedure completion. 14:55:35 See physician's report for complete and final results. 14:55:38 Report given to [facility]. 14:55:42 Patient transfered to [facility] with Stretcher. 14:55:44 Procedure ended. 14:55:44 Full Disclosure recording stopped 14:55:49 End room use (Document Last) 14:56:29 End room use (Document Last) Device Usage Item Name Manufacture Quantity Catalog Hospital Part Current Minimal L ot# / Number Charge Number Stock Stock Serial# Code ACIST Acist 1 14609 611116 926688 142212 20 Syringe Medical (31395) Systems Inc Bag Microtek 1 902246 84312 794861 5 Decanter Medical Inc. () Medline Medline 1 [id number] 947235 61216 927808 5 Cath Pack ([id number]) ACIST Hand Acist 1 89012 672206 703402 775454 5 Control Medical (15993) Systems Inc ACIST Acist 1 62667 955272 074027 216817 5 Manifold Medical (46673) Systems Inc DIAGNOSTIC Cardinal 1 QR1727 282875 65084 650216 30 Multipack Health 5Fr catheter set (JM2724) Tegaderm 4 3M 1 1626W 216201 166323 408172 5 x 4 (1626W) SHEATH 5FR Terumo 1 DVB333 895494 221038 863476 5 Kemp (TZG617) EMERALD Cardinal 1 502-455 399228 919520 306382 5 Guide Wire Health (502-455) MULTIPACK Cardinal 1 492811 5 JL 4.0 5Fr Health catheter MULTIPACK Cardinal 1 933831 5 3DRC 5Fr Health catheter MULTIPACK Cardinal 1 858971 5 Pigtail 5 Health Fr catheter EXOSEAL 5Fr Cardinal 1 EX500 243202 298906 838431 10 (EX500) Health Signature Audit [place] Stage Time Signature Unsigned Intra-Procedure 05/02/2019 Amanda Verde 2:56:29 PM RT(R) Intra-Procedure 05/02/2019 Ivette Rios 2:57:03 PM RN Intra-Procedure 05/02/2019 Manuel Arguello 2:57:28 PM Ulices FRENCH Signatures Performing Physician : Signature : Manuel Montano MD Date : Time : Monitor : Amanda Verde Signature : RT Date : Time : Nurse : Ivette Rios RN Signature : Date : Time : [facility] [address] [place] [address]
[~2019-04-29 15:40] MED LIST changes: +MEDROL DOSE PACK4 MG PO
[2019-04-29 17:30] LABS: BASOPHILS 0.1 % (0-2); EOSINOPHILS 2.3 % (0-7); HEMATOCRIT 27.7 % (36.0-48.0); HEMOGLOBIN 8.5 g/dL (12-16); IMMATURE GRANULOCYTES 0.6 % (0-5); LYMPHOCYTES 8.3 % (15-50); MCH 29.6 pg (26.0-34.0); MCHC 30.7 g/dL (31.0-37.0); MCV 96.5 fL (80.0-100.0); MEAN PLATELET VOLUME 9.7 fL (7.4-10.4); MONOCYTES 12.1 % (2-11); NEUTROPHILS 76.6 % (40-80); PLATELET COUNT 176 10x3/uL (130-400); RBC 2.87 10x6/uL (4.00-5.40); RDW 19.9 % (11.5-14.5); WBC 8.5 10x3/uL (4.8-10.8)
[2019-04-29 17:37] LABS: APTT 36.9 SECONDS (22.8-39.4); INR 1.18 (0.85-1.17); PROTIME 14.5 SECONDS (11.6-15.0)
[2019-04-29 17:38] LABS: CALC OSMOLALITY 297 mosm/kg (275-300); CALCIUM 8.2 mg/dL (8.5-10.1); CARBON DIOXIDE 25.5 mmol/L (21.0-32.0); CHLORIDE - SERUM 103 mmol/L (98-107); CREATININE - SERUM 6.5 mg/dL (0.6-1.3); GLUCOSE 93 mg/dL (74-106); POTASSIUM - SERUM 4.2 mmol/L (3.5-5.1); SODIUM 143 mmol/L (136-145); UREA NITROGEN 50 mg/dL (7-18); eGFR NON AFRICAN AMERICAN 7 mL/min (90-120)
[2019-04-29 17:59] LABS: ALBUMIN 3.1 g/dL (3.4-5.0); ALKALINE PHOSPHATASE 442 U/L (46-116); ALT (SGPT) 23 U/L (10-68); CKMB 2.9 U/L (0.0-3.6); CREATINE KINASE 69 UL (21-215); MAGNESIUM - SERUM 1.7 mg/dL (1.8-2.4); PROTEIN - SERUM 8.4 g/dL (6.4-8.2)
[2019-04-29 18:03] LABS: TROPONIN-I 0.195 ng/mL (0.000-0.060)
[2019-04-29 20:35] VITALS: BP 159/88
[2019-04-29 22:25] VITALS: BP 159/88; BMI 19.6
--- NOTE | 2019-04-29 22:57 | NUR ---
RECIEVED REPORT FROM ER. ARRIVED TO ROOM IN W/C. TRANSFERED SELF TO BED. ALERT AND ORIENTED X4. UP AD EVAN. REQUESTED SOMETHING TO EAT. GAVE SANDWICH BOX. THEN REQUESTED SHANT CRACKERS SALTINE CRACKER AND PEANUT BUTTER. ALSO, MILK EXPLAIN SHE SHOULD'NT BE DRINKING MILK. STATED " I KNOW I DO IT ANYWAY". THEN REQUESTED 2 CRANBERRY JUICES AND 2 GLASSES OF ICE. C/O NAUSEA AND REQUESTED SOMETHING FOR NAUSEA AND HER MEDICATIONS. STATED SHE HAS NOT HAD HERE MEDICATIONS FOR 3 DAYS BECAUSE SHE WAS BABYSITTING AND LEFT THEM AT HOME. ASND WHEN SHE WENT HOME AND COULD'NT GET IN HER HOUSE TO GET HER MEDICINE. CALLED MD WITH NEW ORDER FOR [place] AND TO TELL HER THAT SHE WOULD BE HERE IN THE MORNING AND WOULD LOOK OVER HER MEDICATION AT THAT TIME. JACIELAN GIVEN THAN C/O WANTING SOMETHING TO MAKE HER SLEEP. EXPLAINED AGAIN THAT DOCTOR WOULD BE HERE IN THE MORNING AND SAID SHE WOULD LOOK OVER HER MEDS.
[2019-04-30 00:20] LABS: CKMB 2.8 U/L (0.0-3.6); CREATINE KINASE 75 UL (21-215)
[2019-04-30 00:22] LABS: TROPONIN-I 0.168 ng/mL (0.000-0.060)
[2019-04-30 00:49] VITALS: BP 106/66
--- NOTE | 2019-04-30 04:46 | NUR ---
REQUESTED ZOFRAN FOR NAUSEA.
[2019-04-30 05:38] VITALS: BP 117/79
[2019-04-30 05:51] LABS: BASOPHILS 0.1 % (0-2); EOSINOPHILS 2.3 % (0-7); HEMATOCRIT 25.8 % (36.0-48.0); HEMOGLOBIN 7.8 g/dL (12-16); IMMATURE GRANULOCYTES 0.6 % (0-5); LYMPHOCYTES 14.2 % (15-50); MCH 29.3 pg (26.0-34.0); MCHC 30.2 g/dL (31.0-37.0); MEAN PLATELET VOLUME 10.1 fL (7.4-10.4); MONOCYTES 8.9 % (2-11); NEUTROPHILS 73.9 % (40-80); PLATELET COUNT 169 10x3/uL (130-400); RBC 2.66 10x6/uL (4.00-5.40); RDW 19.8 % (11.5-14.5); WBC 8.1 10x3/uL (4.8-10.8)
[2019-04-30 06:29] LABS: CALC OSMOLALITY 296 mosm/kg (275-300); CALCIUM 8.2 mg/dL (8.5-10.1); CARBON DIOXIDE 24.6 mmol/L (21.0-32.0); CHLORIDE - SERUM 104 mmol/L (98-107); CKMB 2.5 U/L (0.0-3.6); CREATINE KINASE 64 UL (21-215); CREATININE - SERUM 7.2 mg/dL (0.6-1.3); GLUCOSE 94 mg/dL (74-106); POTASSIUM - SERUM 4.8 mmol/L (3.5-5.1); SODIUM 141 mmol/L (136-145); TROPONIN-I 0.155 ng/mL (0.000-0.060); UREA NITROGEN 57 mg/dL (7-18); eGFR NON AFRICAN AMERICAN 6 mL/min (90-120)
[2019-04-30 09:04] VITALS: BP 121/78
--- NOTE | 2019-04-30 09:22 | NUR ---
TELEMTRY SR. UP AMBULATING HALLWAY. GAIT STEADY. FLU SWAB COLLECTED. WILL MONITOR.
--- NOTE | 2019-04-30 10:33 | NUR ---
REGISTERED PUBLIC SURVEYOR STATES TO REMOVE NORCO AND TYLENOL FROM ALLERGY LIST. THAT SHE HAS TAKEN IT WITH BENADRYL AND ATARX WITHOUT ANY PROBLEMS.
[2019-04-30 12:25] VITALS: BP 117/81
[2019-04-30 12:38] LABS: CKMB 2.4 U/L (0.0-3.6); CREATINE KINASE 63 UL (21-215)
[2019-04-30 12:39] LABS: TROPONIN-I 0.115 ng/mL (0.000-0.060)
--- NOTE | 2019-04-30 13:12 | NUR ---
CONSENTS SIGNED FOR BLOOD TO BE GIVEN ON DIALYSIS [facility] PER YESIKA ANGLIN WITH RENAL.
--- NOTE | 2019-04-30 14:43 | CN ---
PATIENT NAME:FELY SQUIRES MEDICAL RECORD: [id number] : 65 LOCATION:D. D.2116 ADMIT DATE: 04/29/19 ACCOUNT: [id number] CONSULTING PHYSICIAN: PADDY ROSS MD REFERRING PHYSICIAN: SHAKIR COWAN DO DATE OF CONSULTATION: 04/30/2019 HISTORY OF PRESENT ILLNESS: A 53-year-old female with a history of chronic renal insufficiency, known history of coronary artery disease as well as cardiomyopathy, admitted with chest pressure and tightness as well as fever, on Coumadin for the past 2 days. Associated symptoms include dyspnea and nausea. We are asked to see her concerning her cardiovascular status. PAST MEDICAL HISTORY: Includes: 1. History of chronic renal insufficiency. 2. Hypertension. 3. Coronary artery disease as described above. 4. Dyslipidemia. ALLERGIES: INCLUDE MORPHINE, HYDROCODONE AND TYLENOL. MEDICATIONS: Include albuterol 2 puffs q.6 hours p.r.n., atorvastatin 40 every day, metoprolol 12.5 b.i.d., Zoloft 25 every day, tramadol 50 q.4 p.r.n., trazodone 50 q.h.s. SOCIAL HISTORY: Smokes about a pack a day, nondrinker. Easily takes care of all her ADLs. Works intermittently at the [email or web address]. No set exercise program. REVIEW OF SYSTEMS: The patient reports easy bruising but reports no swollen glands. The patient reports no fever, no night sweats, no significant weight gain, no significant weight loss. No significant exercise tolerance. The patient reports no dry eyes, no irritation, no vision change. Patient reports no difficulty hearing and no ear pain. Patient reports no frequent nose bleeds or nose and sinus problems. Patient reports on arm pain on exertion. No shortness of breath while lying down. No history of heart murmur. Patient reports no cough, no wheezing or coughing up blood. Patient reports no abdominal pain, no vomiting. Normal appetite. No diarrhea and not vomiting blood. No nausea and no constipation. Patient reports no incontinence. No difficulty urinating. No hematuria. No increased frequency. Patient reports no muscle aches. No weakness, no arthralgias, no back pain. No swelling of the extremities. Patient reports no abnormal mole, no jaundice, no rashes. Reports no loss of consciousness. No weakness and no numbness. No seizures, dizziness, or headaches. The patient reports no depression, no sleep disturbance, feeling safe in a relationship and no alcohol abuse. Patient reports on fatigue. Reports no runny nose or sinus pressure. No itching, no hives, and no frequent sneezing. PHYSICAL EXAMINATION: GENERAL: Pleasant female in no acute distress. Looks chronically ill. VITAL SIGNS: Blood pressure 117/79, pulse 86 and regular. HEENT: Normocephalic, atraumatic. NECK: No JVD or bruit. HEART: Regular. LUNGS: Good air excursion. ABDOMEN: Soft, nontender. CONSULT REPORT [id number] FELY SQUIRES EXTREMITIES: Pulses decreased. There is no edema. IMPRESSION: NSTEMI, acute coronary syndrome. No history of disease. Given her recent attempt, etc., I am not sure if this some type of viral strain pattern. We will plan for diagnostic angiography in the next 24-48 hours. Further recommendations based on the above. TRANSINT:[id number] Voice Confirmation ID: [id number] DOCUMENT ID: [id number] PADDY ROSS MD at 1443 CC: [id number] DICTATION DATE: 04/30/19 0847 CLINICAL RESEARCH COORDINATOR: 04/30/19 1026 ADM IN [place] [id number] [place] [address]
[2019-04-30 15:46] VITALS: BMI 19.6
[2019-04-30 16:17] VITALS: BP 121/83
--- NOTE | 2019-04-30 19:50 | NUR ---
RECEIVED BEDSIDE REPORT. PATIENT IS ALERT AND ORIENTED. RESPIRATIONS ARE EVEN AND UNLABORED. NO S/S OF DISTRESS. NO C/O PAIN. CALL LIGHT WITHIN REACH. WILL CPOC.
[2019-04-30 20:30] VITALS: BP 129/77
[2019-05-01 00:31] VITALS: BP 122/72
--- NOTE | 2019-05-01 01:04 | NUR ---
UNABLE TO GET A URINE SAMPLE. ACCORDING TO PATIENT SHE NO LONGER PRODUCES URINE.
[2019-05-01 04:31] VITALS: BP 112/69
--- NOTE | 2019-05-01 07:58 | NUR ---
ANURIC, REFUSES URINE SAMPLE.
[2019-05-01 08:00] VITALS: BP 141/81
[2019-05-01 12:00] VITALS: BP 100/70
--- NOTE | 2019-05-01 13:48 | MORECARE ---
CASE MANAGEMENT DISCHARGE SUMMARY PATIENT: FELY SQUIRES UNIT: [id number] ADM DATE: 04/29/19 AGE: 53 : 65 SEX: F ROOM/BED: D.9426 AUTHOR: ALEXANDRA JAMES PHYSICIAN: REFERRING PHYSICIAN: SHAKIR COWAN DO DATE OF SERVICE: 05/01/19 Discharge Plan Patient Name: FELY SQUIRES Facility: [facility]:[place] : 1965 Planned Disposition: Home Anticipated Discharge Date: 05/03/19 Discharge Date: Expected LOS: 4 Initial Reviewer: [email or web address] Initial Review Date: 04/29/2019 Generated: 05/01/19 2:48 pm Comments DCP- Discharge Planning Updated by [email or web address]: Sandy Blair on 05/01/19 12:[address] DC PLAN: Return home with her sister. ANTICIPATED DC NEEDS: Provided meals on wheels info to patient. CM met with patient to complete initial dc planning assessment. CM educated patient on the CM role and verbal consent given by patient to complete assessment. CM verified patient's address, phone number, and emergency contact phone numbers. Patient lives at home with her sister. At discharge patient plans to return home and feels this is a safe discharge. She goes to hemodialysis on [facility]. She reports she drives herself to and from HD without difficulty. CM discussed availability of home health, rehab services, and medical equipment. She asked about meals on wheels. CM provided her a handout with the contact number for questions and to see if she qualifies. Patient denied further known discharge needs at this time. Patient reports her brother will transport her home at time of discharge. CM will continue to follow and will assist as needed with dc plans/needs. Sandy Blair RN, [facility] DCPIA - Discharge Planning Initial Assessment Updated by [email or web address]: Sandy Blair on 05/01/19 1:42 pm * Is the patient Alert and Oriented? Yes * PCP Dr. Arreguin * Pharmacy [facility] on [address] * Preadmission Environment Home with Family * ADLs Independent * Equipment Oxygen * Other Equipment O2 with portability - [facility] is DME provider. * List name and contact numbers for known caregivers / representatives who currently or will assist patient after discharge: Veronica tipton - [phone] * Verbal permission to speak to the caregivers and representatives has been obtained from the patient. Yes * Community resources currently utilized Other * Please name any agencies selected above. Hemodialysis M-W-F at [facility]. * Additional services required to return to the preadmission environment? No * Can the patient safely return to the preadmission environment? Yes * Has this patient been hospitalized within the prior 30 days at any hospital? Yes Coverage Notice Reviewer: [email or web address] - Sandy Blair Notice Issued Date-Time: 05/01/2019 11:20 Notice Type: IM Discharge Notice Notice Delivered To: Patient Relationship to Patient: Loading Dock Helper Name: Delivery Method: HAND - Hand Delivered Nicole Days: Prior Verbal Notification: Recipient Understood Notice: Recipient Signature: Med Rec Note Co-signed by Attending: Coverage Notice Comment: DC IMM delivered, explained, signed by the patient, and placed in the chart. Signed form also left with patient. Sandy Blair RN , [facility] Patient Name: FELY SQUIRES Page [phone] at 1348 All edits/amendments must be made on the electronic document DICTATION DATE: 05/01/19 1348 TECHNOLOGY TRAINER: MARYAM 05/01/19 1348 RPT#: [id number] RICHIE DATE: STATUS: ADM IN [facility] [address] [place] [address] END OF REPORT
--- NOTE | 2019-05-01 15:36 | NUR ---
LEAVING FOR DIALYSIS BY W/C.
--- NOTE | 2019-05-01 17:28 | NUR ---
2ND UNIT BLOOD TAKEN TO DIALYSIS, INFUSING WITHOUT ADVERSE REACTIONS NOTED.
--- NOTE | 2019-05-01 19:00 | NUR ---
RECEIVED BEDSIDE REPORT. PATIENT IS ALERT AND ORIENTED. RESPIRATIONS ARE EVEN AND UNLABORED. PATIENT REMAINS IN DIALYSIS AT THIS TIME. NO S/S OF DISTRESS. NO C/O PAIN. CALL LIGHT WITHIN REACH. WILL CPOC.
[2019-05-01 20:21] VITALS: BP 102/72
[2019-05-02 00:13] VITALS: BP 103/56
--- NOTE | 2019-05-02 02:44 | NUR ---
PATIENT APPEARS TO BE SLEEPING. RESPIRATIONS ARE EVEN AND UNLABORED. NO S/S OF DISTRESS. CALL LIGHT WITHIN REACH. WILL CPOC.
[2019-05-02 04:45] VITALS: BP 99/70
--- NOTE | 2019-05-02 08:40 | NUR ---
CONSENTS SIGNED FOR [facility]. WILL CONT. PLAN OF CARE.
[2019-05-02 08:49] LABS: BASOPHILS 0.3 % (0-2); EOSINOPHILS 3.2 % (0-7); IMMATURE GRANULOCYTES 0.4 % (0-5); LYMPHOCYTES 11.8 % (15-50); MCH 29.2 pg (26.0-34.0); MCHC 30.1 g/dL (31.0-37.0); MCV 96.9 fL (80.0-100.0); MEAN PLATELET VOLUME 9.8 fL (7.4-10.4); MONOCYTES 8.3 % (2-11); RDW 18.5 % (11.5-14.5); WBC 7.7 10x3/uL (4.8-10.8)
[2019-05-02 08:52] LABS: HEMATOCRIT 31.2 % (36.0-48.0); HEMOGLOBIN 9.4 g/dL (12-16); PLATELET COUNT 114 10x3/uL (130-400); RBC 3.22 10x6/uL (4.00-5.40)
[2019-05-02 09:07] LABS: ANION GAP 14.6 mmol/L (8-16); CALCIUM 8.6 mg/dL (8.5-10.1); CHOL - HDL RATIO 2.7 ratio (2.3-4.1); CREATININE - SERUM 6.5 mg/dL (0.6-1.3); LDL-HDL RATIO 1.5 ratio (1.5-3.5); POTASSIUM - SERUM 4.6 mmol/L (3.5-5.1); TROPONIN-I 0.043 ng/mL (0.000-0.060)
[2019-05-02 09:36] VITALS: BP 100/35
--- NOTE | 2019-05-02 09:50 | NUR ---
REFUSES URINE CULTURE. STATES SHE NO LONGER URINATES.
[2019-05-02 13:17] VITALS: BP 106/71
--- NOTE | 2019-05-02 14:08 | NUR ---
Nutrition Follow-up: Heart cath today. HD yesterday. Diet: NPO for cath PO intake: 25-100% yesterday No new wt Labs noted: Na 131, K+ 4.6 Meds noted: Sadial -Rec resume Renal diet as medically feasible. -Offer Nepro if PO intake <50%. -RD following.
--- NOTE | 2019-05-02 14:26 | NUR ---
PRE-OPS GIVEN. TO METAL MODEL BUILDER BY BED.
--- NOTE | 2019-05-02 15:25 | NUR ---
BACK FROM TRACTOR TECHNICIAN. B/P 77/36. NS BOLLUS INFUSING. RIGHT GROIN STABLE WITHOUT BLEEDING OR HEMATOMA NOTED. WILL MONITOR.
--- NOTE | 2019-05-02 16:32 | NUR ---
B/P 102/61. WILL CONT. TO MONITOR.
--- NOTE | 2019-05-02 17:02 | NUR ---
BED REST UP. GROIN STABLE.
[2019-05-02 17:27] VITALS: BP 85/55
--- NOTE | 2019-05-02 19:20 | NUR ---
RECEIVED BEDSIDE REPORT. PATIENT IS ALERT AND ORIENTED, RESPIRATIONS ARE EVEN AND UNLABORED. PATIENT IS WHEELCHAIR WONDERING AROUND UNIT. NO S/S OF DISTRESS. NO C/O PAIN. CALL LIGHT WITHIN REACH. WILL CPOC.
[2019-05-02 20:00] VITALS: BP 103/63
[2019-05-03] VITALS: BP 110/75
[2019-05-03 04:00] VITALS: BP 112/68
--- NOTE | 2019-05-03 07:15 | NUR ---
RECEIVED PT IN BED AAOX4 RESP UNLABORED SKIN W/D DENIES ANY NEEDS AT THIS TIME NAD NOTED
[2019-05-03 09:51] VITALS: BP 102/52
--- NOTE | 2019-05-03 13:44 | NUR ---
TO DIALYSIS VIA W/C IN STABLE CONDITION
[2019-05-03 20:00] VITALS: BP 112/58
[2019-05-04 02:00] VITALS: BP 108/62
--- NOTE | 2019-05-04 07:15 | NUR ---
RECEIVED PT IN BED EYE CLOSED RESP UNLABORED SKIN W/D COLOR WNL NAD NOTED
[2019-05-04 09:39] VITALS: BP 104/63
[2019-05-04 13:40] VITALS: BP 117/71
[2019-05-04 16:38] VITALS: BP 109/65
[2019-05-04 19:57] VITALS: BP 98/58
--- NOTE | 2019-05-04 20:20 | NUR ---
INITIAL ROUNDS COMPLETED AT 1914 HRS. PT RESTING WITH EYES CLOSED. RESP EVEN AND REGULAR. ASSESSMENT COMPLETED AT 1954 HRS. VSS. ALERT AND ORIENTED TO PERSON, PLACE AND TIME. ROSARIO. SR WITH BBB PER CM HR 81. O2 2LNC. LUNGS DIMINISHED IN BASES IN BILAT. ABD SOFT WITH ACTIVE BS NOTED. R AVF WITH GOOD BRUIT AND THRILL. R GROIN CLEAN, DRY AND INTACT. PALPABLE PERIPHERAL PULSES. WILL CONTINUE TO MONITOR. SR P X2, CALL LIGHT WITHIN REACH.
--- NOTE | 2019-05-04 21:28 | NUR ---
PM MEDS GIVEN. NO DISTRESS NOTED. SR UP X2, CALL LIGHT WITHIN REACH.
--- NOTE | 2019-05-04 22:11 | NUR ---
PT RESTING WITH EYES CLOSED. RESP EVEN AND REGULAR. SR UPX2, CALL LIGHT WITHIN REACH.
[2019-05-04 23:39] VITALS: BP 101/52
--- NOTE | 2019-05-04 23:53 | NUR ---
NO CHANGES TO R GROIN NOTED. NORCO PO GIVEN FOR C/O R GROIN PAIN. ZOFRAN 4MG SIVP GIVEN FOR C/O NAUSEA. BENADRYL 12.5MG SIVP GIVEN FOR C/O ITCHING . CALL LIGHT WITHIN REACH.
--- NOTE | 2019-05-05 02:26 | NUR ---
PT SITTING ON THE SIDE OF THE BED PLAYING ON HER CELL PHONE. NO DISTRESS NOTED. CALL LIGHT WITHIN REACH.
--- NOTE | 2019-05-05 04:45 | NUR ---
NO CHANGE TO R GROIN OR PEDAL PULSES NOTED. PT RESTING WITH EYES CLOSED. RESP EVEN AND REGULAR. SR UP X2, CALL LIGHT WITHIN REACH AND FRIEND AT BEDSIDE.
[2019-05-05 04:52] VITALS: BP 105/60
--- NOTE | 2019-05-05 06:02 | NUR ---
VSS THROUGHOUT NIGHT. SR WITH BBB PER CM. NO CHANGES TO R GROIN NOTED. NEEDS MET; WILL CONTINUE TO MONITOR.
[2019-05-05 07:58] VITALS: BP 103/63
--- NOTE | 2019-05-05 10:24 | NUR ---
TELEMETRY SR. UP AMBULATING HALLWAY. GAIT STEADY.
--- NOTE | 2019-05-05 12:10 | NUR ---
CONSENTS SIGNGED FOR LAPCOLY IN AM.
--- NOTE | 2019-05-05 20:18 | NUR ---
INITIAL ROUNDS COMPLETED AT 1915 HRS. NO DISTRESS NOTED. ASSESSMENT COMPELTED AT 1945HRS. VSS. SR WITH BBB PER CM HR 83. O2 2LNC. ALERT AND ORIENTED TO PERSON,PLACE AND TIME. ROSARIO. IV TO LFA SL. RAVF WITH GOOD BRUIT AND THRILL. LUNGS DIMINISHED IN BASES BILAT. ABD TENDER WITH ACTIVE BS NOTED. R GROIN CLEAN,DRY AND INTACT. PALPABLE PERIPHERAL PULSES. ULTRAM 50MG PO GIVEN AT 2000 HRS FOR C/O ABD PAIN. PT CURRENTLY SITTING ON SIDE OF BED. CALL LIGHT WITHIN REACH.
[2019-05-05 20:25] VITALS: BP 119/71
--- NOTE | 2019-05-05 22:32 | NUR ---
WATCHING TV. NO DISTRESS NOTED.
--- NOTE | 2019-05-05 23:15 | NUR ---
PT UP IN SHOWER. HIBICLENS GIVEN TO PT. BED LINENS CHANGED. FRIEND AT BEDSIDE.
[2019-05-06] VITALS (26 sets, daily range): BP systolic 69–142; BP diastolic 46–88; Ht 175.3 cm; Wt 71.1 kg
--- NOTE | 2019-05-06 00:06 | NUR ---
PT SITTINGON SIDE OF BED. NORCO PO GIVEN FOR C/O BACK PAIN BEFORE 2400 HRS. BENADRYL 12.5MGSIVP GIVEN FOR C/O ITCHING AND ZOFRAN 4MG SIVP GIVEN FOR C/O NAUSEA. FRIEND AT BEDSIDE.
--- NOTE | 2019-05-06 02:21 | NUR ---
PT RESTING WITH EYES CLOSED. RESP EVEN AND REGULAR. SR UP X2, CALL LIGHT WITHIN REACH.
--- NOTE | 2019-05-06 04:14 | NUR ---
PT RESTING WITH EYES CLOSED. RESP EVEN AND REGULAR. SR UP X2, CALL LIGHT WITHIN REACH.
--- NOTE | 2019-05-06 06:23 | NUR ---
VSS THROUGHOUT NIGHT. SR WITH BBB PER CM. NPO FOR LAP BRENDA TODAY. NEEDS MET; WILL CONTINUE TO MONITOR.
--- NOTE | 2019-05-06 08:21 | NUR ---
RECEIVED PT IN BED EYES CLOSED RESP UNLABORED SKIN W/D COLOR WNL NPO PER ORDER FOR PROCEDURE THIS AM WILL CONTINUE TO MONITOR
--- NOTE | 2019-05-06 10:38 | NUR ---
CALLED FOR PATIENT TO COME DOWN FOR DIALYSIS AT 1030, PATIENT TO HAVE A TROY GUTIERREZ TODAY ASWELL. COMPUTER SAYS TROY GUTIERREZ SCHEDULED FOR 1430. RECEIVED CALL BACK STATING THAT SURGERY JUST CALLED THE FLOOR TO PRE-OP PATIENT, SO SHE CANNOT COME DOWN FOR TREATMENT AT THIS TIME.
--- NOTE | 2019-05-06 10:55 | NUR ---
PT TO OR VIA BED
[2019-05-06 14:28] LABS: HEMATOCRIT 24.6 % (36.0-48.0); HEMOGLOBIN 7.7 g/dL (12-16)
[2019-05-06 16:28] LABS: HEMATOCRIT 20.5 % (36.0-48.0)
[2019-05-06 16:33] LABS: HEMOGLOBIN 6.2 g/dL (12-16)
--- NOTE | 2019-05-06 16:43 | NUR ---
HGB ABOVE 9 STAY 4 UNITS AHEAD
--- NOTE | 2019-05-06 17:33 | NUR ---
PAGED DR MASON AND LUIS F. ORDERS GIVEN.
--- NOTE | 2019-05-06 17:58 | NUR ---
VASOPRESSIN ORDER PER DR KERNS
[2019-05-06 18:10] LABS: INR 1.44 (0.85-1.17)
--- NOTE | 2019-05-06 18:13 | NUR ---
1ST UNIT DONE INFUSING
[2019-05-06 18:16] LABS: ANION GAP 20.7 mmol/L (8-16); CALCIUM 7.8 mg/dL (8.5-10.1); CARBON DIOXIDE 19.7 mmol/L (21.0-32.0); CREATININE - SERUM 10.3 mg/dL (0.6-1.3); POTASSIUM - SERUM 5.4 mmol/L (3.5-5.1)
[2019-05-06 18:22] LABS: HEMATOCRIT 21.7 % (36.0-48.0); HEMOGLOBIN 6.7 g/dL (12-16)
--- NOTE | 2019-05-06 18:52 | NUR ---
CVP 12
--- NOTE | 2019-05-06 19:00 | NUR ---
REPORT REC'D AND CARE ASSUMED. TELEPHONER PER FLOWSHEET. AM NURSE AT BS, CONT BLOOD PRODUCT TRANSFUSIONS PER MD ORDER, PER HOSPITAL PROTOCOL. SEE TRANSFUSION SHEETS. IVFS INFUSING TO L CVL, DSG C/D/I, SEE IVF FLOWSHEET, WILL TITRATE PER MD ORDERS. RESERVE R ARM SIGNS IN ROOM, R FISTULA NOTED. R ABD BRITTA X 2 WITH BLOODY DRAINAGE, MIDLINE ABD DSG NOTED, ABD FIRM. CONDE CATH WITH SCANT CLEAR, YELLOW URINE NOTED. ALARMS ON AND C/L IN REACH.
--- NOTE | 2019-05-06 19:16 | NUR ---
SPOKE TO DR LYNN REGARDING WHETHER OR NOT TO DO HEMODIALYSIS ON PATIENT, STATED TO HOLD PRABHAKAR DIAZ
--- NOTE | 2019-05-06 19:24 | NUR ---
2ND UNIT INFUSING
--- NOTE | 2019-05-06 19:39 | NUR ---
dr montanez spoke with family. update given
--- NOTE | 2019-05-06 19:39 | NUR ---
elier tubing started for blood.
--- NOTE | 2019-05-06 19:39 | NUR ---
bicarb x4 given
--- NOTE | 2019-05-06 19:52 | NUR ---
third unit infusing. lab stated ffp and platelet are ready
--- NOTE | 2019-05-06 19:52 | NUR ---
told marshall trimble they were ready
--- NOTE | 2019-05-06 21:45 | NUR ---
YUSUF AT , WANTED PT CELL PHONE AND PURSE. CONTACTED SISTER, NEXT OF KIN, SHE SAID OK FOR HIM TO TAKE CELL PHONE, THERE IS NO PURSE NOTED WITH [employer]. ALSO SENT A KNIFE AND A BRICK FROM [employer].
[2019-05-06 22:03] LABS: BASOPHILS 0.1 % (0-2); EOSINOPHILS 0.6 % (0-7); IMMATURE GRANULOCYTES 0.2 % (0-5); LYMPHOCYTES 5.2 % (15-50); MCH 29.6 pg (26.0-34.0); MCHC 32.3 g/dL (31.0-37.0); MCV 91.5 fL (80.0-100.0); MEAN PLATELET VOLUME 10.2 fL (7.4-10.4); MONOCYTES 7.4 % (2-11); NEUTROPHILS 86.5 % (40-80); RBC 2.84 10x6/uL (4.00-5.40); RDW 15.6 % (11.5-14.5)
[2019-05-06 22:04] LABS: HEMOGLOBIN 8.4 g/dL (12-16); PLATELET COUNT 157 10x3/uL (130-400)
--- NOTE | 2019-05-06 22:18 | NUR ---
HGB 8.4, WILL INITIATE 2 UNITS PRBC, PER STANDING ORDER FROM DR. KERNS.
--- NOTE | 2019-05-06 23:12 | NUR ---
REASSESSMENT PER FLOWSHEET. PT CALM AT THIS TIME. UNIT #1 OF 2 PRBCS INFUSING, PER STANDING ORDER, PER HOSPITAL PROTOCOL.
--- NOTE | 2019-05-06 23:32 | NUR ---
DR. KERNS CALLED THE UNIT, STATUS REPORT GIVEN AND NEW ORDER REC'D.
[2019-05-07] VITALS (94 sets, daily range): BP systolic 80–126; BP diastolic 55–87
--- NOTE | 2019-05-07 02:00 | NUR ---
PRBC TRANSFUSION COMPLETE, LINE FLUSHED. NO SIGN OF ADVERSE RXN.
--- NOTE | 2019-05-07 03:22 | NUR ---
REASSESSMENT PER FLOWSHEET. PT SEDATED, VSS. HYPOACTIVE BS NOTED IN RLQ ONLY. NO OTHER CHANGES. CONT Q2H TURN AND ORAL CARE.
[2019-05-07 05:09] LABS: HEMATOCRIT 30.8 % (36.0-48.0)
[2019-05-07 05:12] LABS: HEMOGLOBIN 10.3 g/dL (12-16)
--- NOTE | 2019-05-07 05:27 | NUR ---
DR. COWAN NOTIFIED OF K+ 6 ON ABG, CHEMISTRY NOT RESULTED YET. NEW ORDER REC'D TO TREAT WITH D50 AND REG INSULIN 10 UNITS IV IF K+ IS > 5 ON CMP.
[2019-05-07 05:28] LABS: BASOPHILS 0.1 % (0-2); EOSINOPHILS 1.8 % (0-7); HEMATOCRIT 30.8 % (36.0-48.0); HEMOGLOBIN 10.3 g/dL (12-16); IMMATURE GRANULOCYTES 0.2 % (0-5); LYMPHOCYTES 6.7 % (15-50); MCH 29.9 pg (26.0-34.0); MCHC 33.4 g/dL (31.0-37.0); MEAN PLATELET VOLUME 11.1 fL (7.4-10.4); MONOCYTES 8.7 % (2-11); NEUTROPHILS 82.5 % (40-80); PLATELET COUNT 150 10x3/uL (130-400); RDW 15.3 % (11.5-14.5); WBC 9.5 10x3/uL (4.8-10.8)
[2019-05-07 05:29] LABS: MCV 89.5 fL (80.0-100.0); RBC 3.44 10x6/uL (4.00-5.40)
[2019-05-07 06:38] LABS: ALBUMIN 2.3 g/dL (3.4-5.0); BILIRUBIN - TOTAL 0.84 mg/dL (0.2-1.3); CALCIUM 7.4 mg/dL (8.5-10.1); CREATININE - SERUM 9.5 mg/dL (0.6-1.3); PROTEIN - SERUM 5.6 g/dL (6.4-8.2)
[2019-05-07 06:40] LABS: ANION GAP 17.3 mmol/L (8-16)
[2019-05-07 06:41] LABS: POTASSIUM - SERUM 6.3 mmol/L (3.5-5.1)
--- NOTE | 2019-05-07 06:42 | NUR ---
K+ 6.3 - NEW ORDERS - SEE EMAR
--- NOTE | 2019-05-07 07:15 | NUR ---
PT RESTING IN BED, VSS AND WNL. SHIFT ASSESSMENT PERFORMED. PT FOLLOWS COMMANDS. BED ALARM ON. NGT NOTED TO RIGHT NARE AT LWIS. SOFT WRIST RESTRAINTS NOTED TO PEPPER WRISTS. HERE AND SEES PT AND STATES SHE WILL RECIEVE DIALYSIS TODAY. WILL CONT TO FOLLOW POC
--- NOTE | 2019-05-07 08:10 | OP ---
PATIENT NAME: FELY SQUIRES MEDICAL RECORD: [id number] :65 LOCATION:[facility] D.2309 ADMISSION DATE:04/29/19 SURGEON: LINNETTE KERNS MD DATE OF OPERATION: 05/06/2019 SURGEON: Linnette Kerns MD PREOPERATIVE DIAGNOSES: 1. Abdominal pain. 2. Biliary dyskinesia. 3. Left lower quadrant pain. POSTOPERATIVE DIAGNOSES: 1. Abdominal pain. 2. Biliary dyskinesia. 3. Left lower quadrant pain. PROCEDURES: Diagnostic laparoscopy converted to laparotomy with extensive lysis of adhesions, cholecystectomy, and appendectomy. ESTIMATED BLOOD LOSS: 1500 cc. Case was clean contaminated. SPECIMENS: 1. Appendix. 2. Gallbladder. OPERATIVE COURSE: After consent was obtained, the patient was taken to the operating room and placed in the supine position on the operating table. Next, general anesthesia was given via endotracheal intubation after a time-out was taken to confirm the correct patient and procedure. The abdomen was prepped and draped in typical sterile fashion. Local anesthetic was injected just above the umbilicus. A stab incision was made with 11-blade scalpel. Using a 5-mm bladeless optical trocar, the abdomen was entered under direct laparoscopic vision. Adequate pneumoperitoneum was achieved. There was significant intra-abdominal ascites limiting the field of vision. A second 5-mm trocar was able to be placed in the right lateral quadrant. There were dense adhesions along the entire epigastric region along the anterior abdominal midline. These adhesions were not able to be taken down. With gentle retraction and sharp scissor dissection, at this time a laparotomy was performed. The upper midline was opened using a 10 blade scalpel. The subcutaneous tissue was opened using electrocautery. Fascia was opened using electrocautery. Under direct vision, the remaining part of the incision was opened. This time significant adhesiolysis was performed occupying greater than 50% of the operative case. Adhesiolysis was performed with sharp scissor dissection as well as electrocautery until the small bowel was able to be extracorporealized. The small bowel was run from the ligament of Treitz to the ileocecal valve. At this time, again there was multiple multiloculated cyst within the epigastric region and within the liver distorting the anatomy. The greater omentum was dissected off the transverse colon. Once in the hepatic flexure was mobilized, the appendix was identified. It was surrounded by multiple loculated cyst. At this time, a dome down dissection was performed on the gallbladder. Once the infundibulum was identified, a GI stapler was used to staple across the infundibulum. The gallbladder resected and sent for permanent pathology. The OPERATIVE REPORT [id number] FELY SQUIRES liver bed was treated with electrocautery and Surgicel for hemostasis. The abdominal cavity was copiously irrigated with 4 liters of warm normal saline. At this time, 2 BRITTA drains were placed, one to the right lateral quadrant and pelvis and one into the gallbladder fossa. Again, the small bowel was run from the ligament of Treitz to the ileocecal valve. There was no evidence of bowel injury, no evidence of bleeding, no evidence of succuss. The abdomen appeared clean and dry at this time. The incision was closed with #1 looped PDS. Skin was closed with carin. At the end of the case, all needle and instrument counts were correct. No complications occurred. The patient was transferred to the ICU in stable condition, intubated. TRANSINT:[id number] Voice Confirmation ID: [id number] DOCUMENT ID: [id number] LINNETTE KERNS MD at 0810 CC: [id number] DICTATION DATE: 05/06/19 1601 PULP MACHINE OPERATOR: 05/06/19 1819 ADM IN [facility] [place] [address] [place] [address]
[2019-05-07 08:36] LABS: HEMATOCRIT 29.1 % (36.0-48.0); HEMOGLOBIN 9.7 g/dL (12-16)
--- NOTE | 2019-05-07 08:47 | NUR ---
SUPERINTENDENT LOCAL SYRINGE EMPTY. SYRINGE CHANGED.
--- NOTE | 2019-05-07 08:48 | EC ---
PATIENT:FELY SQUIRES DATE OF SERVICE: 04/29/19 SEX: F MEDICAL RECORD: [id number] DATE OF : 65 LOCATION:D[facility] D230 AGE OF PATIENT: 53 ADMISSION DATE: 04/29/19 REFERRING PHYSICIAN: INTERPRETING PHYSICIAN: PADDY ROSS MD ECHOCARDIOGRAM REPORT ECHO CHARGES 5 ECHO LIMITED Date: 04/30/19 1 DOPPLER ECHO COLOR FLOW 2 DOPPLER ECHO PULSE CLINICAL DIAGNOSIS: CHF ECHOCARDIOGRAPHIC MEASUREMENTS (adult normal given) AC root (d.<3.7cm) 0 cm LV Septum d (<1.2 cm> 0 cm Valve Excursion 0 cm LV Septum (systole) 0 cm Left Atria (s.<4.0cm> 0 cm LVPW d(<1.2cm) 0 cm RV (d.<2.3cm) 0 cm LVPW (sytole) 0 cm LV diastole(<5.6CM) 0 cm MV E-F(>70mm/sec) 0 cm LV systole 0 cm LVOT Diameter 0 cm MV exc.(>10mm) 0 cm Est.ejection fraction (50-75%) 0 % DOPPLER: LVIT 0 cm/sec A 0 cm/sec E 0 cm/sec LA 0 cm/sec RVSP 24.0 mmHg LVOT 0 cm/sec AOP1/2T 0 m/s Asc. Ao 0 cm/sec RVOT 0 cm/sec RA 0 cm/sec PA 0 cm/sec AV Gradient Peak 0 mmHg AV Mean 0 mmHg AV Area 0 cm MV Gradient Peak 0 mmHg MV Mean 0 mmHg MV Area 0 cm COMMENTS: LIMITED STUDY (2-D,COLOR,DOPPLER) COMPLETE ECHO DONE ON 03/18/19 Rail Assembler: 1 CLINTON MCDERMOTTOE Music Librarian: 3 Dr. Oleary TAPE# PACS Pericardial Effusion N DATE OF SERVICE: Adequate 2D, color flow imaging, spectral Doppler, and M-Mode. LVH is present. LV internal dimension is normal. Wall motion is normal. EF is greater than or equal to 55%. Prosthetic aortic valve is noted with adequate Doppler velocity and no significant AI. Left atrium grossly appears dilated. Prosthetic mitral valve is noted without significant MR and good opening velocity. Tricuspid valve replacement is noted with no significant TR. PA pressures are actually normal at 24 mmHg. ECHOCARDIOGRAM REPORT [id number] FELY SQUIRES TRANSINT:[id number] Voice Confirmation ID: [id number] DOCUMENT ID: [id number] PADDY ROSS MD at 0848 CC: [id number] DICTATION DATE: 05/02/19 1541 OFFICE MACHINES WIRER: 05/02/19 1824 ADM IN [facility] [address] [place] [address]
--- NOTE | 2019-05-07 08:48 | OP ---
PATIENT NAME: FELY SQUIRES MEDICAL RECORD: [id number] :65 LOCATION:D[facility] D.2309 ADMISSION DATE:04/29/19 SURGEON: PADDY ROSS MD DATE OF OPERATION: 05/02/2019 PROCEDURE: Left heart cath, selective coronary angiography, right femoral artery approach. CATHETERS: A 5-Citizen Of [place], 5/4 left and right Praful, 5/4 pig. The procedure was well tolerated. The patient was returned to kirby, sheath removed. ExoSeal device placed. FINDINGS: Left ventriculography not performed. Aortic root injection shows no significant AI. No evidence of aortic dissection. CORONARY ANATOMY: LEFT MAIN: Left main is free of disease. LAD: Free of disease in the diagonal system. CIRCUMFLEX: Free of disease in the marginal system. RIGHT CORONARY ARTERY: Dominant artery, gives rise to PDA, free of disease. IMPRESSION: No significant AI. No significant coronary artery disease. TRANSINT:[id number] Voice Confirmation ID: [id number] DOCUMENT ID: [id number] PADDY ROSS MD at 0848 CC: [id number] DICTATION DATE: 05/02/19 1502 FLOUR DISTRIBUTOR: 05/02/[address] [facility] [address] [place] [address]
--- NOTE | 2019-05-07 09:15 | NUR ---
PT RESTING IN BED, FAMILY AT BEDSIDE. DECREASED PROFOFOL RATE TO 10MC/KG/MIN. PT IS FOLLOWING COMMANDS. VSS AND WNL, BED ALARM ON. SOFT WRIST RESTRAINTS TO PEPPER WRISTS AT THIS TIME. WILL CONT TO FOLLOW POC
--- NOTE | 2019-05-07 09:45 | NUR ---
NUTRITION F/U PT IN ICU ON VENT. NO CURRENT NUTRITION SUPPORT. NURSING REPORTS POSSIBLE EXTUBATION THIS AFTERNOON. RD FOLLOWING
--- NOTE | 2019-05-07 10:15 | NUR ---
PT SISTER STATES PT IS ANURIC. CONDE CATHETER HAS NO URINE IN IT. CONDE CATHETER REMOVED WITH CATHETER TIP INTACT.
[2019-05-07 12:43] LABS: HEMATOCRIT 29.5 % (36.0-48.0); HEMOGLOBIN 9.8 g/dL (12-16)
--- NOTE | 2019-05-07 13:26 | NUR ---
HERE AND GAVE VERBAL ORDER TO TURN OFF VASOPRESSIN. VASOPRESSIN TURNED OFF ORDERED. PT IS CURRENTLY RECIEVING DIALYSIS AT BEDSIDE
--- NOTE | 2019-05-07 14:20 | NUR ---
BP 77/45, PT IS RECIEVING DIALYSIS BUT HAS YET TO HAVE ANY FLUID REMOVED. HERE AND ORDERS RECIEVED TO RESTART VASOPRESSIN.
--- NOTE | 2019-05-07 14:52 | NUR ---
HERE AND WANTS TO STOP THE VASOPRESSIN AND START LEVOPHED. LEVOPHED STARTED AT 5MCG ORDERED
--- NOTE | 2019-05-07 16:26 | NUR ---
RT ATTEMPTED TO TRY SPONTANIOUS BREATHING PER . PT DID NOT DO WELL AND WAS PLACED BACK ON ASSIST CONTROL. VSS AND WNL. DIALYSIS FINISHED. WILL CONT TO FOLLOW POC
--- NOTE | 2019-05-07 16:57 | NUR ---
CHG BATH GIVEN TO PT. PT REPOSITIONED AND COMPLETE LINEN CHANGE PROVIDED. VSS AND WNL. WILL CONT TO FOLLOW POC
[2019-05-07 17:13] LABS: HEMATOCRIT 29.9 % (36.0-48.0); HEMOGLOBIN 9.9 g/dL (12-16)
--- NOTE | 2019-05-07 17:20 | NUR ---
FAMILY AT BEDSIDE GIVEN UDPATE. NO NEW CHANGES WILL CONTINUE TO MONITOR
--- NOTE | 2019-05-07 19:00 | NUR ---
BEDSIDE REPORT AND SHIFT ASSESSMENT COMPLETE, SEE FLOWSHEET. PT SEDATED, OPENS EYES AND FOLLOWS COMMANDS. T 101.8, WILL NOTIFY MD. PT WARM TO THE TOUCH, NOT DIAPHORETIC. OTHER VSS. L IJ PIV DRESSING CDI, SEE IV FLOWSHEET. L HAND PIV AND L WRIST PIV SALINE LOCKED. ABD DRESSING CDI. R MIDDLE ABD BRITTA DRAIN COMPRESSED, R LOWER ABD BRITTA DRAIN COMPRESSED. BOTH DRESSINGS CDI. R GROIN CATH SITE WNL, DRESSING CDI. BED IN LOW POSITION, BILAT WRIST RESTRAINTS IN PLACE. WILL CONTINUE TO MONITOR.
--- NOTE | 2019-05-07 19:55 | NUR ---
SPOKE WITH DR MAURO, UPDATE GIVEN AND NEW ORDERS RECEIVED.
[2019-05-07 20:45] LABS: HEMATOCRIT 28.9 % (36.0-48.0); HEMOGLOBIN 9.6 g/dL (12-16)
--- NOTE | 2019-05-07 21:00 | NUR ---
FAMILY AT BEDSIDE, UPDATE GIVEN.
--- NOTE | 2019-05-07 23:00 | NUR ---
REASSESSMENT COMPLETE, SEE FLOWSHEET. TEMP STILL ELEVATED, ICE BAG PLACED ON PT CHEST AND LOWER ABD. VSS, NO SIGNS OF ACUTE DISTRESS NOTED. WILL CONTINUE TO MONITOR.
[2019-05-08] VITALS (76 sets, daily range): BP systolic 80–131; BP diastolic 48–99
--- NOTE | 2019-05-08 01:00 | NUR ---
PT SEDATED, OPENS EYES. VSS, NO SIGNS OF ACUTE DISTRESS NOTED. WILL CONTINUE TO MONITOR.
--- NOTE | 2019-05-08 03:00 | NUR ---
REASSESSMENT COMPLETE, SEE FLOWSHEET. VSS, NO SIGNS OF ACUTE DISTRESS NOTED. ORAL CARE COMPLETE. WILL CONTINUE TO MONITOR.
--- NOTE | 2019-05-08 05:00 | NUR ---
ORAL CARE COMPLETE. VSS, NO SIGNS OF ACUTE DISTRESS NOTED.
[2019-05-08 05:14] LABS: BASOPHILS 0.2 % (0-2); EOSINOPHILS 8.3 % (0-7); HEMATOCRIT 28.3 % (36.0-48.0); HEMOGLOBIN 9.2 g/dL (12-16); IMMATURE GRANULOCYTES 0.2 % (0-5); LYMPHOCYTES 6.6 % (15-50); MCH 29.2 pg (26.0-34.0); MCHC 32.5 g/dL (31.0-37.0); MCV 89.8 fL (80.0-100.0); MEAN PLATELET VOLUME 10.3 fL (7.4-10.4); MONOCYTES 17.5 % (2-11); NEUTROPHILS 67.2 % (40-80); PLATELET COUNT 149 10x3/uL (130-400); RBC 3.15 10x6/uL (4.00-5.40); RDW 15.8 % (11.5-14.5); WBC 10.3 10x3/uL (4.8-10.8)
[2019-05-08 05:22] LABS: ANION GAP 16.8 mmol/L (8-16); CALCIUM 8.4 mg/dL (8.5-10.1); CARBON DIOXIDE 24.9 mmol/L (21.0-32.0); CREATININE - SERUM 8.5 mg/dL (0.6-1.3); POTASSIUM - SERUM 5.7 mmol/L (3.5-5.1)
--- NOTE | 2019-05-08 06:00 | NUR ---
CVL DRESSING CHANGE COMPLETE
--- NOTE | 2019-05-08 07:00 | NUR ---
REPORT RECEIVED. ASSESSMENT COMPLETE PER FLOW SHEET. VSS. PT SEDATED COMOFRTALBY REPOSITIONED FOR COMFORT ORAL ENDOTRDACH CARE ADM WILL CONTINUE TO MONITOR
--- NOTE | 2019-05-08 09:43 | NUR ---
NUTRITION F/U PT REMAINS ON VENT. NO CURRENT NUTRITION SUPPORT. POSSIBLE EXTUBATION THIS AM. WILL CONTINUE TO MONITOR. RD FOLLOWING
--- NOTE | 2019-05-08 11:15 | NUR ---
REASSESSMENT COMPLETE PER FLOW SHEET. VSS. PT ON CPAP TRIAL AT THIS TIME. LOW TV NOTED RESPIRATORY AND DR MASON NOTIFIED
--- NOTE | 2019-05-08 12:14 | NUR ---
EKG OBTAINED HR SINUS TACK WITH WIDE QRS RATE OF 150 DR MASON NOTIFIED NEW ORDER RECIEVED.
--- NOTE | 2019-05-08 13:10 | NUR ---
DR MASON AT BEDSIDE NEW ORDER TO SWITCH TO A/C AT THIS TIME AND SEDATE. WILL ADM.
--- NOTE | 2019-05-08 19:00 | NUR ---
BEDSIDE REPORT AND SHIFT ASSESSMENT COMPLETE, SEE FLOWSHEET. PT SEDATED, FOLLOWS COMMANDS AND OPENS EYES. DIALYSIS NURSE AT BEDSIDE. L IJ CVL PATENT, DRESSING CDI, SEE IV FLOWSHEET. ORAL CARE COMPLETE. VSS, NO SIGNS OF ACUTE DISTRESS NOTED. WILL CONTINUE TO MONITOR.
--- NOTE | 2019-05-08 21:00 | NUR ---
ORAL CARE COMPLETE. WIPED PT'S FACE WITH WARM WASHCLOTH AND RUBBED ABD AND LOWER EXTREMITIES WITH LOTION. VSS, NO SIGNS OF ACUTE DISTRESS NOTED. WILL MONITOR.
--- NOTE | 2019-05-08 23:00 | NUR ---
REASSESSMENT COMPLETE, SEE FLOWSHEET. VSS, NO SIGNS OF ACUTE DISTRESS NOTED. PT AGITATED WHEN I ATTEMPT TO REPOSITION HER, SHE SHAKES HER HEAD NO. I REORIENT HER AND EXPLAINED WHAT I WAS DOING. ORAL CARE AND SUCTIONING COMPLETE. WILL CONTINUE TO MONITOR.
[2019-05-09] VITALS (36 sets, daily range): BP systolic 75–148; BP diastolic 54–88
--- NOTE | 2019-05-09 01:00 | NUR ---
ORAL CARE COMPLETE. VSS, NO SIGNS OF ACUTE DISTRESS NOTED.
--- NOTE | 2019-05-09 03:00 | NUR ---
REASSESSMENT COMPLETE, SEE FLOWSHEET. VSS. ORAL CARE AND REPOSITIONING COMPLETE.
--- NOTE | 2019-05-09 05:00 | NUR ---
CACHORRO AT BEDSIDE, UPDATE GIVEN.
[2019-05-09 05:30] LABS: BASOPHILS 0.2 % (0-2); EOSINOPHILS 10.4 % (0-7); HEMOGLOBIN 8.9 g/dL (12-16); IMMATURE GRANULOCYTES 0.2 % (0-5); MCH 29.6 pg (26.0-34.0); MCHC 31.8 g/dL (31.0-37.0); MEAN PLATELET VOLUME 10.7 fL (7.4-10.4); MONOCYTES 13.5 % (2-11); NEUTROPHILS 66.7 % (40-80); PLATELET COUNT 163 10x3/uL (130-400); RBC 3.01 10x6/uL (4.00-5.40); WBC 9.8 10x3/uL (4.8-10.8)
[2019-05-09 05:36] LABS: ANION GAP 18.9 mmol/L (8-16); CALCIUM 8.7 mg/dL (8.5-10.1); CARBON DIOXIDE 23.6 mmol/L (21.0-32.0); CREATININE - SERUM 7.3 mg/dL (0.6-1.3); POTASSIUM - SERUM 5.5 mmol/L (3.5-5.1)
--- NOTE | 2019-05-09 07:45 | NUR ---
patient sedated with eyes open. follows commands. restless. no distress. ng in place. ett in place. vss. will continue to monitor patient.
--- NOTE | 2019-05-09 10:44 | NUR ---
ng left in place
--- NOTE | 2019-05-09 10:45 | NUR ---
3L nc 98%.
--- NOTE | 2019-05-09 11:54 | NUR ---
BRITTA DRAIN #1 PULLED. 10 CC MEASURED FOR OUTPUT. PATIENT HOB IS 45 DEGRESS.
--- NOTE | 2019-05-09 12:03 | NUR ---
NG FLUSHED WITH 100 ML OF NS PER DR KERNS
--- NOTE | 2019-05-09 13:30 | NUR ---
tube feeding started at 20 ml.
--- NOTE | 2019-05-09 15:30 | NUR ---
patient resting. easily aroused. vss. no distress. ng in place. denies any needs at this time. patient hard of hearing. educated on why patient can not have water at this time. will continue to monitor
--- NOTE | 2019-05-09 16:57 | NUR ---
patient able to move in bed. patient pulled herself up and turned to the side. reminded patient not to put pressure on abdominal incision.
[2019-05-09 18:16] LABS: ANION GAP 22.2 mmol/L (8-16); CALCIUM 8.8 mg/dL (8.5-10.1); CARBON DIOXIDE 22.5 mmol/L (21.0-32.0); CREATININE - SERUM 7.8 mg/dL (0.6-1.3); POTASSIUM - SERUM 5.7 mmol/L (3.5-5.1)
--- NOTE | 2019-05-09 18:24 | NUR ---
paged dr savage about 40 blood glucose
--- NOTE | 2019-05-09 18:46 | NUR ---
DR LYNN PAGED BACK. ORDERS GIVEN. HOUSE SUP CALLED FOR D10. STATED SHE WILL BRING IT. D10 @ 20ML. 1 AMP OF DEXTROSE PER DR LYNN AND CHECK Q1 BG
--- NOTE | 2019-05-09 19:45 | NUR ---
PT ALERT, VOICES NEEDS, LUNGS CLEAR, O2 @ 3L VIA N/C, LEFT IJ CVL INTACT WITH D10 @ 20 CC/HR, NGT IN PLACE WITH NEPRO @ 20 CC/HR, ABDOMINAL INCISION WITH RAMSEY INTACT, RIGHT BRITTA DRAIN COMPRESSED, NO DISTRESS NOTED, WILL CONT TO MONITOR
--- NOTE | 2019-05-09 21:30 | NUR ---
PT AWAKE WATCHING TV WITH NO C/O, VITALS STABLE, WILL CONT TO MONITOR
--- NOTE | 2019-05-09 23:47 | NUR ---
PT AWAKE, BOYFRIEND AT BEDSIDE, REPOSITIONED FOR COMFORT, WILL CONT TO MONITOR
[2019-05-10] VITALS (23 sets, daily range): BP systolic 87–143; BP diastolic 58–97
--- NOTE | 2019-05-10 01:30 | NUR ---
PT TUBE FEED RESIDUAL CHECKED, REMOVED 220 CC DARK GREEN FLUIDS MIXED WITH TUBE FEEDING, TUBE FEEDS TURNED OFF, RESIDUALS DISACARDED, VITALS STABLE, FSBS-81
--- NOTE | 2019-05-10 03:00 | NUR ---
PT RESTING QUIETLY WITH NO DISTRESS, VITALS STABLE
[2019-05-10 04:55] LABS: BASOPHILS 0.3 % (0-2); EOSINOPHILS 9.6 % (0-7); HEMOGLOBIN 9.3 g/dL (12-16); IMMATURE GRANULOCYTES 0.2 % (0-5); LYMPHOCYTES 9.2 % (15-50); MCH 29.5 pg (26.0-34.0); MCV 95.2 fL (80.0-100.0); MEAN PLATELET VOLUME 10.1 fL (7.4-10.4); MONOCYTES 12.9 % (2-11); NEUTROPHILS 67.8 % (40-80); PLATELET COUNT 187 10x3/uL (130-400); RBC 3.15 10x6/uL (4.00-5.40); RDW 16.3 % (11.5-14.5); WBC 10.8 10x3/uL (4.8-10.8)
[2019-05-10 05:08] LABS: ANION GAP 18.3 mmol/L (8-16); CALCIUM 9.3 mg/dL (8.5-10.1); CARBON DIOXIDE 23.4 mmol/L (21.0-32.0); CREATININE - SERUM 8.3 mg/dL (0.6-1.3); POTASSIUM - SERUM 5.7 mmol/L (3.5-5.1)
--- NOTE | 2019-05-10 05:17 | NUR ---
PT AWAKE WATCHING TV, TF REMAINS OFF, WILL CONT TO MONITOR
--- NOTE | 2019-05-10 07:00 | NUR ---
received report from andrew trimble. tube feedings off due to 200 ml residuals at 2 am last night. patient is alert. no acute distress. 15 ml from lizeth drain last night. palp pulses bilat. diminished lobes. patient breathing shallow. stated no pain at the incision site at this time. d10 running at 20 at this time. blodo sugars have been running in the 80's while the d10 has been running per andrew trimble. will continue to monitor patient. see assessment and adl's.
--- NOTE | 2019-05-10 08:16 | NUR ---
FAMILY MEMBER IVANA CALLED PASSWORD PROVIDED.
--- NOTE | 2019-05-10 09:07 | NUR ---
NUTRITION F/U PT EXTUBATED, NEPRO TUBE FEEDS ON HOLD SECONDARY TO HI RESIDUALS. PT ON REGLAN. MAY BENEFIT FROM TUBE FEED CHANGE TO GLUCERNA 1.0 AT 10 CC/HR. RD FOLLOWING
--- NOTE | 2019-05-10 09:55 | NUR ---
RESIDUAL CHECKED SINCE TUBE FEEDING WAS STOPPED AT APPROXIMATELY 3 AM WITH RESIDUAL OF 200. MUSEUM HOST/HOSTESS TURNED OFF TUBE FEEDING. I CHECKED RESIDUAL AND IT WAS 100 ML OF GREEN GASTRIC SECRETIONS. PAGED DR KERNS TO SEE WHAT HE WOULD LIKE TO DO. NOT SURE IF HE IS AWARE THEY STOPPED TUBE FEEDING. WHEN SYNRINGE WAS TAKEN OFF TO ASPIRATE RESIDUAL.. GREEN SECRETIONS STARTED POURING OUT OF NG TUBE. BLOOD GLUCOSE WAS 91.
--- NOTE | 2019-05-10 10:39 | NUR ---
dr montanez was on unit. stated to hook lis. i did. then came into room and stated to hook her back up to tube feeds at 20 ml.hr. and to not discontinue. if needed to be discontinue then need to talk to him first.
--- NOTE | 2019-05-10 10:40 | NUR ---
PATIENT SITTING UP AT SIDE OF BED EATING A POPSICLE. OK WITH DR KERNS TO EAT POPSICLE, ICE CHIPS, SIPS OF WATER, AND TO AMBLATE WITH PT
--- NOTE | 2019-05-10 11:56 | NUR ---
xray and dialysis at bedside
--- NOTE | 2019-05-10 11:57 | NUR ---
minimal bleeding noted at lizeth drain insertion site.
--- NOTE | 2019-05-10 11:57 | NUR ---
lizeth drain pulled per dr montanez. 5 ml in drain during this time. gauze and tape appplied to lizeth drain area. will continue to monitor.
--- NOTE | 2019-05-10 15:09 | NUR ---
PATIENT STATED SHE DOES NOT HAVE AN ALLERGY TO MORPHINE. I TOLD HER IT WAS IN HER CHART AND SHE SAID NO "IM NOT ALLERGIC TO MORPHINE" CONFIRMED WITH ARLINE HADDAD IN ROOM
--- NOTE | 2019-05-10 16:33 | NUR ---
residual of 100 ml with color of brown/yellow. returned to patient. 134 ml of tube feeding fed. flushed line with 20 cc.
--- NOTE | 2019-05-10 17:27 | NUR ---
patient ambulated to bedside commode with assistance
--- NOTE | 2019-05-10 17:58 | NUR ---
no bm at this time.
--- NOTE | 2019-05-10 19:30 | NUR ---
PT ALERT, SITTING ON SIDE OF BED, LUNGS CLEAR, LEFT IJ CVL INTACT WITH D10 @ 20 CC/HR, NGT IN PLACE WITH NEPRO @ 20 CC/HR, ABDOMINAL INCISION WITH RAMSEY INTACT, VITALS STABLE, WILL CONT TO MONITOR
--- NOTE | 2019-05-10 21:30 | NUR ---
PT UP TO BSC WITH MAX ASSIST, CALL LIGHT IN REACH
--- NOTE | 2019-05-10 23:30 | NUR ---
PT UP TO BSC, STATES SHE CANT GET COMFORTABLE, SMALL PEBBLE SIZED BM, RETURNED TO BED WITH MAX ASSIST
[2019-05-11] VITALS (13 sets, daily range): BP systolic 116–156; BP diastolic 80–104
--- NOTE | 2019-05-11 01:00 | NUR ---
PT REMAINS AWAKE, UP TO SIDE OF BED FREQUENTLY, UP TO BSC WITH NO RESULTS, INSTRUCTED PT NOT TO GET UP BY HERSELF
--- NOTE | 2019-05-11 03:19 | NUR ---
PT SLEEPING ON RIGHT SIDE, NO DISTRESS NOTED
[2019-05-11 04:32] LABS: BASOPHILS 0.2 % (0-2); EOSINOPHILS 4.3 % (0-7); HEMATOCRIT 29.7 % (36.0-48.0); HEMOGLOBIN 9.2 g/dL (12-16); IMMATURE GRANULOCYTES 0.5 % (0-5); LYMPHOCYTES 6.7 % (15-50); MCH 29.1 pg (26.0-34.0); MEAN PLATELET VOLUME 10.4 fL (7.4-10.4); MONOCYTES 14.5 % (2-11); NEUTROPHILS 73.8 % (40-80); PLATELET COUNT 195 10x3/uL (130-400); RBC 3.16 10x6/uL (4.00-5.40); WBC 12.5 10x3/uL (4.8-10.8)
[2019-05-11 04:39] LABS: ANION GAP 18.2 mmol/L (8-16); CALCIUM 8.9 mg/dL (8.5-10.1); CARBON DIOXIDE 24.3 mmol/L (21.0-32.0); CREATININE - SERUM 7.5 mg/dL (0.6-1.3)
[2019-05-11 04:40] LABS: POTASSIUM - SERUM 4.5 mmol/L (3.5-5.1)
--- NOTE | 2019-05-11 05:43 | NUR ---
PT SLEEPING @ THIS TIME, LYING ON RIGHT SIDE, WILL CONT TO MONITOR
--- NOTE | 2019-05-11 13:22 | NUR ---
0830-RECIEVED AWAKE AND ALERT-EXECUTIVE STEWARD LIGHT-REQUESTING PAIN MEDICINE-BUPRENEX0.15 IV GIVEN-DR KERNS AT BEDSIDE-NGT D/C'D- ORDERED-PT SAT AT SIDE OF BED 1130-COMPLETE AM CARE DONE-DRG CHANGED TO JPRATT INSERTION SITES-SMALL CONSTIPATED BM-STATING PASSING GAS-ABDOMINAL INCISION INTACT-O2 AT 2L -CVL SALINE LOCKED 1300 SITING UP AT BEDSIDE-CLEAR LIQUIDS GIVEN
--- NOTE | 2019-05-11 13:39 | NUR ---
RECEIVED REPORT FROM ABBEY IN ICU. PATIENT TO UNIT SOON.
--- NOTE | 2019-05-11 13:53 | NUR ---
RECEIVED PATIENT TO ROOM 2138 AT THIS TIME VIA WHEELCHAIR FROM ICU. PATIENT ALERT/ORIENTATED. PATIENT WITH MIDLINE ABD INCISION. 29 CLIPS PRESENT. INCISION IS APPROXIMATED, NO DRAINAGE. PATIENT IS SORE. ASSISTED PATIENT TO BED AND IS NOW SITTING UP AT 35 DEGREES. CALL LIGHT PLACED WITHIN REACH. NO DISTRESS. VS COMPLETE.
--- NOTE | 2019-05-11 13:54 | NUR ---
transferred to 2137 via wheelchair
--- NOTE | 2019-05-11 14:58 | NUR ---
MEDICATED FOR PAIN AND NAUSEA AT THIS TIME. PATIENT ON THE CALL LIGHT EVERY FEW MINUTES, BEING INAPPROPRIATE. PATIENT OOB TO CHAIR AT BEDSIDE AT THIS TIME. NO DISTRESS.
--- NOTE | 2019-05-11 15:25 | NUR ---
MOTION PICTURE PRINTER AT BEDSIDE ASSISTING PATIENT TO RESTROOM AT THIS TIME. NO DISTRESS.
--- NOTE | 2019-05-11 19:05 | NUR ---
EVENING ROUNDS COMPLETE, WILL CONTINUE POC. PATIENT IS AAOX3, UP WITH ASSIST. RR EVEN AND UNLABORED ON ROOM ON 2L O2 VIA NC. NO S/S OF DISTRESS OBSERVED. IV TO LT IJ SL. PATIENT IS 29 CLIPS TO MIDLINE ABDOMEN, APPROXIMATED, CLEAN AND DRY. PATIENT DENIES NEEDS AT THIS TIME. CL IN REACH, BED LOCKED AND LOWERED. WILL CTM.
[2019-05-12 00:30] VITALS: BP 145/85
--- NOTE | 2019-05-12 01:30 | NUR ---
PATIENT C/O ABDOMINAL PAIN, BUPRENEX ADMINISTERED PER ORDERS. ASSISTED PATIENT TO BATHROOM THEN TO CHAIR. CL IN REACH, WHEELS LOCKED. WILL CTM.
[2019-05-12 04:46] VITALS: BP 134/92
--- NOTE | 2019-05-12 07:00 | NUR ---
RECEIVED REPORT. ASSUMED CARE OF PATIENT. PATIENT RESTING WITH EYES CLOSED, RESP EVEN AND UNLABORED. CALL LIGHT WITHIN REACH. NO DISTRESS. BED ALARM PATENT. NO FAMILY/FRIENDS AT BEDSIDE.
--- NOTE | 2019-05-12 07:38 | NUR ---
PATIENT ASSISTED OOB AT THIS TIME TO THE RESTROOM AND THEN BACK TO BED. NO DISTRESS. CALL LIGHT WITHIN REACH.
[2019-05-12 08:00] VITALS: BP 151/94
--- NOTE | 2019-05-12 09:56 | NUR ---
PATIENT SITTING TO CHAIR AT BEDSIDE. PATIENT ON HER CALL LIGHT EVERY FEW MINUTES, THIS TIME TO ASK IF THIS ORAL THERAPIST IS BUSY! NO DISTRESS.
--- NOTE | 2019-05-12 10:03 | NUR ---
ASSISTED PATIENT BACK TO BED FROM CHAIR AT BEDSIDE. NO DISTRESS. SR UP FOR SAFETY. PATIENT WILL ALL PERSONAL AND NEEDED BELONGINGS WITHIN REACH.
[2019-05-12 10:44] LABS: HEMATOCRIT 28.3 % (36.0-48.0); HEMOGLOBIN 9.1 g/dL (12-16); MCH 29.9 pg (26.0-34.0); MCHC 32.2 g/dL (31.0-37.0); MCV 93.1 fL (80.0-100.0); MEAN PLATELET VOLUME 9.7 fL (7.4-10.4); PLATELET COUNT 203 10x3/uL (130-400); RBC 3.04 10x6/uL (4.00-5.40); RDW 16.2 % (11.5-14.5); WBC 12.8 10x3/uL (4.8-10.8)
--- NOTE | 2019-05-12 10:44 | NUR ---
THIS HEAD OF TALENT MANAGEMENT ABLE TO GET BLOOD DRAW FROM CENTRAL LINE. HAVE PATIENT LIFT HER LEFT ARM ABOVE HER HEAD AND TURN HER HEAD TO THE RIGHT AND DRAW FROM THE PROXIMAL (WHITE) PORT.
[2019-05-12 11:08] LABS: EOSINOPHILS 10 % (0-7); LYMPHOCYTES 6 % (15-50); MONOCYTES 3 % (2-11); NEUTROPHILS 79 % (40-80); PLATELET ESTIMATE NORMAL; TARGET CELLS 1+
[2019-05-12 11:10] LABS: ANION GAP 19.3 mmol/L (8-16); CALCIUM 8.7 mg/dL (8.5-10.1); CARBON DIOXIDE 22.4 mmol/L (21.0-32.0); CREATININE - SERUM 8.7 mg/dL (0.6-1.3); POTASSIUM - SERUM 4.7 mmol/L (3.5-5.1)
[2019-05-12 12:00] VITALS: BP 141/84
--- NOTE | 2019-05-12 13:22 | NUR ---
MEDICATED FOR PAIN. PATIENT OOB TO WHEELCHAIR AND WANTING TO GO VISIT WITH HER BROTHER IN 2128 AT THIS TIME. NO DISTRESS.
--- NOTE | 2019-05-12 13:58 | NUR ---
PT IN DIALYSIS NO TX GIVEN
--- NOTE | 2019-05-12 15:00 | NUR ---
OOB TO WHEELCHAIR. NO DISTRESS.
--- NOTE | 2019-05-12 15:30 | NUR ---
BATH AND LINEN CHANGE COMPLETE. NO DISTRESS.
[2019-05-12 16:00] VITALS: BP 132/85
--- NOTE | 2019-05-12 17:30 | NUR ---
RESTING IN BED AT THIS TIME WITH ATTENTION TOWARD TELEVISION. CALL LIGHT WITHIN REACH. NO DISTRESS.
--- NOTE | 2019-05-12 19:13 | NUR ---
PT UP IN WC REFUSES BED. PT INSISTS ON SITTING IN ROOM WITH HER BROTHER IN ROOM 29 HER BED IS LOW AND LOCKED DENIES OTHER NEEDS AT THIS TIME
[2019-05-12 20:30] VITALS: BP 166/98
--- NOTE | 2019-05-12 21:00 | NUR ---
NIGHT TIME MEDS DONE AND PT RESTING WITH EYES CLOSED NOW IN BED ASSISTED TO BED EARLIER BY ME BED LOW AND LOCKED CALL LIGHT IS WITH PT
[2019-05-13 00:13] VITALS: BP 145/93
--- NOTE | 2019-05-13 03:36 | NUR ---
I have reviewed this patient and I concur with the Shift Assessment completed by the Licensed Practical Nurse today this shift.
[2019-05-13 04:26] VITALS: BP 141/85
--- NOTE | 2019-05-13 07:10 | NUR ---
PT RESTING IN BED. NO SIGNS OF DISTRESS. IV TO LEFT JUGULAR PATENT NO REDNESS OR TENDERNSS. HAS INCISION TO ABDOMEN. CLEAN AND INTACT. ON 3L NC. DENIES ANY FURTHER NEED AT THIS TIME. CALL LIGHT IN REACH. BED LOW POSITION. FAMILY AT BEDSIDE AT THIS TIME.
[2019-05-13 10:42] VITALS: BP 139/65
--- NOTE | 2019-05-13 12:37 | NUR ---
I have reviewed this patient and I concur with the Shift Assessment completed by the Licensed Practical Nurse today this shift.
[2019-05-13 13:34] VITALS: BP 149/92
--- NOTE | 2019-05-13 14:11 | NUR ---
Nutrition Follow-up: Pt not in room at time of visit. No family at BS. Chart reviewed. Noted diet advanced per surgery; tolerating PO. Nepro added by renal. Diet: Renal, Nepro TID PO intake: 0-25% Wt: 153.2# (160.9# on 05/10) Last BM: 05/12 Labs noted: Na 133, Glu 82, K+ 4.7 Meds noted: Larry Aguilera -Continue current diet as tolerated. -Will continue to monitor wt trends and PO intake. -RD following.
--- NOTE | 2019-05-13 18:15 | NUR ---
TO HD PER WC
[2019-05-13 22:40] VITALS: BP 110/72
[2019-05-14 00:30] VITALS: BP 93/62
[2019-05-14 04:30] VITALS: BP 111/68
--- NOTE | 2019-05-14 05:50 | NUR ---
PT C/O LEFT FOOT PAIN. SHE STATES THIS IS NEW FOR HER. SHE RATES IT A 01/19. HER NIECE IS AT THE BEDSIDE ASKING TO SPEAK TO A DOCTOR SO HE CAN ANSWER THE QUESTIONS SHE HAS. EXPLAINED TO HER THAT HER DOCTOR'S ARE NOT HERE RIGHT NOW BUT IF SHE WOULD LIKE TO WAIT HERE WITH THE PT UNTIL THEY ROUND, THAT WOULD BE OK. SHE INSISTED I CALL TO GET MORE PAIN MEDICATION FOR HER FOOT PAIN. EXPLAINED THAT WE WOULD NEED TO PAGE THE RENAL RETAIL WORKER SINCE THIS PAIN IS NOT FROM HER ABDOMINAL SURGERY. SHE THEN STATED THAT HER ABDOMEN IS HURTING WELL. GAVE HER NORCO ORDERED AT 0400. PAGED THE RENAL RETAIL WORKER.
[2019-05-14 07:16] LABS: HEMATOCRIT 28.9 % (36.0-48.0); HEMOGLOBIN 9.2 g/dL (12-16); MCH 29.4 pg (26.0-34.0); MCHC 31.8 g/dL (31.0-37.0); MCV 92.3 fL (80.0-100.0); MEAN PLATELET VOLUME 10.6 fL (7.4-10.4); RBC 3.13 10x6/uL (4.00-5.40); RDW 16.3 % (11.5-14.5); WBC 13.5 10x3/uL (4.8-10.8)
[2019-05-14 07:17] LABS: PLATELET COUNT 291 10x3/uL (130-400)
--- NOTE | 2019-05-14 07:17 | NUR ---
REPORT RECEIVED. WILL CONTINUE WITH POC. PT CURRENTLY SITTING ON EDGE OF BED.CALL LIGHT W/I REACH. PT IS AAO AND UP AD EVAN. FAMILY AT BEDSIDE. RR EVEN AND UNLABORED ON 3L 02. L.IJ CVL SALINE LOCKED. PT DENIES ANY NEEDS AT THIS TIME. NO S/S OF DISTRESS NOTED. WILL CTM.
[2019-05-14 07:26] LABS: ANION GAP 19.3 mmol/L (8-16); CARBON DIOXIDE 23.1 mmol/L (21.0-32.0); CREATININE - SERUM 7.2 mg/dL (0.6-1.3); PHOSPHOROUS 4.4 mg/dL (2.5-4.9); POTASSIUM - SERUM 4.4 mmol/L (3.5-5.1)
[2019-05-14 09:24] VITALS: BP 112/71
[2019-05-14 09:29] LABS: ANISOCYTOSIS OCC; EOSINOPHILS 16 % (0-7); LYMPHOCYTES 7 % (15-50); MONOCYTES 25 % (2-11); NEUTROPHILS 49 % (40-80); PLATELET ESTIMATE NORMAL; ROULEAUX 1+
--- NOTE | 2019-05-14 09:31 | NUR ---
PT HAD DIALYSIS YESTERDAY WAS HER USUAL DAY. GOT OK FROM [facility] ANGLIN [facility] TO DO TX YESTERDAY INSTEAD OF TTS.
--- NOTE | 2019-05-14 12:41 | NUR ---
I have reviewed this patient and I concur with the Shift Assessment completed by the Licensed Practical Nurse today this shift.
--- NOTE | 2019-05-14 19:10 | NUR ---
REPORT RECEIVED, WILL CONTINUE POC. PATIENT IS RESTING WITH EYES CLOSED, SEMI-FOLWERS POSITION. NO S/S OF DISTRESS NOTED, RR EVEN AND UNLABORED ON 3L O2 VIA NC. LT IJ CVL, PATENT, DRSG C/D/I. PATIENT DENIES FURTHER NEEDS AT THIS TIME. CL IN REACH, BED LOCKED AND LOWERED. WILL CTM.
[2019-05-14 20:33] VITALS: BP 97/61
--- NOTE | 2019-05-14 20:49 | NUR ---
ASSISTED PATIENT TO BATHROOM AND BACK TO BED. HS MEDS ADMINISTERED. PATIENT KEPT ASKING FOR HER SCHEDULED "MUCINEX" WHICH WAS GIVEN TO HER WITH HER HS MEDS. SHE WAS REALLY WANTING BUPRENEX. EXPLAINED TO PATIENT THAT BUPRENEX IS NO LONGER ON HER MAR BUT SHE DOES HAVE NORCO. SHE SAID THAT DOESN'T DO ANYTHING FOR HER AND STARTED TO CRY SAYING, "NOBODY IS TAKING CARE OF ME, TORY PROMISED I'D HAVE MY MUCINEX BY 9" AGAIN EXPLAINED IT'S NOT MUCINEX, BUT BUPRENEX THAT SHE'S TALKING ABOUT AND THAT ALL SHE HAS IS NORCO FOR PAIN. I WAS WALKING OUT OF ROOM SHE SAID, "YOU BRINGING MY PAIN MED?" PRN NORCO ADMINISTERED FOR PAIN. WILL CTM.
[2019-05-15 00:57] VITALS: BP 100/61
--- NOTE | 2019-05-15 03:03 | NUR ---
PT MEDICATED FOR PAIN AT THIS TIME.
[2019-05-15 04:28] VITALS: BP 96/58
[2019-05-15 07:03] LABS: BASOPHILS 0.5 % (0-2); EOSINOPHILS 10.3 % (0-7); HEMOGLOBIN 8.9 g/dL (12-16); IMMATURE GRANULOCYTES 4.8 % (0-5); LYMPHOCYTES 9.2 % (15-50); MCH 29.5 pg (26.0-34.0); MCHC 31.8 g/dL (31.0-37.0); MCV 92.7 fL (80.0-100.0); MEAN PLATELET VOLUME 10.1 fL (7.4-10.4); MONOCYTES 22.2 % (2-11); PLATELET COUNT 291 10x3/uL (130-400); RBC 3.02 10x6/uL (4.00-5.40); RDW 16.4 % (11.5-14.5); WBC 13.3 10x3/uL (4.8-10.8)
[2019-05-15 07:30] LABS: ANION GAP 17.1 mmol/L (8-16); CALCIUM 8.8 mg/dL (8.5-10.1); CARBON DIOXIDE 25.1 mmol/L (21.0-32.0); CREATININE - SERUM 7.2 mg/dL (0.6-1.3); PHOSPHOROUS 4.2 mg/dL (2.5-4.9); POTASSIUM - SERUM 4.2 mmol/L (3.5-5.1)
--- NOTE | 2019-05-15 07:45 | NUR ---
REPORT RECIEVED. PT ASSISTED TO THE BATHROOM AT THIS TIME. RR EVEN AND UNLBAORED ON 3L NC. PT IS A RESERVE R ARM FOR AN AV FISTULA. SHE HAS A L IJ THAT IS SL. BED LOCKED AND IN LOWEST POSITION, CALL LIGHT WITHIN REACH. WILL CTM.
[2019-05-15 08:56] VITALS: BP 91/57
--- NOTE | 2019-05-15 09:21 | MORECARE ---
CASE MANAGEMENT DISCHARGE SUMMARY PATIENT: FELY SQUIRES UNIT: [id number] ADM DATE: 04/29/19 AGE: 53 : 65 SEX: F ROOM/BED: D.8972 AUTHOR: ALEXANDRA JAMES PHYSICIAN: REFERRING PHYSICIAN: SHAKIR COWAN DO DATE OF SERVICE: 05/15/19 Discharge Plan Patient Name: FELY SQUIRES Facility: [facility]:[employer] : 1965 Planned Disposition: Home Anticipated Discharge Date: 05/16/19 Discharge Date: Expected LOS: 17 Initial Reviewer: [email or web address] Initial Review Date: 04/29/2019 Generated: 05/15/19 10:20 am DCP- Discharge Planning Updated by [email or web address]: Sandy Blair on 05/01/19 12:[address] DC PLAN: Return home with her sister. ANTICIPATED DC NEEDS: Provided meals on wheels info to patient. CM met with patient to complete initial dc planning assessment. CM educated patient on the CM role and verbal consent given by patient to complete assessment. CM verified patient's address, phone number, and emergency contact phone numbers. Patient lives at home with her sister. At discharge patient plans to return home and feels this is a safe discharge. She goes to hemodialysis on [facility]. She reports she drives herself to and from HD without difficulty. CM discussed availability of home health, rehab services, and medical equipment. She asked about meals on wheels. CM provided her a handout with the contact number for questions and to see if she qualifies. Patient denied further known discharge needs at this time. Patient reports her brother will transport her home at time of discharge. CM will continue to follow and will assist as needed with dc plans/needs. Sandy Blair RN, [facility] DCPIA - Discharge Planning Initial Assessment Updated by [id number]: Sandy Blair on 05/01/19 1:42 pm * Is the patient Alert and Oriented? Yes * PCP Dr. Arreguin * Pharmacy [facility] on [address] * Preadmission Environment Home with Family * ADLs Independent * Equipment Oxygen * Other Equipment O2 with portability - [employer] is DME provider. * List name and contact numbers for known caregivers / representatives who currently or will assist patient after discharge: Veronica tipton - [phone] * Verbal permission to speak to the caregivers and representatives has been obtained from the patient. Yes * Community resources currently utilized Other * Please name any agencies selected above. Hemodialysis M-W-F at [facility]. * Additional services required to return to the preadmission environment? No * Can the patient safely return to the preadmission environment? Yes * Has this patient been hospitalized within the prior 30 days at any hospital? Yes Coverage Notice Reviewer: [id number] - Sandy Blair Notice Issued Date-Time: 05/01/2019 11:20 Notice Type: IM Discharge Notice Notice Delivered To: Patient Relationship to Patient: Corporate Tax Preparer Name: Delivery Method: HAND - Hand Delivered Nicole Days: Prior Verbal Notification: Recipient Understood Notice: Recipient Signature: Med Rec Note Co-signed by Attending: Coverage Notice Comment: DC IMM delivered, explained, signed by the patient, and placed in the chart. Signed form also left with patient. Sandy Blair RN , [facility] Last DP export: 05/01/19 12:48 Patient Name: FELY SQUIRES Page [phone] at 0921 All edits/amendments must be made on the electronic document DICTATION DATE: 05/15/19919 REAL ESTATE ACCOUNT EXECUTIVE: MARYAM 05/15/19919 RPT#: [id number] DC DATE: STATUS: ADM IN [facility] [address] [place] [address] END OF REPORT
--- NOTE | 2019-05-15 09:28 | MORECARE ---
CASE MANAGEMENT DISCHARGE SUMMARY PATIENT: FELY SQUIRES UNIT: [id number] ADM DATE: 04/29/19 AGE: 53 : 65 SEX: F ROOM/BED: D.2660 AUTHOR: ERIKA,DOC PHYSICIAN: REFERRING PHYSICIAN: SHAKIR COWAN DO DATE OF SERVICE: 05/15/19 Discharge Plan Patient Name: FELY SQUIRES Facility: [facility]:[place] : 1965 Planned Disposition: Home Anticipated Discharge Date: 05/16/19 Discharge Date: Expected LOS: 17 Initial Reviewer: [email or web address] Initial Review Date: 04/29/2019 Generated: 05/15/19 10:28 am Comments DCP- Discharge Planning Updated by [email or web address]: Costa Cordova on 05/15/19 8:[address] Patient Name: FELY SQUIRES Encounter No: [id number] : 1965 Primary Insurance: MEDICARE A & B Anticipated DC Date: 05-16-2019 Planned Disposition: Home DCP follow-up note: CM SPOKE TO DR. WYNN WHO INFORMED CM THAT DISCHARGE IS PLANNED FOR TOMORROW. PT UP IN CHAIR. CM MET WITH PT IN ROOM TO DISCUSS DISCHARGE NEEDS AND PLANNING. CM INFORMED PT THAT DR. WYNN PLANS FOR DISCHARGE TOMORROW. PT STATES THAT HE IS "ON CRACK OR SOMETHING" THAT THE OTHER DOCTOR IS NOT GOING TO SEND HER HOME THAT SOON. CM EXPLAINED THAT THE DOCTOR IS PLANNING DISCHARGE AND THAT CM IS HERE TO ASSIST WITH ANY NEEDS. CM DISCUSSED AVAILABILITY OF HOME HEALTH, REHAB SERVICES AND MEDICAL EQUIPMENT. PT DENIES DISCHARGE NEEDS TO GO HOME. PT DENIES NEED OF WOUND CARE. PT THEN STATES SHE "CAN'T EVEN WALK GOOD." CM REVIEWED CHART, PHYSICAL THERAPY SIGNED OFF PT WAS NOTED TO HAVE GOOD STRENGTH AND BALANCE. CM OFFERED HOME HEALTH FOR PHYSICAL THERAPY OR REHAB PLACEMENT. PT STATES NO. PT ASKED FOR CUP OF ICE. IMPORTANT MESSAGE FROM MEDICARE PROVIDED AND EXPLAINED. CM PROVIDED CUP OF ICE TO PT. CM OBTAINED PHYSICAL THERAPY CONSULT ORDER. CM TO FOLLOW AND ASSIST NEEDED. PT STATES SHE IS NOT LEAVING TOMORROW. PT DECLINED REHAB AND HOME HEALTH. PT REPORTS SHE IS NOT ABLE TO "WALK GOOD", THERAPY NOTES ON 05-12-19 INDICATE OTHERWISE. ORDER FOR PHYSICAL THERAPY EVALUATION OBTAINED. Costa Cordova, CASE MANAGEMENT DCP- Discharge Planning Updated by [id number]: Sandy Blair on 05/01/19 12:[address] DC PLAN: Return home with her sister. ANTICIPATED DC NEEDS: Provided meals on wheels info to patient. CM met with patient to complete initial dc planning assessment. CM educated patient on the CM role and verbal consent given by patient to complete assessment. CM verified patient's address, phone number, and emergency contact phone numbers. Patient lives at home with her sister. At discharge patient plans to return home and feels this is a safe discharge. She goes to hemodialysis M-W-F on [facility]. She reports she drives herself to and from HD without difficulty. CM discussed availability of home health, rehab services, and medical equipment. She asked about meals on wheels. CM provided her a handout with the contact number for questions and to see if she qualifies. Patient denied further known discharge needs at this time. Patient reports her brother will transport her home at time of discharge. CM will continue to follow and will assist as needed with dc plans/needs. Sandy Blair RN, [facility] DCPIA - Discharge Planning Initial Assessment Updated by [id number]: Sandy Blair on 05/01/19 1:42 pm * Is the patient Alert and Oriented? Yes * PCP Dr. Arreguin * Pharmacy [facility] on [address] * Preadmission Environment Home with Family * ADLs Independent * Equipment Oxygen * Other Equipment O2 with portability - [employer] is DME provider. * List name and contact numbers for known caregivers / representatives who currently or will assist patient after discharge: Veronica Abarca - - [phone] * Verbal permission to speak to the caregivers and representatives has been obtained from the patient. Yes * Community resources currently utilized Other * Please name any agencies selected above. Hemodialysis M-W-F at [facility]. * Additional services required to return to the preadmission environment? No * Can the patient safely return to the preadmission environment? Yes * Has this patient been hospitalized within the prior 30 days at any hospital? Yes Coverage Notice Reviewer: [id number] - Sandy Blair Notice Issued Date-Time: 05/01/2019 11:20 Notice Type: IM Discharge Notice Notice Delivered To: Patient Relationship to Patient: Security Officer Supervisor Name: Delivery Method: HAND - Hand Delivered Nicole Days: Prior Verbal Notification: Recipient Understood Notice: Recipient Signature: Med Rec Note Co-signed by Attending: Coverage Notice Comment: DC IMM delivered, explained, signed by the patient, and placed in the chart. Signed form also left with patient. Sandy Blair RN , [facility] Reviewer: [id number] Ezio Cordova Notice Issued Date-Time: 05/15/2019 9:10 Notice Type: IM Discharge Notice Notice Delivered To: Patient Relationship to Patient: Security Officer Supervisor Name: Delivery Method: HAND - Hand Delivered Nicole Days: Prior Verbal Notification: Recipient Understood Notice: Yes Recipient Signature: Yes Med Rec Note Co-signed by Attending: Coverage Notice Comment: Last DP export: 05/15/19 8:21 a Patient Name: FELY SQUIRES Page [phone] at 0928 All edits/amendments must be made on the electronic document DICTATION DATE: 05/15/19927 SURGICAL DEVICE SALES REPRESENTATIVE: MARYAM 05/15/19927 RPT#: [id number] DC DATE: STATUS: ADM IN [facility] [address] [place] [address] END OF REPORT
[2019-05-15 16:39] VITALS: BP 106/71
--- NOTE | 2019-05-15 19:15 | NUR ---
EVENING ROUND COMPLETE, WILL CONTINUE POC. PATIENT IS AAOX4, LYING IN BED ON RT SIDE. LT IJ CVL, SL, DRSG C/D/I. NO S/S OF DISTRESS OBSERVED, RR EVEN AND UNLABORED ON 3L O2 VIA NC. PATIENT DENIES FURTHER NEEDS AT THIS TIME. CL IN REACH, BED LOCKED AND LOWERED. WILL CTM.
[2019-05-15 20:00] VITALS: BP 96/64
--- NOTE | 2019-05-15 20:05 | NUR ---
PT C/O ABD PAIN. PRN NORCO ADMINISTERED PER ORDERS.
[2019-05-15 23:30] VITALS: BP 96/72
--- NOTE | 2019-05-16 01:45 | NUR ---
PT C/O PAIN. ADMINISTERED PRN NORCO PER ORDERS.
--- NOTE | 2019-05-16 03:03 | NUR ---
I have reviewed this patient and I concur with the Shift Assessment completed by the Licensed Practical Nurse today this shift.
[2019-05-16 04:00] VITALS: BP 123/75
[2019-05-16 06:02] LABS: HEMATOCRIT 27.1 % (36.0-48.0); HEMOGLOBIN 8.7 g/dL (12-16); MCH 29.9 pg (26.0-34.0); MCHC 32.1 g/dL (31.0-37.0); MCV 93.1 fL (80.0-100.0); MEAN PLATELET VOLUME 9.7 fL (7.4-10.4); PLATELET COUNT 255 10x3/uL (130-400); RBC 2.91 10x6/uL (4.00-5.40); RDW 16.9 % (11.5-14.5); WBC 16.1 10x3/uL (4.8-10.8)
[2019-05-16 06:25] LABS: ANION GAP 15.7 mmol/L (8-16); CALCIUM 9.3 mg/dL (8.5-10.1); CARBON DIOXIDE 24.5 mmol/L (21.0-32.0); CREATININE - SERUM 6.7 mg/dL (0.6-1.3); PHOSPHOROUS 4.3 mg/dL (2.5-4.9); POTASSIUM - SERUM 4.2 mmol/L (3.5-5.1)
[2019-05-16 08:03] VITALS: BP 104/50
[2019-05-16] MEDS ORDERED: HYDROCODON-ACE1 EAC7 PO (09:04)
--- NOTE | 2019-05-16 09:38 | NUR ---
PATIENT RECIEVED FROM PREVOUS SHIFT RESTING IN BED. PATIENT SAT ON SIDE OF BED FOR BREAKFAST, PATIENT DIDNT EAT BUT A FEW BITES AND NIECE IN ROOM AT THE REST OF [employer] TRAY AND IS ALSO ASKING FOR DRINKS FROM PATIENT SUPPLY. NIECE IS ALSO REQUESTING COPIES OF CONSENTS THAT WERE SIGNED PRIOR TO OPERATION. EXPLAINED TO HER THAT THIS IS NOT AVAILABLE AT THIS TIME.. PATIENT IS NERVOUS ABOUT DISCHARGE HOME. 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 LEFT IJ SL FLUSHES EASILY
[2019-05-16 10:52] LABS: BASOPHILS 2 % (0-2); EOSINOPHILS 6 % (0-7); LYMPHOCYTES 7 % (15-50); MONOCYTES 13 % (2-11); NEUTROPHILS 72 % (40-80)
[2019-05-16 10:53] LABS: PLATELET ESTIMATE NORMAL; POIKILOCYTOSIS OCC; TEAR DROP CELLS OCC
--- NOTE | 2019-05-16 11:13 | NUR ---
PATIENT AMBULATING IN HALLWAYS WITH WALKER AND PT STANDBY
[2019-05-16 12:19] VITALS: BP 92/49
--- NOTE | 2019-05-16 14:21 | NUR ---
PATIENT RESTING WITH NO NEEDS VOICED. NORCO GIVEN FOR PAIN THEN PATIENT REQUESTED ZOFRAN FOR NAUSEA.
--- NOTE | 2019-05-16 14:32 | NUR ---
NIECE OF PATIENT TO COME TO ROOM AND TELL US THAT PATIENT NEEDS A TOOTHBRUSH AND TOOTHPASTE. TIFFANY SCHULTZ TAKE BOTH OF THESE AND PLACES THEM ON BEDSIDE TABLE IN FROMT OF PATIENT. A MAN IN A [employer]O COAT REACHES ACROSS MARION AND TAKES THEM AND STARTS BRUSHING HIS TEETH AT THE SINK. 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
--- NOTE | 2019-05-16 15:36 | NUR ---
Nutrition Follow-up: Pt reports eating fairly well with some nausea; no vomiting. Diet: Renal, Nepro TID PO intake: 50-100% Wt: 156.4# Last BM: 05/15 Labs reviewed Meds reviewed -Continue current diet as tolerated. -RD following.
[2019-05-16 16:10] VITALS: BP 118/89
--- NOTE | 2019-05-16 18:04 | MORECARE ---
CASE MANAGEMENT DISCHARGE SUMMARY PATIENT: FELY SQUIRES UNIT: [id number] ADM DATE: 04/29/19 AGE: 53 : 65 SEX: F ROOM/BED: D.4818 AUTHOR: ERIKA,DOC PHYSICIAN: REFERRING PHYSICIAN: SHAKIR COWAN DO DATE OF SERVICE: 05/16/19 Discharge Plan Patient Name: FELY SQUIRES Facility: [facility]:[place] : 1965 Planned Disposition: Inpatient Rehab Anticipated Discharge Date: 05/17/19 Discharge Date: Expected LOS: 18 Initial Reviewer: [email or web address] Initial Review Date: 04/29/2019 Generated: 05/16/19 7:04 pm Comments DCP- Discharge Planning Updated by [id number]: Costa Cordova on 05/15/19 8:[address] Patient Name: FELY SQUIRES Encounter No: [id number] : 1965 Primary Insurance: MEDICARE A & B Anticipated DC Date: 05-16-2019 Planned Disposition: Home DCP follow-up note: CM SPOKE TO DR. WYNN WHO INFORMED CM THAT DISCHARGE IS PLANNED FOR TOMORROW. PT UP IN CHAIR. CM MET WITH PT IN ROOM TO DISCUSS DISCHARGE NEEDS AND PLANNING. CM INFORMED PT THAT DR. WYNN PLANS FOR DISCHARGE TOMORROW. PT STATES THAT HE IS "ON CRACK OR SOMETHING" THAT THE OTHER DOCTOR IS NOT GOING TO SEND HER HOME THAT SOON. CM EXPLAINED THAT THE DOCTOR IS PLANNING DISCHARGE AND THAT CM IS HERE TO ASSIST WITH ANY NEEDS. CM DISCUSSED AVAILABILITY OF HOME HEALTH, REHAB SERVICES AND MEDICAL EQUIPMENT. PT DENIES DISCHARGE NEEDS TO GO HOME. PT DENIES NEED OF WOUND CARE. PT THEN STATES SHE "CAN'T EVEN WALK GOOD." CM REVIEWED CHART, PHYSICAL THERAPY SIGNED OFF PT WAS NOTED TO HAVE GOOD STRENGTH AND BALANCE. CM OFFERED HOME HEALTH FOR PHYSICAL THERAPY OR REHAB PLACEMENT. PT STATES NO. PT ASKED FOR CUP OF ICE. IMPORTANT MESSAGE FROM MED[employer]ARE PROVIDED AND EXPLAINED. CM PROVIDED CUP OF ICE TO PT. CM OBTAINED PHYSICAL THERAPY CONSULT ORDER. CM TO FOLLOW AND ASSIST NEEDED. PT STATES SHE IS NOT LEAVING TOMORROW. PT DECLINED REHAB AND HOME HEALTH. PT REPORTS SHE IS NOT ABLE TO "WALK GOOD", THERAPY NOTES ON 05-12-19 INDICATE OTHERWISE. ORDER FOR PHYSICAL THERAPY EVALUATION OBTAINED. Costa Cordova, CASE MANAGEMENT DCP- Discharge Planning Updated by [id number]: Sandy Blair on 05/01/19 12:[address] DC PLAN: Return home with her sister. ANTICIPATED DC NEEDS: Provided meals on wheels info to patient. CM met with patient to complete initial dc planning assessment. CM educated patient on the CM role and verbal consent given by patient to complete assessment. CM verified patient's address, phone number, and emergency contact phone numbers. Patient lives at home with her sister. At discharge patient plans to return home and feels this is a safe discharge. She goes to hemodialysis [facility]F on [facility]. She reports she drives herself to and from HD without difficulty. CM discussed availability of home health, rehab services, and medical equipment. She asked about meals on wheels. CM provided her a handout with the contact number for questions and to see if she qualifies. Patient denied further known discharge needs at this time. Patient reports her brother will transport her home at time of discharge. CM will continue to follow and will assist as needed with dc plans/needs. Sandy Blair RN, [facility] DCPIA - Discharge Planning Initial Assessment Updated by [email or web address]: Sandy Blair on 05/01/19 1:42 pm * Is the patient Alert and Oriented? Yes * PCP Dr. Arreguin * Pharmacy [facility] on [address] * Preadmission Environment Home with Family * ADLs Independent * Equipment Oxygen * Other Equipment O2 with portability - [employer] is DME provider. * List name and contact numbers for known caregivers / representatives who currently or will assist patient after discharge: Veronica Abarca - - [phone] * Verbal permission to speak to the caregivers and representatives has been obtained from the patient. Yes * Community resources currently utilized Other * Please name any agencies selected above. Hemodialysis M-W-F at [facility]. * Additional services required to return to the preadmission environment? No * Can the patient safely return to the preadmission environment? Yes * Has this patient been hospitalized within the prior 30 days at any hospital? Yes Coverage Notice Reviewer: [id number] - Sandy Blair Notice Issued Date-Time: 05/01/2019 11:20 Notice Type: IM Discharge Notice Notice Delivered To: Patient Relationship to Patient: Service Center Assistant Name: Delivery Method: HAND - Hand Delivered Nicole Days: Prior Verbal Notification: Recipient Understood Notice: Recipient Signature: Med Rec Note Co-signed by Attending: Coverage Notice Comment: DC IMM delivered, explained, signed by the patient, and placed in the chart. Signed form also left with patient. Sandy Blair RN , [facility] Reviewer: [id number] Ezio Cordova Notice Issued Date-Time: 05/15/2019 9:10 Notice Type: IM Discharge Notice Notice Delivered To: Patient Relationship to Patient: Service Center Assistant Name: Delivery Method: HAND - Hand Delivered Nicole Days: Prior Verbal Notification: Recipient Understood Notice: Yes Recipient Signature: Yes Med Rec Note Co-signed by Attending: Coverage Notice Comment: Last DP export: 05/15/19 8:28 a Patient Name: FELY SQUIRES Page 31988 at 1804 All edits/amendments must be made on the electronic document DICTATION DATE: 05/16/191803 CLINICAL DENTAL TECHNICIAN: MARYAM 05/16/191803 RPT#: [id number] DC DATE: STATUS: ADM IN [facility] [address] [place] [address] END OF REPORT
--- NOTE | 2019-05-16 18:13 | MORECARE ---
CASE MANAGEMENT DISCHARGE SUMMARY PATIENT: FELY SQUIRES UNIT: [id number] ADM DATE: 04/29/19 AGE: 53 : 65 SEX: F ROOM/BED: D.8278 AUTHOR: ALEXANDRA JAMES PHYSICIAN: REFERRING PHYSICIAN: SHAKIR COWAN DO DATE OF SERVICE: 05/16/19 Discharge Plan Patient Name: FELY SQUIRES Facility: [facility]:[place] : 1965 Planned Disposition: Inpatient Rehab Anticipated Discharge Date: 05/17/19 Discharge Date: Expected LOS: 18 Initial Reviewer: [id number] Initial Review Date: 04/29/2019 Generated: 05/16/19 7:13 pm Comments DCP- Discharge Planning Updated by [email or web address]: Costa Cordova on 05/16/19 5:[address] Patient Name: FELY SQUIRES Encounter No: [id number] : 1965 Primary Insurance: MEDICARE A & B Anticipated DC Date: 05-17-2019 Planned Disposition: Inpatient Rehab External Planned Provider: [facility] INPATIENT REH[facility] DCP follow-up note: CM SPOKE TO PT AND HER SISTER IN ROOM. PT PROVIDED PERMISSION TO DISCUSS CARE AND DISCHARGE PLANNING WITH AND IN PRESENCE OF HER SISTER. CM DISCUSSED PT'S DISCHAGE PLAN AND NEEDS. PT STATES SHE FEELS TOO WEAK TO GO HOME STILL. CM DISCUSSED REHAB OPTIONS, LOCATIONS AND PROVIDERS. PT STATES SHE IS NOT GOING TO ANY SNF FACILITY. PT'S SISTER ASKED ABOUT HOME SERVICES, CM DISCUSSED HOME HEALTH AND ALSO STORE CLERK CHECKER SERVICES THROUGH MEDICAID AND HOW TO APPLY FOR MEDICAID STORE CLERK CHECKER SERVICES. PT STATES SHE WILL ONLY TO "THIS HERE REHAB, THE ONE DOWNSTAIRS". CM OBTAINED ORDER FOR INPATIENT REHAB PRESCREENING. CM WAITING ADMISSION DETERMINATION FROM [facility] INPAT[facility]. PUNEET Jenkins DCP- Discharge Planning Updated by [id number]: Costa Cordova on 05/15/19 8:[address] Patient Name: FELY SQUIRES Encounter No: [id number] : 1965 Primary Insurance: MEDICARE A & B Anticipated DC Date: 05-16-2019 Planned Disposition: Home DCP follow-up note: CM SPOKE TO DR. WYNN WHO INFORMED CM THAT DISCHARGE IS PLANNED FOR TOMORROW. PT UP IN CHAIR. CM MET WITH PT IN ROOM TO DISCUSS DISCHARGE NEEDS AND PLANNING. CM INFORMED PT THAT DR. WYNN PLANS FOR DISCHARGE TOMORROW. PT STATES THAT HE IS "ON CRACK OR SOMETHING" THAT THE OTHER DOCTOR IS NOT GOING TO SEND HER HOME THAT SOON. CM EXPLAINED THAT THE DOCTOR IS PLANNING DISCHARGE AND THAT CM IS HERE TO ASSIST WITH ANY NEEDS. CM DISCUSSED AVAILABILITY OF HOME HEALTH, REHAB SERVICES AND MEDICAL EQUIPMENT. PT DENIES DISCHARGE NEEDS TO GO HOME. PT DENIES NEED OF WOUND CARE. PT THEN STATES SHE "CAN'T EVEN WALK GOOD." CM REVIEWED CHART, PHYSICAL THERAPY SIGNED OFF PT WAS NOTED TO HAVE GOOD STRENGTH AND BALANCE. CM OFFERED HOME HEALTH FOR PHYSICAL THERAPY OR REHAB PLACEMENT. PT STATES NO. PT ASKED FOR CUP OF ICE. IMPORTANT MESSAGE FROM MEDICARE PROVIDED AND EXPLAINED. CM PROVIDED CUP OF ICE TO PT. CM OBTAINED PHYSICAL THERAPY CONSULT ORDER. CM TO FOLLOW AND ASSIST NEEDED. PT STATES SHE IS NOT LEAVING TOMORROW. PT DECLINED REHAB AND HOME HEALTH. PT REPORTS SHE IS NOT ABLE TO "WALK GOOD", THERAPY NOTES ON 05-12-19 INDICATE OTHERWISE. ORDER FOR PHYSICAL THERAPY EVALUATION OBTAINED. Costa Cordova, CASE MANAGEMENT DCP- Discharge Planning Updated by [email or web address]: Sandy Blair on 05/01/19 12:[address] DC PLAN: Return home with her sister. ANTICIPATED DC NEEDS: Provided meals on wheels info to patient. CM met with patient to complete initial dc planning assessment. CM educated patient on the CM role and verbal consent given by patient to complete assessment. CM verified patient's address, phone number, and emergency contact phone numbers. Patient lives at home with her sister. At discharge patient plans to return home and feels this is a safe discharge. She goes to hemodialysis -- on [facility]. She reports she drives herself to and from HD without difficulty. CM discussed availability of home health, rehab services, and medical equipment. She asked about meals on wheels. CM provided her a handout with the contact number for questions and to see if she qualifies. Patient denied further known discharge needs at this time. Patient reports her brother will transport her home at time of discharge. CM will continue to follow and will assist as needed with dc plans/needs. Sandy Blair RN, [facility] DCPIA - Discharge Planning Initial Assessment Updated by [id number]: Sandy Blair on 05/01/19 1:42 pm * Is the patient Alert and Oriented? Yes * PCP Dr. Arreguin * Pharmacy [facility] on [address] * Preadmission Environment Home with Family * ADLs Independent * Equipment Oxygen * Other Equipment O2 with portability - [employer] is DME provider. * List name and contact numbers for known caregivers / representatives who currently or will assist patient after discharge: Veronica tipton [phone] * Verbal permission to speak to the caregivers and representatives has been obtained from the patient. Yes * Community resources currently utilized Other * Please name any agencies selected above. Hemodialysis M-W-F at [facility]. * Additional services required to return to the preadmission environment? No * Can the patient safely return to the preadmission environment? Yes * Has this patient been hospitalized within the prior 30 days at any hospital? Yes Coverage Notice Reviewer: [id number] - Sandy Blair Notice Issued Date-Time: 05/01/2019 11:20 Notice Type: IM Discharge Notice Notice Delivered To: Patient Relationship to Patient: Assistant Customer Service Manager Name: Delivery Method: HAND - Hand Delivered Nicole Days: Prior Verbal Notification: Recipient Understood Notice: Recipient Signature: Med Rec Note Co-signed by Attending: Coverage Notice Comment: DC IMM delivered, explained, signed by the patient, and placed in the chart. Signed form also left with patient. Sandy Blair RN , [facility] Reviewer: [id number] Ezio Cordova Notice Issued Date-Time: 05/15/2019 9:10 Notice Type: IM Discharge Notice Notice Delivered To: Patient Relationship to Patient: Assistant Customer Service Manager Name: Delivery Method: HAND - Hand Delivered Nicole Days: Prior Verbal Notification: Recipient Understood Notice: Yes Recipient Signature: Yes Med Rec Note Co-signed by Attending: Coverage Notice Comment: Last DP export: 05/16/19 5:04 p Patient Name: FELY SQUIRES Page [id number] at 1813 All edits/amendments must be made on the electronic document DICTATION DATE: 05/16/191812 MEMS PROCESS ENGINEER: MARYAM 05/16/191812 RPT#: [id number] DC DATE: STATUS: ADM IN [place] [id number] [facility], [facility] END OF REPORT
--- NOTE | 2019-05-16 19:30 | NUR ---
EVENING ROUNDS COMPLETE, PT LAYING IN BED, AAOX4. NO SIGNS OF DISTRESS. PT DENIES ANY PAIN AT THIS TIME. REQUEST FOR HEATER TO BE TURNED DOWN AND DOOR TO BE CRACKED. FOLLWED THROUGH WITH REQUEST. CL IN REACH, BED IN LOWEST POSITION. PT S/O IS AT BEDSIDE.
[2019-05-16 20:00] VITALS: BP 96/54
[2019-05-17] VITALS: BP 110/68
[2019-05-17 04:00] VITALS: BP 99/66
--- NOTE | 2019-05-17 05:38 | NUR ---
ATTEMPTED LINE DRAW, WAS UNABLE TO GET A BLOOD RETURN FROM NURSES PORT. HAD PT LAY WITH ARM ABOVE HEAD, STILL UNSUCCESSFUL.
[2019-05-17 06:20] LABS: ANION GAP 17.3 mmol/L (8-16); CALCIUM 9.3 mg/dL (8.5-10.1); CARBON DIOXIDE 23.2 mmol/L (21.0-32.0); PHOSPHOROUS 5.1 mg/dL (2.5-4.9); POTASSIUM - SERUM 4.5 mmol/L (3.5-5.1)
--- NOTE | 2019-05-17 06:22 | NUR ---
PT PUT ON BATHROOM CALL LIGHT, ENTERED PT ROOM. PT WAS STANDING IN BATHROOM, WHEN ASKED WHAT SHE NEEDED ASSISTANCE WITH PT STATED "TO GET OUT OF THE BATHROOM" PT PROCEEDED TO WALK ON HER OWN WITHOUT MY HELP TO HER BED AND SIT DOWN, PT DID NOT APPEAR TO NEED ANY ASSISTANCE. NO DISTRESS NOTED. TURNED OFF BATHROOM CALL LIGHT.
[2019-05-17 06:29] LABS: HEMATOCRIT 28.6 % (36.0-48.0); MCH 29.1 pg (26.0-34.0); MCHC 31.5 g/dL (31.0-37.0); MCV 92.6 fL (80.0-100.0); MEAN PLATELET VOLUME 10.4 fL (7.4-10.4); PLATELET COUNT 345 10x3/uL (130-400); RBC 3.09 10x6/uL (4.00-5.40); RDW 16.7 % (11.5-14.5); WBC 20.6 10x3/uL (4.8-10.8)
[2019-05-17 08:00] VITALS: BP 99/57
--- NOTE | 2019-05-17 10:26 | NUR ---
PATIENT IS SITTING UP ON THE EDGE OF THE BED. DENIES ANY NEEDS AT THIS TIME. FRIEND AT BEDSIDE.
[2019-05-17 11:24] LABS: EOSINOPHILS 4 % (0-7); LYMPHOCYTES 11 % (15-50); MONOCYTES 18 % (2-11); NEUTROPHILS 65 % (40-80); PLATELET ESTIMATE NORMAL
[2019-05-17 12:02] VITALS: BP 128/83
--- NOTE | 2019-05-17 14:12 | NUR ---
PATIENT IS ABOUT TO GO TO DIALYSIS. GIVING PRN PAIN MEDICATION .
--- NOTE | 2019-05-17 19:45 | NUR ---
PT SITTING UP IN BED ALERT AND ORIENTED X4. PT COMPLAINS OF PAIN IN ABDOMEN. PRN PAIN MED GIVEN. VITALS STABLE. WILL CONTINUE TO MONITOR.
[2019-05-17 20:30] VITALS: BP 107/74
[2019-05-18] VITALS: BP 111/72
--- NOTE | 2019-05-18 02:45 | NUR ---
I have reviewed this patient and I concur with the Shift Assessment completed by the Licensed Practical Nurse today this shift.
[2019-05-18 04:30] VITALS: BP 116/82
--- NOTE | 2019-05-18 05:41 | NUR ---
PT TAKING SPONGE BATH. NO S/S OF DISTRESS. BED LOW CALL LIGHT WITHIN REACH. WILL CONTINUE TO MONITOR.
[2019-05-18 05:52] LABS: BASOPHILS 0.4 % (0-2); EOSINOPHILS 5.7 % (0-7); HEMATOCRIT 29.6 % (36.0-48.0); HEMOGLOBIN 9.4 g/dL (12-16); MCH 29.6 pg (26.0-34.0); MCHC 31.8 g/dL (31.0-37.0); MCV 93.1 fL (80.0-100.0); MEAN PLATELET VOLUME 9.9 fL (7.4-10.4); MONOCYTES 16.4 % (2-11); NEUTROPHILS 62.5 % (40-80); PLATELET COUNT 351 10x3/uL (130-400); RBC 3.18 10x6/uL (4.00-5.40); RDW 16.8 % (11.5-14.5); WBC 23.4 10x3/uL (4.8-10.8)
[2019-05-18 06:18] LABS: ANION GAP 18.1 mmol/L (8-16); CREATININE - SERUM 6.5 mg/dL (0.6-1.3); PHOSPHOROUS 4.3 mg/dL (2.5-4.9); POTASSIUM - SERUM 4.1 mmol/L (3.5-5.1)
--- NOTE | 2019-05-18 07:25 | NUR ---
PT RESTING PEACEUFLLY, BREATHS EVEN/REGULAR/UNLABORED. NO SIGNS/SYMPTOMS OF ACUTE DISTRESS NOTED AT [facility]. NO FAMILY PRESENT AT BEDSIDE. DID NOT FURTHER DISTURB, CL IN REACH,SRX2.
[2019-05-18 08:00] VITALS: BP 102/65
[2019-05-18] MEDS ORDERED: ZITHROMAX250 MG PO (10:44)
--- NOTE | 2019-05-18 10:58 | MORECARE ---
CASE MANAGEMENT DISCHARGE SUMMARY PATIENT: FELY SQUIRES UNIT: [id number] ADM DATE: 04/29/19 AGE: 53 : 65 SEX: F ROOM/BED: D.2248 AUTHOR: ERIKA,DOC PHYSICIAN: REFERRING PHYSICIAN: SHAKIR COWAN DO DATE OF SERVICE: 05/18/19 Discharge Plan Patient Name: FELY SQUIRES Facility: [facility]:[place] : 1965 Planned Disposition: Inpatient Rehab Anticipated Discharge Date: 05/17/19 Discharge Date: Expected LOS: 18 Initial Reviewer: [id number] Initial Review Date: 04/29/2019 Generated: 05/18/19 11:58 am Comments DCP- Discharge Planning Updated by [id number]: Sandy Blair on 05/18/19 9:[address] DC PLAN: Return home with [facility]. CM was asked to see patient by Angelina Little APRN due to patient not wanting to go home today. Cm met with patient and addressed her concerns. CM reviewed chart and noted patient was ambulating 250ft with PT. CM spoke to EXPLOITATION ANALYST who stated the patient ambulated today 250 without difficulty. Patient reported she was just wanting to stay in the hospital. CM offered to arrange home health services. She agreed to these services and RENA signed for patient with no preference on a company. CM provided list of agencies beginning with the highest star ratings with medicare. Form signed by patient for [facility] or [facility]. DC IMM also delivered, explained, and signed by the patient. Both signed forms placed in chart and copies left with the patient. She stated her sister would pick her up today after she gets off work at 5pm. The patient told cm she bought her a complete outfit from the gift shop for her discharge home. She denied further dc needs at this time. Angelina BEASLEY to order HH and [facility] will make referral. Sandy Blair RN, [facility] DCP- Discharge Planning Updated by [email or web address]: Costa Cordova on 05/16/19 5:[address] Patient Name: FELY SQUIRES Encounter No: [id number] : 1965 Primary Insurance: MEDICARE A & B Anticipated DC Date: 05-17-2019 Planned Disposition: Inpatient Rehab External Planned Provider: [facility] INPATIENT REH[facility] DCP follow-up note: CM SPOKE TO PT AND HER SISTER IN ROOM. PT PROVIDED PERMISSION TO DISCUSS CARE AND DISCHARGE PLANNING WITH AND IN PRESENCE OF HER SISTER. CM DISCUSSED PT'S DISCHAGE PLAN AND NEEDS. PT STATES SHE FEELS TOO WEAK TO GO HOME STILL. CM DISCUSSED REHAB OPTIONS, LOCATIONS AND PROVIDERS. PT STATES SHE IS NOT GOING TO ANY GROUP HOME FACILITY. PT'S SISTER ASKED ABOUT HOME SERVICES, CM DISCUSSED HOME HEALTH AND ALSO COAT REPAIR INSPECTOR SERVICES THROUGH MEDICAID AND HOW TO APPLY FOR MEDICAID COAT REPAIR INSPECTOR SERVICES. PT STATES SHE WILL ONLY TO "THIS HERE REHAB, THE ONE DOWNSTAIRS". CM OBTAINED ORDER FOR INPATIENT REHAB PRESCREENING. CM WAITING ADMISSION DETERMINATION FROM [facility] INPATIENT RE[facility]. Costa Cordova, CASE MANAGEMENT DCP- Discharge Planning Updated by [id number]: Costa Cordova on 05/15/19 8:[address] Patient Name: FELY SQUIRES Encounter No: [id number] : 1965 Primary Insurance: MEDICARE A & B Anticipated DC Date: 05-16-2019 Planned Disposition: Home DCP follow-up note: CM SPOKE TO DR. WYNN WHO INFORMED CM THAT DISCHARGE IS PLANNED FOR TOMORROW. PT UP IN CHAIR. CM MET WITH PT IN ROOM TO DISCUSS DISCHARGE NEEDS AND PLANNING. CM INFORMED PT THAT DR. WYNN PLANS FOR DISCHARGE TOMORROW. PT STATES THAT HE IS "ON CRACK OR SOMETHING" THAT THE OTHER DOCTOR IS NOT GOING TO SEND HER HOME THAT SOON. CM EXPLAINED THAT THE DOCTOR IS PLANNING DISCHARGE AND THAT CM IS HERE TO ASSIST WITH ANY NEEDS. CM DISCUSSED AVAILABILITY OF HOME HEALTH, REHAB SERVICES AND MEDICAL EQUIPMENT. PT DENIES DISCHARGE NEEDS TO GO HOME. PT DENIES NEED OF WOUND CARE. PT THEN STATES SHE "CAN'T EVEN WALK GOOD." CM REVIEWED CHART, PHYSICAL THERAPY SIGNED OFF PT WAS NOTED TO HAVE GOOD STRENGTH AND BALANCE. CM OFFERED HOME HEALTH FOR PHYSICAL THERAPY OR REHAB PLACEMENT. PT STATES NO. PT ASKED FOR CUP OF ICE. IMPORTANT MESSAGE FROM MEDICARE PROVIDED AND EXPLAINED. CM PROVIDED CUP OF ICE TO PT. CM OBTAINED PHYSICAL THERAPY CONSULT ORDER. CM TO FOLLOW AND ASSIST NEEDED. PT STATES SHE IS NOT LEAVING TOMORROW. PT DECLINED REHAB AND HOME HEALTH. PT REPORTS SHE IS NOT ABLE TO "WALK GOOD", THERAPY NOTES ON 05-12-19 INDICATE OTHERWISE. ORDER FOR PHYSICAL THERAPY EVALUATION OBTAINED. Costa Cordova, CASE MANAGEMENT DCP- Discharge Planning Updated by [id number]: Sandy Blair on 05/01/19 12:[address] DC PLAN: Return home with her sister. ANTICIPATED DC NEEDS: Provided meals on wheels info to patient. CM met with patient to complete initial dc planning assessment. CM educated patient on the CM role and verbal consent given by patient to complete assessment. CM verified patient's address, phone number, and emergency contact phone numbers. Patient lives at home with her sister. At discharge patient plans to return home and feels this is a safe discharge. She goes to hemodialysis M-W-F on [facility]. She reports she drives herself to and from HD without difficulty. CM discussed availability of home health, rehab services, and medical equipment. She asked about meals on wheels. CM provided her a handout with the contact number for questions and to see if she qualifies. Patient denied further known discharge needs at this time. Patient reports her brother will transport her home at time of discharge. CM will continue to follow and will assist as needed with dc plans/needs. Sandy Blair RN, [facility] DCPIA - Discharge Planning Initial Assessment Updated by [id number]: Sandy Blair on 05/01/19 1:42 pm * Is the patient Alert and Oriented? Yes * PCP Dr. Arreguin * Pharmacy [facility] on [address] * Preadmission Environment Home with Family * ADLs Independent * Equipment Oxygen * Other Equipment O2 with portability - [employer] is DME provider. * List name and contact numbers for known caregivers / representatives who currently or will assist patient after discharge: Veronica Abarca - - [phone] * Verbal permission to speak to the caregivers and representatives has been obtained from the patient. Yes * Community resources currently utilized Other * Please name any agencies selected above. Hemodialysis M-W-F at [facility]. * Additional services required to return to the preadmission environment? No * Can the patient safely return to the preadmission environment? Yes * Has this patient been hospitalized within the prior 30 days at any hospital? Yes External Providers [email or web address] Next Contact Date: Service Request Date: Service Type: Resolution: Reviewer: Comments: Coverage Notice Reviewer: [id number] - Sandy Blair Notice Issued Date-Time: 05/01/2019 11:20 Notice Type: IM Discharge Notice Notice Delivered To: Patient Relationship to Patient: Shaker Washer Name: Delivery Method: HAND - Hand Delivered Nicole Days: Prior Verbal Notification: Recipient Understood Notice: Recipient Signature: Med Rec Note Co-signed by Attending: Coverage Notice Comment: DC IMM delivered, explained, signed by the patient, and placed in the chart. Signed form also left with patient. Sandy Blair RN , [facility] Reviewer: [id number] Ezio Cordova Notice Issued Date-Time: 05/15/2019 9:10 Notice Type: IM Discharge Notice Notice Delivered To: Patient Relationship to Patient: Shaker Washer Name: Delivery Method: HAND - Hand Delivered Nicole Days: Prior Verbal Notification: Recipient Understood Notice: Yes Recipient Signature: Yes Med Rec Note Co-signed by Attending: Coverage Notice Comment: Reviewer: [email or web address] Blair Notice Issued Date-Time: 05/18/2019 10:47 Notice Type: IM Discharge Notice Notice Delivered To: Patient Relationship to Patient: Shaker Washer Name: Delivery Method: HAND - Hand Delivered Nicole Days: Prior Verbal Notification: Recipient Understood Notice: Recipient Signature: Med Rec Note Co-signed by Attending: Coverage Notice Comment: Reviewer: [email or web address] Blair Notice Issued Date-Time: 05/18/2019 10:47 Notice Type: Patient Choice Letter Notice Delivered To: Patient Relationship to Patient: Shaker Washer Name: Delivery Method: HAND - Hand Delivered Nicole Days: Prior Verbal Notification: Recipient Understood Notice: Recipient Signature: Med Rec Note Co-signed by Attending: Coverage Notice Comment: [facility] Last DP export: 05/16/19 5:14 p Patient Name: FELY SQUIRES Page [id number] at 1058 All edits/amendments must be made on the electronic document DICTATION DATE: 05/18/19 1058 BATCH ROLLER OPERATOR: MARYAM 05/18/19 1058 RPT#: [id number] DC DATE: STATUS: ADM IN [facility] [address] [place] [address] END OF REPORT
--- NOTE | 2019-05-18 11:11 | MORECARE ---
CASE MANAGEMENT DISCHARGE SUMMARY PATIENT: FELY SQUIRES UNIT: [id number] ADM DATE: 04/29/19 AGE: 53 : 65 SEX: F ROOM/BED: D.7317 AUTHOR: ERIKA,DOC PHYSICIAN: REFERRING PHYSICIAN: SHAKIR COWAN DO DATE OF SERVICE: 05/18/19 Discharge Plan Patient Name: FELY SQUIRES Facility: [facility]:[place] : 1965 Planned Disposition: Inpatient Rehab Anticipated Discharge Date: 05/17/19 Discharge Date: Expected LOS: 18 Initial Reviewer: [email or web address] Initial Review Date: 04/29/2019 Generated: 05/18/19 12:11 pm Comments DCP- Discharge Planning Updated by [id number]: Alla Alonso on 05/18/19 10:[address] Patient Name: FELY SQUIRES Admission Status: ER Accout number: [id number] Admission Date: 04-29-2019 : 1965 Admission Diagnosis: Attending: ALLIE Current LOS: 19 Anticipated DC Date: 05-17-2019 Planned Disposition: Inpatient Rehab Primary Insurance: MEDICARE A & B Discharge Planning Comments: REFERRAL SENT TO [facility]. PHONE NUMBER [phone]. Bread Stacker: Alla Alonso DCP- Discharge Planning Updated by [email or web address]: Sandy Blair on 05/18/19 9:[address] DC PLAN: Return home with [facility]. CM was asked to see patient by Angelina Little APRN due to patient not wanting to go home today. Cm met with patient and addressed her concerns. CM reviewed chart and noted patient was ambulating 250ft with PT. CM spoke to HOOP COILING MACHINE OPERATOR who stated the patient ambulated today 250 without difficulty. Patient reported she was just wanting to stay in the hospital. CM offered to arrange home health services. She agreed to these services and RENA signed for patient with no preference on a company. CM provided list of agencies beginning with the highest star ratings with medicare. Form signed by patient for [facility] or [facility]. DC IMM also delivered, explained, and signed by the patient. Both signed forms placed in chart and copies left with the patient. She stated her sister would pick her up today after she gets off work at 5pm. The patient told cm she bought her a complete outfit from the gift shop for her discharge home. She denied further dc needs at this time. Angelina BEASLEY to order HH and Alla MTZ will make referral. Sandy Blair RN, [facility] DCP- Discharge Planning Updated by [id number]: Costa Cordova on 05/16/19 5:[address] Patient Name: FELY SQUIRES Encounter No: [id number] : 1965 Primary Insurance: MEDICARE A & B Anticipated DC Date: 05-17-2019 Planned Disposition: Inpatient Rehab External Planned Provider: [facility] INPATIENT REH[facility] DCP follow-up note: CM SPOKE TO PT AND HER SISTER IN ROOM. PT PROVIDED PERMISSION TO DISCUSS CARE AND DISCHARGE PLANNING WITH AND IN PRESENCE OF HER SISTER. CM DISCUSSED PT'S DISCHAGE PLAN AND NEEDS. PT STATES SHE FEELS TOO WEAK TO GO HOME STILL. CM DISCUSSED REHAB OPTIONS, LOCATIONS AND PROVIDERS. PT STATES SHE IS NOT GOING TO ANY ALF FACILITY. PT'S SISTER ASKED ABOUT HOME SERVICES, CM DISCUSSED HOME HEALTH AND ALSO BUFF WHEEL FABRICATOR SERVICES THROUGH MEDICAID AND HOW TO APPLY FOR MEDICAID BUFF WHEEL FABRICATOR SERVICES. PT STATES SHE WILL ONLY TO "THIS HERE REHAB, THE ONE DOWNSTAIRS". CM OBTAINED ORDER FOR INPATIENT REHAB PRESCREENING. CM WAITING ADMISSION DETERMINATION FROM [facility] INPAT[facility]. Costa Cordova, CASE MANAGEMENT DCP- Discharge Planning Updated by [id number]: Costa Cordova on 05/15/19 8:[address] Patient Name: FELY SQUIRES Encounter No: [id number] : 1965 Primary Insurance: MEDICARE A & B Anticipated DC Date: 05-16-2019 Planned Disposition: Home DCP follow-up note: CM SPOKE TO DR. WYNN WHO INFORMED CM THAT DISCHARGE IS PLANNED FOR TOMORROW. PT UP IN CHAIR. CM MET WITH PT IN ROOM TO DISCUSS DISCHARGE NEEDS AND PLANNING. CM INFORMED PT THAT DR. WYNN PLANS FOR DISCHARGE TOMORROW. PT STATES THAT HE IS "ON CRACK OR SOMETHING" THAT THE OTHER DOCTOR IS NOT GOING TO SEND HER HOME THAT SOON. CM EXPLAINED THAT THE DOCTOR IS PLANNING DISCHARGE AND THAT CM IS HERE TO ASSIST WITH ANY NEEDS. CM DISCUSSED AVAILABILITY OF HOME HEALTH, REHAB SERVICES AND MEDICAL EQUIPMENT. PT DENIES DISCHARGE NEEDS TO GO HOME. PT DENIES NEED OF WOUND CARE. PT THEN STATES SHE "CAN'T EVEN WALK GOOD." CM REVIEWED CHART, PHYSICAL THERAPY SIGNED OFF PT WAS NOTED TO HAVE GOOD STRENGTH AND BALANCE. CM OFFERED HOME HEALTH FOR PHYSICAL THERAPY OR REHAB PLACEMENT. PT STATES NO. PT ASKED FOR CUP OF ICE. IMPORTANT MESSAGE FROM MEDICARE PROVIDED AND EXPLAINED. CM PROVIDED CUP OF ICE TO PT. CM OBTAINED PHYSICAL THERAPY CONSULT ORDER. CM TO FOLLOW AND ASSIST NEEDED. PT STATES SHE IS NOT LEAVING TOMORROW. PT DECLINED REHAB AND HOME HEALTH. PT REPORTS SHE IS NOT ABLE TO "WALK GOOD", THERAPY NOTES ON 05-12-19 INDICATE OTHERWISE. ORDER FOR PHYSICAL THERAPY EVALUATION OBTAINED. Costa Cordova, CASE MANAGEMENT DCP- Discharge Planning Updated by [email or web address]: Sandy Blair on 05/01/19 12:[address] DC PLAN: Return home with her sister. ANTICIPATED DC NEEDS: Provided meals on wheels info to patient. CM met with patient to complete initial dc planning assessment. CM educated patient on the CM role and verbal consent given by patient to complete assessment. CM verified patient's address, phone number, and emergency contact phone numbers. Patient lives at home with her sister. At discharge patient plans to return home and feels this is a safe discharge. She goes to hemodialysis on [facility]. She reports she drives herself to and from HD without difficulty. CM discussed availability of home health, rehab services, and medical equipment. She asked about meals on wheels. CM provided her a handout with the contact number for questions and to see if she qualifies. Patient denied further known discharge needs at this time. Patient reports her brother will transport her home at time of discharge. CM will continue to follow and will assist as needed with dc plans/needs. Sandy Blair RN, [facility] DCPIA - Discharge Planning Initial Assessment Updated by [id number]: Sandy Blair on 05/01/19 1:42 pm * Is the patient Alert and Oriented? Yes * PCP Dr. Arreguin * Pharmacy [facility] on [address] * Preadmission Environment Home with Family * ADLs Independent * Equipment Oxygen * Other Equipment O2 with portability - [employer] is DME provider. * List name and contact numbers for known caregivers / representatives who currently or will assist patient after discharge: Veronica Abarca - sister - [phone] * Verbal permission to speak to the caregivers and representatives has been obtained from the patient. Yes * Community resources currently utilized Other * Please name any agencies selected above. Hemodialysis M-W-F at [facility]. * Additional services required to return to the preadmission environment? No * Can the patient safely return to the preadmission environment? Yes * Has this patient been hospitalized within the prior 30 days at any hospital? Yes Coverage Notice Reviewer: JOSIAH Blair Notice Issued Date-Time: 05/18/2019 10:47 Notice Type: Patient Choice Letter Notice Delivered To: Patient Relationship to Patient: Construction Craft Laborer Name: Delivery Method: HAND - Hand Delivered Nicole Days: Prior Verbal Notification: Recipient Understood Notice: Recipient Signature: Med Rec Note Co-signed by Attending: Coverage Notice Comment: [facility] Reviewer: JOSIAH Blair Notice Issued Date-Time: 05/18/2019 10:47 Notice Type: IM Discharge Notice Notice Delivered To: Patient Relationship to Patient: Construction Craft Laborer Name: Delivery Method: HAND - Hand Delivered Nicole Days: Prior Verbal Notification: Recipient Understood Notice: Recipient Signature: Med Rec Note Co-signed by Attending: Coverage Notice Comment: Reviewer: [id number] Ezio Cordova Notice Issued Date-Time: 05/15/2019 9:10 Notice Type: IM Discharge Notice Notice Delivered To: Patient Relationship to Patient: Construction Craft Laborer Name: Delivery Method: HAND - Hand Delivered Nicole Days: Prior Verbal Notification: Recipient Understood Notice: Yes Recipient Signature: Yes Med Rec Note Co-signed by Attending: Coverage Notice Comment: Reviewer: JOSIAH Blair Notice Issued Date-Time: 05/01/2019 11:20 Notice Type: IM Discharge Notice Notice Delivered To: Patient Relationship to Patient: Construction Craft Laborer Name: Delivery Method: HAND - Hand Delivered Nicole Days: Prior Verbal Notification: Recipient Understood Notice: Recipient Signature: Med Rec Note Co-signed by Attending: Coverage Notice Comment: DC IMM delivered, explained, signed by the patient, and placed in the chart. Signed form also left with patient. Sandy Blair RN , [facility] Last DP export: 05/18/19 9:58 a Patient Name: FELY SQUIRES Page [id number] at 1111 All edits/amendments must be made on the electronic document DICTATION DATE: 05/18/19 1111 INTERLOCKING PAVEMENT INSTALLER: DM 05/18/19 1111 RPT#: [id number] DC DATE: STATUS: ADM IN [facility] [address] [place] [address] END OF REPORT
--- NOTE | 2019-05-18 11:16 | NUR ---
PT BEING DISCHARGED TODAY. ABDOMEN INISION WITH RAMSEY, NO DRAINAGE NOTED. AMBULATORY IN ROOM AND BARON. TAKING ORAL PAIN MEDS. WILL REMOVE CENTRAL LINE PRIOR TO DISCHARGE.
--- NOTE | 2019-05-18 14:39 | NUR ---
CENTRAL LINE REMOVED, PRESSURE HELD WITH NO SIGNS OF BLEEDING. DRESSING APPLIED. DISCHARGE INSTRUCTIONS REVIEWED. FAMILY WITH PT. NO PORTABLE OXYGEN FOR TRANSPORT HOME BUT PT STATES ONLY FEW MINUTES AWAY AND OXYGEN AT HOME. PT DID NOT DESAT QUICKLY WITHOUT EXERTION.
--- NOTE | 2019-05-19 16:03 | MORECARE ---
CASE MANAGEMENT DISCHARGE SUMMARY PATIENT: FELY SQUIRES UNIT: [id number] ADM DATE: 04/29/19 AGE: 53 : 65 SEX: F ROOM/BED: D.7285 AUTHOR: ERIKA,DOC PHYSICIAN: REFERRING PHYSICIAN: SHAKIR COWAN DO DATE OF SERVICE: 05/19/19 Discharge Plan Patient Name: FELY SQUIRES Facility: [facility]:[place] : 1965 Planned Disposition: Inpatient Rehab Anticipated Discharge Date: 05/17/19 Discharge Date: 05/18/2019 Expected LOS: 18 Initial Reviewer: [email or web address] Initial Review Date: 04/29/2019 Generated: 05/19/19 5:02 pm Comments DCP- Discharge Planning Updated by [id number]: Alla Alonso on 05/18/19 10:[address] Patient Name: FELY SQUIRES Admission Status: ER Accout number: [id number] Admission Date: 04-29-2019 : 1965 Admission Diagnosis: Attending: ALLIE Current LOS: 19 Anticipated DC Date: 05-17-2019 Planned Disposition: Inpatient Rehab Primary Insurance: MEDICARE A & B Discharge Planning Comments: [facility] PHONE NUMBER [phone]. Assistant Restaurant General Manager: Alla Alonso DCP- Discharge Planning Updated by [email or web address]: Sandy Blair on 05/18/19 9:[address] DC PLAN: [facility]. CM was asked to see patient by Angelina Little APRN due to patient not wanting to go home today. Cm met with patient and addressed her concerns. CM reviewed chart and noted patient was ambulating 250ft with PT. CM spoke to PLANT PROTECTION GUARD who stated the patient ambulated today 250 without difficulty. Patient reported she was just wanting to stay in the hospital. CM offered to arrange home health services. She agreed to these services and RENA signed for patient with no preference on a company. CM provided list of agencies beginning with the highest star ratings with medicare. Form signed by patient for [facility] or [facility]. DC IMM also delivered, explained, and signed by the patient. Both signed forms placed in chart and copies left with the patient. She stated her sister would pick her up today after she gets off work at 5pm. The patient told cm she bought her a complete outfit from the gift shop for her discharge home. She denied further dc needs at this time. Angelina BEASLEY to order HH and [facility] will make referral. Sandy Blair RN, [facility] DCP- Discharge Planning Updated by [id number]: Costa Cordova on 05/16/19 5:[address] Patient Name: FELY SQUIRES Encounter No: [id number] : 1965 Primary Insurance: MEDICARE A & B Anticipated DC Date: 05-17-2019 Planned Disposition: Inpatient Rehab External Planned Provider: [facility] INPAT[facility] REH[facility] DCP follow-up note: CM SPOKE TO PT AND HER SISTER IN ROOM. PT PROVIDED PERMISSION TO DISCUSS CARE AND DISCHARGE PLANNING WITH AND IN PRESENCE OF HER SISTER. CM DISCUSSED PT'S DISCHAGE PLAN AND NEEDS. PT STATES SHE FEELS TOO WEAK TO GO HOME STILL. CM DISCUSSED REHAB OPTIONS, LOCATIONS AND PROVIDERS. PT STATES SHE IS NOT GOING TO ANY SENIOR CARE FACILITY. PT'S SISTER ASKED ABOUT HOME SERVICES, CM DISCUSSED HOME HEALTH AND ALSO CENTRAL OFFICE SUPERVISOR SERVICES THROUGH MEDICAID AND HOW TO APPLY FOR MEDICAID CENTRAL OFFICE SUPERVISOR SERVICES. PT STATES SHE WILL ONLY TO "THIS HERE REHAB, THE ONE DOWNSTAIRS". CM OBTAINED ORDER FOR INPATIENT REHAB PRESCREENING. CM WAITING ADMISSION DETERMINATION FROM [facility] INPAT[facility]. Costa Cordova, CASE MANAGEMENT DCP- Discharge Planning Updated by [id number]: Costa Cordova on 05/15/19 8:[address] Patient Name: FELY SQUIRES Encounter No: [id number] : 1965 Primary Insurance: MEDICARE A & B Anticipated DC Date: 05-16-2019 Planned Disposition: Home DCP follow-up note: CM SPOKE TO DR. WYNN WHO INFORMED CM THAT DISCHARGE IS PLANNED FOR TOMORROW. PT UP IN CHAIR. CM MET WITH PT IN ROOM TO DISCUSS DISCHARGE NEEDS AND PLANNING. CM INFORMED PT THAT DR. WYNN PLANS FOR DISCHARGE TOMORROW. PT STATES THAT HE IS "ON CRACK OR SOMETHING" THAT THE OTHER DOCTOR IS NOT GOING TO SEND HER HOME THAT SOON. CM EXPLAINED THAT THE DOCTOR IS PLANNING DISCHARGE AND THAT CM IS HERE TO ASSIST WITH ANY NEEDS. CM DISCUSSED AVAILABILITY OF HOME HEALTH, REHAB SERVICES AND MEDICAL EQUIPMENT. PT DENIES DISCHARGE NEEDS TO GO HOME. PT DENIES NEED OF WOUND CARE. PT THEN STATES SHE "CAN'T EVEN WALK GOOD." CM REVIEWED CHART, PHYSICAL THERAPY SIGNED OFF PT WAS NOTED TO HAVE GOOD STRENGTH AND BALANCE. CM OFFERED HOME HEALTH FOR PHYSICAL THERAPY OR REHAB PLACEMENT. PT STATES NO. PT ASKED FOR CUP OF ICE. IMPORTANT MESSAGE FROM MEDICARE PROVIDED AND EXPLAINED. CM PROVIDED CUP OF ICE TO PT. CM OBTAINED PHYSICAL THERAPY CONSULT ORDER. CM TO FOLLOW AND ASSIST NEEDED. PT STATES SHE IS NOT LEAVING TOMORROW. PT DECLINED REHAB AND HOME HEALTH. PT REPORTS SHE IS NOT ABLE TO "WALK GOOD", THERAPY NOTES ON 05-12-19 INDICATE OTHERWISE. ORDER FOR PHYSICAL THERAPY EVALUATION OBTAINED. Costa Cordova, CASE MANAGEMENT DCP- Discharge Planning Updated by [email or web address]: Sandy Blair on 05/01/19 12:[address] DC PLAN: Return home with her sister. ANTICIPATED DC NEEDS: Provided meals on wheels info to patient. CM met with patient to complete initial dc planning assessment. CM educated patient on the CM role and verbal consent given by patient to complete assessment. CM verified patient's address, phone number, and emergency contact phone numbers. Patient lives at home with her sister. At discharge patient plans to return home and feels this is a safe discharge. She goes to hemodialysis on [facility]. She reports she drives herself to and from HD without difficulty. CM discussed availability of home health, rehab services, and medical equipment. She asked about meals on wheels. CM provided her a handout with the contact number for questions and to see if she qualifies. Patient denied further known discharge needs at this time. Patient reports her brother will transport her home at time of discharge. CM will continue to follow and will assist as needed with dc plans/needs. Sandy Blair RN, [facility] DCPIA - Discharge Planning Initial Assessment Updated by [id number]: Sandy Blair on 05/01/19 1:42 pm * Is the patient Alert and Oriented? Yes * PCP Dr. Arreguin * Pharmacy [facility] on [address] * Preadmission Environment Home with Family * ADLs Independent * Equipment Oxygen * Other Equipment O2 with portability - [employer] is DME provider. * List name and contact numbers for known caregivers / representatives who currently or will assist patient after discharge: Veronica Abarca - sister - [phone] * Verbal permission to speak to the caregivers and representatives has been obtained from the patient. Yes * Community resources currently utilized Other * Please name any agencies selected above. Hemodialysis M-W-F at [facility]. * Additional services required to return to the preadmission environment? No * Can the patient safely return to the preadmission environment? Yes * Has this patient been hospitalized within the prior 30 days at any hospital? Yes Coverage Notice Reviewer: [id number] Blair Notice Issued Date-Time: 05/01/2019 11:20 Notice Type: IM Discharge Notice Notice Delivered To: Patient Relationship to Patient: Potato Picker Name: Delivery Method: HAND - Hand Delivered Nicole Days: Prior Verbal Notification: Recipient Understood Notice: Recipient Signature: Med Rec Note Co-signed by Attending: Coverage Notice Comment: DC IMM delivered, explained, signed by the patient, and placed in the chart. Signed form also left with patient. Sandy Blair RN , [facility] Reviewer: [email or web address] Ezio Cordova Notice Issued Date-Time: 05/15/2019 9:10 Notice Type: IM Discharge Notice Notice Delivered To: Patient Relationship to Patient: Potato Picker Name: Delivery Method: HAND - Hand Delivered Nicole Days: Prior Verbal Notification: Recipient Understood Notice: Yes Recipient Signature: Yes Med Rec Note Co-signed by Attending: Coverage Notice Comment: Reviewer: JOSIAH Blair Notice Issued Date-Time: 05/18/2019 10:47 Notice Type: IM Discharge Notice Notice Delivered To: Patient Relationship to Patient: Potato Picker Name: Delivery Method: HAND - Hand Delivered Nicole Days: Prior Verbal Notification: Recipient Understood Notice: Recipient Signature: Med Rec Note Co-signed by Attending: Coverage Notice Comment: Reviewer: JOSIAH Blair Notice Issued Date-Time: 05/18/2019 10:47 Notice Type: Patient Choice Letter Notice Delivered To: Patient Relationship to Patient: Potato Picker Name: Delivery Method: HAND - Hand Delivered Nicole Days: Prior Verbal Notification: Recipient Understood Notice: Recipient Signature: Med Rec Note Co-signed by Attending: Coverage Notice Comment: [facility] Last DP export: 05/18/19 10:11 a Patient Name: FELY SQUIRES Page [id number] at 1603 All edits/amendments must be made on the electronic document DICTATION DATE: 05/19/[address] STRE[address] INSPECTOR: MARYAM 05/19/19 160 RPT#: [id number] DC DATE:05/18/19 STATUS: DIS IN [facility] [address] [facility] [place] [address] END OF REPORT
== END 2019-05-18 14:42 | disposition home health service (06) | DRG 414 ==
LOC: D.ER 15:40 → D.ICU 18:47 → D.M2 18:47 → D.ICU 05-06 16:25 → D.M2 05-11 14:06
PROVIDERS: Family Medicine; Internal Medicine Nephrology; Surgery; ADMIT Internal Medicine; ATTEND Internal Medicine
PROC: 5A1D70Z Performance of Urinary Filtration, Intermittent, Less than 6 Hours Per Day (ICD-10-PCS; 2019-04-30)
PROC: B2111ZZ Fluoroscopy of Multiple Coronary Arteries using Low Osmolar Contrast (ICD-10-PCS; 2019-05-02)
PROC: B3101ZZ Fluoroscopy of Thoracic Aorta using Low Osmolar Contrast (ICD-10-PCS; 2019-05-02)
PROC: 4A023N7 Measurement of Cardiac Sampling and Pressure, Left Heart, Percutaneous Approach (ICD-10-PCS; 2019-05-02)
PROC: 0DTJ0ZZ Resection of Appendix, Open Approach (ICD-10-PCS; 2019-05-06)
PROC: 05HN33Z Insertion of Infusion Device into Left Internal Jugular Vein, Percutaneous Approach (ICD-10-PCS; 2019-05-06)
PROC: B544ZZA Ultrasonography of Left Jugular Veins, Guidance (ICD-10-PCS; 2019-05-06)
PROC: 5A1945Z Respiratory Ventilation, 24-96 Consecutive Hours (ICD-10-PCS; 2019-05-06)
PROC: 0FT40ZZ Resection of Gallbladder, Open Approach (ICD-10-PCS; principal; 2019-05-06 14:30)
DX: K82.8 Other specified diseases of gallbladder (principal); I21.4 Non-ST elevation (NSTEMI) myocardial infarction; N18.6 End stage renal disease; J95.821 Acute postprocedural respiratory failure; A41.9 Sepsis, unspecified organism; I13.2 Hypertensive heart and chronic kidney disease with heart failure and with stage 5 chronic kidney disease, or end stage renal disease; J44.1 Chronic obstructive pulmonary disease with (acute) exacerbation; D62 Acute posthemorrhagic anemia; K56.7 Ileus, unspecified; I24.9 Acute ischemic heart disease, unspecified; J06.9 Acute upper respiratory infection, unspecified; I50.9 Heart failure, unspecified; Z99.2 Dependence on renal dialysis; D63.1 Anemia in chronic kidney disease; R04.0 Epistaxis; I25.10 Atherosclerotic heart disease of native coronary artery without angina pectoris; E78.5 Hyperlipidemia, unspecified; E87.5 Hyperkalemia; Y83.9 Surgical procedure, unspecified as the cause of abnormal reaction of the patient, or of later complication, without mention of misadventure at the time of the procedure; H93.90 Unspecified disorder of ear, unspecified ear

== ENCOUNTER 2019-05-26 20:00 | Inpatient (IN) | payer MEDICARE ==
[2019-05-26] VITALS (9 sets, daily range): BP systolic 77–98; BP diastolic 48–67; BMI 19.5
[~2019-05-26] VITALS: Ht 175.3 cm; Wt 60.0 kg
[~2019-05-26 20:00] MED LIST changes: +HYDROCODON-ACE1 EAC7 PO; +ZITHROMAX250 MG PO
--- NOTE | 2019-05-26 20:50 | NUR ---
LAB AT PT BEDSIDE, UNABLE TO OBTAIN BLOOD DRAW.
--- NOTE | 2019-05-26 20:54 | NUR ---
CONTINUOUS PINK TINGED DRAINAGE NOTED TO INCISION SITE. BANDAGE APPLIED TO SITE. PT GOWN AND BLANKETS CHANGED.
--- NOTE | 2019-05-26 21:12 | NUR ---
LAB OBTAINED 1 SET OF BLOOD CULTURES. DR REYES NOTIFIED. VERBAL ORDER GIVEN FOR ONLY 1 SET, OKAY TO START ABX.
[2019-05-26 21:20] LABS: HEMATOCRIT 23.8 % (36.0-48.0); HEMOGLOBIN 7.4 g/dL (12-16); MCH 28.1 pg (26.0-34.0); MCHC 31.1 g/dL (31.0-37.0); MCV 90.5 fL (80.0-100.0); MEAN PLATELET VOLUME 9.9 fL (7.4-10.4); PLATELET COUNT 353 10x3/uL (130-400); RBC 2.63 10x6/uL (4.00-5.40); RDW 19.2 % (11.5-14.5); WBC 24.5 10x3/uL (4.8-10.8)
[2019-05-26 21:23] LABS: INR 1.47 (0.85-1.17); PROTIME 17.2 SECONDS (11.6-15.0)
[2019-05-26 21:25] LABS: CALC OSMOLALITY 283 mosm/kg (275-300); CALCIUM 7.9 mg/dL (8.5-10.1); CARBON DIOXIDE 22.8 mmol/L (21.0-32.0); CHLORIDE - SERUM 97 mmol/L (98-107); CREATININE - SERUM 8.4 mg/dL (0.6-1.3); GLUCOSE 73 mg/dL (74-106); POTASSIUM - SERUM 4.5 mmol/L (3.5-5.1); SODIUM 135 mmol/L (136-145); UREA NITROGEN 54 mg/dL (7-18); eGFR NON AFRICAN AMERICAN 5 mL/min (90-120)
[2019-05-26 21:37] LABS: EOSINOPHILS 9 % (0-7); LYMPHOCYTES 6 % (15-50); MONOCYTES 5 % (2-11); NEUTROPHILS 77 % (40-80); PLATELET ESTIMATE NORMAL; TARGET CELLS 2+
[2019-05-26 21:42] LABS: ALBUMIN 1.8 g/dL (3.4-5.0); ALKALINE PHOSPHATASE 590 U/L (46-116); ALT (SGPT) 8 U/L (10-68); BILIRUBIN - TOTAL 3.43 mg/dL (0.2-1.3); CKMB 1.9 U/L (0.0-3.6); CREATINE KINASE 33 UL (21-215); PROTEIN - SERUM 7.4 g/dL (6.4-8.2)
[2019-05-26 21:45] LABS: TROPONIN-I < 0.017 ng/mL (0.000-0.060)
--- NOTE | 2019-05-26 22:00 | NUR ---
REPORT RECEIVED, PT RESTING IN BED, AAOX4. PT ARRIVED TO UNIT ACCOMPANIED BY ER STAFF. PT C/O STABBING PAIN IN ABDOMEN 02/19. PREVIOUS INCISION ON ABDOMEN, DRESSING CDI. ASSESSMENT COMPLETED, SEE FLOWSHEET. LT AC PIV INFUSING VANC AND DOPAMINE GTT. PT ON 2L O2 VIA NC. DR WYNN PAGED REGARDING LABS, AWAITING CALL BACK. WILL CONTINUE TO MONITOR.
--- NOTE | 2019-05-26 23:00 | NUR ---
PT RESTING IN BED, C/O ABDOMINAL PAIN. REPOSITIONED NEEDED, WILL CONTINUE TO MONITOR.
[2019-05-27] VITALS (84 sets, daily range): BP systolic 70–132; BP diastolic 52–108; Ht 175.3 cm; Wt 60.0 kg
--- NOTE | 2019-05-27 01:00 | NUR ---
PT ASSISTED TO BEDSIDE COMMODE, NO ACUTE DISTRESS NOTED. SMALL SEMI-FORMED STOOL NOTED. WILL CONTINUE TO MONITOR.
--- NOTE | 2019-05-27 03:00 | NUR ---
PT RESTING IN BED, NO ACUTE DISTRESS NOTED. WILL CONTINUE TO MONITOR.
[2019-05-27 04:07] LABS: BASOPHILS 0.2 % (0-2); EOSINOPHILS 3.5 % (0-7); HEMATOCRIT 26.9 % (36.0-48.0); HEMOGLOBIN 8.4 g/dL (12-16); IMMATURE GRANULOCYTES 2.3 % (0-5); LYMPHOCYTES 9.2 % (15-50); MCH 28.5 pg (26.0-34.0); MCHC 31.2 g/dL (31.0-37.0); MCV 91.2 fL (80.0-100.0); MEAN PLATELET VOLUME 10.1 fL (7.4-10.4); NEUTROPHILS 72.8 % (40-80); PLATELET COUNT 378 10x3/uL (130-400); RBC 2.95 10x6/uL (4.00-5.40); RDW 19.4 % (11.5-14.5); WBC 20.7 10x3/uL (4.8-10.8)
[2019-05-27 04:28] LABS: ANION GAP 20.6 mmol/L (8-16); BILIRUBIN - TOTAL 3.77 mg/dL (0.2-1.3); CALCIUM 7.9 mg/dL (8.5-10.1); CARBON DIOXIDE 23.1 mmol/L (21.0-32.0); CREATININE - SERUM 8.5 mg/dL (0.6-1.3); POTASSIUM - SERUM 4.7 mmol/L (3.5-5.1); PROTEIN - SERUM 7.2 g/dL (6.4-8.2)
--- NOTE | 2019-05-27 05:00 | NUR ---
PT RESTING IN BED, NO ACUTE DISTRESS NOTED. WILL CONTINUE TO MONITOR.
--- NOTE | 2019-05-27 07:00 | NUR ---
REPORT RECEIVED. PT RESTING QUIETLY IN BED. WANTS PAIN MEDICATION. DR WYNN SAID TO WAIT UNTIL HE ROUNDS ON PT. 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 IV TO LEFT AC. O2 AT 2L. PT HAS DOPAMINE AT 7MCG/HR. VSS. WILL CONTINUE TO MONITOR.
--- NOTE | 2019-05-27 07:49 | NUR ---
DRESSING TO LOWER ABD CHANGED PER REQUEST. RAMSEY INTACT. NO VISIBLE DRAINAGE. PT ALREADY THREW AWAY OLD BANDAGE. WILL CONTINUE TO MONITOR.
--- NOTE | 2019-05-27 08:30 | NUR ---
DR KERNS ROUNDED ON PT. TOOK OUT 2-3 RAMSEY ON ABDOMEN THEN PUSHED SOME FLUID OUT. HE CULTURED THE WOUND THEN PACKED WITH GAUZE AND APPLIED 4X4S WITH TAPE.
--- NOTE | 2019-05-27 09:00 | NUR ---
NM HERE TO TAKE PT FOR SCAN. DRESSING DR KERNS APPLIED DRAINING BLOOD. REINFORCED AND GAVE BUPRENEX. WILL CONTINUE TO MONITOR.
--- NOTE | 2019-05-27 11:07 | NUR ---
PT IN CT. ONCE FINISHED WITH NM, THEY TRANSFERRED PT TO CT. TOOK BAG OF DOPAMINE OVER FOR PT TO CONTINUE DRIP.
--- NOTE | 2019-05-27 11:50 | NUR ---
PT BACK TO ROOM FROM CT. HOOKED UP TO MONITOR.
--- NOTE | 2019-05-27 12:51 | NUR ---
CALLED DR BAUTISTA'S OFFICE ABOUT CONSULT.
--- NOTE | 2019-05-27 13:50 | NUR ---
DIALYSIS ABOUT TO START. VSS.
--- NOTE | 2019-05-27 15:08 | NUR ---
REASSESSMENT COMPLETED. DRESSING TO ABD CHANGED D/T BLEEDING THROUGH DRESSING. PT RECEIVING DIALYSIS AT THIS TIME. WILL CONTINUE TO MONITOR.
--- NOTE | 2019-05-27 17:45 | NUR ---
DIALYSIS FINISHED. PT PREOPPED FOR ERCP. VSS. WILL CONTINUE TO MONITOR.
--- NOTE | 2019-05-27 18:32 | NUR ---
PT TAKEN FOR ERCP.
--- NOTE | 2019-05-27 19:48 | NUR ---
20CC CONTRAST USED FLURO TIME:3.8 MIN
[2019-05-28] VITALS (40 sets, daily range): BP systolic 90–148; BP diastolic 49–94
[2019-05-28 08:13] LABS: BASOPHILS 0.1 % (0-2); EOSINOPHILS 0.1 % (0-7); HEMATOCRIT 23.5 % (36.0-48.0); IMMATURE GRANULOCYTES 2.6 % (0-5); LYMPHOCYTES 6.7 % (15-50); MCH 28.8 pg (26.0-34.0); MCHC 31.5 g/dL (31.0-37.0); MCV 91.4 fL (80.0-100.0); MEAN PLATELET VOLUME 10.4 fL (7.4-10.4); MONOCYTES 4.1 % (2-11); NEUTROPHILS 86.4 % (40-80); PLATELET COUNT 421 10x3/uL (130-400); RBC 2.57 10x6/uL (4.00-5.40); RDW 19.8 % (11.5-14.5)
[2019-05-28 08:30] LABS: ANION GAP 20.8 mmol/L (8-16); BILIRUBIN - TOTAL 1.95 mg/dL (0.2-1.3); CALCIUM 8.3 mg/dL (8.5-10.1); CARBON DIOXIDE 22.1 mmol/L (21.0-32.0); CREATININE - SERUM 6.5 mg/dL (0.6-1.3); POTASSIUM - SERUM 4.9 mmol/L (3.5-5.1); PROTEIN - SERUM 7.1 g/dL (6.4-8.2)
--- NOTE | 2019-05-28 08:31 | NUR ---
DR KERNS ROUNDED AND CHANGED PT'S DRESSING. STATED IT WAS OKAY FROM HIS VIEW POINT TO TRANSFER TO FLOOR ONCE WE GOT THE DOPAMINE STOPPED. TITRATING DOWN AT THIS TIME. ON 2MCG/HR. WILL CONTINUE TO MONITOR.
[2019-05-28 08:38] LABS: HEMOGLOBIN 7.4 g/dL (12-16); WBC 11.9 10x3/uL (4.8-10.8)
--- NOTE | 2019-05-28 09:31 | NUR ---
DOPAMINE TURNED OFF. WILL MONITOR VITALS.
--- NOTE | 2019-05-28 10:46 | NUR ---
PAGED DR LYNN (WELDING OPERATOR RENAL)TO SEE ABOUT TRANSFER ORDERS.
--- NOTE | 2019-05-28 10:58 | NUR ---
CALLED MED 2 TO GIVE REPORT. STATED NURSE WAS IN ROOM AND WOULD CALL BACK.
--- NOTE | 2019-05-28 11:15 | NUR ---
REPORT GIVEN TO CATIE YI.
--- NOTE | 2019-05-28 11:50 | NUR ---
TRANSFER FROM ICU BY W/Tita RAMEY TO ROOM. CALL LIGHT IN REACH. WILL CONT. PLAN OF CARE.
--- NOTE | 2019-05-28 12:08 | MORECARE ---
CASE MANAGEMENT DISCHARGE SUMMARY PATIENT: FELY SQUIRES UNIT: [id number] ADM DATE: 05/26/19 AGE: 53 : 65 SEX: F ROOM/BED: D.[facility] AUTHOR: ALEXANDRA JAMES PHYSICIAN: REFERRING PHYSICIAN: RITU WYNN MD DATE OF SERVICE: 05/28/19 Discharge Plan Patient Name: FELY [facility]QUIRES [facility] [facility] 1965 Planned Disposition: Anticipated Discharge Date: Discharge Date: Expected LOS: Initial Reviewer: [email or web address] Initial Review Date: 05/27/2019 Generated: 05/28/19 1:08 pm Patient Name: FELY SQUIRES Page [id number] at 1208 All edits/amendments must be made on the electronic document DICTATION DATE: 05/28/19 120 PIANO BENCH ASSEMBLER: MARYAM 05/28/19 1208 RPT#: [id number] DC DATE: STATUS: ADM IN [facility] [address] [place] [address] END OF REPORT
--- NOTE | 2019-05-28 12:16 | MORECARE ---
CASE MANAGEMENT DISCHARGE SUMMARY PATIENT: FELY SQUIRES UNIT: [id number] ADM DATE: 05/26/19 AGE: 53 : 65 SEX: F ROOM/BED: D.[facility] AUTHOR: ALEXANDRA JAMES PHYSICIAN: REFERRING PHYSICIAN: RITU WYNN MD DATE OF SERVICE: 05/28/19 Discharge Plan Patient Name: FELY SQUIRES [facility] [facility] 1965 Planned Disposition: Home with Home Health Anticipated Discharge Date: Discharge Date: Expected LOS: Initial Reviewer: [email or web address] Initial Review Date: 05/27/2019 Generated: 05/28/19 1:16 pm DCPIA - Discharge Planning Initial Assessment Updated by [email or web address]: Sidra Wilson on 05/28/19 12:13 pm * Is the patient Alert and Oriented? Yes * How many steps to enter\exit or inside your home? * PCP TIANNA * Pharmacy [facility] * Preadmission Environment Home with Family * ADLs Independent * Equipment Walker * List name and contact numbers for known caregivers / representatives who currently or will assist patient after discharge: IVANA MCDOWELL [facility] [phone] * Verbal permission to speak to the caregivers and representatives has been obtained from the patient. Yes * Community resources currently utilized Other * Please name any agencies selected above. [facility] - [facility] * Additional services required to return to the preadmission environment? No * Can the patient safely return to the preadmission environment? Yes * Has this patient been hospitalized within the prior 30 days at any hospital? Yes Last DP export: 05/28/19 11:08 Patient Name: FELY SQUIRES Page 92437 at 1216 All edits/amendments must be made on the electronic document DICTATION DATE: 05/28/19 121 BEAUTY CULTURE TEACHER: MARYAM 05/28/196 RPT#: [id number] DC DATE: STATUS: ADM IN [facility] [address] [place] [address] END OF REPORT
--- NOTE | 2019-05-28 12:26 | MORECARE ---
CASE MANAGEMENT DISCHARGE SUMMARY PATIENT: FELY SQUIRES UNIT: [id number] ADM DATE: 05/26/19 AGE: 53 : 65 SEX: F ROOM/BED: D.8353 AUTHOR: ERIKA,DOC PHYSICIAN: REFERRING PHYSICIAN: RITU WYNN MD DATE OF SERVICE: 05/28/19 Discharge Plan Patient Name: FELY SQUIRES Facility: [facility]:[place] : 1965 Planned Disposition: Home with Home Health Anticipated Discharge Date: Discharge Date: Expected LOS: Initial Reviewer: [email or web address] Initial Review Date: 05/27/2019 Generated: 05/28/19 1:26 pm Comments DCP- Discharge Planning Updated by [email or web address]: Sidra Wilson on 05/28/19 11:[address] LATE ENTRY 05/27/19 Patient Name: FELY SQUIRES Admission Status: ER Accout number: [id number] Admission Date: 05-26-2019 : 1965 Admission Diagnosis: Attending: RITU WYNN Current LOS: 2 Anticipated DC Date: Planned Disposition: Home with Home Health Primary Insurance: MEDICARE A & B Discharge Planning Comments: CM met with patient at bedside after explaining CM role and obtaining verbal consent. Patient lives at home with her sister where he is independent with her care and plans to return there upon discharge. Patient feels this would be a safe discharge. CM discussed availability / needs of home health and medical equipment. Patient states she has Home Health but can't remember provider RENA signed to resume care. ([facility] per last admit) Patient denies any discharge needs at this time. Patient has dialysis at [facility]. Patient states she will have her family drive her home upon discharge. CM will continue to follow and assist as needed with discharge planning / needs. Personnel Research Scientist: Sidra Wilson DCPIA - Discharge Planning Initial Assessment Updated by [email or web address]: Sidra Wilson on 05/28/19 12:13 pm * Is the patient Alert and Oriented? Yes * How many steps to enter\exit or inside your home? * PCP TIANNA * Pharmacy [facility] * Preadmission Environment Home with Family * ADLs Independent * Equipment Walker * List name and contact numbers for known caregivers / representatives who currently or will assist patient after discharge: IVANA MCDOWELL - SISTER- [phone] * Verbal permission to speak to the caregivers and representatives has been obtained from the patient. Yes * Community resources currently utilized Other * Please name any agencies selected above. [facility] - [facility] * Additional services required to return to the preadmission environment? No * Can the patient safely return to the preadmission environment? Yes * Has this patient been hospitalized within the prior 30 days at any hospital? Yes Last DP export: 05/28/19 11:16 Patient Name: FELY SQUIRES Page 21754 at 1226 All edits/amendments must be made on the electronic document DICTATION DATE: 05/28/191224 FEED CRUSHER OPERATOR: MARYAM 05/28/191224 RPT#: [id number] DC DATE: STATUS: ADM IN [facility] [address] [place] [address] END OF REPORT
--- NOTE | 2019-05-28 17:05 | MORECARE ---
CASE MANAGEMENT DISCHARGE SUMMARY PATIENT: FELY SQUIRES UNIT: [id number] ADM DATE: 05/26/19 AGE: 53 : 65 SEX: F ROOM/BED: D.2213 AUTHOR: ERIKA,DOC PHYSICIAN: REFERRING PHYSICIAN: RITU WYNN MD DATE OF SERVICE: 05/28/19 Discharge Plan Patient Name: FELY SQUIRES Facility: [facility]:[place] : 1965 Planned Disposition: Home with Home Health Anticipated Discharge Date: Discharge Date: Expected LOS: Initial Reviewer: [email or web address] Initial Review Date: 05/27/2019 Generated: 05/28/19 6:05 pm Comments DCP- Discharge Planning Updated by [email or web address]: Sidra Wilson on 05/28/19 11:[address] LATE ENTRY 05/27/19 Patient Name: FELY SQUIRES Admission Status: ER Accout number: [id number] Admission Date: 05-26-2019 : 1965 Admission Diagnosis: Attending: RITU WYNN Current LOS: 2 Anticipated DC Date: Planned Disposition: Home with Home Health Primary Insurance: MEDICARE A & B Discharge Planning Comments: CM met with patient at bedside after explaining CM role and obtaining verbal consent. Patient lives at home with her sister where he is independent with her care and plans to return there upon discharge. Patient feels this would be a safe discharge. CM discussed availability / needs of home health and medical equipment. Patient states she has Home Health but can't remember provider RENA signed to resume care. ([facility] per last admit) Patient denies any discharge needs at this time. Patient has dialysis at [facility]. Patient states she will have her family drive her home upon discharge. CM will continue to follow and assist as needed with discharge planning / needs. Sports Equipment Racker: Sidra Wilson DCPIA - Discharge Planning Initial Assessment Updated by [email or web address]: Sidra Wilson on 05/28/19 12:13 pm * Is the patient Alert and Oriented? Yes * How many steps to enter\exit or inside your home? * PCP TIANNA * Pharmacy [facility] * Preadmission Environment Home with Family * ADLs Independent * Equipment Walker * List name and contact numbers for known caregivers / representatives who currently or will assist patient after discharge: IVANA MCDOWELL - - [phone] * Verbal permission to speak to the caregivers and representatives has been obtained from the patient. Yes * Community resources currently utilized Other * Please name any agencies selected above. [facility] - [facility] * Additional services required to return to the preadmission environment? No * Can the patient safely return to the preadmission environment? Yes * Has this patient been hospitalized within the prior 30 days at any hospital? Yes External Providers External Provider: [facility] Next Contact Date: 05/28/2019 Service Request Date: Service Type: Resolution: Reviewer: Comments: Coverage Notice Reviewer: [email or web address] Ezio Cordova Notice Issued Date-Time: 05/28/2019 11:55 Notice Type: Patient Choice Letter Notice Delivered To: Patient Relationship to Patient: Commissary Agent Name: Delivery Method: HAND - Hand Delivered Nicole Days: Prior Verbal Notification: Recipient Understood Notice: Yes Recipient Signature: Yes Med Rec Note Co-signed by Attending: Coverage Notice Comment: UNKNOWN HOME HEALTH Last DP export: 05/28/19 11:26 Patient Name: FELY SQUIRES Page 29991 at 1705 All edits/amendments must be made on the electronic document DICTATION DATE: 05/28/191704 LICENSED AUDIOLOGIST: MARYAM 05/28/191704 RPT#: [id number] DC DATE: STATUS: ADM IN [facility] [address] [place] [address] END OF REPORT
--- NOTE | 2019-05-28 19:30 | NUR ---
PT SITTING UP IN BED ALERT AND ORIENTED X4. DRESSING TO ABDOMEN C/D/I. PT COMPLAINS OF PAIN 8/10 IN ABDOMEN. PRN PAIN MEDICATION GIVEN. RR EVEN AND UNLABORED VITALS STABLE. BED LOW CALL LIGHT WITHIN REACH. WILL CONTINUE TO MONITOR.
--- NOTE | 2019-05-28 22:50 | NUR ---
PT COMPLAINS OF NAUSEA AT THIS TIME. PRN ZOFRAN GIVEN. WILL CONTINUE TO MONITOR.
[2019-05-29 01:21] VITALS: BP 127/80
--- NOTE | 2019-05-29 01:52 | NUR ---
REPACKED AND CHANGED ABDOMENAL DRESSING PER ORDERS. PACKED WITH ONE DAMP 4X4 AND COVERED WITH DRY 4X4, ABD PAD, AND CLOTH TAPE. PT TOLERATED WELL. PT DENIES ANY OTHER NEEDS AT THIS TIME. WILL CONTINUE TO MONITOR.
[2019-05-29 04:00] VITALS: BP 141/89
--- NOTE | 2019-05-29 04:15 | NUR ---
PT COMPLAINS OF PAIN 8/10 IN ABDOMEN. PRN PAIN MEDICATION GIVEN. RR EVEN AND UNLABORED VITALS STABLE. BED LOW CALLL LIGHT WITHIN REACH. WILL CONTINUE TO MONITOR.
--- NOTE | 2019-05-29 07:55 | NUR ---
RECIEVED REPORT. PATIENT IS ALERT AND AWAKE. DENIES ANY NEEDS AT THIS TIME.
[2019-05-29 07:59] VITALS: BP 121/77
--- NOTE | 2019-05-29 08:29 | NUR ---
ORDER FOR PRBC TO BE TRANSFUSED IN DIALYSIS ACKNOWLEDGED. PAIN MEDICATION ADMINISTERED PRN ORDERED FOR PATIENT REQUEST.
--- NOTE | 2019-05-29 08:45 | NUR ---
CALLED DIALYSIS AND BLOOD BANK SO WE ARE ALL ON THE SAME PAGE,AND AWARE THAT THE UNIT OF BLOOD IS READY AND TO BE TRANSFUSED IN DIALYSIS.
--- NOTE | 2019-05-29 10:11 | NUR ---
PATIENT HAS JUST BEEN BROUGHT DOWN TO DIALYSIS. ACKNOWLEDGED THE ORDER FOR DRESSING CHANGE. WILL CHANGE WHEN SHE GETS BACK FROM DIALYSIS.
--- NOTE | 2019-05-29 10:37 | NUR ---
BROUGHT JOSE GUADALUPE TO PATIENT IN DIALYSIS.
--- NOTE | 2019-05-29 11:05 | NUR ---
BROUGHT ONE UNIT OF PRBC'S TO DIALYSIS FOR HER TO ADMINISTER.
--- NOTE | 2019-05-29 13:59 | NUR ---
PATIENT IS BACK FROM DIALYSIS.
--- NOTE | 2019-05-29 14:00 | NUR ---
IN DIALYSIS SHE GOT 2.5 LITERS OFF. SHE HAD ONE UNIT OF PRBC'S DURING DIALYSIS.
[2019-05-29 15:47] VITALS: BP 111/72
--- NOTE | 2019-05-29 16:41 | NUR ---
DRESSING CHANGE COMPLETE , REMOVED OLD DRESSING AND PACKING, AND PRESSED GENTLY TO DISCHARGE SOME BUILD UP PACHECO AND WHITE INFECTION. THEN REPACKED WOUND WITH ONE 4X4 GAUZE WET WITH STERILE WATER. THEN LAYERED DRY 4X4 GAUZE ON TOP AND TAPED. TIME AND DATED. PATIENT TOLERATED. TREATED FOE PAIN AND NAUSEA. SHE REPORTS THAT HER ABDOMEN FEELS MUCH BETTER.
[2019-05-29 20:00] VITALS: BP 142/79
--- NOTE | 2019-05-29 20:00 | NUR ---
[facility], DRESSING TO ABD. IS C/D/I. SHE REPORTS HER PAIN IS 3/10. SHE CAN HAVE HER PRN PAIN MED AT 2039. SHE REPORTS HER PAIN BEING TOLERABLE. SHE DENIES NEEDS AT THIS TIME. HER BED IS LOW AND CALL LIGHT IS WITHIN REACH.
[2019-05-30 01:08] VITALS: BP 123/79
[2019-05-30 05:32] VITALS: BP 121/73
--- NOTE | 2019-05-30 09:50 | NUR ---
DR KERNS CHANGED THE DRESSING ON THIS PATIENT ABD. HE PULLED THE PACKING AND REPACKED. PAIN MEDICATION GIVEN PRN ORDERED. THE IV IS POSITIONAL, WILL MONITOR CLOSELY.
[2019-05-30] MEDS ORDERED: BACTRIM 400-801 TAB PO (10:01)
[2019-05-30 10:39] VITALS: BP 118/73
--- NOTE | 2019-05-30 11:02 | NUR ---
SMOKING CESSATION SHEET GIVEN TO PATIENT PER PRIMARY NURSE CATIE NUÑEZ TO BE FILLED OUT AND FAXED.
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
--- NOTE | 2019-05-30 12:23 | NUR ---
Nutrition Follow-up: Working on breakfast at time of visit this AM. Reports some nausea without vomiting. Drinking some Nepro. Diet: Renal PO intake: 100% yesterday No new wt Last BM: 05/30 Labs noted: Na 135, K+ 4.9, Glu 96, Ca 8.3, Alb 2.0 Meds noted: Alfred Aguilera -Continue current diet as tolerated. -Monitor wt. -RD following.
[2019-05-30 13:19] VITALS: BP 93/57
[2019-05-30] MEDS ORDERED: ZYVOX600 MG PO (14:10)
--- NOTE | 2019-05-30 14:17 | NUR ---
IV REMOVED ON THE LEFT FOREARM CATHETER INTACT. NEW IV PLACE IN THE LEFT FOREARM , 22G PATIENT TOLERATED. ANTIBIOTIC INFUSING ORDERED.
--- NOTE | 2019-05-30 14:18 | MORECARE ---
CASE MANAGEMENT DISCHARGE SUMMARY PATIENT: FELY SQUIRES UNIT: [id number] ADM DATE: 05/26/19 AGE: 53 : 65 SEX: F ROOM/BED: D.0663 AUTHOR: ALEXANDRA JAMES PHYSICIAN: REFERRING PHYSICIAN: RITU WYNN MD DATE OF SERVICE: 05/30/19 Discharge Plan Patient Name: FELY SQUIRES Facility: [facility]:[place] : 1965 Planned Disposition: Care Home Facility Anticipated Discharge Date: 05/30/19 Discharge Date: Expected LOS: 4 Initial Reviewer: [id number] Initial Review Date: 05/27/2019 Generated: 05/30/19 3:18 pm Comments DCP- Discharge Planning Updated by [email or web address]: Costa Cordova on 05/28/19 4:[address] Patient Name: FELY SQUIRES Encounter No: [id number] : 1965 Primary Insurance: MEDICARE A & B Anticipated DC Date: Planned Disposition: Home with Home Health External Planned Provider: [facility] DCP follow-up note: CM MET WITH PT AT NURSES STATION, PT UP AND WALKING THE HALLS. CM DISCUSSED DISCHARGE NEEDS AND PLANNING. CM DISCUSSED AVAILABILITY OF HOME HEALTH, REHAB SERVICES AND MEDICAL EQUIPMENT. PT DENIES DISCHARGE NEEDS OTHER THAN HOME HEALTH RESUMPTION WITH HER UNKNOWN COMPANY. CHOICE SIGNED. SISTER TO TRANSPORT HOME AT DISCHARGE. CM RECEIVED CALL FROM KEN OF [facility], THEY WILL ACCEPT FOR RESUMPTION OF HOME HEALTH. CM TO FOLLOW AND ASSIST NEEDED. FOR DISCHARGE, NOTIFY [facility], , FAX REFERRAL AND DISCHARGE INFORMATION TO [facility] AT [phone]. Costa Cordova, CASE MANAGEMENT DCP- Discharge Planning Updated by [email or web address]: Sidra Wilson on 05/28/19 11:[address] LATE ENTRY 05/27/19 Patient Name: FELY SQUIRES Admission Status: ER Accout number: [id number] Admission Date: 05-26-2019 : 1965 Admission Diagnosis: Attending: RITU WYNN Current LOS: 2 Anticipated DC Date: Planned Disposition: Home with Home Health Primary Insurance: MEDICARE A & B Discharge Planning Comments: CM met with patient at bedside after explaining CM role and obtaining verbal consent. Patient lives at home with her sister where he is independent with her care and plans to return there upon discharge. Patient feels this would be a safe discharge. CM discussed availability / needs of home health and medical equipment. Patient states she has Home Health but can't remember provider RENA signed to resume care. ([facility] per last admit) Patient denies any discharge needs at this time. Patient has dialysis at [facility]. Patient states she will have her family drive her home upon discharge. CM will continue to follow and assist as needed with discharge planning / needs. Garden Implement Mechanic: Sidra Wilson DCPIA - Discharge Planning Initial Assessment Updated by [id number]: Sidra Wilson on 05/28/19 12:13 pm * Is the patient Alert and Oriented? Yes * How many steps to enter\exit or inside your home? * PCP GERS[facility] * Pharmacy [facility] * Preadmission Environment Home with Family * ADLs Independent * Equipment Walker * List name and contact numbers for known caregivers / representatives who currently or will assist patient after discharge: IVANA MCDOWELL - SISTER- [phone] * Verbal permission to speak to the caregivers and representatives has been obtained from the patient. Yes * Community resources currently utilized Other * Please name any agencies selected above. - [facility] * Additional services required to return to the preadmission environment? No * Can the patient safely return to the preadmission environment? Yes * Has this patient been hospitalized within the prior 30 days at any hospital? Yes Coverage Notice Reviewer: [email or web address] Ezio Cordova Notice Issued Date-Time: 05/28/2019 11:55 Notice Type: Patient Choice Letter Notice Delivered To: Patient Relationship to Patient: Manager Labor Delivery Name: Delivery Method: HAND - Hand Delivered Nicole Days: Prior Verbal Notification: Recipient Understood Notice: Yes Recipient Signature: Yes Med Rec Note Co-signed by Attending: Coverage Notice Comment: UNKNOWN HOME HEALTH Reviewer: [email or web address] Ezio Cordova Notice Issued Date-Time: 05/30/2019 12:10 Notice Type: IM Discharge Notice Notice Delivered To: Patient Relationship to Patient: Manager Labor Delivery Name: Delivery Method: HAND - Hand Delivered Nicole Days: Prior Verbal Notification: Recipient Understood Notice: Yes Recipient Signature: Yes Med Rec Note Co-signed by Attending: Coverage Notice Comment: Last DP export: 05/28/19 4:05 Patient Name: FELY SQUIRES Page [id number] at 1418 All edits/amendments must be made on the electronic document DICTATION DATE: 05/30/191416 DOUPER: MARYAM 05/30/191416 RPT#: [id number] DC DATE: STATUS: ADM IN [facility] [address] [place] [address] END OF REPORT
--- NOTE | 2019-05-30 16:10 | MORECARE ---
CASE MANAGEMENT DISCHARGE SUMMARY PATIENT: FELY SQUIRES UNIT: [id number] ADM DATE: 05/26/19 AGE: 53 : 65 SEX: F ROOM/BED: D.1383 AUTHOR: ALEXANDRA JAMES PHYSICIAN: REFERRING PHYSICIAN: RITU WYNN MD DATE OF SERVICE: 05/30/19 Discharge Plan Patient Name: FELY SQUIRES Facility: [facility]:[place] : 1965 Planned Disposition: Alf Facility Anticipated Discharge Date: 05/30/19 Discharge Date: Expected LOS: 4 Initial Reviewer: [email or web address] Initial Review Date: 05/27/2019 Generated: 05/30/19 5:10 pm Comments DCP- Discharge Planning Updated by [id number]: Costa Cordova on 05/28/19 4:[address] Patient Name: FELY SQUIRES Encounter No: [id number] : 1965 Primary Insurance: MEDICARE A & B Anticipated DC Date: Planned Disposition: Home with Home Health External Planned Provider: [facility] DCP follow-up note: CM MET WITH PT AT NURSES STATION, PT UP AND WALKING THE HALLS. CM DISCUSSED DISCHARGE NEEDS AND PLANNING. CM DISCUSSED AVAILABILITY OF HOME HEALTH, REHAB SERVICES AND MEDICAL EQUIPMENT. PT DENIES DISCHARGE NEEDS OTHER THAN HOME HEALTH RESUMPTION WITH HER UNKNOWN COMPANY. CHOICE SIGNED. SISTER TO TRANSPORT HOME AT DISCHARGE. CM RECEIVED CALL FROM KEN OF [facility], THEY WILL ACCEPT FOR RESUMPTION OF HOME HEALTH. CM TO FOLLOW AND ASSIST NEEDED. FOR DISCHARGE, NOTIFY [facility], , FAX REFERRAL AND DISCHARGE INFORMATION TO [facility] AT [phone]. Costa Cordova, CASE MANAGEMENT DCP- Discharge Planning Updated by [id number]: Sidra Wilson on 05/28/19 11:[address] LATE ENTRY 05/27/19 Patient Name: FELY SQUIRES Admission Status: ER Accout number: [id number] Admission Date: 05-26-2019 : 1965 Admission Diagnosis: Attending: RITU WYNN Current LOS: 2 Anticipated DC Date: Planned Disposition: Home with Home Health Primary Insurance: MEDICARE A & B Discharge Planning Comments: CM met with patient at bedside after explaining CM role and obtaining verbal consent. Patient lives at home with her sister where he is independent with her care and plans to return there upon discharge. Patient feels this would be a safe discharge. CM discussed availability / needs of home health and medical equipment. Patient states she has Home Health but can't remember provider RENA signed to resume care. ([facility] per last admit) Patient denies any discharge needs at this time. Patient has dialysis at [facility]. Patient states she will have her family drive her home upon discharge. CM will continue to follow and assist as needed with discharge planning / needs. Au Pair: Sidra Wilson DCPIA - Discharge Planning Initial Assessment Updated by [email or web address]: Sidra Wilson on 05/28/19 12:13 pm * Is the patient Alert and Oriented? Yes * How many steps to enter\exit or inside your home? * PCP [facility] * Pharmacy [facility] * Preadmission Environment Home with Family * ADLs Independent * Equipment Walker * List name and contact numbers for known caregivers / representatives who currently or will assist patient after discharge: IVANA MCDOWELL - SISTER- [phone] * Verbal permission to speak to the caregivers and representatives has been obtained from the patient. Yes * Community resources currently utilized Other * Please name any agencies selected above. - [facility] * Additional services required to return to the preadmission environment? No * Can the patient safely return to the preadmission environment? Yes * Has this patient been hospitalized within the prior 30 days at any hospital? Yes External Providers External Provider: [facility] Next Contact Date: 05/30/2019 Service Request Date: Service Type: Resolution: Reviewer: Comments: Coverage Notice Reviewer: [email or web address] Ezio Cordova Notice Issued Date-Time: 05/28/2019 11:55 Notice Type: Patient Choice Letter Notice Delivered To: Patient Relationship to Patient: Wound Care Specialist Name: Delivery Method: HAND - Hand Delivered Nicole Days: Prior Verbal Notification: Recipient Understood Notice: Yes Recipient Signature: Yes Med Rec Note Co-signed by Attending: Coverage Notice Comment: UNKNOWN HOME HEALTH Reviewer: [email or web address] Ezio Cordova Notice Issued Date-Time: 05/30/2019 12:10 Notice Type: IM Discharge Notice Notice Delivered To: Patient Relationship to Patient: Wound Care Specialist Name: Delivery Method: HAND - Hand Delivered Nicole Days: Prior Verbal Notification: Recipient Understood Notice: Yes Recipient Signature: Yes Med Rec Note Co-signed by Attending: Coverage Notice Comment: Last DP export: 05/30/19 1:18 Patient Name: FELY SQUIRES Page 42595 at 1610 All edits/amendments must be made on the electronic document DICTATION DATE: 05/30/191609 AN/SSN 2 4 OPERATOR: MARYAM 05/30/19 1610 RPT#: [id number] DC DATE: STATUS: ADM IN [facility] [address] [place] [address] END OF REPORT
--- NOTE | 2019-05-30 17:03 | MORECARE ---
CASE MANAGEMENT DISCHARGE SUMMARY PATIENT: FELY SQUIRES UNIT: [id number] ADM DATE: 05/26/19 AGE: 53 : 65 SEX: F ROOM/BED: D.5083 AUTHOR: ERIKA,DOC PHYSICIAN: REFERRING PHYSICIAN: RITU WYNN MD DATE OF SERVICE: 05/30/19 Discharge Plan Patient Name: FELY SQUIRES Facility: [facility]:[place] : 1965 Planned Disposition: Care Home Facility Anticipated Discharge Date: 05/30/19 Discharge Date: Expected LOS: 4 Initial Reviewer: [id number] Initial Review Date: 05/27/2019 Generated: 05/30/19 6:03 pm Comments DCP- Discharge Planning Updated by [email or web address]: Costa Cordova on 05/30/19 3:[address] Patient Name: FELY SQUIRES Encounter No: [id number] : 1965 Primary Insurance: MEDICARE A & B Anticipated DC Date: 05-30-2019 Planned Disposition: Care Home Facility External Planned Provider: [facility], MEDICARE SKILLED BED DCP follow-up note: CM RECEIVED DISCHARGE AND HOME HEALTH ORDERS. CM MET WITH PT IN ROOM, DISCUSSED HOME HEALTH AND DISCHARGE. PT STATES SHE TOLD "THEM" THAT SHE DOES NOT FEEL GOOD AND IS NOT GOING HOME TODAY. PT STATES SHE IS TOO SICK AND NEEDS TO STAY IN THE HOSPITAL. CM PROVIDED AND DISCUSSED IMPORTANT MESSAGE FROM MEDICARE. PT STATES SHE WILL CALL IMMEDIATELY. PT STATES SHE HAS HOME HEALTH BUT DOES NOT THINK SHE CAN DO THE WOUND CARE HERSELF AND DOES NOT THINK FAMILY WILL BE ABLE TO ASSIST EITHER. CM DISCUSSED [facility] FACILITY OPTIONS FOR SKILLED CARE. CM PROVIDED PT WITH LISTING OF PROVIDERS. PT STATES SHE HAS NO PREFERENCE LONG IT IS IN [place]. PT STATES SHE HAS DIALYSIS MWF AT [facility] AT 1145 AM. CHOICE SIGNED FOR NO [facility] FACILITY PREFERENCE. CM NOTIFIED RN [facility] AND STONE BANKER NURSE. CM FAXED REFERRAL TO [facility] VIA LEONORA AT [phone]. CM NOTIFIED LEONORA OF REFERRAL AT [phone]. CM WAITING ADMISSION DETERMINATION FROM [facility] FOR SKILLED CARE. CM ALSO WAITING ON PT'S DISCHARGE APPEAL TO BE RESOLVED WITH MEDICARE. Costa Cordova CASE MANAGEMENT DCP- Discharge Planning Updated by [email or web address]: Costa Cordova on 05/28/19 4:[address] Patient Name: FELY SQUIRES Encounter No: [id number] : 1965 Primary Insurance: MEDICARE A & B Anticipated DC Date: Planned Disposition: Home with Home Health External Planned Provider: [facility] DCP follow-up note: CM MET WITH PT AT NURSES STATION, PT UP AND WALKING THE HALLS. CM DISCUSSED DISCHARGE NEEDS AND PLANNING. CM DISCUSSED AVAILABILITY OF HOME HEALTH, REHAB SERVICES AND MEDICAL EQUIPMENT. PT DENIES DISCHARGE NEEDS OTHER THAN HOME HEALTH RESUMPTION WITH HER UNKNOWN COMPANY. CHOICE SIGNED. SISTER TO TRANSPORT HOME AT DISCHARGE. CM RECEIVED CALL FROM KEN OF [facility], THEY WILL ACCEPT FOR RESUMPTION OF HOME HEALTH. CM TO FOLLOW AND ASSIST NEEDED. FOR DISCHARGE, NOTIFY [facility], , FAX REFERRAL AND DISCHARGE INFORMATION TO [facility] AT [phone]. PUNEET Jenkins DCP- Discharge Planning Updated by [email or web address]: Sidra Wilson on 05/28/19 11:[address] LATE ENTRY 05/27/19 Patient Name: FELY SQUIRES Admission Status: ER Accout number: [id number] Admission Date: 05-26-2019 : 1965 Admission Diagnosis: Attending: RITU WYNN Current LOS: 2 Anticipated DC Date: Planned Disposition: Home with Home Health Primary Insurance: MEDICARE A & B Discharge Planning Comments: CM met with patient at bedside after explaining CM role and obtaining verbal consent. Patient lives at home with her sister where he is independent with her care and plans to return there upon discharge. Patient feels this would be a safe discharge. CM discussed availability / needs of home health and medical equipment. Patient states she has Home Health but can't remember provider RENA signed to resume care. ([facility] per last admit) Patient denies any discharge needs at this time. Patient has dialysis at [facility]. Patient states she will have her family drive her home upon discharge. CM will continue to follow and assist as needed with discharge planning / needs. Driller And Reamer: Sidra Wilson DCPIA - Discharge Planning Initial Assessment Updated by [id number]: Sidra Wilson on 05/28/19 12:13 pm * Is the patient Alert and Oriented? Yes * How many steps to enter\\exit or inside your home? * PCP TIANNA * Pharmacy [facility] * Preadmission Environment Home with Family * ADLs Independent * Equipment Walker * List name and contact numbers for known caregivers / representatives who currently or will assist patient after discharge: IVANA WESTBROOK- [phone] * Verbal permission to speak to the caregivers and representatives has been obtained from the patient. Yes * Community resources currently utilized Other * Please name any agencies selected above. [facility] * Additional services required to return to the preadmission environment? No * Can the patient safely return to the preadmission environment? Yes * Has this patient been hospitalized within the prior 30 days at any hospital? Yes Coverage Notice Reviewer: [id number] Cordova Notice Issued Date-Time: 05/28/2019 11:55 Notice Type: Patient Choice Letter Notice Delivered To: Patient Relationship to Patient: Cop Examiner Name: Delivery Method: HAND - Hand Delivered Nicole Days: Prior Verbal Notification: Recipient Understood Notice: Yes Recipient Signature: Yes Med Rec Note Co-signed by Attending: Coverage Notice Comment: UNKNOWN HOME HEALTH Reviewer: [id number] Cordova Notice Issued Date-Time: 05/30/2019 12:10 Notice Type: IM Discharge Notice Notice Delivered To: Patient Relationship to Patient: Cop Examiner Name: Delivery Method: HAND - Hand Delivered Nicole Days: Prior Verbal Notification: Recipient Understood Notice: Yes Recipient Signature: Yes Med Rec Note Co-signed by Attending: Coverage Notice Comment: Reviewer: ART Cordova Notice Issued Date-Time: 05/30/2019 12:10 Notice Type: Patient Choice Letter Notice Delivered To: Patient Relationship to Patient: Cop Examiner Name: Delivery Method: HAND - Hand Delivered Nicole Days: Prior Verbal Notification: Recipient Understood Notice: Yes Recipient Signature: Yes Med Rec Note Co-signed by Attending: Coverage Notice Comment: KELSEY Calderon DP export: 05/30/19 3:10 Patient Name: FELY SQUIRES Page [id number] at 1703 All edits/amendments must be made on the electronic document DICTATION DATE: 05/30/191702 PASSENGER TRAIN BRAKER: MARYAM 05/30/19 8422 RPT#: [id number] LA DATE: STATUS: ADM IN [facility] [address] [place] [address] END OF REPORT
[2019-05-30 18:10] VITALS: BP 121/72
--- NOTE | 2019-05-30 20:00 | NUR ---
PT GIVING HERSELF A SPONGEBATH. THE DRESSING TO HER ABDOMEN IS C/D/I. PAIN MEDICINE GIVEN FOR PAIN RATED 9/10 TO ABDOMEN. SHE DENIES FURTHER NEEDS. HER BED IS LOW AND CALL LIGHT WITHIN REACH.
[2019-05-30 21:28] VITALS: BP 146/68
[2019-05-31] VITALS: BP 127/81
[2019-05-31 04:00] VITALS: BP 133/74
--- NOTE | 2019-05-31 07:33 | NUR ---
REPORT RECIEVED. PT SEMI FOWLERS IN BED. RR EVEN AND UNLABORED. PT HAS A L FA PIV THAT IS SL. SHE IS A R ARM RESERVE. BED LOCKED AND IN LOWEST POSITION, CALL LIGHT WITHIN REACH. WILL CTM
--- NOTE | 2019-05-31 09:00 | NUR ---
PT RESTING. STATES SHE HAS NO NEEDS. SAYS SHE IS GLAD DIALYSIS IS GOING TO BE DONE IN ROOM TODAY SO SHE CAN WATCH TV DURING. WILL CTM
[2019-05-31 10:54] LABS: MCH 28.7 pg (26.0-34.0); MCV 89.6 fL (80.0-100.0); MEAN PLATELET VOLUME 10.1 fL (7.4-10.4); PLATELET COUNT 378 10x3/uL (130-400); RBC 2.79 10x6/uL (4.00-5.40); RDW 18.2 % (11.5-14.5); WBC 13.4 10x3/uL (4.8-10.8)
--- NOTE | 2019-05-31 11:40 | NUR ---
WOUND CARE DONE. PT REFUSED TO START DIALYSIS UNTIL WOUND CARE WAS DONE. DR KERNS DID WOUND CARE THIS MORNING ALREADY. WILL CTM
[2019-05-31 11:42] LABS: EOSINOPHILS 2 % (0-7); HYPOCHROMASIA OCC; LYMPHOCYTES 15 % (15-50); MONOCYTES 14 % (2-11); NEUTROPHILS 68 % (40-80); PLATELET ESTIMATE NORMAL; ROULEAUX OCC; TARGET CELLS OCC
--- NOTE | 2019-05-31 15:26 | MORECARE ---
CASE MANAGEMENT DISCHARGE SUMMARY PATIENT: FELY SQUIRES UNIT: [id number] ADM DATE: 05/26/19 AGE: 53 : 65 SEX: F ROOM/BED: D.2113 AUTHOR: ERIKA,DOC PHYSICIAN: REFERRING PHYSICIAN: RITU WYNN MD DATE OF SERVICE: 05/31/19 Discharge Plan Patient Name: FELY SQUIRES Facility: [facility]:[place] : 1965 Planned Disposition: Detention Facility Anticipated Discharge Date: 05/31/19 Discharge Date: Expected LOS: 5 Initial Reviewer: [id number] Initial Review Date: 05/27/2019 Generated: 05/31/19 4:25 pm Comments DCP- Discharge Planning Updated by [email or web address]: Costa Cordova on 05/31/19 2:[address] Patient Name: FELY SQUIRES Encounter No: [id number] : 1965 Primary Insurance: MEDICARE A & B Anticipated DC Date: 05-30-2019 Planned Disposition: Detention Facility External Planned Provider:[facility], MEDICARE SKILLED BED DCP follow-up note: CM SPOKE TO LEONORA OF THE [facility] WHO ADVISED PT ACCEPTED AT THE [facility], SHE HAS TALKED WITH PT WHO IS IN AGREEMENT WITH DISCHARGE TO THE [facility] TODAY. CM MET WITH PT IN ROOM, DISCUSSED DISCHARGE NEEDS. PT STATES SHE WILL GO TO THE [facility] TODAY FOR SKILLED CARE. CM NOTIFIED RN SM[facility] DAVID AND TRACK WALKER NURSE. CM FAXED DISCHARGE INFORMATION TO THE [facility] VIA LEONORA AT [phone]. PT NOTIFIED HER FAMILY OF DISCHARGE TO THE [facility]. NURSE REPORT TO BE CALLED TO THE [facility] AT [phone]. THE [facility] TO MECHANICAL ENGINEERING MANAGER VIA [employer]. Costa Cordova, CASE MANAGEMENT DCP- Discharge Planning Updated by [id number]: Johana Gresham on 05/31/19 2:[address] [facility] patient lost her [facility] for discharge. Hospital may discharge patient 06/01/19. DCM and CM, Keena David, met with patient and explained to her that she had to leave the hospital by noon tomorrow or she would be financially responsible for her hospital charges from that point forward. Patient verbalized understanding and stated she planned to leave tomorrow and she had a ride. Patient signed Noncovered Continued Stay form (Model HINN 12). Patient kept a copy and copy put in chart. DCP- Discharge Planning Updated by [email or web address]: Costa Cordova on 05/30/19 3:[address] Patient Name: FELY SQUIRES Encounter No: [id number] : 1965 Primary Insurance: MEDICARE A & B Anticipated DC Date: 05-30-2019 Planned Disposition: Detention Facility External Planned Provider: [facility], MEDICARE SKILLED BED DCP follow-up note: CM RECEIVED DISCHARGE AND HOME HEALTH ORDERS. CM MET WITH PT IN ROOM, DISCUSSED HOME HEALTH AND DISCHARGE. PT STATES SHE TOLD "THEM" THAT SHE DOES NOT FEEL GOOD AND IS NOT GOING HOME TODAY. PT STATES SHE IS TOO SICK AND NEEDS TO STAY IN THE HOSPITAL. CM PROVIDED AND DISCUSSED IMPORTANT MESSAGE FROM MEDICARE. PT STATES SHE WILL CALL IMMEDIATELY. PT STATES SHE HAS HOME HEALTH BUT DOES NOT THINK SHE CAN DO THE WOUND CARE HERSELF AND DOES NOT THINK FAMILY WILL BE ABLE TO ASSIST EITHER. CM DISCUSSED [facility] FACILITY OPTIONS FOR SKILLED CARE. CM PROVIDED PT WITH LISTING OF PROVIDERS. PT STATES SHE HAS NO PREFERENCE LONG IT IS IN [place]. PT STATES SHE HAS DIALYSIS MWF AT [place] [facility] AT 1145 AM. CHOICE SIGNED FOR NO [facility] FACILITY PREFERENCE. CM NOTIFIED RN [facility] AND TRACK WALKER NURSE. CM FAXED REFERRAL TO THE [facility] VIA LEONORA AT [phone]. CM NOTIFIED LEONORA OF REFERRAL AT [phone]. CM WAITING ADMISSION DETERMINATION FROM THE [facility] FOR SKILLED CARE. CM ALSO WAITING ON PT'S DISCHARGE APPEAL TO BE RESOLVED WITH MEDICARE. Costa Cordova, CASE MANAGEMENT DCP- Discharge Planning Updated by [id number]: Costa Cordova on 05/28/19 4:[address] Patient Name: FELY SQUIRES Encounter No: [id number] : 1965 Primary Insurance: MEDICARE A & B Anticipated DC Date: Planned Disposition: Home with Home Health External Planned Provider: [facility] DCP follow-up note: CM MET WITH PT AT NURSES STATION, PT UP AND WALKING THE HALLS. CM DISCUSSED DISCHARGE NEEDS AND PLANNING. CM DISCUSSED AVAILABILITY OF HOME HEALTH, REHAB SERVICES AND MEDICAL EQUIPMENT. PT DENIES DISCHARGE NEEDS OTHER THAN HOME HEALTH RESUMPTION WITH HER UNKNOWN COMPANY. CHOICE SIGNED. SISTER TO TRANSPORT HOME AT DISCHARGE. CM RECEIVED CALL FROM KEN OF [facility], THEY WILL ACCEPT FOR RESUMPTION OF HOME HEALTH. CM TO FOLLOW AND ASSIST NEEDED. FOR DISCHARGE, NOTIFY [employer] [facility], , FAX REFERRAL AND DISCHARGE INFORMATION TO [facility] AT [phone]. Costa Cordova, CASE MANAGEMENT DCP- Discharge Planning Updated by [id number]: Sidra Wilson on 05/28/19 11:[address] LATE ENTRY 05/27/19 Patient Name: FELY SQUIRES Admission Status: ER Accout number: [id number] Admission Date: 05-26-2019 : 1965 Admission Diagnosis: Attending: RITU WYNN Current LOS: 2 Anticipated DC Date: Planned Disposition: Home with Home Health Primary Insurance: MEDICARE A & B Discharge Planning Comments: CM met with patient at bedside after explaining CM role and obtaining verbal consent. Patient lives at home with her sister where he is independent with her care and plans to return there upon discharge. Patient feels this would be a safe discharge. CM discussed availability / needs of home health and medical equipment. Patient states she has Home Health but can't remember provider RENA signed to resume care. ([facility] per last admit) Patient denies any discharge needs at this time. Patient has dialysis at [facility]. Patient states she will have her family drive her home upon discharge. CM will continue to follow and assist as needed with discharge planning / needs. Educational Interpreter: Sidra Wilson DCPIA - Discharge Planning Initial Assessment Updated by [id number]: Sidra Wilson on 05/28/19 12:13 pm * Is the patient Alert and Oriented? Yes * How many steps to enter\\exit or inside your home? * PCP TIANNA * Pharmacy [facility] * Preadmission Environment Home with Family * ADLs Independent * Equipment Walker * List name and contact numbers for known caregivers / representatives who currently or will assist patient after discharge: IVANA MCDOWELL - SISTER- [phone] * Verbal permission to speak to the caregivers and representatives has been obtained from the patient. Yes * Community resources currently utilized Other * Please name any agencies selected above. [facility] [place] * Additional services required to return to the preadmission environment? No * Can the patient safely return to the preadmission environment? Yes * Has this patient been hospitalized within the prior 30 days at any hospital? Yes Coverage Notice Reviewer: ART Cordova Notice Issued Date-Time: 05/28/2019 11:55 Notice Type: Patient Choice Letter Notice Delivered To: Patient Relationship to Patient: Rugby Union Footballer Name: Delivery Method: HAND - Hand Delivered Nicole Days: Prior Verbal Notification: Recipient Understood Notice: Yes Recipient Signature: Yes Med Rec Note Co-signed by Attending: Coverage Notice Comment: UNKNOWN HOME HEALTH Reviewer: ART Cordova Notice Issued Date-Time: 05/30/2019 12:10 Notice Type: IM Discharge Notice Notice Delivered To: Patient Relationship to Patient: Rugby Union Footballer Name: Delivery Method: HAND - Hand Delivered Nicole Days: Prior Verbal Notification: Recipient Understood Notice: Yes Recipient Signature: Yes Med Rec Note Co-signed by Attending: Coverage Notice Comment: Reviewer: ART Cordova Notice Issued Date-Time: 05/30/2019 12:10 Notice Type: Patient Choice Letter Notice Delivered To: Patient Relationship to Patient: Rugby Union Footballer Name: Delivery Method: HAND - Hand Delivered Nicole Days: Prior Verbal Notification: Recipient Understood Notice: Yes Recipient Signature: Yes Med Rec Note Co-signed by Attending: Coverage Notice Comment: KELSEY Calderon DP export: 05/30/19 4:03 Patient Name: FELY SQUIRES Page [id number] at 1526 All edits/amendments must be made on the electronic document DICTATION DATE: 05/31/191524 HOUSE FATHER: MARYAM 05/31/191524 RPT#: [id number] DC DATE: STATUS: ADM IN [facility] [address] [place] [address] END OF REPORT
--- NOTE | 2019-05-31 15:34 | MORECARE ---
CASE MANAGEMENT DISCHARGE SUMMARY PATIENT: FELY SQUIRES UNIT: [id number] ADM DATE: 05/26/19 AGE: 53 : 65 SEX: F ROOM/BED: D.2113 AUTHOR: ERIKA,DOC PHYSICIAN: REFERRING PHYSICIAN: RITU WYNN MD DATE OF SERVICE: 05/31/19 Discharge Plan Patient Name: FELY SQUIRES Facility: [facility]:[place] : 1965 Planned Disposition: Mcfp Facility Anticipated Discharge Date: 05/31/19 Discharge Date: Expected LOS: 5 Initial Reviewer: [email or web address] Initial Review Date: 05/27/2019 Generated: 05/31/19 4:34 pm Comments DCP- Discharge Planning Updated by [email or web address]: Costa Cordova on 05/31/19 2:[address] Patient Name: FELY SQUIRES Encounter No: [id number] : 1965 Primary Insurance: MEDICARE A & B Anticipated DC Date: 05-30-2019 Planned Disposition: Mcfp Facility External Planned Provider:[facility], MEDICARE SKILLED BED DCP follow-up note: CM SPOKE TO LEONORA OF [facility] WHO ADVISED PT ACCEPTED AT [facility], SHE HAS TALKED WITH PT WHO IS IN AGREEMENT WITH DISCHARGE TO [facility] TODAY. CM MET WITH PT IN ROOM, DISCUSSED DISCHARGE NEEDS. PT STATES SHE WILL GO TO [facility] TODAY FOR SKILLED CARE. CM NOTIFIED RN SMITH DAVID AND PAIN COORDINATOR NURSE. CM FAXED DISCHARGE INFORMATION TO [facility] VIA LEONORA AT [phone]. PT NOTIFIED HER FAMILY OF DISCHARGE TO [facility]. NURSE REPORT TO BE CALLED TO [facility] AT [phone]. [facility] TO SUPERVISOR PIPELINE VIA [employer]. Costa Cordova, CASE MANAGEMENT DCP- Discharge Planning Updated by [email or web address]: Johana Gresham on 05/31/19 2:[address] [facility] patient lost her appeal for discharge. Hospital may discharge patient 06/01/19. DCM and CM, Keena David, met with patient and explained to her that she had to leave the hospital by noon tomorrow or she would be financially responsible for her hospital charges from that point forward. Patient verbalized understanding and stated she planned to leave tomorrow and she had a ride. Patient signed Noncovered Continued Stay form (Model HINN 12). Patient kept a copy and copy put in chart. DCP- Discharge Planning Updated by [id number]: Costa Cordova on 05/30/19 3:[address] Patient Name: FELY SQUIRES Encounter No: [id number] : 1965 Primary Insurance: MEDICARE A & B Anticipated DC Date: 05-30-2019 Planned Disposition: Mcfp Facility External Planned Provider: [facility], MEDICARE SKILLED BED DCP follow-up note: CM RECEIVED DISCHARGE AND HOME HEALTH ORDERS. CM MET WITH PT IN ROOM, DISCUSSED HOME HEALTH AND DISCHARGE. PT STATES SHE TOLD "THEM" THAT SHE DOES NOT FEEL GOOD AND IS NOT GOING HOME TODAY. PT STATES SHE IS TOO SICK AND NEEDS TO STAY IN THE HOSPITAL. CM PROVIDED AND DISCUSSED IMPORTANT MESSAGE FROM MEDICARE. PT STATES SHE WILL CALL IMMEDIATELY. PT STATES SHE HAS HOME HEALTH BUT DOES NOT THINK SHE CAN DO THE WOUND CARE HERSELF AND DOES NOT THINK FAMILY WILL BE ABLE TO ASSIST EITHER. CM DISCUSSED SENIOR CARE FACILITY OPTIONS FOR SKILLED CARE. CM PROVIDED PT WITH LISTING OF PROVIDERS. PT STATES SHE HAS NO PREFERENCE LONG IT IS IN [place]. PT STATES SHE HAS DIALYSIS MWF AT [facility] AT 1145 AM. CHOICE SIGNED FOR NO SENIOR CARE FACILITY PREFERENCE. CM NOTIFIED RN SMITH HOUSE AND PAIN COORDINATOR NURSE. CM FAXED REFERRAL TO [facility] VIA LEONORA AT [phone]. CM NOTIFIED LEONORA OF REFERRAL AT [phone]. CM WAITING ADMISSION DETERMINATION FROM [facility] FOR SKILLED CARE. CM ALSO WAITING ON PT'S DISCHARGE APPEAL TO BE RESOLVED WITH MEDICARE. Costa Cordova, CASE MANAGEMENT DCP- Discharge Planning Updated by [id number]: Costa Cordova on 05/28/19 4:[address] Patient Name: FELY SQUIRES Encounter No: [id number] : 1965 Primary Insurance: MEDICARE A & B Anticipated DC Date: Planned Disposition: Home with Home Health External Planned Provider: [facility] DCP follow-up note: CM MET WITH PT AT NURSES STATION, PT UP AND WALKING THE HALLS. CM DISCUSSED DISCHARGE NEEDS AND PLANNING. CM DISCUSSED AVAILABILITY OF HOME HEALTH, REHAB SERVICES AND MEDICAL EQUIPMENT. PT DENIES DISCHARGE NEEDS OTHER THAN HOME HEALTH RESUMPTION WITH HER UNKNOWN COMPANY. CHOICE SIGNED. SISTER TO TRANSPORT HOME AT DISCHARGE. CM RECEIVED CALL FROM KEN OF [facility], THEY WILL ACCEPT FOR RESUMPTION OF HOME HEALTH. CM TO FOLLOW AND ASSIST NEEDED. FOR DISCHARGE, NOTIFY [email or web address] [facility], , FAX REFERRAL AND DISCHARGE INFORMATION TO [facility] AT [phone]. Costa Cordova, CASE MANAGEMENT DCP- Discharge Planning Updated by [email or web address]: Sidra Wilson on 05/28/19 11:[address] LATE ENTRY 05/27/19 Patient Name: FELY SQUIRES Admission Status: ER Accout number: [id number] Admission Date: 05-26-2019 : 1965 Admission Diagnosis: Attending: RITU WYNN Current LOS: 2 Anticipated DC Date: Planned Disposition: Home with Home Health Primary Insurance: MEDICARE A & B Discharge Planning Comments: CM met with patient at bedside after explaining CM role and obtaining verbal consent. Patient lives at home with her sister where he is independent with her care and plans to return there upon discharge. Patient feels this would be a safe discharge. CM discussed availability / needs of home health and medical equipment. Patient states she has Home Health but can't remember provider RENA signed to resume care. ([facility] per last admit) Patient denies any discharge needs at this time. Patient has dialysis at [facility]. Patient states she will have her family drive her home upon discharge. CM will continue to follow and assist as needed with discharge planning / needs. Installation Supervisor: Sidra Wilson DCPIA - Discharge Planning Initial Assessment Updated by [email or web address]: Sidra Wilson on 05/28/19 12:13 pm * Is the patient Alert and Oriented? Yes * How many steps to enter\\exit or inside your home? * PCP TIANNA * Pharmacy [facility] * Preadmission Environment Home with Family * ADLs Independent * Equipment Walker * List name and contact numbers for known caregivers / representatives who currently or will assist patient after discharge: IVANA MCDOWELL - SISTER- [phone] * Verbal permission to speak to the caregivers and representatives has been obtained from the patient. Yes * Community resources currently utilized Other * Please name any agencies selected above. [facility] * Additional services required to return to the preadmission environment? No * Can the patient safely return to the preadmission environment? Yes * Has this patient been hospitalized within the prior 30 days at any hospital? Yes Coverage Notice Reviewer: ART Cordova Notice Issued Date-Time: 05/28/2019 11:55 Notice Type: Patient Choice Letter Notice Delivered To: Patient Relationship to Patient: Field Service Consultant Name: Delivery Method: HAND - Hand Delivered Nicole Days: Prior Verbal Notification: Recipient Understood Notice: Yes Recipient Signature: Yes Med Rec Note Co-signed by Attending: Coverage Notice Comment: UNKNOWN HOME HEALTH Reviewer: ART Cordova Notice Issued Date-Time: 05/30/2019 12:10 Notice Type: IM Discharge Notice Notice Delivered To: Patient Relationship to Patient: Field Service Consultant Name: Delivery Method: HAND - Hand Delivered Nicole Days: Prior Verbal Notification: Recipient Understood Notice: Yes Recipient Signature: Yes Med Rec Note Co-signed by Attending: Coverage Notice Comment: Reviewer: ART Cordova Notice Issued Date-Time: 05/30/2019 12:10 Notice Type: Patient Choice Letter Notice Delivered To: Patient Relationship to Patient: Field Service Consultant Name: Delivery Method: HAND - Hand Delivered Nicole Days: Prior Verbal Notification: Recipient Understood Notice: Yes Recipient Signature: Yes Med Rec Note Co-signed by Attending: Coverage Notice Comment: KELSEY Calderon DP export: 05/30/19 4:03 Patient Name: FELY SQUIRES Page [id number] at 1534 All edits/amendments must be made on the electronic document DICTATION DATE: 05/31/19 153 PRINTER APPRENTICE: MARYAM 05/31/19 1534 RPT#: [id number] DC DATE: STATUS: ADM IN [facility] [address] [place] [address] END OF REPORT
--- NOTE | 2019-05-31 15:42 | NUR ---
I have reviewed this patient and I concur with the Shift Assessment completed by the Licensed Practical Nurse today this shift.
--- NOTE | 2019-05-31 15:54 | MORECARE ---
CASE MANAGEMENT DISCHARGE SUMMARY PATIENT: FELY SQUIRES UNIT: [id number] ADM DATE: 05/26/19 AGE: 53 : 65 SEX: F ROOM/BED: D.2113 AUTHOR: ERIKA,DOC PHYSICIAN: REFERRING PHYSICIAN: RITU WYNN MD DATE OF SERVICE: 05/31/19 Discharge Plan Patient Name: FELY SQUIRES Facility: [facility]:[place] : 1965 Planned Disposition: Long-Term Facility Anticipated Discharge Date: 05/31/19 Discharge Date: Expected LOS: 5 Initial Reviewer: [id number] Initial Review Date: 05/27/2019 Generated: 05/31/19 4:53 pm Comments DCP- Discharge Planning Updated by [email or web address]: Costa Cordova on 05/31/19 2:[address] Patient Name: FELY SQUIRES Encounter No: [id number] : 1965 Primary Insurance: MEDICARE A & B Anticipated DC Date: 05-30-2019 Planned Disposition: Long-Term Facility External Planned Provider:[facility], MEDICARE SKILLED BED DCP follow-up note: CM SPOKE TO LEONORA OF [facility] WHO ADVISED PT ACCEPTED AT THE [facility], SHE HAS TALKED WITH PT WHO IS IN AGREEMENT WITH DISCHARGE TO [facility] TODAY. CM MET WITH PT IN ROOM, DISCUSSED DISCHARGE NEEDS. PT STATES SHE WILL GO TO [facility] TODAY FOR SKILLED CARE. CM NOTIFIED RN SMITH DAVID AND FLOOR SANDING MACHINE OPERATOR NURSE. CM FAXED DISCHARGE INFORMATION TO [facility] VIA LEONORA AT [phone]. PT NOTIFIED HER FAMILY OF DISCHARGE TO THE [facility]. NURSE REPORT TO BE CALLED TO THE [facility] AT [phone]. [facility] TO SUPERANNUATION FUNDS MANAGER VIA [employer]. Costa Cordova, CASE MANAGEMENT DCP- Discharge Planning Updated by [email or web address]: Johana Gresham on 05/31/19 2:[address] DCM received [facility] stating patient lost her appeal for discharge. Hospital may discharge patient 06/01/19. DCM and CM, Keena David, met with patient and explained to her that she had to leave the hospital by noon tomorrow or she would be financially responsible for her hospital charges from that point forward. Patient verbalized understanding and stated she planned to leave tomorrow and she had a ride. Patient signed Noncovered Continued Stay form (Model HINN 12). Patient kept a copy and copy put in chart. DCP- Discharge Planning Updated by [email or web address]: Costa Cordova on 05/30/19 3:[address] Patient Name: FELY SQUIRES Encounter No: [id number] : 1965 Primary Insurance: MEDICARE A & B Anticipated DC Date: 05-30-2019 Planned Disposition: Long-Term Facility External Planned Provider: [facility], MEDICARE SKILLED BED DCP follow-up note: CM RECEIVED DISCHARGE AND HOME HEALTH ORDERS. CM MET WITH PT IN ROOM, DISCUSSED HOME HEALTH AND DISCHARGE. PT STATES SHE TOLD "THEM" THAT SHE DOES NOT FEEL GOOD AND IS NOT GOING HOME TODAY. PT STATES SHE IS TOO SICK AND NEEDS TO STAY IN THE HOSPITAL. CM PROVIDED AND DISCUSSED IMPORTANT MESSAGE FROM MEDICARE. PT STATES SHE WILL CALL IMMEDIATELY. PT STATES SHE HAS HOME HEALTH BUT DOES NOT THINK SHE CAN DO THE WOUND CARE HERSELF AND DOES NOT THINK FAMILY WILL BE ABLE TO ASSIST EITHER. CM DISCUSSED NURSING HOME FACILITY OPTIONS FOR SKILLED CARE. CM PROVIDED PT WITH LISTING OF PROVIDERS. PT STATES SHE HAS NO PREFERENCE LONG IT IS IN [place]. PT STATES SHE HAS DIALYSIS MWF AT [facility] AT 1145 AM. CHOICE SIGNED FOR NO NURSING HOME FACILITY PREFERENCE. CM NOTIFIED RN SMITH HOUSE AND FLOOR SANDING MACHINE OPERATOR NURSE. CM FAXED REFERRAL TO [facility] VIA LEONORA AT [phone]. CM NOTIFIED LEONORA OF REFERRAL AT [phone]. CM WAITING ADMISSION DETERMINATION FROM [facility] FOR SKILLED CARE. CM ALSO WAITING ON PT'S DISCHARGE APPEAL TO BE RESOLVED WITH MEDICARE. Costa Cordova, CASE MANAGEMENT DCP- Discharge Planning Updated by [id number]: Costa Cordova on 05/28/19 4:[address] Patient Name: FELY SQUIRES Encounter No: [id number] : 1965 Primary Insurance: MEDICARE A & B Anticipated DC Date: Planned Disposition: Home with Home Health External Planned Provider: [facility] DCP follow-up note: CM MET WITH PT AT NURSES STATION, PT UP AND WALKING THE HALLS. CM DISCUSSED DISCHARGE NEEDS AND PLANNING. CM DISCUSSED AVAILABILITY OF HOME HEALTH, REHAB SERVICES AND MEDICAL EQUIPMENT. PT DENIES DISCHARGE NEEDS OTHER THAN HOME HEALTH RESUMPTION WITH HER UNKNOWN COMPANY. CHOICE SIGNED. SISTER TO TRANSPORT HOME AT DISCHARGE. CM RECEIVED CALL FROM KEN OF [facility], THEY WILL ACCEPT FOR RESUMPTION OF HOME HEALTH. CM TO FOLLOW AND ASSIST NEEDED. FOR DISCHARGE, NOTIFY [facility], , FAX REFERRAL AND DISCHARGE INFORMATION TO [facility] AT [phone]. Costa Cordova, CASE MANAGEMENT DCP- Discharge Planning Updated by [email or web address]: Sidra Wilson on 05/28/19 11:[address] LATE ENTRY 05/27/19 Patient Name: FELY SQUIRES Admission Status: ER Accout number: [id number] Admission Date: 05-26-2019 : 1965 Admission Diagnosis: Attending: RITU WYNN Current LOS: 2 Anticipated DC Date: Planned Disposition: Home with Home Health Primary Insurance: MEDICARE A & B Discharge Planning Comments: CM met with patient at bedside after explaining CM role and obtaining verbal consent. Patient lives at home with her sister where he is independent with her care and plans to return there upon discharge. Patient feels this would be a safe discharge. CM discussed availability / needs of home health and medical equipment. Patient states she has Home Health but can't remember provider RENA signed to resume care. ([facility] per last admit) Patient denies any discharge needs at this time. Patient has dialysis at [facility]. Patient states she will have her family drive her home upon discharge. CM will continue to follow and assist as needed with discharge planning / needs. Health Psychologist: Sidra Wilson DCPIA - Discharge Planning Initial Assessment Updated by [email or web address]: Sidra Wilson on 05/28/19 12:13 pm * Is the patient Alert and Oriented? Yes * How many steps to enter\\exit or inside your home? * PCP TIANNA * Pharmacy [facility] * Preadmission Environment Home with Family * ADLs Independent * Equipment Walker * List name and contact numbers for known caregivers / representatives who currently or will assist patient after discharge: IVANA MCDOWELL - SISTER- [phone] * Verbal permission to speak to the caregivers and representatives has been obtained from the patient. Yes * Community resources currently utilized Other * Please name any agencies selected above. [facility] * Additional services required to return to the preadmission environment? No * Can the patient safely return to the preadmission environment? Yes * Has this patient been hospitalized within the prior 30 days at any hospital? Yes External Providers External Provider: [facility] Next Contact Date: 05/30/2019 Service Request Date: Service Type: Resolution: Reviewer: Comments: Coverage Notice Reviewer: ART Cordova Notice Issued Date-Time: 05/28/2019 11:55 Notice Type: Patient Choice Letter Notice Delivered To: Patient Relationship to Patient: Rate Inserter Name: Delivery Method: HAND - Hand Delivered Nicole Days: Prior Verbal Notification: Recipient Understood Notice: Yes Recipient Signature: Yes Med Rec Note Co-signed by Attending: Coverage Notice Comment: UNKNOWN HOME HEALTH Reviewer: ART Cordova Notice Issued Date-Time: 05/30/2019 12:10 Notice Type: IM Discharge Notice Notice Delivered To: Patient Relationship to Patient: Rate Inserter Name: Delivery Method: HAND - Hand Delivered Nicole Days: Prior Verbal Notification: Recipient Understood Notice: Yes Recipient Signature: Yes Med Rec Note Co-signed by Attending: Coverage Notice Comment: Reviewer: ART Cordova Notice Issued Date-Time: 05/30/2019 12:10 Notice Type: Patient Choice Letter Notice Delivered To: Patient Relationship to Patient: Rate Inserter Name: Delivery Method: HAND - Hand Delivered Nicole Days: Prior Verbal Notification: Recipient Understood Notice: Yes Recipient Signature: Yes Med Rec Note Co-signed by Attending: Coverage Notice Comment: [facility] DP export: 05/31/19 2:34 Patient Name: FELY SQUIRES Page 51047 at 1554 All edits/amendments must be made on the electronic document DICTATION DATE: 05/31/191552 FAMILY COURT COUNSELLOR: MARYAM 05/31/19 155 RPT#: [id number] DC DATE: STATUS: ADM IN [facility] [address] [place] [address] END OF REPORT
--- NOTE | 2019-05-31 16:00 | NUR ---
REPORT CALLED TO PRAVIN AT THE [facility]. DC PAPERWORK GONE OVER AND SIGNED WITH PT. ALL QUESTIONS ANSWERED. PT TRANSPORTED VIA WHEELCHAIR TO FRONT ENTRANCE. ALL VALUBLES REMOVED FROM ROOM AT THIS TIME AND SENT WITH PT.
== END 2019-05-31 16:01 | DRG 862 ==
LOC: D.ER 20:00 → D.ICU 20:31 → D.M2 20:31
PROVIDERS: Family Medicine; Internal Medicine Gastroenterology; Radiology Diagnostic Radiology; Surgery; ADMIT Internal Medicine Nephrology; ATTEND Internal Medicine Nephrology
PROC: 0F788DZ Dilation of Cystic Duct with Intraluminal Device, Via Natural or Artificial Opening Endoscopic (ICD-10-PCS; 2019-05-27)
PROC: 0FB88ZX Excision of Cystic Duct, Via Natural or Artificial Opening Endoscopic, Diagnostic (ICD-10-PCS; 2019-05-27)
PROC: 5A1D70Z Performance of Urinary Filtration, Intermittent, Less than 6 Hours Per Day (ICD-10-PCS; 2019-05-27)
PROC: 0W9G3ZZ Drainage of Peritoneal Cavity, Percutaneous Approach (ICD-10-PCS; principal; 2019-05-27 10:45)
DX: T81.41XA Infection following a procedure, superficial incisional surgical site, initial encounter (principal); A41.9 Sepsis, unspecified organism; N18.6 End stage renal disease; I12.0 Hypertensive chronic kidney disease with stage 5 chronic kidney disease or end stage renal disease; R18.8 Other ascites; T81.44XA Sepsis following a procedure, initial encounter; Y83.9 Surgical procedure, unspecified as the cause of abnormal reaction of the patient, or of later complication, without mention of misadventure at the time of the procedure; Z99.2 Dependence on renal dialysis; D63.1 Anemia in chronic kidney disease; J44.9 Chronic obstructive pulmonary disease, unspecified; I25.10 Atherosclerotic heart disease of native coronary artery without angina pectoris; F17.210 Nicotine dependence, cigarettes, uncomplicated; K29.80 Duodenitis without bleeding

== ENCOUNTER 2019-06-21 14:55 | Outpatient (CLI) | payer MEDICARE ==
[~2019-06-21] VITALS: Ht 175.3 cm; Wt 66.7 kg
[~2019-06-21 14:55] MED LIST changes: +BACTRIM 400-801 TAB PO; +ZYVOX600 MG PO
[2019-06-21 15:34] VITALS: Ht 175.3 cm; Wt 66.7 kg
--- NOTE | 2019-06-21 20:29 | NUR ---
2024 IV REMOVED AND PRESSURE HELD.
== END 2019-06-21 20:30 | disposition home or self-care (01) ==
LOC: D.OPS 14:55
PROVIDERS: ATTEND Internal Medicine Nephrology
DX: D64.9 Anemia, unspecified (principal)

== ENCOUNTER 2019-09-04 12:41 | Emergency (ER) | payer MEDICARE ==
[~2019-09-04] VITALS: Ht 175.3 cm; Wt 65.9 kg
[2019-09-04 12:43] VITALS: BP 137/92; Ht 175.3 cm; Wt 65.9 kg
[2019-09-04] MEDS ORDERED: HYDROCODON-ACE1 EAC2 PO (13:11)
[2019-09-05] MEDS ORDERED: HYDROCODON-ACE1 EA10 PO (10:24)
== END 2019-09-04 13:49 | disposition home or self-care (01) ==
LOC: D.ER 12:41
DX: R07.89 Other chest pain (principal); I13.2 Hypertensive heart and chronic kidney disease with heart failure and with stage 5 chronic kidney disease, or end stage renal disease; N18.6 End stage renal disease; I50.9 Heart failure, unspecified; Z99.2 Dependence on renal dialysis; Z95.5 Presence of coronary angioplasty implant and graft

== ENCOUNTER 2019-09-05 03:32 | Observation (INO) | payer MEDICARE ==
[~2019-09-05] VITALS: Ht 175.3 cm; Wt 66.7 kg
[~2019-09-05 03:32] MED LIST changes: +HYDROCODON-ACE1 EAC2 PO
[2019-09-05 04:30] VITALS: BP 131/60
[2019-09-05 05:06] LABS: BASOPHILS 0.4 % (0-2); EOSINOPHILS 4.6 % (0-7); HEMATOCRIT 27.3 % (36.0-48.0); HEMOGLOBIN 8.2 g/dL (12-16); IMMATURE GRANULOCYTES 0.3 % (0-5); LYMPHOCYTES 18.8 % (15-50); MCH 27.5 pg (26.0-34.0); MCV 91.6 fL (80.0-100.0); MEAN PLATELET VOLUME 9.8 fL (7.4-10.4); MONOCYTES 15.8 % (2-11); NEUTROPHILS 60.1 % (40-80); PLATELET COUNT 297 10x3/uL (130-400); RBC 2.98 10x6/uL (4.00-5.40)
[2019-09-05 05:12] LABS: INR 1.23 (0.85-1.17); PROTIME 15.4 SECONDS (11.6-15.0)
[2019-09-05 05:13] LABS: APTT 54.4 SECONDS (22.8-39.4)
[2019-09-05 05:30] VITALS: BP 123/56
[2019-09-05 05:33] LABS: ANION GAP 19.9 mmol/L (8-16); CALCIUM 8.5 mg/dL (8.5-10.1); CARBON DIOXIDE 21.8 mmol/L (21.0-32.0); CREATININE - SERUM 7.7 mg/dL (0.6-1.3); POTASSIUM - SERUM 4.7 mmol/L (3.5-5.1)
[2019-09-05 06:04] LABS: ALBUMIN 2.5 g/dL (3.4-5.0); BILIRUBIN - TOTAL 0.65 mg/dL (0.2-1.3); PROTEIN - SERUM 8.2 g/dL (6.4-8.2)
--- NOTE | 2019-09-05 07:32 | NUR ---
PT CURRENTLY SITTING ON EDGE OF BED. CALL LIGHT W/I REACH. PT IS AAO AND UP AD EVAN. RR EVEN AND UNLABORED ON RA. RHINOROCKET IN PLACE. NO S/S OF DISTRESS NOTED. WILL CTM.
[2019-09-05 09:16] VITALS: BP 108/66
[2019-09-05] MEDS ORDERED: HYDROCODON-ACE1 EA10 PO (10:24)
[2019-09-05 10:49] VITALS: Ht 175.3 cm; Wt 66.7 kg
--- NOTE | 2019-09-05 10:56 | NUR ---
COPY MADE OF WRITTEN SCRIPT FOR NORCO 10/325 MG #20 WITH NO REFILLS PLACED IN CHART. WRITTEN SCRIPT TO [employer]IG[employer].
--- NOTE | 2019-09-05 11:47 | MORECARE ---
CASE MANAGEMENT DISCHARGE SUMMARY PATIENT: FELY SQUIRES UNIT: [id number] ADM DATE: 09/05/19 AGE: 54 : 65 SEX: F ROOM/BED: D.2103 AUTHOR: ALEXANDRA JAMES PHYSICIAN: REFERRING PHYSICIAN: RITU WYNN MD DATE OF SERVICE: 09/05/19 Discharge Plan Patient Name: FELY SQUIRES Facility: [facility]:[place] : 1965 Planned Disposition: Home Anticipated Discharge Date: 09/05/19 Discharge Date: Expected LOS: 1 Initial Reviewer: [email or web address] Initial Review Date: 09/05/2019 Generated: 09/05/19 12:47 pm Patient Name: FELY SQUIRES Page 86407 at 1147 All edits/amendments must be made on the electronic document DICTATION DATE: 09/05/19 1147 BANK VAULT CLERK: MARYAM 09/05/19 1147 RPT#: [id number] DC DATE: STATUS: ADM IN [facility] [address] [place] [address] END OF REPORT
--- NOTE | 2019-09-05 11:55 | MORECARE ---
CASE MANAGEMENT DISCHARGE SUMMARY PATIENT: FELY SQUIRES UNIT: [id number] ADM DATE: 09/05/19 AGE: 54 : 65 SEX: F ROOM/BED: D.2103 AUTHOR: ALEXANDRA JAMES PHYSICIAN: REFERRING PHYSICIAN: RITU WYNN MD DATE OF SERVICE: 09/05/19 Discharge Plan Patient Name: FELY SQUIRES [facility] [facility] 1965 Planned Disposition: Home Anticipated Discharge Date: 09/05/19 Discharge Date: Expected LOS: 1 Initial Reviewer: [email or web address] Initial Review Date: 09/05/2019 Generated: 09/05/19 12:54 pm Comments DCP- Discharge Planning Updated by [email or web address]: Costa Cordova on 09/05/19 10:[address] Patient Name: FELY SQUIRES Admission Status: ER Accout number: [id number] Admission Date: 09-05-2019 : 1965 Admission Diagnosis: Attending: RITU WYNN Current LOS: 1 Anticipated DC Date: 09-05-2019 Planned Disposition: Home Primary Insurance: MEDICARE A & B Discharge Planning Comments: CM CALLED TO NOTIFY PATIENT PATHWAYS COORDINATOR FOR [facility] OF PT'S ADMISSION TO OBSERVATION IN HOSPITAL. WHILE SPEAKING TO ZAHRA, CM SPOKE TO PRASANNA OLIVEROS WHO ADVISED THAT PT WILL DISCHARGE HOME TODAY AFTER DIALYSIS. CM NOTIFED ZAHRA REYES OF DISCHARGE PLAN. CM TO FOLLOW AND ASSIST IF NEEDED. Proposal Review Analyst: Costa Cordova Patient Name: FELY SQUIRES Page 61449 at 1155 All edits/amendments must be made on the electronic document DICTATION DATE: 09/05/19 1154 JACKHAMMER SPLITTER OPERATOR: MARYAM 09/05/19 1154 RPT#: [id number] DC DATE: STATUS: ADM IN [facility] [address] [place] [address] END OF REPORT
--- NOTE | 2019-09-05 17:32 | NUR ---
PIV REMOVED WITH CATHETER TIP FULLY INTACT. SCRIPT GIVEN. PT SIGNED PROPER DISCHARGE INSTRUCTIONS.
== END 2019-09-05 17:33 | disposition home or self-care (01) ==
LOC: D.ER 03:32 → D.M2 05:09 → OBSVTIME 05:09 → D.M2 05:09
PROVIDERS: Family Medicine; ADMIT Internal Medicine Nephrology; ATTEND Internal Medicine Nephrology
DX: R04.0 Epistaxis (principal); N18.6 End stage renal disease; Z99.2 Dependence on renal dialysis; I50.9 Heart failure, unspecified; D63.1 Anemia in chronic kidney disease; F17.210 Nicotine dependence, cigarettes, uncomplicated; M25.562 Pain in left knee; M25.561 Pain in right knee; W18.30XA Fall on same level, unspecified, initial encounter

== ENCOUNTER 2019-09-08 13:24 | Emergency (ER) | payer MEDICARE ==
[~2019-09-08] VITALS: Ht 175.3 cm; Wt 66.8 kg
[~2019-09-08 13:24] MED LIST changes: +HYDROCODON-ACE1 EA10 PO
[2019-09-08 13:34] VITALS: Ht 175.3 cm; Wt 66.8 kg
[2019-09-08 14:21] VITALS: BP 101/62
== END 2019-09-08 14:22 | disposition home or self-care (01) ==
LOC: D.ER 13:24
DX: R04.0 Epistaxis (principal); N18.6 End stage renal disease

== ENCOUNTER 2019-10-06 14:19 | Inpatient (IN) | payer MEDICARE ==
[~2019-10-06] VITALS: Ht 175.3 cm; Wt 64.1 kg
[2019-10-06 17:02] LABS: BASOPHILS 0.5 % (0-2); EOSINOPHILS 6.2 % (0-7); HEMATOCRIT 31.4 % (36.0-48.0); IMMATURE GRANULOCYTES 0.2 % (0-5); LYMPHOCYTES 15.5 % (15-50); MCH 27.1 pg (26.0-34.0); MCHC 28.7 g/dL (31.0-37.0); MCV 94.6 fL (80.0-100.0); MEAN PLATELET VOLUME 9.7 fL (7.4-10.4); MONOCYTES 12.1 % (2-11); NEUTROPHILS 65.5 % (40-80); PLATELET COUNT 251 10x3/uL (130-400); RBC 3.32 10x6/uL (4.00-5.40); RDW 16.3 % (11.5-14.5); WBC 4.4 10x3/uL (4.8-10.8)
[2019-10-06 17:36] LABS: ALBUMIN 2.1 g/dL (3.4-5.0); ALKALINE PHOSPHATASE 669 U/L (30-120); ALT (SGPT) 11 U/L (10-68); BILIRUBIN - TOTAL 0.69 mg/dL (0.2-1.3); CALC OSMOLALITY 266 mosm/kg (275-300); CARBON DIOXIDE 23.3 mmol/L (21.0-32.0); CHLORIDE - SERUM 94 mmol/L (98-107); CKMB 2.3 U/L (0.0-3.6); CREATINE KINASE 49 UL (21-215); CREATININE - SERUM 7.3 mg/dL (0.6-1.3); GLUCOSE 66 mg/dL (74-106); MAGNESIUM - SERUM 1.5 mg/dL (1.8-2.4); POTASSIUM - SERUM 3.2 mmol/L (3.5-5.1); PROTEIN - SERUM 7.5 g/dL (6.4-8.2); SODIUM 130 mmol/L (136-145); TROPONIN-I < 0.017 ng/mL (0.000-0.060); UREA NITROGEN 35 mg/dL (7-18); eGFR NON AFRICAN AMERICAN 6 mL/min (90-120)
[2019-10-06 18:04] LABS: PRO BNP 338823 pg/mL (0-125)
--- NOTE | 2019-10-06 18:38 | NUR ---
RECEIVED REPORT FROM JOSE IN ER. PATIENT TO UNIT SOON.
--- NOTE | 2019-10-06 18:49 | NUR ---
RECEIVED PATIENT TO ROOM 2108 AT THIS TIME. PATIENT ALERT/ORIENTED. PATIENT SITTING TO SIDE OF BED. CALL LIGHT WITHIN REACH. PATIENT COMPLAINS SHE IS HUNGRY, NEVER RECEIVED A TRAY IN THE ED. CALLED TO GET DINNER TRAY FOR PATIENT AT THIS TIME. PATIENT ALSO COMPLAIN OF PAIN TO BACK AND ABD. RESP EVEN AND UNLAOBRED. NO DISTRESS.
[2019-10-07] VITALS (12 sets, daily range): BP systolic 89–116; BP diastolic 50–71; Ht 175.3 cm; Wt 64.1 kg
[2019-10-07 06:51] LABS: APTT 58.7 SECONDS (22.8-39.4); INR 1.12 (0.85-1.17); PROTIME 14.3 SECONDS (11.6-15.0)
[2019-10-07 07:16] LABS: BASOPHILS 0.2 % (0-2); HEMOGLOBIN 8.2 g/dL (12-16); IMMATURE GRANULOCYTES 0.4 % (0-5); LYMPHOCYTES 14.3 % (15-50); MCH 27.2 pg (26.0-34.0); MCHC 28.3 g/dL (31.0-37.0); MEAN PLATELET VOLUME 9.4 fL (7.4-10.4); MONOCYTES 11.8 % (2-11); NEUTROPHILS 68.3 % (40-80); PLATELET COUNT 276 10x3/uL (130-400); RBC 3.02 10x6/uL (4.00-5.40); RDW 16.7 % (11.5-14.5); WBC 5.2 10x3/uL (4.8-10.8)
[2019-10-07 07:22] LABS: ALBUMIN 2.4 g/dL (3.4-5.0); ANION GAP 14.1 mmol/L (8-16); BILIRUBIN - TOTAL 0.58 mg/dL (0.2-1.3); CALCIUM 7.6 mg/dL (8.5-10.1); CARBON DIOXIDE 26.3 mmol/L (21.0-32.0); CREATININE - SERUM 7.6 mg/dL (0.6-1.3); POTASSIUM - SERUM 3.4 mmol/L (3.5-5.1); PROTEIN - SERUM 8.5 g/dL (6.4-8.2)
--- NOTE | 2019-10-07 08:36 | NUR ---
0.5mg OF DIALUDID FOR PAIN LEVEL OF 9/10. CONSENTS FOR EGD SIGNED BY PT AND PLACED ON CHART. PT DENIES ANY OTHER NEEDS AT THIS TIME. CALL LIGHT IN REACH, NAD NOTED,WILL CONTINUE TO MONITOR.
--- NOTE | 2019-10-07 11:01 | NUR ---
RECEIVED PT BACK TO ROOM. PT A/O X4. VITAL SIGNS STABLE, PLACED PT ON FREQUENT VITAL SIGNS. PT DENIES ANY NEEDS AT THIS TIME. CALL LIGHT IN REACH, NAD NOTED, WILL CONTINUE TO MONITOR.
[2019-10-07 12:11] LABS: PROTEIN - BODY FLUID 5.6 G/DL
[2019-10-07 12:37] LABS: MACROPHAGES BF 29 %; NEUT - BF 46 %
--- NOTE | 2019-10-07 14:02 | NUR ---
PT TO GI LAB VIA BED, NAD NOTED.
--- NOTE | 2019-10-07 15:16 | NUR ---
PT TRANSFERED BACK TO ROOM. VITAL SIGNS STABLE. PLACED ON FREQUENT VITALS SIGNS. PT DENIES ANY OTHER NEEDS AT THIS TIME. CALL LIGHT IN REACH, NAD NOTED, WILL CONTINUE TO MONITOR.
--- NOTE | 2019-10-07 16:22 | NUR ---
0.5MG OF DILAUDID GIVEN FOR PAIN LEVEL OF 10/10. PT DENIES ANY OTHER NEEDS AT THIS TIME. CALL LIGHT IN REACH,NAD NOTED,W ILL CONTNUE TO MONITOR.
[2019-10-08] VITALS: BP 95/67
--- NOTE | 2019-10-08 00:42 | NUR ---
SITTING UP ON SIDE OF BED, FRESH CUP OF ICE GIVEN AT PT REQUEST.
--- NOTE | 2019-10-08 03:37 | NUR ---
I have reviewed this patient and I concur with the Shift Assessment completed by the Licensed Practical Nurse today this shift.
[2019-10-08 04:00] VITALS: BP 104/80
[2019-10-08 05:11] LABS: HEMATOCRIT 28.8 % (36.0-48.0); HEMOGLOBIN 8.2 g/dL (12-16); MCH 27.4 pg (26.0-34.0); MCHC 28.5 g/dL (31.0-37.0); MCV 96.3 fL (80.0-100.0); MEAN PLATELET VOLUME 9.6 fL (7.4-10.4); PLATELET COUNT 248 10x3/uL (130-400); RBC 2.99 10x6/uL (4.00-5.40); RDW 16.6 % (11.5-14.5); WBC 5.8 10x3/uL (4.8-10.8)
[2019-10-08 05:21] LABS: ALBUMIN 2.4 g/dL (3.4-5.0); ANION GAP 16.9 mmol/L (8-16); BILIRUBIN - TOTAL 0.56 mg/dL (0.2-1.3); CALCIUM 7.8 mg/dL (8.5-10.1); CARBON DIOXIDE 23.5 mmol/L (21.0-32.0); CREATININE - SERUM 8.1 mg/dL (0.6-1.3); POTASSIUM - SERUM 3.4 mmol/L (3.5-5.1); PROTEIN - SERUM 8.8 g/dL (6.4-8.2)
[2019-10-08 08:00] VITALS: BP 95/50
--- NOTE | 2019-10-08 08:00 | NUR ---
NOTIFIED BY FISH AND WILDLIFE BIOLOGIST OF LOW BP. MANUAL BP DONE AT THIS TIME, BP 95/50.
[2019-10-08 08:13] VITALS: BP 70/39
[2019-10-08 08:40] LABS: ANISOCYTOSIS OCC; EOSINOPHILS 3 % (0-7); LYMPHOCYTES 6 % (15-50); MONOCYTES 7 % (2-11); NEUTROPHILS 82 % (40-80); PLATELET ESTIMATE NORMAL
--- NOTE | 2019-10-08 11:00 | NUR ---
GAVE 0.5MG OF DILAUDID FOR PAIN LEVEL OF 9/10. PT DENIES ANY NEEDS AT THIS TIME, CALL IN REACH,NAD NOTED, WILL CONTINUE TO MONITOR.
--- NOTE | 2019-10-08 11:30 | NUR ---
PT TO DIALYSIS VIA WHEELCHAIR.
--- NOTE | 2019-10-08 16:10 | NUR ---
PT BACK TO ROOM FROM DIALYSIS. PT ASKING ABOUT PAIN MEDICATION, INFORMED PT TAHT SHE CANNOT HAVE PAIN MEDICATION UNTIL AROUND 1700. IVPB ZOSYN HUNG AT THIS TIME. PT DENIES ANY OTHER NEEDS AT THIS TIME. CALL LIGHT IN REACH, NAD NOTED, WILL CONTINUE TO MONITOR.
--- NOTE | 2019-10-08 17:42 | NUR ---
GAVE 0.5MG OF DILAUDID FOR PAIN LEVEL OF 10/10. ALSO GAVE 4MG OF ZOFRAN FOR NAUSEA. PT DENIES ANY OTHER NEEDS AT THIS TIME. CALL LIGHT IN REACH, CARMELINA CAMPOS, WILL CONTINUE TO MONITOR.
--- NOTE | 2019-10-08 19:15 | NUR ---
REPORT RECEIVED, WILL CONTINUE POC. PATIENT IS RESTING ON LT SIDE WITH EYES CLOSED. NO S/S OF DISTRESS OBSERVED, RR EVEN AND UNLABORED ON ROOM AIR. PIV TO LT FA INFUSING NS @ 30ML/HR. PATIENT REQUESTS HER DILAUDID WHEN SHE CAN HAVE IT. INFORMED PATIENT IS WILL BE 2330 WHEN SHE CAN HAVE IT NEXT. PATIENT DENIES NEEDS AT THIS TIME. CL IN REACH, BED LOCKED AND LOWERED. WILL CTM.
[2019-10-08 22:16] VITALS: BP 82/56
--- NOTE | 2019-10-08 23:20 | NUR ---
PATIENT AT NURSES STATION ASKING WHEN SHE CAN HAVE HER PAIN MEDS. INFORMED PATIENT I WOULD BE IN HER ROOM AT 2330 WHEN SHE CAN HAVE IT.
[2019-10-09 00:40] VITALS: BP 87/49
--- NOTE | 2019-10-09 01:49 | NUR ---
I have reviewed this patient and I concur with the Shift Assessment completed by the Licensed Practical Nurse today this shift.
--- NOTE | 2019-10-09 05:09 | NUR ---
PATIENT ON CL REQUESTING PAIN MEDICINE. INFORMED PATIENT SHE COULD HAVE HER DILAUDID AT 0534.
[2019-10-09 05:29] VITALS: BP 85/52
--- NOTE | 2019-10-09 05:35 | NUR ---
PATIENT C/O PAIN. ADMINISTERED PAIN PRN DILAUDID AND ZOFRAN PER ORDERS.
[2019-10-09 05:47] LABS: BASOPHILS 0.5 % (0-2); EOSINOPHILS 4.9 % (0-7); HEMATOCRIT 23.8 % (36.0-48.0); IMMATURE GRANULOCYTES 0.2 % (0-5); LYMPHOCYTES 14.5 % (15-50); MCH 26.6 pg (26.0-34.0); MCHC 27.7 g/dL (31.0-37.0); MEAN PLATELET VOLUME 9.7 fL (7.4-10.4); MONOCYTES 15.4 % (2-11); NEUTROPHILS 64.5 % (40-80); PLATELET COUNT 204 10x3/uL (130-400); RBC 2.48 10x6/uL (4.00-5.40); RDW 16.8 % (11.5-14.5); WBC 5.5 10x3/uL (4.8-10.8)
[2019-10-09 06:19] LABS: ANION GAP 12.4 mmol/L (8-16); BILIRUBIN - TOTAL 0.38 mg/dL (0.2-1.3); CALCIUM 7.8 mg/dL (8.5-10.1); CARBON DIOXIDE 26.4 mmol/L (21.0-32.0); CREATININE - SERUM 6.4 mg/dL (0.6-1.3); POTASSIUM - SERUM 3.8 mmol/L (3.5-5.1)
[2019-10-09 06:26] LABS: HEMOGLOBIN 6.6 g/dL (12-16)
--- NOTE | 2019-10-09 06:42 | NUR ---
PAGED BANK APPRAISER ABOUT CRITICAL HGB. LEAH PUT IN ORDER WHILE AWAITING CALLBACK. ORDERS RECEIVED.
[2019-10-09 07:18] LABS: % SATURATION 18 % (15-55); IRON 19 ug/dl (35-150); TOTAL IRON BIND CAPACITY 103 ug/dl (260-445); UNSAT IRON BIND CAPACITY 84 ug/dl (150-375)
[2019-10-09 08:40] VITALS: BP 72/37
--- NOTE | 2019-10-09 09:29 | NUR ---
LAB STATES PT HAS A FEW ANTIBODIES AND THEY HAVE TO SEND OUT FOR HER BLOOD SO IT WILL TAKE A LITTLE BIT TO GET BLOOD.
--- NOTE | 2019-10-09 11:10 | NUR ---
PT WENT OUTSIDE WITHOUT THIS NURSES KNOWLEDGE. TOLD PT THIS AM SHE NEEDS TO STAY INSIDE HER ROOM OR CAN WALK HALLS WITH A MASK ON. PT STATED SHE DOESN'T WANT TO DO THAT. THAT SHE WANTS TO GO OUTSIDE.
[2019-10-09 11:29] VITALS: BP 88/44
--- NOTE | 2019-10-09 13:22 | NUR ---
Nutrition Follow-up: Eating well. HD yesterday. Diet: Renal, Dental Soft PO intake: 100% x 3 yesterday + snack Wt: 131# (10/08); 130# (10/06) Labs noted: Na 133, K+ 3.8, Ca 7.8, Alb 2.0 Meds noted: Zofran -Continue current diet as tolerated. -Monitor wt. -RD following.
--- NOTE | 2019-10-09 13:44 | NUR ---
SPOKE WITH JENNIFFER CASTRO AND SHE STATES PT WILL GO FOR DIALYSIS TOMORROW AND NOT TODAY AND IF PT NEEDS TO GET THE BLOOD ORDERED IN DIALYSIS TOMORROW SHE CAN AND TO NOT STRESS OVER PT RECEIVING IT TODAY. SHE ALSO STATES TO CHANGE PROAMATINE TO 10MG TID. SO BP WILL COME UP ENOUGH BY TOMORROW SO SHE CAN DIALYIZE. I VERBALIZED UNDERSTANDING.
--- NOTE | 2019-10-09 15:20 | NUR ---
I have reviewed this patient and I concur with the Shift Assessment completed by the Licensed Practical Nurse today this shift.
[2019-10-09 15:56] VITALS: BP 111/71
--- NOTE | 2019-10-09 16:30 | NUR ---
REMOVED ABDOMINAL BORDER GAUZE AND CLEANSED BELLY BUTTON WITH WOUND CLEANSER AND PATTED DRY WITH 4X4'S. FOLDED A 4X4 AND COVERED WITH SQUARE BORDER GAUZE DRESSING.
--- NOTE | 2019-10-09 16:52 | MORECARE ---
CASE MANAGEMENT DISCHARGE SUMMARY PATIENT: FELY SQUIRES UNIT: [id number] ADM DATE: 10/06/19 AGE: 54 : 65 SEX: F ROOM/BED: D.2108 AUTHOR: ALEXANDRA JAMES PHYSICIAN: REFERRING PHYSICIAN: PAPI VALLEJO MD DATE OF SERVICE: 10/09/19 Discharge Plan Patient Name: FELY SQUIRES [facility] : 1965 Planned Disposition: Home with Home Health Anticipated Discharge Date: Discharge Date: Expected LOS: Initial Reviewer: [email or web address] Initial Review Date: 10/09/2019 Generated: 10/09/19 5:51 pm DCPIA - Discharge Planning Initial Assessment Updated by [email or web address]: Paula Gunn on 10/09/19 4:50 pm * Is the patient Alert and Oriented? Yes * PCP DR. Arreguin * Pharmacy [facility] on [address] * Preadmission Environment Home with Family * ADLs Partial Dependent * Partial ADLs (Assistance needed) Ambulation * Equipment Nebulizer Other Oxygen Walker Wheelchair * Other Equipment Portable oxygen * List name and contact numbers for known caregivers / representatives who currently or will assist patient after discharge: Veronica Abarca - [facility] - [phone] patient's number is [phone] * Verbal permission to speak to the caregivers and representatives has been obtained from the patient. Yes * Community resources currently utilized Home Health * Please name any agencies selected above. ?[facility] * Additional services required to return to the preadmission environment? No * Can the patient safely return to the preadmission environment? Yes * Has this patient been hospitalized within the prior 30 days at any hospital? No Patient Name: FELY SQUIRES Page [phone] at 1652 All edits/amendments must be made on the electronic document DICTATION DATE: 10/09/191650 SEAFOOD AND SERVICE MEAT MANAGER: MARYAM 10/09/191650 RPT#: [id number] DC DATE: STATUS: ADM IN [facility] [address] [place] [address] END OF REPORT
--- NOTE | 2019-10-09 16:59 | MORECARE ---
CASE MANAGEMENT DISCHARGE SUMMARY PATIENT: FELY SQUIRES UNIT: [id number] ADM DATE: 10/06/19 AGE: 54 : 65 SEX: F ROOM/BED: D.2581 AUTHOR: ERIKA,DOC PHYSICIAN: REFERRING PHYSICIAN: PAPI VALLEJO MD DATE OF SERVICE: 10/09/19 Discharge Plan Patient Name: FELY SQUIRES Facility: [facility]:[place] : 1965 Planned Disposition: Home with Home Health Anticipated Discharge Date: Discharge Date: Expected LOS: Initial Reviewer: [email or web address] Initial Review Date: 10/09/2019 Generated: 10/09/19 5:59 pm Comments DCP- Discharge Planning Updated by [email or web address]: Paula Gunn on 10/09/19 3:[address] Patient Name: FELY SQUIRES Admission Status: ER Accout number: [id number] Admission Date: 10-06-2019 : 1965 Admission Diagnosis:CHEST PAIN, UNSPECIFIED Attending: PAPI VALLEJO Current LOS: 3 Anticipated DC Date: Planned Disposition: Home with Home Health Primary Insurance: MEDICARE A & B Discharge Planning Comments: CM met with patient to complete initial dc planning assessment. CM educated patient on the CM role and verbal consent given by patient to complete assessment. Patient lives at home with her sister. At discharge patient plans to return and feels this is a safe discharge. CM discussed availability of home health, rehab services, and medical equipment. Patient denied known discharge needs at this time. States she has home health , is not sure of the name, and would like it resumed on discharge. Her last chart said [facility], I will call and verify tomorrow since they are already closed today. She uses [employer] for her DME company. CM will continue to follow and will assist as needed with dc plans/needs. Investigations Chief: Paula Gunn DCPIA - Discharge Planning Initial Assessment Updated by [email or web address]: Paula Gunn on 10/09/19 4:50 pm * Is the patient Alert and Oriented? Yes * PCP DR. Arreguin * Pharmacy [facility] on [address] * Preadmission Environment Home with Family * ADLs Partial Dependent * Partial ADLs (Assistance needed) Ambulation * Equipment Nebulizer Other Oxygen Walker Wheelchair * Other Equipment Portable oxygen * List name and contact numbers for known caregivers / representatives who currently or will assist patient after discharge: Veronica Abarca - - [phone] patient's number is [phone] * Verbal permission to speak to the caregivers and representatives has been obtained from the patient. Yes * Community resources currently utilized Home Health * Please name any agencies selected above. ?[facility] * Additional services required to return to the preadmission environment? No * Can the patient safely return to the preadmission environment? Yes * Has this patient been hospitalized within the prior 30 days at any hospital? No Coverage Notice Reviewer: [id number] Ezio Gunn Notice Issued Date-Time: 10/09/2019 16:52 Notice Type: Patient Choice Letter Notice Delivered To: Patient Relationship to Patient: Self Regional Construction Manager Name: Delivery Method: HAND - Hand Delivered Nicole Days: Prior Verbal Notification: Recipient Understood Notice: Yes Recipient Signature: Yes Med Rec Note Co-signed by Attending: Coverage Notice Comment: Home health, unsure of name. Last DP export: 10/09/19 3:52 p Patient Name: FELY SQUIRES Page [phone] at 1659 All edits/amendments must be made on the electronic document DICTATION DATE: 10/09/191658 DEPLOYMENT TECHNICIAN: MARYAM 10/09/191658 RPT#: [id number] DC DATE: STATUS: ADM IN [facility] [address] [place] [address] END OF REPORT
[2019-10-09 17:12] LABS: ANION GAP 15.4 mmol/L (8-16); CALCIUM 8.2 mg/dL (8.5-10.1); CARBON DIOXIDE 26.3 mmol/L (21.0-32.0); CREATININE - SERUM 6.7 mg/dL (0.6-1.3); POTASSIUM - SERUM 3.7 mmol/L (3.5-5.1)
--- NOTE | 2019-10-09 17:22 | NUR ---
SPOKE WITH BLOOD BANK AND THEY STATED SHAYNA JUST PICKED UP BLOOD SPECIMENS AROUND 1430 SO IT WILL BE AWHILE. I VERBALIZED UNDERSTANDING.
--- NOTE | 2019-10-09 17:25 | NUR ---
SPOKE WITH JENNIFFER MIMS AND SHE STATES TO GIVE BLOOD IN DIALYSIS TOMORROW.
--- NOTE | 2019-10-09 17:30 | NUR ---
PT WANTING TYLENOL. SPOKE WITH JENNIFFER CARVALHO AND SHE STATES TO ORDER IT. I VERBALIZED UNDERSTANDING.
--- NOTE | 2019-10-09 19:39 | NUR ---
REPORT RECEIVED, WILL CONTINUE POC. PATIENT RESTING WITH EYES CLOSED ON RT SIDE. NO S/S OF DISTRESS OBSERVED, RR EVEN AND UNLABORED ON 2L O2 VIA NC. ADJUSTED TEMP IN ROOM PER PATIENT REQUEST. PATIENT DENIES FURTHER NEEDS AT THIS TIME. PIV TO LT FA INFUSING NS @ KVO. CL IN REACH, BED LOCKED AND LOWERED. WILL CTM.
[2019-10-09 20:00] VITALS: BP 108/65
[2019-10-10] VITALS: BP 90/59
--- NOTE | 2019-10-10 02:23 | NUR ---
I have reviewed this patient and I concur with the Shift Assessment completed by the Licensed Practical Nurse today this shift.
[2019-10-10 04:00] VITALS: BP 109/64
[2019-10-10 04:48] LABS: BASOPHILS 0.5 % (0-2); EOSINOPHILS 6.6 % (0-7); HEMATOCRIT 26.3 % (36.0-48.0); IMMATURE GRANULOCYTES 0.7 % (0-5); LYMPHOCYTES 16.5 % (15-50); MCH 26.4 pg (26.0-34.0); MCHC 27.8 g/dL (31.0-37.0); MCV 95.3 fL (80.0-100.0); MEAN PLATELET VOLUME 9.7 fL (7.4-10.4); MONOCYTES 12.6 % (2-11); NEUTROPHILS 63.1 % (40-80); PLATELET COUNT 221 10x3/uL (130-400); RBC 2.76 10x6/uL (4.00-5.40); RDW 16.8 % (11.5-14.5); WBC 5.9 10x3/uL (4.8-10.8)
[2019-10-10 05:03] LABS: HEMOGLOBIN 7.3 g/dL (12-16)
[2019-10-10 05:25] LABS: ANION GAP 13.7 mmol/L (8-16); BILIRUBIN - TOTAL 0.5 mg/dL (0.2-1.3); CALCIUM 8.3 mg/dL (8.5-10.1); CARBON DIOXIDE 25.4 mmol/L (21.0-32.0); CREATININE - SERUM 6.8 mg/dL (0.6-1.3); POTASSIUM - SERUM 4.1 mmol/L (3.5-5.1); PROTEIN - SERUM 7.8 g/dL (6.4-8.2); THYROID STIMULATING HORMONE 8.72 uIU/mL (0.36-3.74)
[2019-10-10 07:35] LABS: % SATURATION 19 % (15-55); IRON 24 ug/dl (35-150); TOTAL IRON BIND CAPACITY 122 ug/dl (260-445); UNSAT IRON BIND CAPACITY 98 ug/dl (150-375)
--- NOTE | 2019-10-10 10:55 | NUR ---
I have reviewed this patient and I concur with the Shift Assessment completed by the Licensed Practical Nurse today this shift.
[2019-10-10 18:31] VITALS: BP 74/52
--- NOTE | 2019-10-10 19:15 | NUR ---
REPORT RECEIVED, WILL CONTINUE POC. PATIENT IS RESTING WITH EYES CLOSED LYING ON RT SIDE. NO S/S OF DISTRESS OBSERVED, RR EVEN AND UNLABORED ON 2L O2 VIA NC. PIV TO LT UPPER ARM INFUSING BLOOD PRODUCTS. PATIENT DENIES NEEDS AT THIS TIME. CL IN REACH, BED LOCKED AND LOWERED. WILL CTM.
[2019-10-10 20:00] VITALS: BP 124/71
--- NOTE | 2019-10-11 02:45 | NUR ---
I have reviewed this patient and I concur with the Shift Assessment completed by the Licensed Practical Nurse today this shift.
[2019-10-11 04:00] VITALS: BP 108/64
[2019-10-11 04:38] LABS: BASOPHILS 0.7 % (0-2); EOSINOPHILS 4.8 % (0-7); HEMATOCRIT 26.8 % (36.0-48.0); HEMOGLOBIN 7.8 g/dL (12-16); IMMATURE GRANULOCYTES 0.8 % (0-5); LYMPHOCYTES 12.7 % (15-50); MCH 28.2 pg (26.0-34.0); MCHC 29.1 g/dL (31.0-37.0); MCV 96.8 fL (80.0-100.0); MEAN PLATELET VOLUME 9.9 fL (7.4-10.4); MONOCYTES 17.2 % (2-11); NEUTROPHILS 63.8 % (40-80); RBC 2.77 10x6/uL (4.00-5.40); WBC 6.1 10x3/uL (4.8-10.8)
[2019-10-11 04:49] LABS: PLATELET COUNT 273 10x3/uL (130-400)
[2019-10-11 05:04] LABS: ALBUMIN 2.1 g/dL (3.4-5.0); ANION GAP 14.4 mmol/L (8-16); BILIRUBIN - TOTAL 0.71 mg/dL (0.2-1.3); CALCIUM 8.5 mg/dL (8.5-10.1); CARBON DIOXIDE 24.6 mmol/L (21.0-32.0); CREATININE - SERUM 5.9 mg/dL (0.6-1.3); PHOSPHOROUS 3.3 mg/dL (2.5-4.9); PROTEIN - SERUM 8.2 g/dL (6.4-8.2)
[2019-10-11 09:14] VITALS: BP 100/61
[2019-10-11] MEDS ORDERED: MIDODRINE HCL5 MG PO (11:55)
[2019-10-11] MEDS ORDERED: Nicoderm [PBKC] TRANSDERM (11:56)
[2019-10-11 12:18] VITALS: BP 123/75
--- NOTE | 2019-10-11 12:28 | MORECARE ---
CASE MANAGEMENT DISCHARGE SUMMARY PATIENT: FELY SQUIRES UNIT: [id number] ADM DATE: 10/06/19 AGE: 54 : 65 SEX: F ROOM/BED: D.2103 AUTHOR: ERIKA,DOC PHYSICIAN: REFERRING PHYSICIAN: PAPI VALLEJO MD DATE OF SERVICE: 10/11/19 Discharge Plan Patient Name: FELY SQUIRES Facility: [facility]:[place] : 1965 Planned Disposition: Home with Home Health Anticipated Discharge Date: Discharge Date: Expected LOS: Initial Reviewer: [email or web address] Initial Review Date: 10/09/2019 Generated: 10/11/19 1:28 pm Comments DCP- Discharge Planning Updated by [id number]: Paula Gunn on 10/09/19 3:[address] Patient Name: FELY SQUIRES Admission Status: ER Accout number: [id number] Admission Date: 10-06-2019 : 1965 Admission Diagnosis:CHEST PAIN, UNSPECIFIED Attending: PAPI VALLEJO Current LOS: 3 Anticipated DC Date: Planned Disposition: Home with Home Health Primary Insurance: MEDICARE A & B Discharge Planning Comments: CM met with patient to complete initial dc planning assessment. CM educated patient on the CM role and verbal consent given by patient to complete assessment. Patient lives at home with her sister. At discharge patient plans to return and feels this is a safe discharge. CM discussed availability of home health, rehab services, and medical equipment. Patient denied known discharge needs at this time. States she has home health , is not sure of the name, and would like it resumed on discharge. [facility] last chart said [facility], I will call and verify tomorrow since they are already closed today. She uses [employer] for her DME company. CM will continue to follow and will assist as needed with dc plans/needs. Packaging Supervisor: Paula Gunn DCPIA - Discharge Planning Initial Assessment Updated by [id number]: Paula Gunn on 10/09/19 4:50 pm * Is the patient Alert and Oriented? Yes * PCP DR. Arreguin * Pharmacy [facility] on [address] * Preadmission Environment Home with Family * ADLs Partial Dependent * Partial ADLs (Assistance needed) Ambulation * Equipment Nebulizer Other Oxygen Walker Wheelchair * Other Equipment Portable oxygen * List name and contact numbers for known caregivers / representatives who currently or will assist patient after discharge: Veronica Abarca - - [phone] patient's number is [phone] * Verbal permission to speak to the caregivers and representatives has been obtained from the patient. Yes * Community resources currently utilized Home Health * Please name any agencies selected above. ?[facility] * Additional services required to return to the preadmission environment? No * Can the patient safely return to the preadmission environment? Yes * Has this patient been hospitalized within the prior 30 days at any hospital? No External Providers External Provider: [facility] Next Contact Date: Service Request Date: Service Type: Resolution: Reviewer: Comments: Coverage Notice Reviewer: [email or web address] Gunn Notice Issued Date-Time: 10/09/2019 16:52 Notice Type: Patient Choice Letter Notice Delivered To: Patient Relationship to Patient: Self Seed Expert Name: Delivery Method: HAND - Hand Delivered Nicole Days: Prior Verbal Notification: Recipient Understood Notice: Yes Recipient Signature: Yes Med Rec Note Co-signed by Attending: Coverage Notice Comment: Home health, unsure of name. Reviewer: [email or web address] Ezio Gunn Notice Issued Date-Time: 10/11/2019 12:24 Notice Type: IM Discharge Notice Notice Delivered To: Patient Relationship to Patient: Self Seed Expert Name: Delivery Method: HAND - Hand Delivered Nicole Days: Prior Verbal Notification: Recipient Understood Notice: Yes Recipient Signature: Yes Med Rec Note Co-signed by Attending: Coverage Notice Comment: IMM explained, signed, given, copy placed in MR Last DP export: 10/09/19 3:59 p Patient Name: FELY SQUIRES Page [phone] at 1228 All edits/amendments must be made on the electronic document DICTATION DATE: 10/11/198 FURNACE MECHANIC HELPER: MARYAM 10/11/19 1228 RPT#: [id number] DC DATE: STATUS: ADM IN [facility] [address] [place] [address] END OF REPORT
[2019-10-11 14:22] LABS: T4 THYROXINE 5.8 ug/dL (4.7-13.3)
--- NOTE | 2019-10-11 17:06 | NUR ---
PT DISCHARGED HOME VIA WHEELCHAIR WITH FAMILY. PIV REMOVED WITH CATHETER TIP FULLY INTACT. PT SIGNED PROPER DISCHARGE INSTRUCTIONS AND REMOVED ALL VALUABLES FROM THE ROOM.
--- NOTE | 2019-10-13 19:32 | MORECARE ---
CASE MANAGEMENT DISCHARGE SUMMARY PATIENT: FELY SQUIRES UNIT: [id number] ADM DATE: 10/06/19 AGE: 54 : 65 SEX: F ROOM/BED: D.8604 AUTHOR: ERIKA,DOC PHYSICIAN: REFERRING PHYSICIAN: PAPI VALLEJO MD DATE OF SERVICE: 10/13/19 Discharge Plan Patient Name: FELY SQUIRES Facility: [facility]:[place] : 1965 Planned Disposition: Home with Home Health Anticipated Discharge Date: Discharge Date: 10/11/2019 Expected LOS: Initial Reviewer: [email or web address] Initial Review Date: 10/09/2019 Generated: 10/13/19 8:32 pm Comments DCP- Discharge Planning Updated by [email or web address]: Paula Gunn on 10/09/19 3:[address] Patient Name: FELY SQUIRES Admission Status: ER Accout number: [id number] Admission Date: 10-06-2019 : 1965 Admission Diagnosis:CHEST PAIN, UNSPECIFIED Attending: PAPI VALLEJO Current LOS: 3 Anticipated DC Date: Planned Disposition: Home with Home Health Primary Insurance: MEDICARE A & B Discharge Planning Comments: CM met with patient to complete initial dc planning assessment. CM educated patient on the CM role and verbal consent given by patient to complete assessment. Patient lives at home with her sister. At discharge patient plans to return and feels this is a safe discharge. CM discussed availability of home health, rehab services, and medical equipment. Patient denied known discharge needs at this time. States she has home health , is not sure of the name, and would like it resumed on discharge. Her last chart said [facility], I will call and verify tomorrow since they are already closed today. She uses [employer] for her DME company. CM will continue to follow and will assist as needed with dc plans/needs. Noteman: Paula Gunn DCPIA - Discharge Planning Initial Assessment Updated by [id number]: Paula Gunn on 10/09/19 4:50 pm * Is the patient Alert and Oriented? Yes * PCP DR. Arreguin * Pharmacy [facility] on [address] * Preadmission Environment Home with Family * ADLs Partial Dependent * Partial ADLs (Assistance needed) Ambulation * Equipment Nebulizer Other Oxygen Walker Wheelchair * Other Equipment Portable oxygen * List name and contact numbers for known caregivers / representatives who currently or will assist patient after discharge: Veronica Abarca - - [phone] patient's number is [phone] * Verbal permission to speak to the caregivers and representatives has been obtained from the patient. Yes * Community resources currently utilized Home Health * Please name any agencies selected above. ?[facility] * Additional services required to return to the preadmission environment? No * Can the patient safely return to the preadmission environment? Yes * Has this patient been hospitalized within the prior 30 days at any hospital? 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
== END 2019-10-11 17:07 | disposition home health service (06) | DRG 919 ==
LOC: D.ER 14:19 → D.M2 17:56
PROVIDERS: Emergency Medicine; Family Medicine; Internal Medicine Gastroenterology; Internal Medicine Nephrology; Radiology Diagnostic Radiology; ADMIT Internal Medicine Nephrology; ATTEND Internal Medicine Nephrology
PROC: 0DC98ZZ Extirpation of Matter from Duodenum, Via Natural or Artificial Opening Endoscopic (ICD-10-PCS; 2019-10-07)
PROC: 0W9G3ZZ Drainage of Peritoneal Cavity, Percutaneous Approach (ICD-10-PCS; principal; 2019-10-07 10:00)
DX: T85.898A Other specified complication of other internal prosthetic devices, implants and grafts, initial encounter (principal); N18.6 End stage renal disease; E43 Unspecified severe protein-calorie malnutrition; Z68.1 Body mass index [BMI] 19.9 or less, adult; I13.2 Hypertensive heart and chronic kidney disease with heart failure and with stage 5 chronic kidney disease, or end stage renal disease; R18.8 Other ascites; L02.211 Cutaneous abscess of abdominal wall; E87.1 Hypo-osmolality and hyponatremia; Y84.9 Medical procedure, unspecified as the cause of abnormal reaction of the patient, or of later complication, without mention of misadventure at the time of the procedure; D63.1 Anemia in chronic kidney disease; J44.9 Chronic obstructive pulmonary disease, unspecified; E21.3 Hyperparathyroidism, unspecified; I50.9 Heart failure, unspecified; K26.9 Duodenal ulcer, unspecified as acute or chronic, without hemorrhage or perforation; E03.9 Hypothyroidism, unspecified

== ENCOUNTER 2019-10-12 02:12 | Inpatient (IN) | payer MEDICARE ==
[~2019-10-12] VITALS: Ht 175.3 cm; Wt 65.8 kg
[~2019-10-12 02:12] MED LIST changes: +MIDODRINE HCL5 MG PO; +Nicoderm [PBKC] TRANSDERM
[2019-10-12 03:05] LABS: BASOPHILS 0.5 % (0-2); EOSINOPHILS 1.9 % (0-7); HEMATOCRIT 31.5 % (36.0-48.0); HEMOGLOBIN 9.1 g/dL (12-16); IMMATURE GRANULOCYTES 0.3 % (0-5); LYMPHOCYTES 17.7 % (15-50); MCH 27.4 pg (26.0-34.0); MCHC 28.9 g/dL (31.0-37.0); MCV 94.9 fL (80.0-100.0); MEAN PLATELET VOLUME 9.8 fL (7.4-10.4); MONOCYTES 17.5 % (2-11); NEUTROPHILS 62.1 % (40-80); PLATELET COUNT 285 10x3/uL (130-400); RBC 3.32 10x6/uL (4.00-5.40); RDW 17.7 % (11.5-14.5); WBC 6.4 10x3/uL (4.8-10.8)
--- NOTE | 2019-10-12 03:07 | NUR ---
PT STATES SHE "ONLY PRODUCES A DROP OF URINE." WHEN ATTEMPTED TO COLLECT URINE.
[2019-10-12 03:13] LABS: CALC OSMOLALITY 275 mosm/kg (275-300); CALCIUM 9.2 mg/dL (8.5-10.1); CARBON DIOXIDE 21.9 mmol/L (21.0-32.0); CHLORIDE - SERUM 97 mmol/L (98-107); CREATININE - SERUM 6.5 mg/dL (0.6-1.3); GLUCOSE 89 mg/dL (74-106); POTASSIUM - SERUM 4.1 mmol/L (3.5-5.1); SODIUM 132 mmol/L (136-145); UREA NITROGEN 46 mg/dL (7-18); eGFR NON AFRICAN AMERICAN 7 mL/min (90-120)
[2019-10-12 03:23] LABS: ALBUMIN 2.2 g/dL (3.4-5.0); ALKALINE PHOSPHATASE 586 U/L (30-120); ALT (SGPT) 8 U/L (10-68); AMYLASE - SERUM 102 U/L (25-115); BILIRUBIN - TOTAL 0.55 mg/dL (0.2-1.3); LIPASE 330 U/L (73-393); PROTEIN - SERUM 8.5 g/dL (6.4-8.2); TROPONIN-I < 0.017 ng/mL (0.000-0.060)
[2019-10-12 04:51] VITALS: BMI 21.4
--- NOTE | 2019-10-12 05:00 | NUR ---
PT ARRIVED TO FLOOR AOX4. AMBULATED FROM WHEELCHAIR TO BATHROOM. PT TOLD ER NURSE SHE ONLY GOES A DROP SO SHE COULD NOT GIVE URINE SAMPLE. HEARD PT VOIDING IN BATHROOM. PT ALSO HAD BM. FLUSHED BEFORE THIS NURSE COULD SEE. O2 3L/NC. BOWEL SOUNDS ACTIVE X4. TENDER TO TOUCH. FIRM. ON ZOFRAN DRIP TO LEFT FA. PT STATES PAIN IN ABD 10/10. ASKING FOR SOMETHING FOR UPSET STOMACH. TOLD PT SHE HAD ZOFRAN DRIP AND EDUCATED ON WHAT THAT IS AND FOR. PROVIDED PT WITH EXTRA PILLOW AND BLANKET. PT STATES SHE IS HUNGRY AND ASKED FOR SANDWICH. ALSO ASKED FOR [place] [employer]. TOLD PT SHE IS NPO. PT ASKED FOR HOW LONG, THAT SHE IS HUNGRY. TOLD PT WE WOULD HAVE TO TALK TO DR THIS AM. ASKED PT IF SHE IS NAUSEAS, PT STATES YES. TOLD PT IT WOULD BE BETTER FOR STOMACH TO LET IT REST THAN DRINKING SODA AND EATING SANDWICH. PT STATED OK. WILL CTM
[2019-10-12 06:40] VITALS: BP 131/82
[2019-10-12 07:55] VITALS: BMI 21.4
--- NOTE | 2019-10-12 09:15 | NUR ---
AM MEDS GIVEN AT THIS TIME. ALSO GAVE TRAMADOL FOR PAIN LEVEL OF 10/10. PT UP TO SIDE OF BED, DENIES ANY OTHER NEEDS AT THIS TIME. CALL LIGHT IN REACH, NAD NOTED, WILL CONTINUE TO MONITOR.
[2019-10-12 10:22] VITALS: Ht 175.3 cm; Wt 65.8 kg
--- NOTE | 2019-10-12 10:32 | NUR ---
BARBARA HU PT TO REMAIN NPO.
[2019-10-12 10:44] VITALS: BP 138/82
[2019-10-12 12:59] VITALS: BP 129/73
--- NOTE | 2019-10-12 14:12 | NUR ---
PT WANTING SOMETHING TO EAT, STATES THAT SHE HAS NOT VOMITED SINCE LAST NIGHT.PAGED BALBINA HU APN WITH RENAL.
--- NOTE | 2019-10-12 14:49 | NUR ---
GAVE ULTRAM FOR PAIN LEVEL OF 8/10. ALSO TOOK PT DOWN TO DIALYSIS.
--- NOTE | 2019-10-12 19:00 | NUR ---
REPORT RECEIVED. PT IN DIALYSIS AT THIS TIME
[2019-10-12 20:00] VITALS: BP 98/61
--- NOTE | 2019-10-12 21:00 | NUR ---
PT RETURNED FROM DIALYSIS. STATED THEY TOOK OFF 5L. NO DISTRESS NOTED. PAIN MEDICATION PROVIDED. CALL LIGHT IN REACH. DENIES N/V AT THIS TIME. WILL CTM.
[2019-10-13] VITALS: BP 89/56
[2019-10-13 05:51] LABS: BASOPHILS 0.5 % (0-2); EOSINOPHILS 2.6 % (0-7); HEMATOCRIT 30.7 % (36.0-48.0); HEMOGLOBIN 8.9 g/dL (12-16); IMMATURE GRANULOCYTES 0.3 % (0-5); LYMPHOCYTES 19.3 % (15-50); MCH 27.8 pg (26.0-34.0); MCV 95.9 fL (80.0-100.0); MEAN PLATELET VOLUME 9.9 fL (7.4-10.4); MONOCYTES 22.1 % (2-11); NEUTROPHILS 55.2 % (40-80); PLATELET COUNT 302 10x3/uL (130-400); RDW 17.7 % (11.5-14.5); WBC 6.1 10x3/uL (4.8-10.8)
[2019-10-13 06:03] LABS: ALBUMIN 2.1 g/dL (3.4-5.0); ANION GAP 15.4 mmol/L (8-16); BILIRUBIN - TOTAL 0.45 mg/dL (0.2-1.3); CARBON DIOXIDE 22.1 mmol/L (21.0-32.0); POTASSIUM - SERUM 3.5 mmol/L (3.5-5.1); PROTEIN - SERUM 8.5 g/dL (6.4-8.2)
--- NOTE | 2019-10-13 08:27 | NUR ---
AM MEDS GIVEN AT THIS TIME. ALSO GAVE 50MG OF ULTRAM FOR PAIN LEVEL OF 7/10. PT UP TO SIDE OF BED EATING HER BREAKFAST. WANTS REGULAR FOOD INSTEAD OF FULL LIQUIDS. PT STATES THAT SHE IS NAUSEATED DUE TO NOT HAVING REAL FOOD THAT SHE HAS NOT VOMITED SINCE SHE HAS BEEN HERE. PT DENIES ANY OTHER NEEDS AT THIS TIME. CALL LIGHT IN REACH, NAD NOTED, WILL CONTINUE TO MONITOR.
[2019-10-13] MEDS ORDERED: ULTRAM50 MG PO (09:14)
[2019-10-13] MEDS ORDERED: SYNTHROID25 MCG PO (09:15)
[2019-10-13] MEDS ORDERED: PHENERGAN25 M1 PO (09:16)
[2019-10-13 09:18] VITALS: BP 102/61
--- NOTE | 2019-10-13 10:54 | NUR ---
PT WAS ABLE TO TOLERATE HER REGULAR RENAL DIET. EAT ABOUT 100%.
--- NOTE | 2019-10-13 11:04 | NUR ---
PROVIDED VERBAL AND WRITTEN DISCHARGE TEACHING TO PT WHO VERBARBALIZED UNDERSTANDING REGARDING TEACHING. D/C LT FA IV WITH CATHETER TIP INTACT. PT WILL NOTIFY WHEN READY FOR WHEELCHAIR.
--- NOTE | 2019-10-13 11:37 | NUR ---
PT LEFT UNIT VIA WHEELCHAIR, WITH ALL BELONGINGS, NAD NOTED.
== END 2019-10-13 11:39 | disposition home health service (06) | DRG 291 ==
LOC: D.ER 02:12 → D.M2 04:07
PROVIDERS: Family Medicine; ADMIT Internal Medicine Nephrology; ATTEND Internal Medicine Nephrology
PROC: 5A1D70Z Performance of Urinary Filtration, Intermittent, Less than 6 Hours Per Day (ICD-10-PCS; principal; 2019-10-12)
DX: I13.2 Hypertensive heart and chronic kidney disease with heart failure and with stage 5 chronic kidney disease, or end stage renal disease (principal); N18.6 End stage renal disease; I50.9 Heart failure, unspecified; Z99.2 Dependence on renal dialysis; D63.1 Anemia in chronic kidney disease; I95.9 Hypotension, unspecified; E03.9 Hypothyroidism, unspecified; J44.9 Chronic obstructive pulmonary disease, unspecified

== ENCOUNTER 2019-12-13 14:38 | Inpatient (IN) | payer MEDICARE ==
[~2019-12-13] VITALS: Ht 175.3 cm; Wt 59.0 kg
--- NOTE | ~2019-12-13 | HEMODYNAMI ---
PATIENT:FELY SQUIRES MEDICAL RECORD: [id number] : 65 LOCATION[facility] [id number] ADMISSION DATE: 12/13/19 Generatedon:12/17/201910:43 Patient name: FELY SQUIRES Patient #: [id number] SSN: [id number] : 1965 Date of study: 12/17/2019 Page: Of Hemodynamic Procedure Report Patient Data Patient Demographics Procedure consent was obtained First Name: FELY Gender: Female Last Name: TAVIA : 1965 Middle Initial: A Age: 54 year(s) Patient #: [id number] Race: Black SSN: [id number] Additional ID: [id number] Contact details [address]: [address] [place] [address] State: [place] City: [place] Zip code: [address] Past Medical History Allergies Allergen Reaction Date Comments Reported Morphine 03/09/2018 Other allergy 05/02/2019 acetaminophen, morphine,hydrocodone Morphine 12/17/2019 Admission Admission Data Admission Date: 12/13/2019 Admission Time: 15:04 Room #: D.2137 Height (in.): 69 BSA: 1.71 (m2) Height (cm.): 175.26 BMI: 19.05 (kg/m2) Weight (lbs.): 129 Weight (kg.): 58.51 Procedure Procedure Types Cath Procedure Peripheral Cath Diagnostic Procedure Office Manager Receptionist Peripheral Procedures Fistula Thrombectomy AV with Plasty Procedure Description Procedure Date Procedure Date: 12/17/2019 Procedure Start Time: 9:02 Procedure Staff Name Function Remington Herman MD Performing Physician Yenni Mckenna RT Filler Shredder Machine Sandra Richardson RN Nurse Iker Correa RT Scrub Procedure Data Cath Procedure Fluoroscopy Diagnostic fluoroscopy Total fluoroscopy Time: 19 time: 19 min min Diagnostic fluoroscopy Total fluoroscopy dose: 183 dose: 183 mGy mGy Contrast Material Contrast Material Type Amount (ml) Isovue 300 125 Diagnostic catheters Device Type Used For End Catheter Placement Merit Impress KA 2 5Fr 40CM catheter ([id number]) Merit Impress COBRA 2 5Fr 65CM catheter ([id number]) Procedure Medications Medication Administration Route Dosage Versed I.V. 1 mg Fentanyl I.V. 50 mcg Heparin Flush Bag added to field 2 bags (1000units/500ml NS) Lidocaine 1% added to field 20 Heparin Bolus I.V. 3000 units Versed I.V. 1 mg Fentanyl I.V. 50 mcg Heparin Bolus I.V. 2000 units Hemodynamics Rest BSA: 1.71 (m2) O2 Consumption: Estimated: 138.78 (ml/min) O2 Consumption indexed : Estimated:81.16 (ml/min/m) Heart Rate: 29 (bpm) Snapshots Pre Cath Intra NCS Post Cath Vital Signs Time Heart Resp SPO2 etCO2 NIBP Rhythm Pain Sedation Rate (ipm) (%) (mmHg) (mmHg) Status Level (bpm) 8:46:55 99 15 77 21.7 Measuring NSR 0 (11) 10(A) , No pain 8:48:07 81 13 83 30.8 107/68(84) NSR 0 (11) 10(A) , No pain 8:52:16 80 23 98 9 Disturbed NSR 0 (11) 10(A) , No pain 8:57:15 80 12 39.8 Measuring NSR 0 (11) 10(A) , No pain 8:58:05 78 12 100 32.3 Disturbed NSR 0 (11) 10(A) , No pain 8:59:59 76 16 89 34.5 93/65(79) NSR 0 (11) 10(A) , No pain 9:03:55 82 14 100 37.6 91/62(85) NSR 0 (11) 10(A) , No pain 9:07:48 78 13 34.5 99/67(84) NSR 0 (11) 10(A) , No pain 9:11:42 83 16 30.8 97/79(89) NSR 0 (11) 10(A) , No pain 9:15:37 78 11 37.6 95/67(75) NSR 0 (11) 10(A) , No pain 9:19:33 79 12 100 37.6 86/65(79) NSR 0 (11) 8(A) , No pain 9:23:26 80 12 36.8 89/59(76) NSR 0 (11) 8(A) , No pain 9:27:20 80 10 40.6 90/64(77) NSR 0 (11) 8(A) , No pain 9:31:14 81 13 96 38.3 91/64(79) NSR 0 (11) 8(A) , No pain 9:35:09 80 13 96 33 90/62(74) NSR 0 (11) 8(A) , No pain 9:39:05 81 13 97 36 89/60(74) NSR 0 (11) 8(A) , No pain 9:42:56 81 13 36 94/65(77) NSR 0 (11) 8(A) , No pain 9:46:51 81 13 34.5 92/63(80) NSR 0 (11) 8(A) , No pain 9:50:45 81 14 34.5 93/65(79) NSR 0 (11) 8(A) , No pain 9:54:41 80 15 36 93/61(82) NSR 0 (11) 8(A) , No pain 9:58:36 80 14 36 97/64(85) NSR 0 (11) 8(A) , No pain 10:02:32 81 14 34.5 97/70(85) NSR 0 (11) 8(A) , No pain 10:06:25 80 15 34.5 91/70(80) NSR 0 (11) 8(A) , No pain 10:10:21 79 14 99 35.3 91/60(77) NSR 0 (11) 9(A) , No pain 10:14:14 93 16 98 35.3 97/71(85) NSR 0 (11) 9(A) , No pain 10:18:16 84 20 88 36.8 95/58(87) NSR 0 (11) 9(A) , No pain 10:22:09 77 15 32.3 94/67(83) NSR 0 (11) 9(A) , No pain 10:26:05 78 16 19.5 87/64(73) NSR 0 (11) 9(A) , No pain 10:29:54 78 15 34.5 96/70(91) NSR 0 (11) 9(A) , No pain 10:33:50 78 16 34.5 103/67(80) NSR 0 (11) 9(A) , No pain 10:37:52 78 10 36.1 87/58(77) NSR 0 (11) 9(A) , No pain 10:41:49 77 13 97 27 Disturbed NSR 0 (11) 9(A) , No pain Medications Time Medication Route Dose Verified Delivered Reason Notes Effec tiveness by by 9:06:33 Versed I.V. 1 mg Remington Flores for Virgil Richardson RN sedation 9:06:44 Fentanyl I.V. 50 Remington Sandra for mcg Virgil Richardson RN sedation 9:06:59 Heparin Flush added 2 Remington Macedo used for Bag to bags Virgil Herman procedure (1000units/500ml field MD FRENCH NS) 9:07:11 Lidocaine 1% added 20ml Remington Macedo for local to vial Virgil Herman anesthetic field MD FRENCH 9:12:44 Heparin Bolus I.V. 3000 Remington Flores Per units Virgil Richardson RN physician 9:16:14 Versed I.V. 1 mg Remington Flores for Virgil Richardson RN sedation 9:16:22 Fentanyl I.V. 50 Remington Flores for [facility] Virgil Richardson RN sedation 9:41:36 Heparin Bolus I.V. 2000 Remington Sandra Per units Virgil Richardson RN physician Procedure Log Time Note 8:23:48 Patient Height : 69 inches 8:23:54 Patient Weight : 129 lbs 8:24:33 Use device set IR Diagnostic 8:27:30 INFLATOR BasixTOUCH (OE6588) opened to sterile field. 8:27:32 BENTSON 145cm wire (D96055) opened to sterile field. 8:27:45 SHEATH 5FR [place] (YOD489) opened to sterile field. 8:27:47 Micropuncture VSI 4FR kit opened to sterile field. 8:28:01 Tegaderm 4 x 4 (1626W) opened to sterile field. 8:28:02 Sterile Angiographic Pack opened to sterile field. 8:28:03 Bag Decanter (2002) opened to sterile field. 8:28:05 ACIST Manifold (06199) opened to sterile field. 8:28:06 ACIST Hand Control (67208) opened to sterile field. 8:28:07 ACIST Syringe (90730) opened to sterile field. 8:28:28 TUBING Contrast Injection High Pressure ([id number]) opened to sterile field. 8:33:05 Time tracking: Regular hours (M-F 7:00 - 5:00) 8:33:35 Plan of Care:Hemodynamics will remain stable., Cardiac rhythm will remain stable., Comfort level will be maintained., Respiratory function will remain adequate., Patient/ family verbilizes understanding of procedure., Procedure tolerated without complication., Recovers from procedure without complications.. 8:33:46 Patient received from Fara II to IR Alert and oriented. Tansferred to table in Supine position. 8:33:50 Signed procedure consent form obtained from patient. 8:34:02 H&P Date Dictated: 12/17/2019 Within 30 days and on chart.. 8:34:06 Pre-procedure instructions explained to patient. 8:34:06 Pre-op teaching completed and patient verbalized understanding. 8:34:18 Family unavailable. 8:34:24 Patient NPO since Midnight. 8:34:35 Patient allergic to Morphine 8:34:39 Is the patient allergic to Iodine/contrast media? No. 8:34:43 Is patient on blood thinner?No 8:35:45 Patient diabetic? No. 8:35:52 - 8:35:53 ----Pre-sedation anethsthesia assessment.---- 8:35:55 Previous problem with sedation/anesthesia? No ? 8:35:59 Snore? No 8:36:02 Sleep apnea? No 8:36:04 Deviated septum? No 8:36:07 Opens mouth fully? Yes 8:36:09 Sticks out tongue? Yes 8:36:16 Airway obstruction? Yes COPD 8:36:20 Dentures? No ? 8:36:30 Right Arm area was prepped with chlora-prep and draped in sterile fashion 8:36:36 - 8:36:48 Fire Safety Assessment: A--An alcohol-based skin anteseptic being used preoperatively., C--Open oxygen or nitrous oxide is being used. 8:45:05 Vital chart was started 8:45:06 ECG and BP/O2 sat monitors applied to patient. 8:45:16 Baseline sample Acquired. 8:45:18 Full Disclosure recording started 8:45:23 - 8:49:53 5) <15 or on dialysis Very severe, or end stage kidney failure. 8:52:46 Baseline sample Acquired. 8:52:50 Baseline sample Acquired. 9:01:24 Physician arrived 9:01:25 --------ALL STOP TIME OUT------ 9:01:26 Final Timeout: patient, procedure, and site verified with staff and physician. All members of the team are in agreement. 9:02:03 Procedure started. 9:02:09 Local anesthetic to right arm with Lidocaine 1% by Remington Herman MD.INITIAL ACCESS ONLY 9:06:33 Versed 1 mg I.V. was administered by Sandra Richardson RN; for sedation; Verbal order read back and verified. 9:06:44 Fentanyl 50 mcg I.V. was administered by Sandra Richardson RN; for sedation ; Verbal order read back and verified. 9:06:59 Heparin Flush Bag (1000units/500ml NS) 2 bags added to field was administered by Remington Herman MD; used for procedure; Verbal order read back and verified. 9:07:11 Lidocaine 1% 20ml vial added to field was administered by Remington gamino MD; for local anesthetic; Verbal order read back and verified. 9:07:23 ROADRUNNER .035 145 glide wire (C88605) opened to sterile field. 9:12:44 Heparin Bolus 3000 units I.V. was administered by Sandra Richardson RN; Per physician; Verbal order read back and verified. 9:16:14 Versed 1 mg I.V. was administered by Sandra Richardson RN; for sedation; Verbal order read back and verified. 9:16:22 Fentanyl 50 mcg I.V. was administered by Sandra Richardson RN; for sedation ; Verbal order read back and verified. 9:25:47 A GigPark Impress KA 2 5Fr 40CM catheter ([id number]) was advanced over the wire and used for . 9:33:08 A [employer]Park Impress COBRA 2 5Fr 65CM catheter ([id number]) was advanced over the wire and used for . 9:34:51 GLIDE WIRE ANGLE 180cm (AO3993) opened to sterile field. 9:41:36 Heparin Bolus 2000 units I.V. was administered by Sandra Richardson RN; Per physician; Verbal order read back and verified. 9:43:45 GLIDE WIRE GT DOUBLE ANGLE .018 ([id number]) opened to sterile field. 9:46:05 Direxion [place] Microcatheter ([id number]) opened to sterile field. 9:51:15 COPILOT Valve Control (0397867) opened to sterile field. 9:51:31 STOPCOCK 1-Way Male Rotating (O92803) opened to sterile field. 9:51:32 CHOICE PT Extra Support J 300cm guide wire ([id number]) opened to steril e field. 10:01:08 Inflate balloon Inflation number: 1 A NANOCROSS ELITE 3X 60 ([id number] was prepped and advanced across the Undefined1 , then inflated . 10:05:20 Inflate balloon Inflation number: 1 A Evercross 7 x 8 x 135 Balloon ([id number]) was prepped and advanced across the Undefined2 , then inflated . 10:34:10 Procedure ended.(Physican Out) 10:34:24 Fluoroscopy time 19.00 minutes. 10:34:28 Fluoroscopy dose: 183 mGy 10:34:28 Flurop Dose total: 183 10:34:33 Contrast amount:Isovue 300 125ml. 10:34:36 Procedure and supply charges have been captured, reviewed, submitted an d are correct. 10:43:18 Report given to Med II. 10:43:52 Vital chart was stopped Intervention Summary Intervention Notes Time ActionType Lesion and Equipment Used Action# Pressure Duration Attributes 10:01:08 Inflate Undefined1 NANOCROSS ELITE 1 0 00:00 balloon 2 X 60 ([id number] 10:05:20 Inflate Undefined2 Evercross 7 x 8 1 0 00:00 balloon x 135 Balloon ([id number]) Device Usage Item Name Manufacture Quantity Catalog Number Hospital Part Current Minimal Lot# / Charge Number Stock Stock Serial# Code INFLATOR Merit 1 [id number] [id number] 968902 265682 5 XtremIO ([id number]) BENTSON 145cm Cook Medical 1 [id number] 273067 913094 5 wire (W11565) SHEATH 5FR Terumo 1 CND253 737600 085791 323741 5 [place] (PVY986) Micropuncture VSI VASCULAR 1 7266V 979389 421909 5 VSI 4FR kit SOLUTIONS Tegaderm 4 x 4 3M 1 1626W 449260 677426 079956 5 (1626W) Sterile Cardinal 1 [id number] 229777 814537 5 Angiographic Health Pack Bag Decanter Microtek 1 2001S 766130 94009 637280 5 (2002S) Medical Inc. ACIST Manifold Acist 1 79552 023664 112592 423849 5 (69261) Medical Systems Inc ACIST Hand Acist 1 18062 799033 689713 716333 5 Control (07049) Medical Systems Inc ACIST Syringe Acist 1 91898 997557 441535 898924 20 (85957) Medical Systems Inc TUBING Contrast Merit 1 [id number] 635914 438793 577265 5 Injection High Medical Pressure (QZP928X) ROADRUNNER .035 Cook Medical 1 V12946 326598 673476 654188 5 145 glide wire (I08459) Merit Impress Merit 1 03624WV7 352511 406921 5 KA 2 5Fr 40CM Medical catheter ([id number]) Merit Impress Merit 1 137248NZ5 159033 942780 368476 5 COBRA 2 5Fr Medical 65CM catheter ([id number]) GLIDE WIRE Terumo 1 QZ6182 240498 494570 073200 5 ANGLE 180cm (JS3277) GLIDE WIRE GT Terumo 1 [id number] 808875 151048 5 DOUBLE ANGLE .018 (RG*[id number]) Direxion [place] 1 [id number] 297471 842998 173993 5 Microcatheter Scientific ([id number]) COPILOT Valve [place] 1 0063861 953043 431140 372898 5 Control Vascular (0036826) STOPCOCK 1-Way Cook Medical 1 M61144 721364 04208 070718 5 Male Rotating (W54571) CHOICE PT Extra [place] 1 [id number] 963928 613468 963458 5 Support J 300cm Scientific guide wire ([id number]) NANOCROSS ELITE Medtronic 1 [id number] 780878 62039 424009 1 2 X 60 ([id number] Evercross 7 x 8 Medtronic 1 [id number] 764775 843657 190690 5 x 135 Balloon ([id number]) Signature Audit [place] Stage Time Signature Unsigned Intra-Procedure 12/17/2019 Yenni Mckenna 10:43:48 AM RT(R) [facility] [address] [place] [address]
[~2019-12-13 14:38] MED LIST changes: +PHENERGAN25 M1 PO; +SYNTHROID25 MCG PO
[2019-12-13 15:31] LABS: BASOPHILS 0.3 % (0-2); EOSINOPHILS 4.8 % (0-7); HEMATOCRIT 35.2 % (36.0-48.0); HEMOGLOBIN 10.5 g/dL (12-16); IMMATURE GRANULOCYTES 0.2 % (0-5); LYMPHOCYTES 15.4 % (15-50); MCH 29.9 pg (26.0-34.0); MCHC 29.8 g/dL (31.0-37.0); MCV 100.3 fL (80.0-100.0); MEAN PLATELET VOLUME 9.8 fL (7.4-10.4); MONOCYTES 9.5 % (2-11); NEUTROPHILS 69.8 % (40-80); RBC 3.51 10x6/uL (4.00-5.40); RDW 17.7 % (11.5-14.5); WBC 6.4 10x3/uL (4.8-10.8)
[2019-12-13 15:33] LABS: PLATELET COUNT 232 10x3/uL (130-400)
[2019-12-13 15:42] LABS: ANION GAP 21.2 mmol/L (8-16); CALCIUM 9.1 mg/dL (8.5-10.1); CARBON DIOXIDE 18.8 mmol/L (21.0-32.0); CREATININE - SERUM 9.1 mg/dL (0.6-1.3)
[2019-12-13 15:50] LABS: INR 1.05 (0.85-1.17); PROTIME 13.7 SECONDS (11.6-15.0)
--- NOTE | 2019-12-13 16:11 | NUR ---
COVIID SWAB COLLECTED ET TO LAB.
[2019-12-13 16:54] VITALS: BP 156/85
--- NOTE | 2019-12-13 17:00 | NUR ---
INSTR ON NPO STATUS AND RATIONALE: VERB UNDER
--- NOTE | 2019-12-13 18:15 | NUR ---
REPORT TO JOHN FIGUEROA
[2019-12-13 18:35] VITALS: BP 138/86
--- NOTE | 2019-12-13 18:35 | NUR ---
ADMIT TO ROOM #2137, CONDITION STABLE
--- NOTE | 2019-12-13 19:08 | NUR ---
PT ARRIVED VIA WHEELCHIAR TO ROOM. NPO FOR A PROCEDURE. PT C/O OF WANTING DOOR OPEN. EXPLAINED DOOR CAN NOT BE OPEN.. PT WILL NOT TOLERATE ISOLATION WELL.
--- NOTE | 2019-12-13 19:10 | NUR ---
BEDSIDE REPORT RECEIVED, PT CARE ASSUMED. WROTE NAME ON BOARD. PT SITTING ON SIDE OF BED, AAOX4, REQUESTING "SOME ICE, GUM, OR SOMETHING." EXPLAINED TO PT NPO STATUS FOR TRIALYSIS PLACEMENT, PT VERBALIZED UNDERSTANDING. DENIES ANY OTHER NEEDS AT THIS TIME. BED IN LOWEST, SRX1, CALL LIGHT WITHIN REACH. WILL CTM.
[2019-12-13 21:38] VITALS: BP 142/77
[2019-12-14 00:30] VITALS: BP 112/75
--- NOTE | 2019-12-14 02:24 | NUR ---
URGENT DIALYSIS TREATMENT LASTED 2 HOURS, 1 HOUR IN 1K ACID BATH, 800ML UF ONLY DUE TO HYPOTENSION, (PATIENTS BP 70/30'S LAST 20 MIN OF TREATMENT) SEE RUN SHEET FOR FURTHER DETAILS.
[2019-12-14 04:45] VITALS: BP 122/76
[2019-12-14 05:39] LABS: BASOPHILS 0.4 % (0-2); HEMATOCRIT 29.3 % (36.0-48.0); HEMOGLOBIN 8.8 g/dL (12-16); IMMATURE GRANULOCYTES 0.2 % (0-5); LYMPHOCYTES 13.6 % (15-50); MCH 29.4 pg (26.0-34.0); MEAN PLATELET VOLUME 9.7 fL (7.4-10.4); MONOCYTES 12.9 % (2-11); NEUTROPHILS 66.9 % (40-80); PLATELET COUNT 209 10x3/uL (130-400); RBC 2.99 10x6/uL (4.00-5.40); RDW 17.6 % (11.5-14.5); WBC 5.7 10x3/uL (4.8-10.8)
[2019-12-14 06:16] VITALS: BP 142/77; BMI 19.2
[2019-12-14 06:31] LABS: CALCIUM 8.1 mg/dL (8.5-10.1); PHOSPHOROUS 6.6 mg/dL (2.5-4.9)
[2019-12-14 06:33] LABS: ANION GAP 14.2 mmol/L (8-16); CARBON DIOXIDE 25.2 mmol/L (21.0-32.0); POTASSIUM - SERUM 4.4 mmol/L (3.5-5.1)
[2019-12-14 08:51] VITALS: BP 105/75
--- NOTE | 2019-12-14 09:24 | NUR ---
PT AWAKE AND ORIENTED, LYING IN BED. HAS BEEN ON THE CALL LIGHT ROUGHLY 4 TIMES SINCE 0700. EXPLAINED AGAIN THE CONCEPT OF CLUSTER CARE AND THAT I SIMPLY CAN NOT BE IN THERE EVERY FEW MINUTES FOR STUFF LIKE A NEW CUP OF ICE OR TO VISIT. PT VERBALIZES UNDERSTANDING. THEN I LEFT THE ROOM AND SHE IMMEDIATELY HIT CL AGAIN. WILL CNT. TO MONITOR. CL IRN EACH,S RX2.
--- NOTE | 2019-12-14 11:23 | NUR ---
I have reviewed this patient and I concur with the Shift Assessment completed by the Licensed Practical Nurse today this shift.
[2019-12-14 12:31] VITALS: Ht 175.3 cm; Wt 59.0 kg
[2019-12-14 17:17] VITALS: BP 113/70
--- NOTE | 2019-12-14 17:40 | OP ---
PATIENT NAME: FELY SQUIRES MEDICAL RECORD: [id number] :65 LOCATION:D.M2 D.2137 ADMISSION DATE:12/13/19 SURGEON: DEMETRIUS ALVARADO MD DATE OF OPERATION: 12/13/2019 PREOPERATIVE DIAGNOSES: 1. End-stage renal disease without access for hemodialysis. 2. Clotted arteriovenous fistula. 3. Fluid overload. 4. Orthopnea. 5. Uremia. POSTOPERATIVE DIAGNOSES: 1. End-stage renal disease without access for hemodialysis. 2. Clotted arteriovenous fistula. 3. Fluid overload. 4. Orthopnea. 5. Uremia. PROCEDURE: Insertion of left internal jugular Trialysis catheter (non-tunneled, non-cuffed triple lumen hemodialysis catheter). SURGEON: Demetrius Alvarado MD PHOTO OPTICS TECHNICIAN: None. BLOOD LOSS: Minimal. ANESTHESIA: Local. COMPLICATIONS: None. The risks, possible complications and alternatives to the procedure were explained to the patient. She elects to proceed. The discussion specifically included, but was not limited to, bleeding requiring emergency reoperation, infection, pneumothorax as well as great vessel injury. OPERATIVE COURSE: The patient was seen in her bed. The entire procedure was performed with the presence of a female nurse. The patient was positioned in the Trendelenburg position. The right neck was interrogated with handheld ultrasound and there was no significant compressible vein at the internal jugular site. Attention was then turned to the left neck. The patient had a generous internal jugular vein which was compressible. Left neck was sterilely prepped and draped. Local anesthetic was used to infiltrate the skin and subcutaneous tissues at the base of the left neck. Left internal jugular vein was percutaneously accessed in an antegrade fashion. Guidewire was passed easily. A small skin akash was accomplished. A vessel dilator was used to dilate the subcutaneous tract. A Trialysis catheter was inserted to the hub. It was sutured in place times 3. All lumens flushed easily and aspirated dark, nonpulsatile blood. A stat portable chest x-ray is pending. OPERATIVE REPORT [id number] FELY SQUIRES TRANSINT:[id number] Voice Confirmation ID: [id number] DOCUMENT ID: [id number] DEMETRIUS ALVARADO MD at 1740 CC: RITA LYNN MD [id number] DICTATION DATE: 07/03/20 2200 [address] SW[address] OPERATOR: 12/14/19 0034 ADM IN [facility] [address] [id number]
--- NOTE | 2019-12-14 18:38 | NUR ---
PT AWAKE AND ORIENTED, REQUESTED AND PROVIDED PAIN PILL. C/O BEING ISOLATION. RESULTS STILL PENDING AT THIS TIME. CL IN REACH, SRX2.
--- NOTE | 2019-12-14 19:05 | NUR ---
BEDSIDE REPORT RECEIVED, PT CARE ASSUMED. WROTE NAME ON BOARD. PT SITTING UP ON SIDE OF BED, AAOX4, WATCHING TV. REQUESTING 2 VANILLA ICE CREAMS, PROVIDED. DENIES ANY OTHER NEEDS AT THIS TIME. BED IN LOWEST, SRX1, CALL LIGHT WITHIN REACH. WILL CTM.
[2019-12-15 00:30] VITALS: BP 112/66
[2019-12-15 04:40] VITALS: BP 144/63
[2019-12-15 05:13] LABS: BASOPHILS 0.5 % (0-2); EOSINOPHILS 7.8 % (0-7); HEMATOCRIT 29.9 % (36.0-48.0); HEMOGLOBIN 8.8 g/dL (12-16); IMMATURE GRANULOCYTES 0.4 % (0-5); LYMPHOCYTES 17.8 % (15-50); MCH 29.3 pg (26.0-34.0); MCHC 29.4 g/dL (31.0-37.0); MCV 99.7 fL (80.0-100.0); MEAN PLATELET VOLUME 9.9 fL (7.4-10.4); MONOCYTES 15.6 % (2-11); NEUTROPHILS 57.9 % (40-80); PLATELET COUNT 212 10x3/uL (130-400); RDW 18.1 % (11.5-14.5); WBC 5.5 10x3/uL (4.8-10.8)
[2019-12-15 06:05] LABS: ANION GAP 15.9 mmol/L (8-16); CARBON DIOXIDE 24.4 mmol/L (21.0-32.0); CREATININE - SERUM 7.1 mg/dL (0.6-1.3); PHOSPHOROUS 9.1 mg/dL (2.5-4.9); POTASSIUM - SERUM 5.3 mmol/L (3.5-5.1)
--- NOTE | 2019-12-15 08:23 | NUR ---
SPOKE TO COAL SAMPLE TESTER REGARDING THAT PTS LAB IS STILL PENDING FOR COVID TESTING. WILL CONT TO TREAT PT A PUI UNTIL CONFIRMATION IS ACHIEVED.
--- NOTE | 2019-12-15 08:34 | NUR ---
PER KITCHEN STEWARDESS CONOR, PT IS COVID NEGATIVE.
[2019-12-15 09:01] VITALS: BP 96/62
--- NOTE | 2019-12-15 09:17 | NUR ---
PT AWAKE ALERT AND ORIENTED UP AROUND ROOM. REQUESTS SEVERAL MINOR THINGS, ALL PROVIDED. NO COMPLAINTS OR CONCERNS STATED AT THIS TIME. CL INR EACH, SRX2.
--- NOTE | 2019-12-15 10:21 | NUR ---
I have reviewed this patient and I concur with the Shift Assessment completed by the Licensed Practical Nurse today this shift.
--- NOTE | 2019-12-15 13:50 | NUR ---
PT ALERT AND ORIENTED, SITTING ON ANATOLY EOF BED. CL INR EACH, SRX2. C/O NAUSEA.
[2019-12-15 16:20] VITALS: BP 107/66
--- NOTE | 2019-12-15 19:22 | NUR ---
PT IS IN RESTROOM LIGHT IS ON PT STATES THROUGH DOOR THAT SHE NEEDS A CUP OF ICE I HAVE NOT EXAMINED PT YET ICE RETRIEVED BED LOW AND LOCKED
[2019-12-16 00:30] VITALS: BP 94/62
[2019-12-16 05:00] VITALS: BP 132/107
--- NOTE | 2019-12-16 06:09 | NUR ---
I have reviewed this patient and I concur with the Shift Assessment completed by the Licensed Practical Nurse today this shift.
[2019-12-16 06:19] LABS: BASOPHILS 0.4 % (0-2); EOSINOPHILS 7.9 % (0-7); HEMATOCRIT 28.4 % (36.0-48.0); HEMOGLOBIN 8.4 g/dL (12-16); IMMATURE GRANULOCYTES 0.4 % (0-5); LYMPHOCYTES 19.1 % (15-50); MCH 29.5 pg (26.0-34.0); MCHC 29.6 g/dL (31.0-37.0); MCV 99.6 fL (80.0-100.0); MEAN PLATELET VOLUME 9.6 fL (7.4-10.4); MONOCYTES 12.3 % (2-11); NEUTROPHILS 59.9 % (40-80); PLATELET COUNT 185 10x3/uL (130-400); RBC 2.85 10x6/uL (4.00-5.40); WBC 5.5 10x3/uL (4.8-10.8)
[2019-12-16 06:54] LABS: ANION GAP 20.7 mmol/L (8-16); CALCIUM 7.9 mg/dL (8.5-10.1); CARBON DIOXIDE 21.8 mmol/L (21.0-32.0); CREATININE - SERUM 8.1 mg/dL (0.6-1.3)
[2019-12-16 07:19] LABS: PHOSPHOROUS 11.9 mg/dL (2.5-4.9); POTASSIUM - SERUM 6.5 mmol/L (3.5-5.1)
[2019-12-16 08:30] VITALS: BP 115/61
--- NOTE | 2019-12-16 10:18 | NUR ---
SPENT MOST OF MY MORNING IN PTS ROOM. TREATED CRITICAL POTASSIUM PER DR. CUADRA. SPOKE WITH IR MULTIPLE TIMES REGARDING PTS POSSIBLE FISTULAGRAM. NURSE STATES SHE DOES NOT BELIEVE THEY WILLBE ABLE TO GET TO PATIENT TODAY, BUT THEN WAS LATER TOLD TO KEEP HER NPO BECAUSE THEY MIGHT AT THE END OF THE DAY. SPOKE TO FEDE CUADRA AND LEAH, THEY STATE THAT PER VENECIA THEY WILL BE TRYING TO GET HER TO THE PROCEDURE CENTER TO DECLOT THE FISTULA BUT THEY DO NOT KNOW IF THAT WILL BE A REALISTIC POSSIBILITY TODAY. ALSO SPOKE WITH DR ALVARADO WHO SPOKE WITH DR CUADRA AND TOLD HIM THAT HE (CHRISTIANO) MAY BE ABLE TO DO THE PROCEDURE BUT IT WOULD BE MONDAY. NO. CLEAR. PLAN. OF. ACTION. AT THIS TIME. PT TO REMAIN NPO. SPOKE WITH GALE CHANDLER, OBTAINED PERMISSION TO GIVE ICECHIPS D/T UNKNOWN LENGHT OF TIME NPO. PT IS VERY UPSET SHE IS NPO.
--- NOTE | 2019-12-16 10:29 | NUR ---
*APPARENTLY* PT HAS BEEN SNEAKING FOOD ALL MORNING. SHE HAD A BAG OF SNACKS AND NEPRO STASHED IN HER ROOM AND TRIED MULTIPLE TIMES TO SNEAK IT DIAYLISIS. TECH REMOVED IT FROM HER PRESENSE. PT IN DIALYSIS AT THIS TIME.
--- NOTE | 2019-12-16 14:52 | NUR ---
I have reviewed this patient and I concur with the Shift Assessment completed by the Licensed Practical Nurse today this shift.
--- NOTE | 2019-12-16 16:18 | NUR ---
PT BACK IN ROOM POST DAILYSIS. CL IN REACH, SRX2.
[2019-12-16 16:50] VITALS: BP 85/49
--- NOTE | 2019-12-16 19:40 | NUR ---
PT IS UP ANBLITORY IN HALLWAY MASK IN PLACE PT WAS GREEATED AT THIS TIME NO NEEDS MADE KNOWN
[2019-12-16 20:00] VITALS: BP 92/64
[2019-12-17] VITALS (8 sets, daily range): BP systolic 91–121; BP diastolic 53–74
[2019-12-17 05:30] LABS: BASOPHILS 0.5 % (0-2); EOSINOPHILS 5.6 % (0-7); HEMATOCRIT 27.1 % (36.0-48.0); HEMOGLOBIN 8.1 g/dL (12-16); IMMATURE GRANULOCYTES 0.4 % (0-5); LYMPHOCYTES 18.4 % (15-50); MCH 29.8 pg (26.0-34.0); MCHC 29.9 g/dL (31.0-37.0); MCV 99.6 fL (80.0-100.0); MEAN PLATELET VOLUME 10.4 fL (7.4-10.4); MONOCYTES 14.8 % (2-11); NEUTROPHILS 60.3 % (40-80); PLATELET COUNT 183 10x3/uL (130-400); RBC 2.72 10x6/uL (4.00-5.40); RDW 18.5 % (11.5-14.5); WBC 5.5 10x3/uL (4.8-10.8)
[2019-12-17 05:38] LABS: INR 1.12 (0.85-1.17); PROTIME 14.3 SECONDS (11.6-15.0)
[2019-12-17 05:39] LABS: APTT 47.3 SECONDS (22.8-39.4)
[2019-12-17 05:53] LABS: ANION GAP 17.1 mmol/L (8-16); CALCIUM 8.2 mg/dL (8.5-10.1); CARBON DIOXIDE 23.4 mmol/L (21.0-32.0)
[2019-12-17 05:58] LABS: CREATININE - SERUM 4.9 mg/dL (0.6-1.3); PHOSPHOROUS 8.8 mg/dL (2.5-4.9); POTASSIUM - SERUM 5.5 mmol/L (3.5-5.1)
--- NOTE | 2019-12-17 06:23 | NUR ---
I have reviewed this patient and I concur with the Shift Assessment completed by the Licensed Practical Nurse today this shift.
--- NOTE | 2019-12-17 07:00 | NUR ---
RECEIVED REPORT. ASSUMED CARE OF PATIENT. CALL LIGHT WITHIN REACH. BEDSIDE SHIFT REPORT COMPLETE. WHITE BOARD UPDATED. PATIENT SITTING TO SIDE OF BED, SLEEPING UPRIGHT OVER BEDSIDE TABLE. PATIENT REMAINS NPO FOR PROCEDURE TODAY. DENIES NEEDS. NO DISTRESS.
--- NOTE | 2019-12-17 07:20 | NUR ---
CONSENTS SIGNED AND PLACED ON CHART FOR FISTULOGRAM TODAY.
--- NOTE | 2019-12-17 08:30 | NUR ---
PATIENT LEFT UNIT VIA BED FOR IR FOR FISTULOGRAM.
--- NOTE | 2019-12-17 10:48 | NUR ---
RECEIVED REPORT FROM KIMBERLYN. PATIENT BACK TO UNIT SOON.
--- NOTE | 2019-12-17 12:10 | NUR ---
PATIENT AMBULATING AROUND UNIT AND BROUGHT WHEELCHAIR BACK TO PATIENT ROOM.
--- NOTE | 2019-12-17 13:38 | NUR ---
Nutrition Follow-up: Pt out of room for fistulagram at time of visit this AM. Chart reviewed. HD yesterday. Diet: Renal WT: 130# (12/13) No BMs recorded Labs noted: Na 132, K+ 5.5, Ca 8.2, PO4 8.8 Meds noted: Zofran, Miralax -Encourage PO intake and honor food preferences within diet restrictions. -MD may consider binder 2/2 hyperphosphatemia. -Monitor wt. -RD following.
--- NOTE | 2019-12-17 14:02 | NUR ---
PATIENT CALLED DOWN TO DIALYSIS SUITE AND INDICATED SHE WAS SOB AND NEEDED A TREATMENT, CONTACTING NEPHROLOGY NOW.
--- NOTE | 2019-12-17 18:24 | NUR ---
PATIENT REMAINS IN DIALYSIS AT THIS TIME.
--- NOTE | 2019-12-17 19:00 | NUR ---
PT IS IN DIALYSIS AT THIS TIME
[2019-12-18] VITALS: BP 84/40
[2019-12-18 04:00] VITALS: BP 88/55
[2019-12-18 06:32] LABS: BASOPHILS 0.2 % (0-2); EOSINOPHILS 8.3 % (0-7); HEMATOCRIT 26.5 % (36.0-48.0); HEMOGLOBIN 7.7 g/dL (12-16); IMMATURE GRANULOCYTES 0.2 % (0-5); LYMPHOCYTES 15.9 % (15-50); MCH 29.1 pg (26.0-34.0); MCHC 29.1 g/dL (31.0-37.0); MEAN PLATELET VOLUME 10.4 fL (7.4-10.4); MONOCYTES 13.3 % (2-11); NEUTROPHILS 62.1 % (40-80); PLATELET COUNT 171 10x3/uL (130-400); RBC 2.65 10x6/uL (4.00-5.40); RDW 18.3 % (11.5-14.5); WBC 4.8 10x3/uL (4.8-10.8)
[2019-12-18 06:48] LABS: ANION GAP 12.3 mmol/L (8-16); CREATININE - SERUM 3.8 mg/dL (0.6-1.3); PHOSPHOROUS 7.3 mg/dL (2.5-4.9); POTASSIUM - SERUM 4.3 mmol/L (3.5-5.1)
--- NOTE | 2019-12-18 07:30 | NUR ---
REPORT RECIEVED. PT LYING ON RIGHT SIDE, HEAD AT THE FOOT OF THE BED. RR EVEN AND UNLABORED ON RA. SHE HAS A R AVF NO BRUIT OR THRILL PRESENT, A R IJ TRIALYSIS, AND A R FA PIV THAT IS SL. BED LOCKED AND IN LOWEST POSITION, CALL LIGHT WITHIN REACH. WILL CTM
[2019-12-18 09:41] VITALS: BP 86/58
[2019-12-18 13:43] VITALS: BP 103/62
--- NOTE | 2019-12-18 14:50 | NUR ---
PT TAKEN TO DIALYSIS AT THIS TIME.
--- NOTE | 2019-12-18 18:00 | NUR ---
PT RETURNED TO ROOM FROM DIALYSIS. ADMINISTERED PAIN MEDS PER REQUEST. WILL CTM
--- NOTE | 2019-12-18 18:52 | NUR ---
RESTS IN BED WITH EYES CLOSED. CALL LIGHT IN REACH. WILL CONT PLAN OF CARE.
--- NOTE | 2019-12-18 19:30 | NUR ---
PT IN BED, AAO X 3, RESP EVEN AND UNLABORED. NO DISTRESS NOTED, CL IN REACH, SR UP X 2.
[2019-12-18 20:00] VITALS: BP 89/50
[2019-12-19] VITALS: BP 102/62
[2019-12-19 04:00] VITALS: BP 108/66
--- NOTE | 2019-12-19 07:30 | NUR ---
REPORT RECIEVED. UPON ENTERING THE ROOM PT IN BATHROOM. RR EVEN AND UNLABORED ON 4L NC. SHE HAS A R FA PIV THAT IS SL, A R AVF THAT DOES NOT HAVE A THRILL OR BRUIT, AND A R IJ TRIALYSIS. BED LOCKED AND IN LOWEST POSITION, CALL LIGHT WITHIN REACH. WILL CTM
[2019-12-19 11:22] VITALS: BP 103/58
--- NOTE | 2019-12-19 13:26 | NUR ---
UP AMBULATING IN ROOM. RESO UL ON . GAIT STEADY.
--- NOTE | 2019-12-19 13:37 | NUR ---
UPON ENTERING THE ROOM THE PT STATES SHE IS SHORT OF BREATH. SHE REQUESTED AN INHALER. I EXPLAINED TO HER THE HOSPITAL ISNT CARRYING THEM RN. SPOKE TO BALBINA MIMS, OBTAINED ORDERS FOR ALBUTROL UPD. RESP THERAPY NOTIFIED. WILL CTM
[2019-12-19 14:57] VITALS: BP 97/63
--- NOTE | 2019-12-19 16:35 | NUR ---
PATIENTS SPOUSE TO CALL AND ASK WHY SHE IS "ALL SWOLLEN UP". I EXPLAINED TO HIM THAT DR COWAN JUST SAW THE PATIENT AT THE DESK AND PATIENT HAD ASKED FOR MORE ICE. DR TOLD HER THAT SHE CAN'T KEEP DOING THIS. SPOUSE TELLS ME THAT SHE EATS "LOTS OF ICE, LOTS OF ICE CREAM AND SWEETS AT HOME". STATES THAT SHE IS ALLERGIC TO HYDROCODONE AND THAT MAKES HER ITCH. I LOOKED INTO THE EMAR AND THIS IS NOT LISTED AN ALLERGY. I LISTENED TO HIS CONCERNS AND LET HIM KNOW THAT SHE WAS ON HER WAY TO DIALYSIS. HE ASKED WHY SHE WAS ONLY TOLERATED 2 HOURS A DAY INSTEASD OF 4. I EXPLAINED THAT THE DIALYSIS NURSE LISTENS TO THE PATIENT AND IF THEY CAN NOT TOLERATE 4 HOURS OR STARTS TO CRAMP, THEN THEY STOP. I TOLD HIM I WOULD PASS THESES CONCERNS TO THE DOCTOR. HE THANKED ME AND HUNG UP.
[2019-12-19 18:54] VITALS: BP 91/56
--- NOTE | 2019-12-19 22:00 | NUR ---
PT BACK FROM DIALYSIS, PT AAO X 3, RESP EVEN AND UNLABORED, NO DISTRESS NOTED, CL IN REACH.
--- NOTE | 2019-12-19 22:58 | NUR ---
PT IN DIALYSIS AT THIS TIME.
[2019-12-20] VITALS: BP 97/65
--- NOTE | 2019-12-20 02:00 | NUR ---
PT CONSENTS SIGNED AND WITNESSED AT THIS TIME.
[2019-12-20 04:00] VITALS: BP 93/57
--- NOTE | 2019-12-20 07:30 | NUR ---
REPORT RECIEVED. PT SITTING ON BEDSIDE. RR EVEN AND UNLABORED ON 3L NC. PT IS NPO FOR A PROCEDURE WITH . SHE HAS A R FA PIV THAT IS SL, A RIGHT AVF THAT DOES NOT HAVE A THRILL OR BRUIT, AND A R IJ TRIALYSIS. BED LOCKED AND IN LOWEST POSITION, CALL LIGHT WITHIN REACH. WILL CTM
[2019-12-20 09:34] VITALS: BP 121/66
--- NOTE | 2019-12-20 14:12 | NUR ---
UP SOB WITH CALL LIGHT IN REACH RESP UL ON . RIGHT IJ DIALYSIS CATH INTACT. NO NEDDS VOICED AT THIS TIME.
--- NOTE | 2019-12-20 14:33 | NUR ---
Nutrition Follow-up: ESRD continues on HD MWF. NPO for surgical revision of angioplasty today. Diet: NPO after midnight (previously Renal) PO intake: (previously) 100% x 2 meals recorded on 12/17/19 Last BM: 12/20/19. WT: 130# (12/14/19), no new weight Meds noted: miralax Labs noted (12/18/19): Na 134(L), BUN 42(H), Cr 3.8(H), GFR 16(L), Glu 126(H), PO4 7.3(H) Recommend: -Continue Renal diet, encourage PO intake -MD may consider binder 2/2 hyperphosphatemia -Monitor wt -RD following
[2019-12-20 16:00] VITALS: BP 119/68
--- NOTE | 2019-12-20 19:30 | NUR ---
PT IN DIALYSIS AT THIS TIME.
[2019-12-20 19:47] LABS: BASOPHILS 0.7 % (0-2); EOSINOPHILS 10.1 % (0-7); HEMOGLOBIN 7.7 g/dL (12-16); IMMATURE GRANULOCYTES 0.4 % (0-5); LYMPHOCYTES 15.1 % (15-50); MCH 29.7 pg (26.0-34.0); MCHC 29.6 g/dL (31.0-37.0); MCV 100.4 fL (80.0-100.0); MEAN PLATELET VOLUME 10.3 fL (7.4-10.4); MONOCYTES 9.8 % (2-11); NEUTROPHILS 63.9 % (40-80); PLATELET COUNT 194 10x3/uL (130-400); RBC 2.59 10x6/uL (4.00-5.40); RDW 18.1 % (11.5-14.5); WBC 5.6 10x3/uL (4.8-10.8)
[2019-12-20 20:20] LABS: ANION GAP 10.8 mmol/L (8-16); CALCIUM 8.6 mg/dL (8.5-10.1); CARBON DIOXIDE 27.9 mmol/L (21.0-32.0); CREATININE - SERUM 2.8 mg/dL (0.6-1.3); POTASSIUM - SERUM 3.7 mmol/L (3.5-5.1)
--- NOTE | 2019-12-20 21:00 | NUR ---
HEMODIALYSIS TREATMENT COMPLETED, 4 LITERS REMOVED, PATIENT WAS ADMINISTERED 10MG MIDODRINE UPON INITIATION OF TREATMENT. AVERAGE BP READINGS WERE 90/50'S TOLERATED WELL.
[2019-12-21] VITALS: BP 90/57
[2019-12-21 04:00] VITALS: BP 126/90
--- NOTE | 2019-12-21 07:15 | NUR ---
RECEIVED REPROT, ASSUMED CARE, BREATHING EVEN UNLABORED, CALL LIGHT IN REACH, BED LOWEST POSITION, IV TO RIGHT FOREARM LEAKING RESTARTED IV TO RFA 20G, PREOP MEDS GIVEN , DENIES NEEDS, WILL CONTINUE POC
--- NOTE | 2019-12-21 13:39 | NUR ---
RECEIVED TO FLOOR FROM PACU
--- NOTE | 2019-12-21 19:30 | NUR ---
PT SETTING UP ON SIDE OF BED, RESP EVEN AND UNLABORED. NO DISTRESS NOTED, CL IN REACH, SR UP X 1.
[2019-12-21 20:28] VITALS: BP 81/48
--- NOTE | 2019-12-22 03:25 | NUR ---
I have reviewed this patient and I concur with the Shift Assessment completed by the Licensed Practical Nurse today this shift.
[2019-12-22 05:00] VITALS: BP 111/68
[2019-12-22] MEDS ORDERED: PLAVIX75 MG PO (08:25)
[2019-12-22] MEDS ORDERED: HYDROCODON-ACE1 EA10 PO (08:28)
--- NOTE | 2019-12-22 13:27 | NUR ---
REMOVED TRIALYSIS PER ORDERS. HELD PRESURE FOR 5-7 MINUTES. EDUCATED PATIENT ON THE IMPORTANCE OF BRINGING HER HOME OXYGEN SO THAT SHE CAN BE DISCHARGED SAFETLY. PT STATED THAT SHE CAN MAKE IT HOME WITHOUT OXYGEN BECAUSE SHE WANTED TO LEAVE.
--- NOTE | 2019-12-22 16:20 | MORECARE ---
CASE MANAGEMENT DISCHARGE SUMMARY PATIENT: FELY SQUIRES UNIT: [id number] ADM DATE: 12/13/19 AGE: 54 : 65 SEX: F ROOM/BED: D.2137 AUTHOR: ALEXANDRA JAMES PHYSICIAN: REFERRING PHYSICIAN: RITA LYNN MD DATE OF SERVICE: 12/22/19 Discharge Plan Patient Name: FELY SQUIRES [facility] [facility] 1965 Planned Disposition: Home Anticipated Discharge Date: Discharge Date: 12/22/2019 Expected LOS: Initial Reviewer: [email or web address] Initial Review Date: 12/22/2019 Generated: 12/22/19 5:20 pm Patient Name: FELY SQUIRES Page 44202 at 1620 All edits/amendments must be made on the electronic document DICTATION DATE: 12/22/19 162 CONTENT ADMINISTRATOR: MARYAM 12/22/19 1620 RPT#: [id number] DC DATE:12/22/19 STATUS: DIS IN [facility] [address] [facility] [place] [address] END OF REPORT
--- NOTE | 2019-12-22 16:28 | MORECARE ---
CASE MANAGEMENT DISCHARGE SUMMARY PATIENT: FELY SQUIRES UNIT: [id number] ADM DATE: 12/13/19 AGE: 54 : 65 SEX: F ROOM/BED: D.6851 AUTHOR: ALEXANDRA JAMES PHYSICIAN: REFERRING PHYSICIAN: RITA ARREGUIN MD DATE OF SERVICE: 12/22/19 Discharge Plan Patient Name: FELY SQUIRES Facility: [facility]:[place] : 1965 Planned Disposition: Home Anticipated Discharge Date: Discharge Date: 12/22/2019 Expected LOS: Initial Reviewer: [id number] Initial Review Date: 12/22/2019 Generated: 12/22/19 5:28 pm Comments DCP- Discharge Planning Updated by [email or web address]: Sidra Wilson on 12/22/19 3:[address] Patient Name: FELY SQUIRES Admission Status: ER Accout number: [id number] Admission Date: 12-13-2019 : 1965 Admission Diagnosis: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 CM educated patient on the CM role and verbal consent given by patient to complete assessment. Patient lives at home with her sister. At discharge patient plans to return and feels this is a safe discharge. CM discussed availability of home health, rehab services, and medical equipment. Patient denied known discharge needs at this time. She uses [employer] for her DME company. D/C IMM SIGNED 12/22/19 @ 0920 CM will continue to follow and will assist as needed with dc plans/needs. Shoe Stitcher: Sidra Wilson DCPIA - Discharge Planning Initial Assessment Updated by [email or web address]: Sidra Wilson on 12/22/19 4:23 pm * Is the patient Alert and Oriented? Yes * PCP DR. ARREGUIN * Pharmacy [facility] * Preadmission Environment Home with Family * ADLs Partial Dependent * Other Equipment NEBULIZER, HOME/ PORT 02, WALKER, W/C * List name and contact numbers for known caregivers / representatives who currently or will assist patient after discharge: IVANA WESTBROOK - [phone] * Verbal permission to speak to the caregivers and representatives has been obtained from the patient. Yes * Community resources currently utilized None * Additional services required to return to the preadmission environment? No * Can the patient safely return to the preadmission environment? Yes * Has this patient been hospitalized within the prior 30 days at any hospital? No Coverage Notice Reviewer: [id number] Ezio Wilson Notice Issued Date-Time: 12/22/2019 9:20 Notice Type: IM Discharge Notice Notice Delivered To: Patient Relationship to Patient: Self Spa Experience Coordinator Name: Delivery Method: HAND - Hand Delivered Nicole Days: Prior Verbal Notification: Recipient Understood Notice: Yes Recipient Signature: Yes Med Rec Note Co-signed by Attending: Coverage Notice Comment: Last DP export: 12/22/19 3:20 p Patient Name: FELY SQUIRES Page [id number] at 1628 All edits/amendments must be made on the electronic document DICTATION DATE: 12/22/191627 ENVIRONMENTAL PROTECTION SPECIALIST: MARYAM 12/22/19 1628 RPT#: [id number] DC DATE:12/22/19 STATUS: DIS IN [facility] [address] [place] [address] END OF REPORT
--- NOTE | 2019-12-22 18:06 | MORECARE ---
CASE MANAGEMENT DISCHARGE SUMMARY PATIENT: FELY SQUIRES UNIT: [id number] ADM DATE: 12/13/19 AGE: 54 : 65 SEX: F ROOM/BED: D.9855 AUTHOR: ALEXANDRA JAMES PHYSICIAN: REFERRING PHYSICIAN: RITA ARREGUIN MD DATE OF SERVICE: 12/22/19 Discharge Plan Patient Name: FELY SQUIRES Facility: 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 CM educated patient on the CM role and verbal consent given by patient to complete assessment. Patient lives at home with her sister. At discharge patient plans to return and feels this is a safe discharge. CM discussed availability of home health, rehab services, and medical equipment. Patient denied known discharge needs at this time. She uses [employer] for her DME company. D/C IMM SIGNED 12/22/19 @ 0920 CM will continue to follow and will assist as needed with dc plans/needs. Vault Custodian: Sidra Wilson DCPIA - Discharge Planning Initial Assessment Updated by [email or web address]: Sidra Wilson on 12/22/19 4:23 pm * Is the patient Alert and Oriented? Yes * PCP DR. ARREGUIN * Pharmacy [facility] * Preadmission Environment Home with Family * ADLs Partial Dependent * Other Equipment NEBULIZER, HOME/ PORT 02, WALKER, W/C * List name and contact numbers for known caregivers / representatives who currently or will assist patient after discharge: IVANA WESTBROOK - [phone] * Verbal permission to speak to the caregivers and representatives has been obtained from the patient. Yes * Community resources currently utilized None * Additional services required to return to the preadmission environment? No * Can the patient safely return to the preadmission environment? Yes * Has this patient been hospitalized within the prior 30 days at any hospital? No Coverage Notice Reviewer: [id number] Ezio Wilson Notice Issued Date-Time: 12/22/2019 9:20 Notice Type: IM Discharge Notice Notice Delivered To: Patient Relationship to Patient: Self Wet Pan Operator Name: Delivery Method: HAND - Hand Delivered Nicole Days: Prior Verbal Notification: Recipient Understood Notice: Yes Recipient Signature: Yes Med Rec Note Co-signed by Attending: Coverage Notice Comment: Last DP export: 12/22/19 3:28 p Patient Name: FELY SQUIRES Page 77852 at 1806 All edits/amendments must be made on the electronic document DICTATION DATE: 12/22/191805 MILL DRESSER: MARYAM 12/22/191805 RPT#: [id number] DC DATE:12/22/19 STATUS: DIS IN [facility] [address] [place] [address] END OF REPORT
== END 2019-12-22 13:31 | disposition home or self-care (01) | DRG 252 ==
LOC: D.ER 14:38 → D.M2 15:04
PROVIDERS: Internal Medicine Nephrology; Radiology Diagnostic Radiology; Surgery; ADMIT Internal Medicine Nephrology; ATTEND Internal Medicine Nephrology
PROC: 05HN33Z Insertion of Infusion Device into Left Internal Jugular Vein, Percutaneous Approach (ICD-10-PCS; 2019-12-13)
PROC: B544ZZA Ultrasonography of Left Jugular Veins, Guidance (ICD-10-PCS; 2019-12-13)
PROC: 5A1D70Z Performance of Urinary Filtration, Intermittent, Less than 6 Hours Per Day (ICD-10-PCS; 2019-12-13)
PROC: 05WY3KZ Revision of Nonautologous Tissue Substitute in Upper Vein, Percutaneous Approach (ICD-10-PCS; principal; 2019-12-17 08:15)
PROC: 03U Upper Arteries, Supplement (ICD-10-PCS; 2019-12-21)
PROC: 05CD3ZZ Extirpation of Matter from Right Cephalic Vein, Percutaneous Approach (ICD-10-PCS; 2019-12-21)
PROC: 03CB0ZZ Extirpation of Matter from Right Radial Artery, Open Approach (ICD-10-PCS; 2019-12-21 08:00)
DX: T82.868A Thrombosis due to vascular prosthetic devices, implants and grafts, initial encounter (principal); N18.6 End stage renal disease; I13.2 Hypertensive heart and chronic kidney disease with heart failure and with stage 5 chronic kidney disease, or end stage renal disease; E83.39 Other disorders of phosphorus metabolism; I50.9 Heart failure, unspecified; Z99.2 Dependence on renal dialysis; J44.9 Chronic obstructive pulmonary disease, unspecified

== ENCOUNTER 2020-03-08 21:43 | Inpatient (IN) | payer MEDICARE ==
[~2020-03-08] VITALS: Ht 175.3 cm; Wt 60.8 kg
[2020-03-08 22:44] LABS: BASOPHILS 0.3 % (0-2); HEMATOCRIT 36.9 % (36.0-48.0); IMMATURE GRANULOCYTES 0.8 % (0-5); LYMPHOCYTES 18.3 % (15-50); MCH 29.3 pg (26.0-34.0); MCHC 29.8 g/dL (31.0-37.0); MCV 98.4 fL (80.0-100.0); MEAN PLATELET VOLUME 10.8 fL (7.4-10.4); NEUTROPHILS 67.6 % (40-80); PLATELET COUNT 202 10x3/uL (130-400); RBC 3.75 10x6/uL (4.00-5.40); RDW 16.4 % (11.5-14.5)
[2020-03-08 22:48] LABS: CALC OSMOLALITY 296 mosm/kg (275-300); CALCIUM 8.8 mg/dL (8.5-10.1); CHLORIDE - SERUM 99 mmol/L (98-107); CREATININE - SERUM 9.3 mg/dL (0.6-1.3); GLUCOSE 79 mg/dL (74-106); POTASSIUM - SERUM 5.4 mmol/L (3.5-5.1); SODIUM 137 mmol/L (136-145); UREA NITROGEN 80 mg/dL (7-18); eGFR NON AFRICAN AMERICAN 5 mL/min (90-120)
[2020-03-08 23:06] LABS: ALBUMIN 3.7 g/dL (3.4-5.0); ALKALINE PHOSPHATASE 461 U/L (30-120); ALT (SGPT) 24 U/L (10-68); AMYLASE - SERUM 146 U/L (25-115); CKMB 4.5 U/L (0.0-3.6); CREATINE KINASE 64 UL (21-215); LIPASE 337 U/L (73-393); PROTEIN - SERUM 9.2 g/dL (6.4-8.2)
[2020-03-08 23:10] LABS: INR 1.12 (0.85-1.17); PROTIME 14.4 SECONDS (11.6-15.0)
[2020-03-08 23:12] LABS: PRO BNP 210960 pg/mL (0-125)
[2020-03-08 23:14] LABS: TROPONIN-I 0.089 ng/mL (0.000-0.060)
[2020-03-09 03:06] VITALS: BMI 19.8
[2020-03-09 08:00] LABS: BASOPHILS 0.4 % (0-2); EOSINOPHILS 7.6 % (0-7); HEMATOCRIT 37.3 % (36.0-48.0); HEMOGLOBIN 11.1 g/dL (12-16); IMMATURE GRANULOCYTES 2.5 % (0-5); LYMPHOCYTES 20.2 % (15-50); MCH 30.1 pg (26.0-34.0); MCHC 29.8 g/dL (31.0-37.0); MEAN PLATELET VOLUME 10.7 fL (7.4-10.4); MONOCYTES 7.8 % (2-11); NEUTROPHILS 61.5 % (40-80); RBC 3.69 10x6/uL (4.00-5.40); RDW 16.6 % (11.5-14.5); WBC 4.9 10x3/uL (4.8-10.8)
[2020-03-09 08:02] VITALS: BP 98/51
[2020-03-09 08:11] LABS: MCV 101.1 fL (80.0-100.0); PLATELET COUNT 131 10x3/uL (130-400)
[2020-03-09 08:20] LABS: INR 1.27 (0.85-1.17); PROTIME 15.8 SECONDS (11.6-15.0)
[2020-03-09 08:23] LABS: APTT 46.8 SECONDS (22.8-39.4)
[2020-03-09 10:05] LABS: ALBUMIN 3.6 g/dL (3.4-5.0); BILIRUBIN - TOTAL 0.43 mg/dL (0.2-1.3); CALCIUM 8.6 mg/dL (8.5-10.1); CARBON DIOXIDE 25.6 mmol/L (21.0-32.0); CREATININE - SERUM 9.5 mg/dL (0.6-1.3); TROPONIN-I 0.029 ng/mL (0.000-0.060)
[2020-03-09 10:35] LABS: ANION GAP 18.5 mmol/L (8-16)
[2020-03-09 10:37] LABS: POTASSIUM - SERUM 6.1 mmol/L (3.5-5.1)
[2020-03-09 11:19] VITALS: BP 102/66
[2020-03-09 13:14] VITALS: BMI 19.8
--- NOTE | 2020-03-09 14:29 | NUR ---
PT TRANSFERED TO DIALYSIS. WILL CTM.
--- NOTE | 2020-03-09 19:30 | NUR ---
REVEIVED BEDSIDE REPORT. ROUNDING COMPLETE. PATIENT IS ALERT AND ORIENTED. WALKING BACK AND FORTH BETWEEN HER ROOM AND THE NURSES STATION. RESPIRATIONS ARE EVEN AND UNLABORED. NO S/S OF DISTRESS. NO C/O PAIN. NEEDS MET. CALL LIGHT WITHIN REACH. WILL CPOC.
[2020-03-09 22:45] VITALS: BP 94/57
[2020-03-10 02:12] VITALS: BP 101/69
[2020-03-10 06:14] VITALS: BP 95/71
[2020-03-10 06:32] LABS: BASOPHILS 0.3 % (0-2); EOSINOPHILS 3.6 % (0-7); HEMATOCRIT 34.7 % (36.0-48.0); HEMOGLOBIN 10.2 g/dL (12-16); IMMATURE GRANULOCYTES 0.5 % (0-5); MCH 29.3 pg (26.0-34.0); MCHC 29.4 g/dL (31.0-37.0); MCV 99.7 fL (80.0-100.0); MEAN PLATELET VOLUME 11.4 fL (7.4-10.4); MONOCYTES 9.7 % (2-11); NEUTROPHILS 73.9 % (40-80); RBC 3.48 10x6/uL (4.00-5.40); RDW 16.7 % (11.5-14.5); WBC 5.9 10x3/uL (4.8-10.8)
[2020-03-10 06:47] LABS: PLATELET COUNT 173 10x3/uL (130-400)
[2020-03-10 07:02] LABS: ANION GAP 16.1 mmol/L (8-16); CALCIUM 8.5 mg/dL (8.5-10.1); CARBON DIOXIDE 27.8 mmol/L (21.0-32.0); POTASSIUM - SERUM 5.9 mmol/L (3.5-5.1)
[2020-03-10 07:03] LABS: CREATININE - SERUM 6.2 mg/dL (0.6-1.3)
[2020-03-10 11:00] VITALS: BP 83/48
[2020-03-10 14:38] VITALS: BP 92/59
--- NOTE | 2020-03-10 19:13 | NUR ---
RECEIVED BEDSIDE REPORT. ROUNDING COMPLETE. PATIENT IS ALERT AND ORIENTED, RESTING COMFORTABLY IN BED. RESPIRATIONS ARE EVEN AND UNLABORED. NO S/S OF DISTRESS. NO C/O PAIN. CALL LIGHT WITHIN REACH. WILL CPOC.
[2020-03-10 19:58] VITALS: BP 96/67
[2020-03-11] VITALS: BP 77/45
[2020-03-11 04:00] VITALS: BP 95/60
[2020-03-11 07:14] LABS: BASOPHILS 0.7 % (0-2); HEMATOCRIT 31.7 % (36.0-48.0); HEMOGLOBIN 9.4 g/dL (12-16); IMMATURE GRANULOCYTES 0.2 % (0-5); LYMPHOCYTES 15.5 % (15-50); MCH 29.5 pg (26.0-34.0); MCHC 29.7 g/dL (31.0-37.0); MCV 99.4 fL (80.0-100.0); MEAN PLATELET VOLUME 10.7 fL (7.4-10.4); MONOCYTES 14.9 % (2-11); NEUTROPHILS 65.7 % (40-80); PLATELET COUNT 177 10x3/uL (130-400); RBC 3.19 10x6/uL (4.00-5.40); RDW 16.5 % (11.5-14.5); WBC 5.7 10x3/uL (4.8-10.8)
--- NOTE | 2020-03-11 07:20 | NUR ---
RECIEVE REPORT. ALERT AND ORIENTED X4. SITTING UP IN BED. DENIES ANY NEEDS. NO SIGNS OF DISTRESS. CONTINUE PLAN OF CARE AND SAFETY PRECAUTIONS.
[2020-03-11 07:28] LABS: ANION GAP 15.5 mmol/L (8-16); CALCIUM 9.2 mg/dL (8.5-10.1); CARBON DIOXIDE 26.8 mmol/L (21.0-32.0); PHOSPHOROUS 6.9 mg/dL (2.5-4.9)
[2020-03-11 07:33] LABS: CREATININE - SERUM 4.2 mg/dL (0.6-1.3); POTASSIUM - SERUM 4.3 mmol/L (3.5-5.1)
[2020-03-11 10:52] VITALS: BP 90/53
--- NOTE | 2020-03-11 11:37 | MORECARE ---
CASE MANAGEMENT DISCHARGE SUMMARY PATIENT: FELY SQUIRES UNIT: [id number] ADM DATE: 03/08/20 AGE: 54 : 65 SEX: F ROOM/BED: D.[facility]3 AUTHOR: ALEXANDRA JAMES PHYSICIAN: REFERRING PHYSICIAN: RITU WYNN MD DATE OF SERVICE: 03/11/20 Discharge Plan Patient Name: FELY SQUIRES [facility] [facility] 1965 Planned Disposition: Home Anticipated Discharge Date: Discharge Date: Expected LOS: Initial Reviewer: [email or web address] Initial Review Date: 03/11/2020 Generated: 03/11/20 12:37 pm Comments DCP- Discharge Planning Updated by [email or web address]: Marika Quarles on 03/10/20 3:[address] Attempt to interview for DC needs, but patient is in HD. patient is a client of [facility], M/W/F @1145. Patient Name: FELY SQUIRES Page [phone] at 1137 All edits/amendments must be made on the electronic document DICTATION DATE: 03/11/20 1137 SENIOR TECHNICAL BUSINESS ANALYST: MARYAM 03/11/20 1137 RPT#: [id number] DC DATE: STATUS: ADM IN [facility] [address] [place] [address] END OF REPORT
--- NOTE | 2020-03-11 11:45 | MORECARE ---
CASE MANAGEMENT DISCHARGE SUMMARY PATIENT: FELY SQUIRES UNIT: [id number] ADM DATE: 03/08/20 AGE: 54 : 65 SEX: F ROOM/BED: D.[facility] AUTHOR: ALEXANDRA JAMES PHYSICIAN: REFERRING PHYSICIAN: RITU WYNN MD DATE OF SERVICE: 03/11/20 Discharge Plan Patient Name: FELY SQUIRES Facility: [facility]:[place] : 1965 Planned Disposition: Home Anticipated Discharge Date: Discharge Date: Expected LOS: Initial Reviewer: [email or web address] Initial Review Date: 03/11/2020 Generated: 03/11/20 12:44 pm Comments DCP- Discharge Planning Updated by [email or web address]: Paula Gunn on 03/11/20 10:[address] Patient Name: FELY SQUIRES Admission Status: ER Accout number: [id number] Admission Date: 03-08-2020 : 1965 Admission Diagnosis:SHORTNESS OF BREATH Attending: RITU WYNN Current LOS: 3 Anticipated DC Date: Planned Disposition: Home Primary Insurance: MEDICARE A & B Discharge Planning Comments: CM met with patient to complete initial dc planning assessment. CM educated patient on the CM role and verbal consent given by patient to complete assessment. Patient lives at home with her sister. At discharge patient plans to return and feels this is a safe discharge. CM discussed availability of home health, rehab services, and medical equipment. Patient denied known discharge needs at this time. She dialyzes MWF at [facility] at 11:45 chair time. States she either drives herself or her sister takes her. States her sister will transport her home on discharge. She uses [employer] for her oxygen needs and wears oxygen at 3 liters NC at home. CM will continue to follow and will assist as needed with dc plans/needs. Print Inspector: Paula Gunn DCP- Discharge Planning Updated by [email or web address]: Marika Quarles on 03/10/20 3:[address] Attempt to interview for DC needs, but patient is in HD. patient is a client of [facility], M/W/F @1145. DCPIA - Discharge Planning Initial Assessment Updated by [email or web address]: Paula Gunn on 03/11/20 11:38 am * Is the patient Alert and Oriented? Yes * PCP Dr. Wynn * Pharmacy [facility] * Preadmission Environment Home with Family * ADLs Partial Dependent * Partial ADLs (Assistance needed) Ambulation * Equipment Nebulizer Other Oxygen Walker Wheelchair * Other Equipment Portable oxygen * List name and contact numbers for known caregivers / representatives who currently or will assist patient after discharge: Veronica Abarca - - [phone] * Verbal permission to speak to the caregivers and representatives has been obtained from the patient. Yes * Community resources currently utilized Other * Please name any agencies selected above. Dialysis MWF at [facility] at 11:45 * Additional services required to return to the preadmission environment? No * Can the patient safely return to the preadmission environment? Yes * Has this patient been hospitalized within the prior 30 days at any hospital? No Last DP export: 03/11/20 10:37 a Patient Name: FELY SQUIRES Page 88887 at 1145 All edits/amendments must be made on the electronic document DICTATION DATE: 03/11/20 1144 BUSINESS PROCESS EXPERT: MARYAM 03/11/20 1144 RPT#: [id number] DC DATE: STATUS: ADM IN [facility] [address] [place] [address] END OF REPORT
[2020-03-11 13:05] VITALS: Ht 175.3 cm; Wt 60.8 kg
[2020-03-11 14:54] VITALS: BP 89/56
--- NOTE | 2020-03-11 19:29 | NUR ---
RECEIVED BEDSIDE REPORT. ROUNDING COMPLETE. PATIENT IS ALERT AND ORIENTED, SITTING UP ON SIDE OF BED RECEIVING SCHEDULED BREATHING TREATMENT. NO S/S OF DISTRESS. NO C/O PAIN. CALL LIGHT WITHIN REACH. WILL CPOC.
[2020-03-11 20:00] VITALS: BP 110/65
[2020-03-12] VITALS: BP 109/58
[2020-03-12 04:00] VITALS: BP 108/65
[2020-03-12 06:08] LABS: BASOPHILS 0.4 % (0-2); HEMATOCRIT 32.1 % (36.0-48.0); HEMOGLOBIN 9.4 g/dL (12-16); IMMATURE GRANULOCYTES 0.2 % (0-5); LYMPHOCYTES 14.5 % (15-50); MCH 28.9 pg (26.0-34.0); MCHC 29.3 g/dL (31.0-37.0); MCV 98.8 fL (80.0-100.0); MEAN PLATELET VOLUME 10.8 fL (7.4-10.4); MONOCYTES 12.4 % (2-11); NEUTROPHILS 67.5 % (40-80); PLATELET COUNT 194 10x3/uL (130-400); RBC 3.25 10x6/uL (4.00-5.40); RDW 16.5 % (11.5-14.5); WBC 5.2 10x3/uL (4.8-10.8)
[2020-03-12 06:29] LABS: ANION GAP 15.2 mmol/L (8-16); CARBON DIOXIDE 27.5 mmol/L (21.0-32.0); PHOSPHOROUS 8.3 mg/dL (2.5-4.9); POTASSIUM - SERUM 4.7 mmol/L (3.5-5.1)
[2020-03-12 06:36] LABS: CREATININE - SERUM 5.5 mg/dL (0.6-1.3)
[2020-03-12 08:10] VITALS: BP 101/62
[2020-03-12 11:44] VITALS: BP 101/62; BP 120/73
--- NOTE | 2020-03-12 12:38 | NUR ---
Nutrition Follow-up: Pt reports good appetite and that she ate >50% of breakfast this AM. Drinking ~2 Nepro/day. Denies N/V. HD TTS. Diet: Renal Wt: 134# (03/09) Last BM: 03/12 Labs noted: Na 129, K+ 4.7, PO4 8.3 Meds noted: Renagel, Protonix, Zofran -Encourage PO intake and honor food preferences within diet restrictions. -Need new wt if possible; noted daily wts ordered. -RD following.
[2020-03-12 20:21] VITALS: BP 94/88
[2020-03-13] VITALS: BP 107/62
[2020-03-13 06:42] LABS: BASOPHILS 0.5 % (0-2); EOSINOPHILS 4.2 % (0-7); HEMATOCRIT 31.1 % (36.0-48.0); HEMOGLOBIN 9.2 g/dL (12-16); IMMATURE GRANULOCYTES 0.2 % (0-5); LYMPHOCYTES 11.3 % (15-50); MCH 29.1 pg (26.0-34.0); MCHC 29.6 g/dL (31.0-37.0); MCV 98.4 fL (80.0-100.0); MEAN PLATELET VOLUME 11.1 fL (7.4-10.4); MONOCYTES 12.7 % (2-11); NEUTROPHILS 71.1 % (40-80); PLATELET COUNT 183 10x3/uL (130-400); RBC 3.16 10x6/uL (4.00-5.40); RDW 16.3 % (11.5-14.5); WBC 5.7 10x3/uL (4.8-10.8)
[2020-03-13 07:09] LABS: ANION GAP 15.7 mmol/L (8-16); CALCIUM 8.8 mg/dL (8.5-10.1); CARBON DIOXIDE 26.7 mmol/L (21.0-32.0); CREATININE - SERUM 4.8 mg/dL (0.6-1.3); PHOSPHOROUS 6.2 mg/dL (2.5-4.9); POTASSIUM - SERUM 4.4 mmol/L (3.5-5.1)
[2020-03-13 09:18] LABS: APTT 54.1 SECONDS (22.8-39.4); INR 1.08 (0.85-1.17); PROTIME 13.9 SECONDS (11.6-15.0)
--- NOTE | 2020-03-13 09:44 | NUR ---
ATTEMPTED TO START 20GA X'S 3 STICKS W/O SUCCESS. PT'S NURSE NOTIFIED.
[2020-03-13 09:52] VITALS: BP 119/67; BP 119/69
--- NOTE | 2020-03-13 12:58 | NUR ---
PATIENT HAS TO HAVE A 20G IV FOR CTA TODAY AND WE ARE HAVING TROUBLE GETTING IV PLACEMENT. I HAVE CALLED VASCULAR ACCESS BUT DID NOT GET AN ANSWER. WILL TRY TO CALL ICU. MULTIPLE PEOPLE HAVE TRIED AND ARE UNSUCCESSFUL.
[2020-03-13 14:28] VITALS: BP 111/73
[2020-03-13 21:41] VITALS: BP 140/84
[2020-03-14 04:40] VITALS: BP 122/66
[2020-03-14 06:03] LABS: BASOPHILS 0.4 % (0-2); HEMATOCRIT 31.3 % (36.0-48.0); HEMOGLOBIN 9.2 g/dL (12-16); LYMPHOCYTES 12.8 % (15-50); MCH 28.6 pg (26.0-34.0); MCHC 29.4 g/dL (31.0-37.0); MCV 97.2 fL (80.0-100.0); MEAN PLATELET VOLUME 10.3 fL (7.4-10.4); NEUTROPHILS 64.8 % (40-80); PLATELET COUNT 161 10x3/uL (130-400); RBC 3.22 10x6/uL (4.00-5.40); RDW 16.1 % (11.5-14.5); WBC 5.2 10x3/uL (4.8-10.8)
[2020-03-14 06:47] LABS: ANION GAP 15.5 mmol/L (8-16); CALCIUM 8.7 mg/dL (8.5-10.1); CARBON DIOXIDE 28.4 mmol/L (21.0-32.0); POTASSIUM - SERUM 4.9 mmol/L (3.5-5.1)
[2020-03-14 06:48] LABS: CREATININE - SERUM 6.2 mg/dL (0.6-1.3)
[2020-03-14 10:30] VITALS: BP 94/57
[2020-03-14 15:00] VITALS: BP 110/68
[2020-03-14 21:42] VITALS: BP 92/56
[2020-03-15 01:49] VITALS: BP 90/58
[2020-03-15 05:39] VITALS: BP 103/62
[2020-03-15 17:41] VITALS: BP 112/60
[2020-03-15 21:30] VITALS: BP 111/66
[2020-03-16 04:35] VITALS: BP 122/71
[2020-03-16 07:34] LABS: ANION GAP 14.9 mmol/L (8-16); CALCIUM 8.8 mg/dL (8.5-10.1); CARBON DIOXIDE 26.9 mmol/L (21.0-32.0); CREATININE - SERUM 5.9 mg/dL (0.6-1.3); POTASSIUM - SERUM 4.8 mmol/L (3.5-5.1)
[2020-03-16 07:48] LABS: BASOPHILS 0.5 % (0-2); EOSINOPHILS 5.7 % (0-7); HEMATOCRIT 31.2 % (36.0-48.0); HEMOGLOBIN 9.3 g/dL (12-16); LYMPHOCYTES 18.9 % (15-50); MCH 28.9 pg (26.0-34.0); MCHC 29.8 g/dL (31.0-37.0); MCV 96.9 fL (80.0-100.0); MONOCYTES 17.1 % (2-11); NEUTROPHILS 57.8 % (40-80); RBC 3.22 10x6/uL (4.00-5.40); RDW 16.2 % (11.5-14.5)
[2020-03-16 07:55] LABS: PLATELET COUNT 195 10x3/uL (130-400)
[2020-03-16 09:39] VITALS: BP 121/67
--- NOTE | 2020-03-16 13:26 | NUR ---
PT DISCHARGED HOME VIA WHEELCHAIR WITH TAXI. PIV REMOVED WITH CATHETER TIP FULLY INTACT. PT SIGNED PROPER DISCHARGE INSTRUCTIONS AND REMOVED ALL VALUABLES FROM THE ROOM.
--- NOTE | 2020-03-16 13:45 | MORECARE ---
CASE MANAGEMENT DISCHARGE SUMMARY PATIENT: FELY COREAS UNIT: [id number] ADM DATE: 03/08/20 AGE: 54 : 65 SEX: F ROOM/BED: D.6773 AUTHOR: ALEXANDRA JAMES PHYSICIAN: REFERRING PHYSICIAN: RITU WYNN MD DATE OF SERVICE: 03/16/20 Discharge Plan Patient Name: FELY COREAS Facility: [facility]:[place] : 1965 Planned Disposition: Home Anticipated Discharge Date: Discharge Date: 03/16/2020 Expected LOS: Initial Reviewer: [email or web address] Initial Review Date: 03/11/2020 Generated: 03/16/20 2:44 pm Comments DCP- Discharge Planning Updated by [email or web address]: Marika Quarles on 03/16/20 12:[address] CM met with patient for DC planning. Patient agrees wit same. PCP: Kallie. Pharmacy: [facility]. DME: Nebulizer, home O2, portable O2, walker, w/c. patient lives independently with her sister, Nancy borja ([phone]). CM discussed HHS, SNF, Rehab with patient, but she declines any of these services. DCP- Discharge Planning Updated by [email or web address]: Paula Gunn on 03/11/20 10:[address] Patient Name: FELY COREAS Admission Status: ER Accout number: [id number] Admission Date: 03-08-2020 : 1965 Admission Diagnosis:SHORTNESS OF BREATH Attending: RITU WYNN Current LOS: 3 Anticipated DC Date: Planned Disposition: Home Primary Insurance: MEDICARE A & B Discharge Planning Comments: CM met with patient to complete initial dc planning assessment. CM educated patient on the CM role and verbal consent given by patient to complete assessment. Patient lives at home with her sister. At discharge patient plans to return and feels this is a safe discharge. CM discussed availability of home health, rehab services, and medical equipment. Patient denied known discharge needs at this time. She dialyzes MWF at [facility] at 11:45 chair time. States she either drives herself or her sister takes her. States her sister will transport her home on discharge. She uses [employer] for her oxygen needs and wears oxygen at 3 liters [place] at home. CM will continue to follow and will assist as needed with dc plans/needs. Screening Representative: Paulahanny Gunn DCP- Discharge Planning Updated by [email or web address]: Marika Quarles on 03/10/20 3:[address] Attempt to interview for DC needs, but patient is in HD. patient is a client of [facility], M/W/F @1145. DCPIA - Discharge Planning Initial Assessment Updated by [email or web address]: Paula Gunn on 03/11/20 11:38 am * Is the patient Alert and Oriented? Yes * PCP Dr. Wynn * Pharmacy [facility] on [address] * Preadmission Environment Home with Family * ADLs Partial Dependent * Partial ADLs (Assistance needed) Ambulation * Equipment Nebulizer Other Oxygen Walker Wheelchair * Other Equipment Portable oxygen * List name and contact numbers for known caregivers / representatives who currently or will assist patient after discharge: Veronica Borja [facility] [phone] * Verbal permission to speak to the caregivers and representatives has been obtained from the patient. Yes * Community resources currently utilized Other * Please name any agencies selected above. Dialysis MWF at [facility] at 11:45 * Additional services required to return to the preadmission environment? No * Can the patient safely return to the preadmission environment? Yes * Has this patient been hospitalized within the prior 30 days at any hospital? No Coverage Notice Reviewer: [id number] - Marika Quarles Notice Issued Date-Time: 03/16/2020 13:22 Notice Type: IM Discharge Notice Notice Delivered To: Patient Relationship to Patient: Self Corporate Security Officer Name: Nury Coreas Delivery Method: HAND - Hand Delivered Nicole Days: Prior Verbal Notification: Recipient Understood Notice: Yes Recipient Signature: Yes Med Rec Note Co-signed by Attending: Coverage Notice Comment: DC IMM Last DP export: 03/11/20 10:45 a Patient Name: FELY COREAS Page 10423 at 1345 All edits/amendments must be made on the electronic document DICTATION DATE: 03/16/20 1344 MOTORCYCLE TECHNICIAN: MARYAM 03/16/20 1344 RPT#: [id number] DC DATE:03/16/20 STATUS: DIS IN [place] [id number] [place] [address] END OF REPORT
--- NOTE | 2020-03-16 17:31 | MORECARE ---
CASE MANAGEMENT DISCHARGE SUMMARY PATIENT: FELY COREAS UNIT: [id number] ADM DATE: 03/08/20 AGE: 54 : 65 SEX: F ROOM/BED: D.6683 AUTHOR: ALEXANDRA JAMES PHYSICIAN: REFERRING PHYSICIAN: RITU WYNN MD DATE OF SERVICE: 03/16/20 Discharge Plan Patient Name: FELY COREAS Facility: [facility]:[place] : 1965 Planned Disposition: Home Anticipated Discharge Date: 03/16/20 Discharge Date: 03/16/2020 Expected LOS: 8 Initial Reviewer: [email or web address] Initial Review Date: 03/11/2020 Generated: 03/16/20 6:31 pm Comments DCP- Discharge Planning Updated by [email or web address]: Marika Quarles on 03/16/20 12:[address] CM met with patient for DC planning. Patient agrees wit same. PCP: Kallie. Pharmacy: [facility] [place]. DME: Nebulizer, home O2, portable O2, walker, w/c. patient lives independently with her sister, Nancy borja ([phone]). CM discussed HHS, SNF, Rehab with patient, but she declines any of these services. DCP- Discharge Planning Updated by [email or web address]: Paula Gunn on 03/11/20 10:[address] Patient Name: FELY COREAS Admission Status: ER Accout number: [id number] Admission Date: 03-08-2020 : 1965 Admission Diagnosis:SHORTNESS OF BREATH Attending: RITU WYNN Current LOS: 3 Anticipated DC Date: Planned Disposition: Home Primary Insurance: MEDICARE A & B Discharge Planning Comments: CM met with patient to complete initial dc planning assessment. CM educated patient on the CM role and verbal consent given by patient to complete assessment. Patient lives at home with her sister. At discharge patient plans to return and feels this is a safe discharge. CM discussed availability of home health, rehab services, and medical equipment. Patient denied known discharge needs at this time. She dialyzes MWF at [facility] at 11:45 chair time. States she either drives herself or her sister takes her. States her sister will transport her home on discharge. She uses [employer] for her oxygen needs and wears oxygen at 3 liters NC at home. CM will continue to follow and will assist as needed with dc plans/needs. Box Storage Worker: Paula Barrerabrandon DCP- Discharge Planning Updated by [email or web address]: Marika Quarles on 03/10/20 3:[address] Attempt to interview for DC needs, but patient is in HD. patient is a client of [facility], M/W/F @1145. DCPIA - Discharge Planning Initial Assessment Updated by [email or web address]: Paula Gunn on 03/11/20 11:38 am * Is the patient Alert and Oriented? Yes * PCP Dr. Wynn * Pharmacy [facility] [address] * Preadmission Environment Home with Family * ADLs Partial Dependent * Partial ADLs (Assistance needed) Ambulation * Equipment Nebulizer Other Oxygen Walker Wheelchair * Other Equipment Portable oxygen * List name and contact numbers for known caregivers / representatives who currently or will assist patient after discharge: Veronica Borja [facility] [phone] * Verbal permission to speak to the caregivers and representatives has been obtained from the patient. Yes * Community resources currently utilized Other * Please name any agencies selected above. Dialysis MWF at [facility] at 11:45 * Additional services required to return to the preadmission environment? No * Can the patient safely return to the preadmission environment? Yes * Has this patient been hospitalized within the prior 30 days at any hospital? No Coverage Notice Reviewer: [id number] - Marika Quarles Notice Issued Date-Time: 03/16/2020 13:22 Notice Type: IM Discharge Notice Notice Delivered To: Patient Relationship to Patient: Self Chronograph Operator Name: Nury Coreas Delivery Method: HAND - Hand Delivered Nicole Days: Prior Verbal Notification: Recipient Understood Notice: Yes Recipient Signature: Yes Med Rec Note Co-signed by Attending: Coverage Notice Comment: DC IMM Last DP export: 03/16/20 12:45 p Patient Name: FELY COREAS Page [id number] at 1731 All edits/amendments must be made on the electronic document DICTATION DATE: 03/16/201730 GROUNDS RESTORATION SPECIALIST: MARYAM 03/16/201730 RPT#: [id number] DC DATE:03/16/20 STATUS: DIS IN [facility] [address] [place] [address] END OF REPORT
== END 2020-03-16 13:29 | disposition home or self-care (01) | DRG 291 ==
LOC: D.ER 21:43 → D.M2 23:53
PROVIDERS: Family Medicine; Internal Medicine Nephrology; Radiology Diagnostic Radiology; ADMIT Internal Medicine Nephrology; ATTEND Internal Medicine Nephrology
PROC: 5A1D70Z Performance of Urinary Filtration, Intermittent, Less than 6 Hours Per Day (ICD-10-PCS; principal; 2020-03-09)
DX: I13.2 Hypertensive heart and chronic kidney disease with heart failure and with stage 5 chronic kidney disease, or end stage renal disease (principal); N18.6 End stage renal disease; I50.9 Heart failure, unspecified; Z99.2 Dependence on renal dialysis; D63.1 Anemia in chronic kidney disease; I95.9 Hypotension, unspecified; E03.9 Hypothyroidism, unspecified; E83.39 Other disorders of phosphorus metabolism; M54.5 Low back pain; E87.5 Hyperkalemia